=== PATIENT | male | born 1925 | race Caucasian/White ===

== ENCOUNTER 2017-09-11 17:02 | Inpatient (IN) | payer OTHER ==
[2017-09-11 17:31] VITALS: BMI 20.2
[2017-09-11 18:02] LABS: BASO % 0.8 % (0-2.0); EOS % 1.5 % (0-4.5); HEMATOCRIT 29.1 % (35.4-49); HEMOGLOBIN 9.3 GM/dL (11.7-16.9); LYMPH % 13.6 % (8-40); MCH 30.2 pg (25.7-33.7); MEAN CELL VOLUME 94.1 fl (80-96); MEAN PLT VOLUME 9.1 fl (7.5-11.1); MONO % 13.1 % (3.8-10.2); PLATELET COUNT 141 K/MM3 (134-434); RBC 3.09 M/mm3 (4.00-5.60); RDW 18.7 % (11.9-15.9); WHITE BLOOD COUNT 4.5 K/mm3 (4.0-10.0)
[2017-09-11] MEDS ORDERED: ATROPINE SULFATE 1 MG/10 ML DISP.SYRIN ONE (18:03)
[2017-09-11] MEDS ORDERED: SODIUM CHLORIDE 0.9% 1000 ML INFUS.BAG IV STA (18:22)
[2017-09-11 18:42] LABS: ALBUMIN 3.2 g/dl (3.4-5.0); ANION GAP 6 (8-16); BILIRUBIN,TOTAL 0.5 mg/dL (0.2-1.0); BLOOD UREA NITROGEN 26 mg/dL (7-18); CHLORIDE 107 mmol/L (98-107); CO2 27 mmol/L (21-32); CREATININE 1.1 mg/dL (0.7-1.3); GLUCOSE,RANDOM 85 mg/dL (74-106); POTASSIUM 4.5 mmol/L (3.5-5.1); SGOT/AST 34 U/L (15-37); SGPT/ALT 26 U/L (12-78); SODIUM 140 mmol/L (136-145); TOT PROT 6.5 g/dl (6.4-8.2)
[2017-09-11 18:44] LABS: ALK PHOS 81 U/L (45-117)
[2017-09-11] MEDS ORDERED: ATROPINE SO4 0.4 MG/1 ML VIAL IVPUSH ONE (18:50)
[2017-09-11 18:59] LABS: URINE APPEARANCE CLOUDY; URINE BILIRUBIN NEGATIVE (NEGATIVE); URINE BLOOD 3+ (NEGATIVE); URINE COLOR DKYELLOW; URINE GLUCOSE (UA) NEGATIVE (NEGATIVE); URINE KETONE NEGATIVE (NEGATIVE); URINE LEUK ESTERASE NEGATIVE (NEGATIVE); URINE NITRITE POSITIVE (NEGATIVE)
--- NOTE | 2017-09-11 19:06 | PDOC ---
History of Present Illness - General Chief Complaint: Altered Mental Status Stated Complaint: AMS Time Seen by Provider: 09/11/17 17:27 History Source: EMS Exam Limitations: Dementia - History of Present Illness Initial Comments: This is an 89 YOM with h/o dementia (on Aricept), A-fib (on Xarelto), HTN (on Amlodipine), CHF (on Lasix), COPD (DuoNebs prn), anemia (on iron), skin ulceration on his LLE, who was BIBA from [facility] for increased agitation with staff members there. Staff administered 0.5mg Ativan and called 911 to have him brought to the ED. The EMS vitals on scene were BP 105/69, HR 73 , T 97.6, O2, 95%, RR 16. The patient himself arrives lethargic and responsive only to sternal rub. Past History - Past Medical History Allergies/Adverse Reactions: Allergies Allergy/AdvReac Type Severity Reaction Status Date / Time No Known Allergies Allergy Verified 09/11/17 17:24 Cardiac Disorders: Yes (afib) COPD: No Dementia: Yes - Suicide/Smoking/Psychosocial Hx Smoking History: Unknown if ever smoked Have you smoked in the past 12 months: No Information on smoking cessation initiated: No Hx Alcohol Use: No Drug/Substance Use Hx: No Substance Use Type: None *Physical Exam - Vital Signs Last Vital Signs Temp Pulse Resp BP Pulse Ox 98 F 68 17 131/68 98 09/11/17 17:25 09/11/17 18:40 09/11/17 18:40 09/11/17 18:40 09/11/17 18:40 ED Treatment Course - LABORATORY CBC & Chemistry Diagram: 09/11/17 17:03 09/11/17 17:03 - ADDITIONAL ORDERS Additional order review: Laboratory Results 09/11/17 09/11/17 09/11/17 17:50 17:50 17:03 PT with INR INR Sodium 140 Potassium 4.5 Chloride 107 Carbon Dioxide 27 Anion Gap 6 L BUN 26 H Creatinine 1.1 Creat Clearance w eGFR > 60 POC Glucometer 120.42137 Random Glucose 85 Calcium 8.0 L Total Bilirubin 0.5 AST 34 ALT 26 Alkaline Phosphatase 81 Creatine Kinase 177 Troponin I 0.03 Total Protein 6.5 Albumin 3.2 L TSH 2.94 09/11/17 17:03 PT with INR Cancelled INR Cancelled Sodium Potassium Chloride Carbon Dioxide Anion Gap BUN Creatinine Creat Clearance w eGFR POC Glucometer Random Glucose Calcium Total Bilirubin AST ALT Alkaline Phosphatase Creatine Kinase Troponin I Total Protein Albumin TSH 09/11/17 09/11/17 17:50 17:03 RBC 3.09 L MCV 94.1 MCHC 32.0 RDW 18.7 H MPV 9.1 Neutrophils % 71.0 Lymphocytes % 13.6 Monocytes % 13.1 H Eosinophils % 1.5 Basophils % 0.8 POC Glucometer 120.48505 - RADIOLOGY Radiology Studies Ordered: Category Date Time Status CHEST X-RAY PORTABLE* [RAD] Stat Radiology 09/11/17 17:27 Ordered - Medications Given in the ED: ED Medications Discontinued Medications Generic Name Dose Route Start Last Admin Trade Name Freq PRN Reason Stop Dose Admin Sodium Chloride 1,706 ml 09/11/17 18:22 09/11/17 18:38 Normal Saline - 30 ml/kg (1706 ml) 09/11/17 18:23 1,706 ml IV Administration ONCE STA *DC/Admit/Observation/Transfer - Referrals Referrals: Jerel Bartlett MD [Primary Care Provider] - - Patient Instructions - Post Discharge Activity
--- NOTE | 2017-09-11 19:17 | PDOC ---
*Physical Exam - Vital Signs Last Vital Signs Temp Pulse Resp BP Pulse Ox 98 F 68 17 131/68 98 09/11/17 17:25 09/11/17 18:40 09/11/17 18:40 09/11/17 18:40 09/11/17 18:40 - Physical Exam Comments: 09/11/17 23:00 GENERAL: Awake, alert, and disoriented . HEAD: No signs of trauma, normocephalic, atraumatic EYES: PERRLA, EOMI, sclera anicteric, conjunctiva clear ENT: Auricles normal inspection, hearing grossly normal, nares patent, oropharynx clear without exudates. Moist mucosa NECK: Normal ROM, supple, no lymphadenopathy, JVD, or masses LUNGS: No distress, speaks full sentences, clear to auscultation bilaterally HEART: Irregular rate and rhythm, normal S1 and S2, no murmurs, rubs or gallops , peripheral pulses normal and equal bilaterally. ABDOMEN: Soft, Suprapubic ttp. normoactive bowel sounds. No guarding, no rebound. No masses. Neg CVA ttp. Absent rigidity. EXTREMITIES : Normal inspection, Normal range of motion, no edema. No clubbing or cyanosis. NEUROLOGICAL: Cranial nerves II through XII grossly intact. Normal speech, normal gait, no focal sensorimotor deficits SKIN: Warm, Dry, normal turgor, no rashes or lesions noted. ED Treatment Course - LABORATORY CBC & Chemistry Diagram: 09/11/17 17:03 09/11/17 17:03 - ADDITIONAL ORDERS Additional order review: Laboratory Results 09/11/17 09/11/17 09/11/17 17:50 17:50 17:03 PT with INR INR Sodium 140 Potassium 4.5 Chloride 107 Carbon Dioxide 27 Anion Gap 6 L BUN 26 H Creatinine 1.1 Creat Clearance w eGFR > 60 POC Glucometer 120.03938 Random Glucose 85 Calcium 8.0 L Total Bilirubin 0.5 AST 34 ALT 26 Alkaline Phosphatase 81 Creatine Kinase 177 Creatine Kinase Index 3.7 CK-MB (CK-2) 6.598 H Troponin I 0.03 Total Protein 6.5 Albumin 3.2 L TSH 2.94 09/11/17 17:03 PT with INR Cancelled INR Cancelled Sodium Potassium Chloride Carbon Dioxide Anion Gap BUN Creatinine Creat Clearance w eGFR POC Glucometer Random Glucose Calcium Total Bilirubin AST ALT Alkaline Phosphatase Creatine Kinase Creatine Kinase Index CK-MB (CK-2) Troponin I Total Protein Albumin TSH 09/11/17 09/11/17 17:50 17:03 RBC 3.09 L MCV 94.1 MCHC 32.0 RDW 18.7 H MPV 9.1 Neutrophils % 71.0 Lymphocytes % 13.6 Monocytes % 13.1 H Eosinophils % 1.5 Basophils % 0.8 POC Glucometer 120.94981 - Medications Given in the ED: ED Medications Discontinued Medications Generic Name Dose Route Start Last Admin Trade Name Althea PRN Reason Stop Dose Admin Sodium Chloride 1,706 ml 09/11/17 18:22 09/11/17 18:38 Normal Saline - 30 ml/kg (1706 ml) 09/11/17 18:23 1,706 ml IV Administration ONCE STA Medical Decision Making - Medical Decision Making 09/11/17 19:[address] Mcneil 89 yo M with h/o Alzheimers dementia, HTN, A-fib ( anticoagulation), who arrives from [facility] with increased agitation s/p 0.5 mg Ativan, who arrives with HR~30's after being found only responsive to sternal . On physical exam large amount of BRB in briefs. ED Course so far atropine ( 0.5mg ), with no improvement. Pt. stable. Labs and head CT pending. Will consult cardiology. Hospitalist covers for [facility]. ED Course: 09/11/17 19:38 CBC, CMP: Unremarkable UA:3+ blood, Nitrite + , 137 WBC, 432 rbc EKG: A-fib, with diffuse PVC's . 09/11/17 23:09 Pt. Admitted to Tele inpatient per Dr. Amanda Hines. *DC/Admit/Observation/Transfer Diagnosis at time of Disposition: Bradycardia, Sepsis secondary to UTI - Discharge Dispostion Admit: Yes - Referrals Referrals: Jerel Bartlett MD [Primary Care Provider] - - Patient Instructions - Post Discharge Activity
--- NOTE | 2017-09-11 19:24 | PDOC ---
Attending Attestation - Resident Resident Name: mAisha Mcneil - ED Attending Attestation I have performed the following: I have examined & evaluated the patient, The case was reviewed & discussed with the resident, I agree w/resident's findings & plan, Exceptions are as noted - Physicial Exam PE: 09/11/17 19:20 Patient is frail-appearing, afebrile, bradycardic; patient localizes to sternal rub nc, atr mm-dry cta Bradycardic, irregularly irregular; sft, nt, nd no obvious deformity; - Medical Decision Making 09/11/17 19:22 Patient is a frail-appearing 89-year-old male for to the ER from [facility] for agitation. Patient received Ativan prior to arrival. In the ER , patient is lethargic, localizes to sternal rub, afebrile, with heart rate noted to be in the high 30s/low 40s. EKG reveals atrial fibrillation with an underlying rhythm of 44 with infrequent ventricular ectopy. Differential diagnoses includes sepsis versus ACS versus polypharmacy. There is no evidence that patient is on digoxin/beta román/calcium channel román. A trial of atropine failed to increase the patient's heart rate. There is no indication for transcutaneous pacing at this time of the patient's blood pressure has maintained above 120s over 80s. Transcutaneous pacemaker is available at bedside. We'll judiciously hydrate. We'll obtain CBC/CMP/cardiac profile/UA/ urine culture. Will obtain CT of head to rule out intracranial hemorrhage. We' ll consider dopamine/epinephrine if the patient's clinical condition deteriorates. Will consult cardiology for transvenous pacemaker placement. Will reassess. Likely admission. 09/11/17 20:00 Patient reassessed. Patient is appearing more awake, nonverbal, doesn't follow commands, attempting to remove Brown catheter and get off the stretcher. Verbal intervention is failed to stop the patient's actions. Wrist restraints and a fast have been applied for prevention of self-harm. Heart rate is noted to be 78. Rhythm strip reveals ventricular bigeminy. Awaiting head CT. <Franki Bergman - Last Filed: 09/11/17 20:00> - HPI HPI: 09/11/17 19:31 The patient is an 89 year old male with significant history of hypertension, atrial fibrillation, CHF, and dementia sent from [facility] after becoming agitated today. Per CT records, the patient was given Ativan for his agitation prior to be sent to the ED. He arrives to the ED bradycardic and appearing generally weak. Remainder of history limited secondary to clinical condition. - Medical Decision Making 09/11/17 19:57 Documentation prepared by Alanis Givens, acting as medical office scheduler for Franki Bergman MD. <Alanis Givens - Last Filed: 09/11/17 21:51>
[2017-09-11 19:43] LABS: URINE PROTEIN 1+ (NEGATIVE)
[2017-09-11 19:44] LABS: URINE BACTERIA MODERATE /hpf (NONE SEEN); URINE HYALINE CAST 8 /lpf; URINE MUCUS FEW
[2017-09-11 19:50] LABS: VENOUS PC02 50.3 mmHg (38-52); VENOUS PH 7.34 (7.32-7.42); VENOUS PO2 33.1 mmHg (28-48)
[2017-09-11] MEDS ORDERED: PIPERACIL/TAZOB 3.375 GM 3.375 GM/50 ML PREMIX IVPB ONE (20:02)
[2017-09-11] MEDS ORDERED: PIPERACILLIN/TAZOB 3.375 GM 3.375 GM/50 ML BAG IVPB ONE (20:14)
[2017-09-11] MEDS ORDERED: PIPERACILLIN/TAZOB 3.375 GM 3.375 GM in DEXTROSE 5%-WATER - 100 ML IVPB ONE (20:15)
--- NOTE | 2017-09-11 23:10 | PN ---
Teaching Attending Note Name of Resident: Mauricio Connor ATTENDING PHYSICIAN STATEMENT I saw and evaluated the patient. I reviewed the resident's note and discussed the case with the resident. I agree with the resident's findings and plan as documented. SUBJECTIVE: 89 M with hx. of dementia, A-Fib (On Xarelto), HTN, CHF, COPD, anemia, ulceration of LLE who presented fro [facility] with increased agitatin. He recieved 0.5 mg of Ativan at the [place] before arrival. IN ED had bradycardia to 30' s and was given atrophine with improvement. OBJECTIVE: Physical: VS: Vital Signs Period Temp Pulse Resp BP Sys/Vega Pulse Ox Last 24 Hr 98 F 51-85 17-20 110-131/51-76 98-98 GEN: Appears agitated, AAOX0 HEENT: NCAT, PERRl, throat without erythema or exudates, poor dentition CARD: S Stas S1, S2 RESP: Decreased BS at bases ABD: BSx4, NTD to palpation EXT: - C/C/E, LLE wound, healed CBCD WBC 4.5 K/mm3 (4.0-10.0) 09/11/17 17:03 RBC 3.09 M/mm3 (4.00-5.60) L 09/11/17 17:03 Hgb 9.3 GM/dL (11.7-16.9) L 09/11/17 17:03 Hct 29.1 % (35.4-49) L 09/11/17 17:03 MCV 94.1 fl (80-96) 09/11/17 17:03 MCHC 32.0 g/dl (32.0-35.9) 09/11/17 17:03 RDW 18.7 % (11.9-15.9) H 09/11/17 17:03 Plt Count 141 K/MM3 (134-434) 09/11/17 17:03 MPV 9.1 fl (7.5-11.1) 09/11/17 17:03 CMP Sodium 140 mmol/L (136-145) 09/11/17 17:03 Potassium 4.5 mmol/L (3.5-5.1) 09/11/17 17:03 Chloride 107 mmol/L (98-107) 09/11/17 17:03 Carbon Dioxide 27 mmol/L (21-32) 09/11/17 17:03 Anion Gap 6 (8-16) L 09/11/17 17:03 BUN 26 mg/dL (7-18) H 09/11/17 17:03 Creatinine 1.1 mg/dL (0.7-1.3) 09/11/17 17:03 Creat Clearance w eGFR > 60 (>60) 09/11/17 17:03 Random Glucose 85 mg/dL (74-106) 09/11/17 17:03 Calcium 8.0 mg/dL (8.5-10.1) L 09/11/17 17:03 Total Bilirubin 0.5 mg/dL (0.2-1.0) 09/11/17 17:03 AST 34 U/L (15-37) 09/11/17 17:03 ALT 26 U/L (12-78) 09/11/17 17:03 Alkaline Phosphatase 81 U/L (45-117) 09/11/17 17:03 Total Protein 6.5 g/dl (6.4-8.2) 09/11/17 17:03 Albumin 3.2 g/dl (3.4-5.0) L 09/11/17 17:03 CARDIAC ENZYMES Creatine Kinase 177 IU/L (39-308) 09/11/17 17:03 Troponin I 0.03 ng/ml (0.00-0.05) 09/11/17 17:03 Urine Test Results Urine Color Dkyellow 09/11/17 18:00 Urine Appearance Cloudy 09/11/17 18:00 Urine pH 5.0 (5.0-8.0) 09/11/17 18:00 Ur Specific Joes 1.019 (1.001-1.035) 09/11/17 18:00 Urine Protein 1+ (NEGATIVE) H 09/11/17 18:00 Urine Glucose (UA) Negative (NEGATIVE) 09/11/17 18:00 Urine Ketones Negative (NEGATIVE) 09/11/17 18:00 Urine Blood 3+ (NEGATIVE) H 09/11/17 18:00 Urine Nitrite Positive (NEGATIVE) 09/11/17 18:00 Urine Bilirubin Negative (NEGATIVE) 09/11/17 18:00 Ur Leukocyte Esterase Negative (NEGATIVE) 09/11/17 18:00 Urine Bacteria Moderate /hpf (NONE SEEN) 09/11/17 18:00 Urine Mucus Few 09/11/17 18:00 EKG: RBB Stas CXR- Vague Opacity RML could be acute or chronic- FU Xray CT HEAD- Chronic R. MCA Infarct, Age related volume loss, with mild- moderate microvascular ischemic changes in cerebral white matter. ASSESSMENT AND PLAN: 89 M with hx. of dementia, A-Fib (On Xarelto), HTN, CHF, COPD, anemia, ulceration of LLE who presented [facility] with increased agitation, found to have a UTI and Pneumonia 1.) AMS - Most likely due to UTI - U cx/ Blood cx - ? HCAP - VANCO/Zosyn - [place] - U AG - Influenza PENDING 2.) Hx. OF Afib/Bradycardia - Pt. Not on any BB - Echo - Trend Trop/EKG - Transcutaneous Pace Pads 3.) Afib - Hold Digoxin - 4.) CHF 5.) COPD - Nebs prn - C/w Home meds
[2017-09-12] MEDS ORDERED: ALBUTEROL SO4 2.5/IPRATROPIUM 0.5 INH SOL 3 ML VIAL.NEB. NEB PRN (01:25)
--- NOTE | 2017-09-12 01:26 | HP ---
CHIEF COMPLAINT: AMS from [facility] PCP: HISTORY OF PRESENT ILLNESS: Pt is an 89 y/o M w/ PMH Afib, Dementia, Prior CVA, HTN, CHF, COPD, Anemia who was sent from [facility] because of increased agitation. Pt was given Ativan at [place] but symptoms did not resolve. On arrival in ED, pt was reportedly unresponsive to voice and localized to sternal rub. Pt was found to have HR in the 30s-40s without any evidence of beta román/CCB/Digoxin use. EKG was done, which revealed slow Afib with PVCs. Atropine was given without obvious improvement, however, at some point, the patient did convert to ventricular bigemini and became more responsive. At the time of my exam, pt was awake but unresponsive to verbal commands. Pt would look around and speak in full sentences, but would not make eye contact or address any person directly. BP has been stable despite bradycardia. ER course was notable for: (1) unremarkable labs apart from UA with Nitrite, 137 WBC, 432 RBC, 3+ blood (2) EKG: slow afib with PVCs then Ventricular bigemini. CXR cardiomegally, possible R sided PNA (3) atropine trial Recent Travel: pt unresponsive PAST MEDICAL HISTORY: Afib, Dementia, Prior CVA, HTN, CHF, COPD, Anemia PAST SURGICAL HISTORY: Social History: unable to obtain Family History: unable to obtain Allergies No Known Allergies Allergy (Verified 09/11/17 17:24) HOME MEDICATIONS: REVIEW OF SYSTEMS unable to obtain PHYSICAL EXAMINATION Vital Signs - 24 hr 09/11/17 09/11/17 09/11/17 17:03 17:25 18:40 Temperature 98 F Pulse Rate 85 Pulse Rate [ 51 L 68 Left Radial] Respiratory 17 20 17 Rate Blood Pressure 110/51 Blood Pressure 128/76 131/68 [Right] O2 Sat by Pulse 98 98 98 Oximetry (%) Limited exam. Pt was difficult to assess. GENERAL: Awake, alert, and fully oriented, in no acute distress. HEAD: Normal with no signs of trauma. EYES: Pupils equal, round and reactive to light. sclera anicteric, conjunctiva clear EARS, NOSE, THROAT: Moist mucous membranes. NECK: Normal range of motion, mild JVD. No bruits. supple without lymphadenopathy, , or masses. LUNGS: Difficult to auscultate. clear to auscultation bilaterally. HEART: Regular rate and rhythm, normal S1 and S2 without murmur, rub or gallop. ABDOMEN: Soft, not distended, normoactive bowel sounds, no guarding, no rebound , no masses. No hepatomegaly or splenomegaly. MUSCULOSKELETAL: Normal range of motion at all joints. No bony deformities or tenderness. No CVA tenderness. UPPER EXTREMITIES: 2+ pulses, warm, well-perfused. No cyanosis. No clubbing. No peripheral edema. LOWER EXTREMITIES: stasis dermatitis. 2+ pulses, warm. No edema NEUROLOGICAL: unable to assess PSYCHIATRIC: unable to assess SKIN: legs with stasis changes. Warm, dry, normal turgor, no rashes or lesions noted, normal capillary refill. Laboratory Results - last 24 hr 09/11/17 09/11/17 09/11/17 17:03 17:03 17:03 WBC 4.5 RBC 3.09 L Hgb 9.3 L Hct 29.1 L MCV 94.1 MCH 30.2 MCHC 32.0 RDW 18.7 H Plt Count 141 MPV 9.1 Neutrophils % 71.0 Lymphocytes % 13.6 Monocytes % 13.1 H Eosinophils % 1.5 Basophils % 0.8 PT with INR Cancelled INR Cancelled VBG pH POC VBG pCO2 POC VBG pO2 Mixed VBG HCO3 Sodium 140 Potassium 4.5 Chloride 107 Carbon Dioxide 27 Anion Gap 6 L BUN 26 H Creatinine 1.1 Creat Clearance w eGFR > 60 POC Glucometer Random Glucose 85 Lactic Acid Calcium 8.0 L Magnesium Total Bilirubin 0.5 AST 34 ALT 26 Alkaline Phosphatase 81 Creatine Kinase 177 Creatine Kinase Index 3.7 CK-MB (CK-2) 6.598 H Troponin I 0.03 Total Protein 6.5 Albumin 3.2 L TSH Urine Color Urine Appearance Urine pH Ur Specific [place] Urine Protein Urine Glucose (UA) Urine Ketones Urine Blood Urine Nitrite Urine Bilirubin Urine Urobilinogen Ur Leukocyte Esterase Urine WBC (Auto) Urine RBC (Auto) Urine Bacteria Hyaline Casts Urine Mucus Blood Type Antibody Screen 09/11/17 09/11/17 09/11/17 17:03 17:50 17:50 WBC RBC Hgb Hct MCV MCH MCHC RDW Plt Count MPV Neutrophils % Lymphocytes % Monocytes % Eosinophils % Basophils % PT with INR INR VBG pH POC VBG pCO2 POC VBG pO2 Mixed VBG HCO3 Sodium Potassium Chloride Carbon Dioxide Anion Gap BUN Creatinine Creat Clearance w eGFR POC Glucometer 120.10101 Random Glucose Lactic Acid Calcium Magnesium Total Bilirubin AST ALT Alkaline Phosphatase Creatine Kinase Creatine Kinase Index CK-MB (CK-2) Troponin I Total Protein Albumin TSH 2.94 Urine Color Urine Appearance Urine pH Ur Specific [place] Urine Protein Urine Glucose (UA) Urine Ketones Urine Blood Urine Nitrite Urine Bilirubin Urine Urobilinogen Ur Leukocyte Esterase Urine WBC (Auto) Urine RBC (Auto) Urine Bacteria Hyaline Casts Urine Mucus Blood Type O POSITIVE Antibody Screen Negative 09/11/17 09/11/17 09/11/17 18:00 18:00 18:00 WBC RBC Hgb Hct MCV MCH MCHC RDW Plt Count MPV Neutrophils % Lymphocytes % Monocytes % Eosinophils % Basophils % PT with INR INR VBG pH POC VBG pCO2 POC VBG pO2 Mixed VBG HCO3 Sodium Potassium Chloride Carbon Dioxide Anion Gap BUN Creatinine Creat Clearance w eGFR POC Glucometer Random Glucose Lactic Acid 1.3 Calcium Magnesium Total Bilirubin AST ALT Alkaline Phosphatase Creatine Kinase Creatine Kinase Index CK-MB (CK-2) Troponin I Total Protein Albumin TSH Urine Color Dkyellow Urine Appearance Cloudy Urine pH 5.0 Ur Specific [place] 1.019 Urine Protein 1+ H Urine Glucose (UA) Negative Urine Ketones Negative Urine Blood 3+ H Urine Nitrite Positive Urine Bilirubin Negative Urine Urobilinogen 2.0 Ur Leukocyte Esterase Negative Urine WBC (Auto) 137 Urine RBC (Auto) 432 Urine Bacteria Moderate Hyaline Casts 8 Urine Mucus Few Blood Type O POSITIVE Antibody Screen Negative 09/11/17 09/11/17 18:53 19:30 WBC RBC Hgb Hct MCV MCH MCHC RDW Plt Count MPV Neutrophils % Lymphocytes % Monocytes % Eosinophils % Basophils % PT with INR INR VBG pH 7.34 POC VBG pCO2 50.3 POC VBG pO2 33.1 Mixed VBG HCO3 26.7 H Sodium Potassium Chloride Carbon Dioxide Anion Gap BUN Creatinine Creat Clearance w eGFR POC Glucometer Random Glucose Lactic Acid Calcium Magnesium 2.5 H Total Bilirubin AST ALT Alkaline Phosphatase Creatine Kinase Creatine Kinase Index CK-MB (CK-2) Troponin I Total Protein Albumin TSH Urine Color Urine Appearance Urine pH Ur Specific [place] Urine Protein Urine Glucose (UA) Urine Ketones Urine Blood Urine Nitrite Urine Bilirubin Urine Urobilinogen Ur Leukocyte Esterase Urine WBC (Auto) Urine RBC (Auto) Urine Bacteria Hyaline Casts Urine Mucus Blood Type Antibody Screen ASSESSMENT/PLAN: Pt is an 89 y/o M with PMH Afib, Dementia, Prior CVA, HTN, CHF, COPD, Anemia who was sent from [facility] for agitation. Pt found to be bradycardic with abnormal rhythm in ED. #Bradycardia -Pt currently in Ventricular bigemini -BP stable -Tele -Cardio consult -Echo #Possible PNA -CXR showing cardiomegally and possible PNA -Vanc/Zosyn empiric coverage -Urine Ag #UTI -coverage with Vanc/Zosyn #CHF -no clinical signs of overload. No pitting edema. No lung crackles appreciated. Mild JVD. O2 sat 98 on RA. -monitor #COPD -duonebs PRN #FEN -Not on fluids -lytes wnl -NPO 2/2 AMS #PPx -Hep Sub Q #Dispo -Admit to Tele Mo Porras MD PGY-1 IM Visit type - Emergency Visit Emergency Visit: Yes ED Registration Date: 09/11/17 Care time: The patient presented to the Emergency Department on the above date and was hospitalized for further evaluation of their emergent condition. - New Patient This patient is new to me today: Yes Date on this admission: 09/12/17 - Critical Care Critical Care patient: No
[2017-09-12] MEDS ORDERED: VANCOMYCIN 1,250 MG in SODIUM CHLORIDE 250 ML IVPB ONE (02:00)
[2017-09-12] MEDS ORDERED: PIPERACILLIN/TAZOB 2.25 GM 2.25 GM in DEXTROSE 5%-WATER - 100 ML IVPB ONE (02:00)
[2017-09-12] MEDS ORDERED: PIPERACILLIN/TAZOBACTAM 2.25 GM VIAL IVPB ONE (02:09)
[2017-09-12 06:32] LABS: BASO % 0.5 % (0-2.0); EOS % 0.2 % (0-4.5); HEMATOCRIT 31.7 % (35.4-49); HEMOGLOBIN 10.1 GM/dL (11.7-16.9); LYMPH % 8.5 % (8-40); MCH 30.3 pg (25.7-33.7); MCHC 31.9 g/dl (32.0-35.9); MEAN CELL VOLUME 94.7 fl (80-96); MEAN PLT VOLUME 9.3 fl (7.5-11.1); NEUT % 82.8 % (42.8-82.8); PLATELET COUNT 157 K/MM3 (134-434); RBC 3.34 M/mm3 (4.00-5.60); RDW 18.7 % (11.9-15.9); WHITE BLOOD COUNT 7.5 K/mm3 (4.0-10.0)
[2017-09-12] MEDS ORDERED: HEPARIN NA (PORCINE) 5,000 UNITS/ML 1ML VIAL ONE (06:48)
[2017-09-12 06:59] LABS: ALBUMIN 3.3 g/dl (3.4-5.0); ANION GAP 8 (8-16); BLOOD UREA NITROGEN 25 mg/dL (7-18); CALCIUM 8.9 mg/dL (8.5-10.1); CHLORIDE 108 mmol/L (98-107); CO2 27 mmol/L (21-32); GLUCOSE,RANDOM 75 mg/dL (74-106); MAGNESIUM 2.5 mg/dL (1.8-2.4); POTASSIUM 4.2 mmol/L (3.5-5.1); SGOT/AST 40 U/L (15-37); SODIUM 143 mmol/L (136-145)
[2017-09-12] MEDS: HEPARIN NA (PORCINE) 5,000 UNITS/ML 1ML VIAL SQ SCH ×3 (07:01→21:32)
[2017-09-12 07:02] LABS: ALK PHOS 91 U/L (45-117); BILIRUBIN,TOTAL 0.9 mg/dL (0.2-1.0); CREATININE 1.1 mg/dL (0.7-1.3); SGPT/ALT 28 U/L (12-78); TOT PROT 7.1 g/dl (6.4-8.2)
[2017-09-12] MEDS ORDERED: ALBUTEROL SO4 2.5/IPRATROPIUM 0.5 INH SOL 3 ML VIAL.NEB. NEB ONE (10:33)
--- NOTE | 2017-09-12 12:00 | EKG ---
Test Reason : Blood Pressure : / mmHG Vent. Rate : 056 BPM Atrial Rate : 056 BPM P-R Int : 222 ms QRS Dur : 110 ms QT Int : 462 ms P-R-T Axes : 000 079 266 degrees QTc Int : 445 ms SINUS BRADYCARDIA WITH MARKED SINUS ARRHYTHMIA WITH 1ST DEGREE A-V BLOCK WITH PREMATURE SUPRAVENTRICULAR COMPLEXES WITH VENTRICULAR ESCAPE COMPLEXES SEPTAL INFARCT (CITED ON OR BEFORE 11-SEP-2017) MARKED ST ABNORMALITY, POSSIBLE ANTERIOR SUBENDOCARDIAL INJURY ABNORMAL ECG WHEN COMPARED WITH ECG OF 11-SEP-2017 17:38, PREVIOUS ECG HAS UNDETERMINED RHYTHM, NEEDS REVIEW RIGHT BUNDLE BRANCH BLOCK IS NO LONGER PRESENT QUESTIONABLE CHANGE IN INITIAL FORCES OF ANTEROSEPTAL LEADS Confirmed by MILI COOK, PAULETTE ([id number]) on 09/12/2017 11:59:22 AM Referred By: Confirmed By:PAULETTE GARCES MD
--- NOTE | 2017-09-12 12:08 | PN ---
Progress Note, Physician Chief Complaint: pt lying in bed in no acute distress, slightly lethargic, arousable upon verbal command. denies chest pain, sob, n/v/d or fever/chills - Current Medication List Current Medications: Active Medications Albuterol/Ipratropium (Duoneb -) 1 amp NEB Q6H PRN PRN Reason: SHORTNESS OF BREATH Last Admin: 09/12/17 08:16 Dose: 1 amp Heparin Sodium (Porcine) (Heparin -) 5,000 unit SQ TID MARGARITA Last Admin: 09/12/17 07:01 Dose: 5,000 unit - Objective Vital Signs: Vital Signs Temperature 98.4 F 09/12/17 09:58 Pulse Rate 56 L 09/12/17 11:00 Respiratory Rate 16 09/12/17 11:00 Blood Pressure 127/52 09/12/17 11:00 O2 Sat by Pulse Oximetry (%) 96 09/12/17 11:00 Constitutional: Yes: No Distress Cardiovascular: Yes: Pulse Irregular. No: Murmur Respiratory: Yes: Regular, CTA Bilaterally, Diminished Gastrointestinal: Yes: WNL, Normal Bowel Sounds, Soft. No: Distention, Tenderness Edema: No Neurological: Yes: Confusion, Lethargy Labs: CBC, BMP 09/12/17 06:00 09/12/17 06:00 INR, PTT INR Cancelled 09/11/17 17:03 - ....Imaging Chest X-ray: Report Reviewed EKG: Report Reviewed Problem List - Problems (1) Bradycardia Assessment/Plan: HR 30-40s overnight, pt received atropine with improvement during the day, pt became jim to 30-40s without hemodynamic compromise, bp stable, pt arousable. atropine 1mg given with improvement case discussed with cardiology Code(s): R00.1 - BRADYCARDIA, UNSPECIFIED (2) Altered mental status Assessment/Plan: secondary to uti treat underlying illness and monitor for improvement Code(s): R41.82 - ALTERED MENTAL STATUS, UNSPECIFIED Qualifiers: Altered mental status type: disorientation Qualified Code(s): R41.0 - Disorientation, unspecified (3) UTI (urinary tract infection) Assessment/Plan: UA nitrite positive, adorno inserted in ed, blood tinged urine continue zosyn and vanco Code(s): N39.0 - URINARY TRACT INFECTION, SITE NOT SPECIFIED (4) Dementia Assessment/Plan: stable npo pending speech eval Code(s): F03.90 - UNSPECIFIED DEMENTIA WITHOUT BEHAVIORAL DISTURBANCE Qualifiers: Dementia type: Alzheimer's disease (5) HTN (hypertension) Assessment/Plan: stable holding home meds for now Code(s): I10 - ESSENTIAL (PRIMARY) HYPERTENSION Qualifiers: Hypertension type: essential hypertension Qualified Code(s): I10 - Essential (primary) hypertension (6) Afib Assessment/Plan: chronic hold xarelto, npo pendin speech heparin sq tid cardiology consulted Code(s): I48.91 - UNSPECIFIED ATRIAL FIBRILLATION Qualifiers: Atrial fibrillation type: chronic Qualified Code(s): I48.2 - Chronic atrial fibrillation (7) Frequent falls Assessment/Plan: head ct neg Code(s): R29.6 - REPEATED FALLS (8) Anemia Assessment/Plan: chronic iron def anemia h/h stable will monitor Code(s): D64.9 - ANEMIA, UNSPECIFIED Qualifiers: Anemia type: iron deficiency (9) COPD (chronic obstructive pulmonary disease) Assessment/Plan: chronic continue duonebs Code(s): J44.9 - CHRONIC OBSTRUCTIVE PULMONARY DISEASE, UNSPECIFIED Assessment/Plan Spoke to Son, Singh, regarding code status. Pt made DNR/DNI per family wishes.
--- NOTE | 2017-09-12 12:08 | EKG ---
Test Reason : Blood Pressure : / mmHG Vent. Rate : 044 BPM Atrial Rate : 046 BPM P-R Int : 000 ms QRS Dur : 148 ms QT Int : 506 ms P-R-T Axes : 000 070 000 degrees QTc Int : 432 ms ATRIAL FIBRILLATION WITH SLOW VENTRICULAR RESPONSE WITH PREMATURE VENTRICULAR OR ABERRANTLY CONDUCTED COMPLEXES RIGHT BUNDLE BRANCH BLOCK MINIMAL VOLTAGE CRITERIA FOR LVH, MAY BE NORMAL VARIANT ANTEROSEPTAL INFARCT , AGE UNDETERMINED ABNORMAL ECG NO PREVIOUS ECGS AVAILABLE Confirmed by MILI COOK, PAULETTE ([id number]) on 09/12/2017 12:08:14 PM Referred By: Confirmed By:PAULETTE GARCES MD
[2017-09-12] MEDS ORDERED: ATROPINE SULFATE 1 MG/10 ML DISP.SYRIN IVPUSH ONE (14:22)
[2017-09-12] MEDS ORDERED: PIPERACILLIN/TAZOB 3.375 GM/50 ML PRE-DOCKED IVPB ONE (15:47)
[2017-09-12] MEDS ORDERED: VANCOMYCIN 1,250 MG in DEXTROSE 5%-WATER - 250 ML IVPB ONE ×2 (16:00→21:45)
[2017-09-12] MEDS ORDERED: PIPERACILLIN/TAZOB 3.375 GM 3.375 GM in DEXTROSE 5%-WATER - 100 ML IVPB ONE ×2 (16:00→21:45)
[2017-09-12] MEDS ORDERED: SODIUM CHLORIDE 1,000 ML IV SCH (16:30)
--- NOTE | 2017-09-12 20:23 | CON.CARD ---
Cardiology Consult (text) - Consultation Consultation Note: CC: bradycardia 89 y/o M w/ PMH Afib on xarelto, Dementia, Prior CVA, HTN, CHF, COPD, Anemia who was sent from [facility] because of increased agitation/personality change. assisted notes report that in addition to ongoing memory deficits, he was recently agitated and combative which was not typical of his normal behavior. Described as walking through the halls cursing at staff, refusing care. Physical aggression was also noted, (including throwing a table at staff). During this time he was also noted to have unwitnessed fall. Was described as being found on the floor, did not appear to have hit his head. Patient was sedated with ativan prior to transfer. On arrival to the ER he was hemodynamically stable, but noted to be in afib with SVR. Atropine was given without significant change in heart rate. In ER he remained confused and intermittently agitated as well as intermittently lethargic. Again today he was noted to be in SVR. Per report, tele monitoring notable for HR's in the 40's. Was hemodynamically stable but more lethargic, again given atropine without effect. In ER also given IVF and abx. On evaluation, unable to obtain hx. patient difficult to understand and not oriented. He is alert, conversational and easily arousable but with frequent episodes of altered state (unclear if falling asleep or if he is having a neurologic episode - these moments are associated with tremor/jerking movements of the upper extremities vs. intentional resistance to restraints). Easily aroused from this state. denies discomfort including cp, sob, palps, dizziness, orthopnea, pnd, le edema. no report of recent illness f/c/s, n/v/d, cough, congestion, rash. ROS limited due to patient's dementia. pmhx/pshx: per hpi social hx: former smoker, dnr/dni fam hx: unable to obtain ros per hpi Ambulatory Orders Aa/Hydrolyzed Collagen, Whey [Lps 15-30 Liquid] 960 ml PO DAILY 09/12/17 Acetaminophen 325 mg PO PRN PRN 09/12/17 Albuterol 2.5/Ipratropium 0.5 [Duoneb -] 1 neb NEB Q4H 09/12/17 Amlodipine Besylate 5 mg PO DAILY 09/12/17 Ascorbate Calcium [Vitamin C] 500 mg PO DAILY 09/12/17 Aspirin [ASA -] 81 mg PO DAILY 09/12/17 Chlorpheniramine/Dextromethorp [Robitussin Long-Acting Liq] 20 ml PO PRN PRN 03/22 Donepezil HCl [Aricept] 5 mg PO DAILY 09/12/17 Famotidine 20 mg PO DAILY 09/12/17 Ferrous Sulfate 325 mg PO DAILY 09/12/17 Furosemide [Lasix -] 40 mg PO DAILY 09/12/17 Lactose-Reduced Food [Ensure Plus] 237 ml PO TID 09/12/17 Oxymetazoline 0.05% Nasal Soln [Afrin -] 1 spray NS DAILY PRN 09/12/17 Rivaroxaban [Xarelto -] 15 mg PO DAILY 09/12/17 Current Medications Albuterol/Ipratropium (Duoneb -) 1 amp NEB Q6H PRN PRN Reason: SHORTNESS OF BREATH Last Admin: 09/12/17 08:16 Dose: 1 amp Heparin Sodium (Porcine) (Heparin -) 5,000 unit SQ TID [facility] Last Admin: 09/12/17 14:01 Dose: 5,000 unit Sodium Chloride (Normal Saline -) 1,000 mls @ 50 mls/hr IV ASDIR [facility] Vital Signs - 24 hr 09/12/17 09/12/17 09/12/17 07:12 08:06 09:58 Temperature 98.6 F 98.4 F Pulse Rate 75 Pulse Rate [ 78 72 61 Left Radial] Respiratory 18 16 16 Rate Blood Pressure 137/109 Blood Pressure 145/89 137/109 141/55 [Right] O2 Sat by Pulse 94 L 97 97 Oximetry (%) 09/12/17 09/12/17 09/12/17 10:00 10:20 10:58 Temperature Pulse Rate Pulse Rate [ 65 52 L 51 L Left Radial] Respiratory 16 16 16 Rate Blood Pressure Blood Pressure 141/55 143/65 149/58 [Right] O2 Sat by Pulse 96 96 96 Oximetry (%) 09/12/17 09/12/17 09/12/17 11:00 12:00 13:41 Temperature Pulse Rate Pulse Rate [ 56 L 54 L 54 L Left Radial] Respiratory 16 16 16 Rate Blood Pressure Blood Pressure 127/52 112/58 131/50 [Right] O2 Sat by Pulse 96 97 100 Oximetry (%) 09/12/17 09/12/17 09/12/17 14:10 14:47 15:00 Temperature 97.8 F 97.6 F Pulse Rate Pulse Rate [ 42 L 67 57 L Left Radial] Respiratory 16 16 16 Rate Blood Pressure Blood Pressure 130/50 148/67 154/64 [Right] O2 Sat by Pulse 100 100 97 Oximetry (%) 09/12/17 17:00 Temperature 98.2 F Pulse Rate 54 L Pulse Rate [ Left Radial] Respiratory 16 Rate Blood Pressure 148/49 Blood Pressure [Right] O2 Sat by Pulse Oximetry (%) Intake & Output 09/10/17 09/11/17 09/12/17 09/13/17 07:59 07:59 07:59 07:59 Weight 125 lb 6.4 oz nad, calm alert but intermittently lethargic, not oriented bibasilar rales, poor effort irregular rhythm, nl s1, s2. + 2/6 sys murmur at lsb. ND PMI + bs soft nt nd, no hsm ext without e/c/c diminshed dp/pt, ? carotid bruit no jaundice, diaphoresis CBC, BMP 09/12/17 06:00 09/12/17 06:00 Laboratory Tests 09/11/17 09/12/17 17:03 06:00 Troponin I 0.03 Albumin 3.3 L 09/11/17 09/12/17 09/12/17 17:50 06:00 06:00 Magnesium 2.5 H Total Bilirubin 0.9 D AST 40 H ALT 28 Alkaline Phosphatase 91 Troponin I 0.03 Albumin 3.3 L TSH 2.94 neg for flu ekg x 2: afib, SVR with frequent pvc's/aberrent conduction. RBBB. non- specific t wave abnormalities. tele: afib with SVR, 50's-60's, no significant pauses echo 09/2017: nl lv/rv size/fn. sev safia. 1+ mr. mod tr, 1+ phtn. cxr (images/report reviewed): opacity in rt mid lung ? pna. no chf. see emr for detainled report head ct: (images/report reviewed):chronic rt mca infarct. small chronic infarct in posterior lt temporoparietal lobe. microvascular changes. atherosclerosis of carotids and verts. 89 y/o M w/ PMH Afib on xarelto, Dementia, Prior CVA, HTN, CHF, COPD, Anemia who was sent from [facility] because of increased agitation/personality change. bradycardia/SVR. - stable bp, no pathologic pauses on tele thus far. con't tele monitoring. - avoid av jb blockade, tsh wnl. lyte repletion prn. No need for further atropine or ppm evaluation at this time. - echo with preserved systolic function. afib on xarelto - rate controlled off av jb blockade - on xarelto as outpatient. Would wait to resume until the morning as patient with unwitnessed fall prior to presentation and with ongoing episodes of intermittent lethargy/sleep vs altered state. Head CT wnl. Will resume xarelto tomorrow if after discussion with pmd, it is clear there is no contraindication from neurologic standpoint. pt also on asa as outpatient, will resume. htn, - overall reasonable control off anti-hypertensives. on norvasc as outpatient. - patient also on lasix as outpatient, would defer as patient currently getting IVF. cva - resume asa, pt not on statin as outpatient, will defer to pmd.
[2017-09-12] MEDS: SODIUM CHLORIDE 1,000 ML IV SCH (21:33)
[2017-09-13] MEDS: HEPARIN NA (PORCINE) 5,000 UNITS/ML 1ML VIAL SQ SCH (06:29)
[2017-09-13 07:47] LABS: CHLORIDE 109 mmol/L (98-107); SODIUM 143 mmol/L (136-145)
[2017-09-13 07:59] LABS: ANION GAP 9 (8-16); BLOOD UREA NITROGEN 22 mg/dL (7-18); CALCIUM 8.2 mg/dL (8.5-10.1); CO2 25 mmol/L (21-32); GLUCOSE,RANDOM 67 mg/dL (74-106); MAGNESIUM 2.2 mg/dL (1.8-2.4); PHOSPHOROUS 2.6 mg/dL (2.5-4.9)
[2017-09-13 08:25] LABS: BASO % 0.7 % (0-2.0); EOS % 0.8 % (0-4.5); HEMATOCRIT 30.4 % (35.4-49); HEMOGLOBIN 9.6 GM/dL (11.7-16.9); LYMPH % 13.1 % (8-40); MCH 29.7 pg (25.7-33.7); MCHC 31.6 g/dl (32.0-35.9); MEAN CELL VOLUME 94.1 fl (80-96); MEAN PLT VOLUME 9.3 fl (7.5-11.1); MONO % 10.6 % (3.8-10.2); NEUT % 74.8 % (42.8-82.8); PLATELET COUNT 139 K/MM3 (134-434); RBC 3.23 M/mm3 (4.00-5.60); RDW 18.6 % (11.9-15.9); WHITE BLOOD COUNT 6.7 K/mm3 (4.0-10.0)
[2017-09-13] MEDS ORDERED: PIPERACILLIN/TAZOB 3.375 GM/50 ML PRE-DOCKED IVPB ONE (09:45)
--- NOTE | 2017-09-13 11:05 | PN ---
Progress Note (short form) - Note Progress Note: s: no cp sob palps dizzy, +confused o: Vital Signs Period Temp Pulse Resp BP Sys/Vega Pulse Ox Last 24 Hr 97.6 F-99.0 F 42-67 16-18 112-154/49-71 95-100 nad, calm alert but not oriented bibasilar rales, poor effort irregular rhythm, nl s1, s2. + 2/6 sys murmur at lsb. ND PMI + bs soft nt nd, no hsm ext without e/c/c no jaundice, diaphoresis Current Medications Generic Name Dose Route Start Last Admin Trade Name Freq PRN Reason Stop Dose Admin Albuterol/Ipratropium 1 amp 09/12/17 01:25 09/12/17 08:16 Duoneb - NEB 1 amp Q6H PRN Administration SHORTNESS OF BREATH Aspirin 81 mg 09/13/17 10:00 Asa - PO DAILY MARGARITA Heparin Sodium (Porcine) 5,000 unit 09/12/17 06:00 09/13/17 06:29 Heparin - SQ 5,000 unit TID MARGARITA Administration Sodium Chloride 1,000 mls @ 50 mls/hr 09/12/17 16:47 09/12/17 21:33 Normal Saline - IV 50 mls/hr ASDIR MARGARITA Administration Vancomycin HCl 1,250 mg/ 250 mls @ 250 mls/hr 09/13/17 10:00 Dextrose IVPB 09/13/17 10:59 ONCE ONE Protocol Piperacillin Sod/Tazobactam Sod 3.375 gm 09/13/17 09:45 Zosyn 3.375gm Ivpb (Pre-Docked) IVPB 09/13/17 09:46 ONCE ONE Protocol CBC, BMP 09/13/17 06:20 09/13/17 06:20 ekg x 2: afib, SVR with frequent pvc's/aberrent conduction. RBBB. non- specific t wave abnormalities. tele: afib with SVR, 50's-60's, no significant pauses echo 09/2017: nl lv/rv size/fn. sev safia. 1+ mr. mod tr, 1+ phtn. cxr (images/report reviewed): opacity in rt mid lung ? pna. no chf. see emr for detainled report head ct: (images/report reviewed):chronic rt mca infarct. small chronic infarct in posterior lt temporoparietal lobe. microvascular changes. atherosclerosis of carotids and verts. a/p: 89 y/o M w/ PMH Afib on xarelto, Dementia, Prior CVA, HTN, CHF, COPD, Anemia who was sent from [facility] because of increased agitation/ personality change. bradycardia/SVR. - stable bp, no pathologic pauses on tele thus far. con't tele monitoring. - avoid av jb blockade, tsh wnl. lyte repletion prn. No need for further atropine or ppm evaluation at this time. - echo with preserved systolic function. afib on xarelto - rate controlled off av jb blockade - on xarelto as outpatient. Would wait to resume as patient with unwitnessed fall prior to presentation and with ongoing episodes of intermittent lethargy/ sleep vs altered state. Head CT wnl. Resume xarelto if after discussion with pmd/neuro, it is clear there is no contraindication from neurologic standpoint. pt also on asa as outpatient, will cont. htn, - overall reasonable control off anti-hypertensives. on norvasc as outpatient. - patient also on lasix as outpatient, would defer as patient currently getting IVF. cva -cont asa
--- NOTE | 2017-09-13 11:08 | CONSULT ---
Admitting History and Physical - Primary Care Physician PCP: Adam Coello - Admission History of Present Illness: Pt is a 89 yr old male admitted from [facility] for sepsis due to uti and bradycardia. Pt was responsive only to sternal rub upon admission.. 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 Paranoid-like statements. Difficult to re-orient pt. Poor insight, confabulatory, aggressive. Pt was on pureed diet and thin liquid at [facility]. History Source: Medical Record Limitations to Obtaining History: Clinical Condition, Dementia - Advance Directives Advance Directives: Yes: DNR - Smoking History Smoking history: Unknown if ever smoked Have you smoked in the past 12 months: No - Alcohol/Substance Use Hx Alcohol Use: No History - Admission Reason For Visit: SEPSIS DUE TO UTI/BRADYCARDIA - Diagnostics X-ray: Report Reviewed CT Scan: Report Reviewed - General Mental Status: Awake and Alert, Able to Follow Commands, Combative, Confused Attention: Distractible Ability to Follow Directions: Fair Head/Neck Control: Good - Hearing Hearing: Impaired Hearing Aide: No With Patient: No Speech Evaluation - Communication Primary Language: KOREAN - Speech Production Intelligibility: Yes: WNL - Speech Characteristics Voice Loudness: Mildly Loud Voice Pitch: Yes: Normal Voice Phonatory-based Quality: Yes: Normal Speech Clarity: < 100% Nasal Resonance: Normal Articulation: Yes: Precise - Language/Auditory Comprehension Follows: Yes: 1 Stage Simple Commands - Language/Verbal Expression Aphasia: Yes: Anomia, Paraphrasic Errors - Swallow Evaluation/Bedside Assessment Current Nutritional Intake: NPO Oral Secretions: Yes: WFL Dentition: Yes: Missing Teeth Facial Symmetry at Rest: Facial Droop Left Facial Movement: Controlled Velopharyngeal Movement: Normal Laryngeal Movement: Able to Palpate Bolus Size: Small (only accepted a single sip of water and 2 tsp applesauce. Limited cooperation.) Labial Seal: WFL Oral Prep Time: WFL A-P Transit: WFL Timing of Swallow: Delayed Coughing/Throat Clear: No Change in Voice: No Recommendations - Speech Evaluation, Impression/Plan Impression: Pt only accepted a single sip of water and 2 tsp applesauce. Limited cooperation. Swallow was overtly intact. However, I suspect pt may have difficulty with continuous drinking. Pt did not participate sufficiently. - Disposition Discharge to: [facility] Facility - Dysphagia Impressions/Plan Dysphagia Impressions: Mild Impairment, Ongoing Evaluation *Silent aspiration: cannot be R/O at bedside Dysphagia Treatment Plan: Chin Tuck/Down, Safe Rate, 1/2 tsp. at a time, Elevate HOB during feed, Other (avoid straws/continuous drinking.) Recommendations: Psych Consult - Recommendations Diet Consistency: Dysphagia Minced Medication Administration: Crushed with applesauce Liquids: Thin Liquids, Other (if cough, congestion, nectar thick and mbs.) Supplement: Magic Cup, Ensure Pudding
[2017-09-13] MEDS ORDERED: VANCOMYCIN 1,250 MG in DEXTROSE 5%-WATER - 250 ML IVPB ONE (11:15)
[2017-09-13] MEDS ORDERED: ACETAMINOPHEN 325 MG TABLET (FP) PO PRN ×2 (12:09→13:21)
[2017-09-13] MEDS ORDERED: ALBUTEROL SO4 2.5/IPRATROPIUM 0.5 INH SOL 3 ML VIAL.NEB. NEB SCH (12:15)
--- NOTE | 2017-09-13 12:19 | PN ---
Progress Note, Physician Chief Complaint: pt lying in bed in no acute distress, alert, agitated, confused. denies chest pain, sob, n/v/d or fever/chills - Current Medication List Current Medications: Active Medications Acetaminophen (Tylenol -) 325 mg PO PRN PRN PRN Reason: temperature Albuterol/Ipratropium (Duoneb -) 1 amp NEB Q6H PRN PRN Reason: SHORTNESS OF BREATH Last Admin: 09/12/17 08:16 Dose: 1 amp Aspirin (Asa -) 81 mg PO DAILY MARGARITA Donepezil HCl (Aricept -) 5 mg PO DAILY [facility] Sodium Chloride (Normal Saline -) 1,000 mls @ 50 mls/hr IV ASDIR MARGARITA Last Admin: 09/12/17 21:33 Dose: 50 mls/hr Vancomycin HCl 1,250 mg/ (Dextrose) 250 mls @ 166.667 mls/hr IVPB ONCE ONE PRN Reason: Protocol Stop: 09/13/17 12:44 Last Admin: 09/13/17 11:44 Dose: 166.667 mls/hr Non-Formulary Medication (Ascorbate Calcium [Vitamin C]) 500 mg PO DAILY [facility] Non-Formulary Medication (Famotidine [Famotidine]) 20 mg PO DAILY [facility] Non-Formulary Medication (Ferrous Sulfate [Ferrous Sulfate]) 325 mg PO DAILY [facility] Rivaroxaban (Xarelto -) 15 mg PO DAILY [facility] - Objective Vital Signs: Vital Signs Temperature 97.9 F 09/13/17 05:23 Pulse Rate 62 09/13/17 05:23 Respiratory Rate 18 09/13/17 05:23 Blood Pressure 133/71 09/13/17 05:23 O2 Sat by Pulse Oximetry (%) 95 09/12/17 23:44 Constitutional: Yes: No Distress, Anxious Cardiovascular: Yes: Pulse Irregular, Murmur Respiratory: Yes: Regular, CTA Bilaterally. No: Rales, Rhonchi, SOB Gastrointestinal: Yes: WNL, Normal Bowel Sounds, Soft. No: Distention, Tenderness Genitourinary: Yes: Adorno Present, Hematuria Extremities: Yes: Erythema (bilateral le discoloration) Edema: No Neurological: Yes: Confusion Psychiatric: Yes: Agitated Labs: CBC, BMP 09/13/17 06:20 09/13/17 06:20 INR, PTT INR Cancelled 09/11/17 17:03 Problem List - Problems (1) Bradycardia Code(s): R00.1 - BRADYCARDIA, UNSPECIFIED (2) Altered mental status Code(s): R41.82 - ALTERED MENTAL STATUS, UNSPECIFIED Qualifiers: Altered mental status type: disorientation Qualified Code(s): R41.0 - Disorientation, unspecified (3) UTI (urinary tract infection) Code(s): N39.0 - URINARY TRACT INFECTION, SITE NOT SPECIFIED (4) Dementia Code(s): F03.90 - UNSPECIFIED DEMENTIA WITHOUT BEHAVIORAL DISTURBANCE Qualifiers: Dementia type: Alzheimer's disease Dementia behavioral disturbance: with behavioral disturbance (5) HTN (hypertension) Code(s): I10 - ESSENTIAL (PRIMARY) HYPERTENSION Qualifiers: Hypertension type: essential hypertension Qualified Code(s): I10 - Essential (primary) hypertension (6) Afib Code(s): I48.91 - UNSPECIFIED ATRIAL FIBRILLATION Qualifiers: Atrial fibrillation type: chronic Qualified Code(s): I48.2 - Chronic atrial fibrillation (7) Frequent falls Code(s): R29.6 - REPEATED FALLS (8) Anemia Code(s): D64.9 - ANEMIA, UNSPECIFIED Qualifiers: Anemia type: iron deficiency (9) COPD (chronic obstructive pulmonary disease) Code(s): J44.9 - CHRONIC OBSTRUCTIVE PULMONARY DISEASE, UNSPECIFIED (10) Hematuria Code(s): R31.9 - HEMATURIA, UNSPECIFIED Assessment/Plan (1) Bradycardia Assessment/Plan: hemodynamically stable, hr 60s case discussed with cardiology will monitor Code(s): R00.1 - BRADYCARDIA, UNSPECIFIED (2) Altered mental status Assessment/Plan: secondary to uti treat underlying illness and monitor for improvement Zosyn per ID Code(s): R41.82 - ALTERED MENTAL STATUS, UNSPECIFIED Qualifiers: Altered mental status type: disorientation Qualified Code(s): R41.0 - Disorientation, unspecified (3) UTI (urinary tract infection) Assessment/Plan: adorno with hematuria, most likely secondary to uti, will monitor for improvement Zosyn per ID Code(s): N39.0 - URINARY TRACT INFECTION, SITE NOT SPECIFIED (4) Hematuria Assessment/Plan: as above will consult urology if no improvement Code(s): R31.9 - HEMATURIA, UNSPECIFIED (5) Dementia Assessment/Plan: pt more agitated and combative today Psych and neuro consulted zyprexa 5mg bid started (please monitor for lethargy) dysphagia chopped diet Code(s): F03.90 - UNSPECIFIED DEMENTIA WITH BEHAVIORAL DISTURBANCE Qualifiers: Dementia type: Alzheimer's disease (6) HTN (hypertension) Assessment/Plan: stable holding home meds for now Code(s): I10 - ESSENTIAL (PRIMARY) HYPERTENSION Qualifiers: Hypertension type: essential hypertension Qualified Code(s): I10 - Essential (primary) hypertension (7) Afib Assessment/Plan: chronic coagulated on xarelto cardiology following Code(s): I48.91 - UNSPECIFIED ATRIAL FIBRILLATION Qualifiers: Atrial fibrillation type: chronic Qualified Code(s): I48.2 - Chronic atrial fibrillation (8) Frequent falls Assessment/Plan: head ct neg Code(s): R29.6 - REPEATED FALLS (9) Anemia Assessment/Plan: chronic iron def anemia h/h stable will monitor Code(s): D64.9 - ANEMIA, UNSPECIFIED Qualifiers: Anemia type: iron deficiency (10) COPD (chronic obstructive pulmonary disease) Assessment/Plan: chronic continue duonebs Code(s): J44.9 - CHRONIC OBSTRUCTIVE PULMONARY DISEASE, UNSPECIFIED
[2017-09-13] MEDS ORDERED: PIPERACILLIN/TAZOB 3.375 GM 50 ML IVPB ONE (12:39)
[2017-09-13] MEDS ORDERED: LORazepam 2 MG/ML SDV VIAL IM ONE (13:30)
--- NOTE | 2017-09-13 14:46 | CON.PSY ---
Psychiatry Consult Chief Complaint: Patient seen for Psych eval for aggressive behaviour. Symptoms: reports: Memory Impairment, Restlessness - Previous Psychiatric Treatment Outpatient: None Inpatient: None - Previous Substance Abuse Treatment Outpatient: None Inpatient: None - Current Medications Current Medications: Active Medications Acetaminophen (Tylenol -) 650 mg PO Q6H PRN PRN Reason: PAIN LEVEL 6-10 Albuterol/Ipratropium (Duoneb -) 1 amp NEB Q6H PRN PRN Reason: SHORTNESS OF BREATH Last Admin: 09/12/17 08:16 Dose: 1 amp Ascorbic Acid (Vitamin C -) 500 mg PO DAILY MARGARITA Aspirin (Asa -) 81 mg PO DAILY MARGARITA Donepezil HCl (Aricept -) 5 mg PO DAILY MARGARITA Ferrous Sulfate (Feosol -) 325 mg PO DAILY MARGARITA Sodium Chloride (Normal Saline -) 1,000 mls @ 50 mls/hr IV ASDIR MARGARITA Last Admin: 09/12/17 21:33 Dose: 50 mls/hr Ranitidine HCl (Zantac -) 150 mg PO DAILY MARGARITA Rivaroxaban (Xarelto -) 15 mg PO DAILY MARGARITA - Allergies Allergies: Allergies Allergy/AdvReac Type Severity Reaction Status Date / Time No Known Allergies Allergy Verified 09/11/17 17:24 - Current Living Status Usual Living Arrangement: [facility] - Current Mental Status Evaluation Appearance: Disheveled Attitude: Belligerent - Affect Affect: Constrictive - Mood Mood: Angry - Speech/Language Expressive: Delayed - Psychomotor Activity Psychomotor Activity: Agitated - Thought Process Thought Process: Loosening of Associations - Thought Content Hallucinations: Absent Delusions: Absent - Self Perception Self Perception: Depersonalization - Cognition Attention: Diminished Memory, Immediate Recall: Impaired Memory, Short Term: 1/3 Memory, Remote with Promptin/3 - Concentration Serial Sevens Intact: No Simple Calculations Intact: No - Abstraction Proverb Interpretation: Impaired Judgement: Severely Impaired - Insight Insight: Impaired - Impulse Control Impulse Control: Severly Impaired - Suicidal Ideation Suicidal Ideation: No - Homicidal Ideation Homicidal Ideation: No Assessment/Plan 1) Start Zyprexa 5mg po bid for aggressive and assaultive behaviour
[2017-09-13] MEDS: ASPIRIN 81 MG CHEWABLE TABLETS PO SCH (15:52)
--- NOTE | 2017-09-13 16:21 | PN ---
Progress Note, Physician - Current Medication List Current Medications: Active Medications Acetaminophen (Tylenol -) 650 mg PO Q6H PRN PRN Reason: PAIN LEVEL 6-10 Albuterol/Ipratropium (Duoneb -) 1 amp NEB Q6H PRN PRN Reason: SHORTNESS OF BREATH Last Admin: 09/12/17 08:16 Dose: 1 amp Ascorbic Acid (Vitamin C -) 500 mg PO DAILY [facility] Aspirin (Asa -) 81 mg PO DAILY [facility] Last Admin: 09/13/17 15:52 Dose: Not Given Donepezil HCl (Aricept -) 5 mg PO DAILY [facility] Ferrous Sulfate (Feosol -) 325 mg PO DAILY [facility] Sodium Chloride (Normal Saline -) 1,000 mls @ 50 mls/hr IV ASDIR [facility] Last Admin: 09/12/17 21:33 Dose: 50 mls/hr Olanzapine (Zyprexa -) 5 mg PO BID [facility] Ranitidine HCl (Zantac -) 150 mg PO DAILY [facility] Rivaroxaban (Xarelto -) 15 mg PO DAILY [facility] - Objective Vital Signs: Vital Signs Temperature 97.9 F 09/13/17 05:23 Pulse Rate 62 09/13/17 05:23 Respiratory Rate 18 09/13/17 05:23 Blood Pressure 133/71 09/13/17 05:23 O2 Sat by Pulse Oximetry (%) 94 L 09/13/17 09:00 Labs: CBC, BMP 09/13/17 06:20 09/13/17 06:20 INR, PTT INR Cancelled 09/11/17 17:03
--- NOTE | 2017-09-13 16:21 | CON.ID ---
Consult Consult Specialty:: infectious diseases Reason for Consultation:: ams,uti,pna - History of Present Illness History of Present Illness: patient is confused anxious and uncooperative history obtained from the charts 89 y/o M w/ PMH Afib, Dementia, Prior CVA, HTN, CHF, COPD, Anemia who was sent from [facility] because of increased agitation. Pt was given Ativan at [place] but symptoms did not resolve. In the ed patient was unresponsive and had jim--was given atropine--then became more responsive currently patient is in restraints but is moving all around and there is suspicion of pna and uti patient has seen by psych and started on meds patient otherwise not able to give any further history or make sense - History Source History Provided By: Medical Record Limitations to Obtaining History: Clinical Condition - Alcohol/Substance Use Hx Alcohol Use: No - Smoking History Smoking history: Unknown if ever smoked Have you smoked in the past 12 months: No - Social History Usual Living Arrangement: Halfway Home Medications - Allergies Allergies/Adverse Reactions: Allergies Allergy/AdvReac Type Severity Reaction Status Date / Time No Known Allergies Allergy Verified 09/11/17 17:24 - Home Medications Home Medications: Ambulatory Orders Aa/Hydrolyzed Collagen, Whey [Lps 15-30 Liquid] 960 ml PO DAILY 09/12/17 Acetaminophen 325 mg PO PRN PRN 09/12/17 Albuterol 2.5/Ipratropium 0.5 [Duoneb -] 1 neb NEB Q4H 09/12/17 Amlodipine Besylate 5 mg PO DAILY 09/12/17 Ascorbate Calcium [Vitamin C] 500 mg PO DAILY 09/12/17 Aspirin [ASA -] 81 mg PO DAILY 09/12/17 Chlorpheniramine/Dextromethorp [Robitussin Long-Acting Liq] 20 ml PO PRN PRN 03/22 Donepezil HCl [Aricept] 5 mg PO DAILY 09/12/17 Famotidine 20 mg PO DAILY 09/12/17 Ferrous Sulfate 325 mg PO DAILY 09/12/17 Furosemide [Lasix -] 40 mg PO DAILY 09/12/17 Lactose-Reduced Food [Ensure Plus] 237 ml PO TID 09/12/17 Oxymetazoline 0.05% Nasal Soln [Afrin -] 1 spray NS DAILY PRN 09/12/17 Rivaroxaban [Xarelto -] 15 mg PO DAILY 09/12/17 Review of Systems Unable to obtain ROS, reason: unable to obtain Physical Exam Vital Signs: Vital Signs Temperature 97.9 F 09/13/17 05:23 Pulse Rate 62 09/13/17 05:23 Respiratory Rate 18 09/13/17 05:23 Blood Pressure 133/71 09/13/17 05:23 O2 Sat by Pulse Oximetry (%) 94 L 09/13/17 09:00 Constitutional: Yes: Other Neck: Yes: Supple Cardiovascular: Yes: Pulse Irregular, S1, S2 Respiratory: Yes: Regular, On Nasal O2, Poor Air Entry, Rhonchi Gastrointestinal: Yes: Normal Bowel Sounds, Soft Musculoskeletal: Yes: Other Extremities: Yes: WNL, Other (stasis dermatitis changes) Edema: LLE: Trace, RLE: Trace Integumentary: Yes: Other Neurological: Yes: Alert, Confusion, Other (agitated) Psychiatric: Yes: Other Labs: CBC, BMP 09/13/17 06:20 09/13/17 06:20 Imaging - Results Chest X-ray: Report Reviewed, Image Reviewed Cat Scan: Report Reviewed, Image Reviewed Assessment/Plan patient with positive uti also chances of aspiration pna high Problem List - Problems (1) Bradycardia Code(s): R00.1 - BRADYCARDIA, UNSPECIFIED (2) Altered mental status Code(s): R41.82 - ALTERED MENTAL STATUS, UNSPECIFIED Qualifiers: Altered mental status type: disorientation Qualified Code(s): R41.0 - Disorientation, unspecified (3) UTI (urinary tract infection) Code(s): N39.0 - URINARY TRACT INFECTION, SITE NOT SPECIFIED (4) Dementia Code(s): F03.90 - UNSPECIFIED DEMENTIA WITHOUT BEHAVIORAL DISTURBANCE Qualifiers: Dementia type: Alzheimer's disease Dementia behavioral disturbance: with behavioral disturbance (5) HTN (hypertension) Code(s): I10 - ESSENTIAL (PRIMARY) HYPERTENSION Qualifiers: Hypertension type: essential hypertension Qualified Code(s): I10 - Essential (primary) hypertension (6) Afib Code(s): I48.91 - UNSPECIFIED ATRIAL FIBRILLATION Qualifiers: Atrial fibrillation type: chronic Qualified Code(s): I48.2 - Chronic atrial fibrillation (7) Frequent falls Code(s): R29.6 - REPEATED FALLS (8) Anemia Code(s): D64.9 - ANEMIA, UNSPECIFIED Qualifiers: Anemia type: iron deficiency (9) COPD (chronic obstructive pulmonary disease) Code(s): J44.9 - CHRONIC OBSTRUCTIVE PULMONARY DISEASE, UNSPECIFIED (10) Hematuria Code(s): R31.9 - HEMATURIA, UNSPECIFIED assessment and plan Problem List - Problems (1) Bradycardia Code(s): R00.1 - BRADYCARDIA, UNSPECIFIED (2) Altered mental status Code(s): R41.82 - ALTERED MENTAL STATUS, UNSPECIFIED Qualifiers: Altered mental status type: disorientation Qualified Code(s): R41.0 - Disorientation, unspecified (3) UTI (urinary tract infection) Code(s): N39.0 - URINARY TRACT INFECTION, SITE NOT SPECIFIED (4) Dementia Code(s): F03.90 - UNSPECIFIED DEMENTIA WITHOUT BEHAVIORAL DISTURBANCE Qualifiers: Dementia type: Alzheimer's disease Dementia behavioral disturbance: with behavioral disturbance (5) HTN (hypertension) Code(s): I10 - ESSENTIAL (PRIMARY) HYPERTENSION Qualifiers: Hypertension type: essential hypertension Qualified Code(s): I10 - Essential (primary) hypertension (6) Afib Code(s): I48.91 - UNSPECIFIED ATRIAL FIBRILLATION Qualifiers: Atrial fibrillation type: chronic Qualified Code(s): I48.2 - Chronic atrial fibrillation (7) Frequent falls Code(s): R29.6 - REPEATED FALLS (8) Anemia Code(s): D64.9 - ANEMIA, UNSPECIFIED Qualifiers: Anemia type: iron deficiency (9) COPD (chronic obstructive pulmonary disease) Code(s): J44.9 - CHRONIC OBSTRUCTIVE PULMONARY DISEASE, UNSPECIFIED (10) Hematuria Code(s): R31.9 - HEMATURIA, UNSPECIFIED plan will start patient on zosyn hydration rest continue as per psych and primary team neuro on case
--- NOTE | 2017-09-13 16:53 | CONSULT ---
Consult - text type - Consultation Consultation Note: Neurology CHIEF COMPLAINT: AMS from [facility] HISTORY OF PRESENT ILLNESS: 89 y/o M w/ PMH Afib, Dementia, Prior CVA, HTN, CHF, COPD, Anemia who was sent from [facility] because of increased agitation. Pt was given Ativan at [place] but symptoms did not resolve. On arrival in ED, pt was reportedly unresponsive, EKG with slow Afib with PVCs. Given Atropine per notes without obvious improvement, however, at some point, the patient did convert to ventricular bigemini and became more responsive. Patient seen at bedside and I was consulted for mental status. He has UA suspicious for UTI and possible PNA. He was aggitated during my encounter but was able to be calmed. Was awake, alert, moving all extremities but was curing at times and irritable. Nurse confirmed patient behavior. Seen by psych at put on Zyprexa 5mg. CT head complete and without acute changes. Recent Travel: None PAST MEDICAL HISTORY: Afib, Dementia, Prior CVA, HTN, CHF, COPD, Anemia PAST SURGICAL HISTORY: Social History: unable to obtain Family History: unable to obtain Allergies No Known Allergies Allergy (Verified 09/11/17 17:24) Active Medications Acetaminophen (Tylenol -) 650 mg PO Q6H PRN PRN Reason: PAIN LEVEL 6-10 Albuterol/Ipratropium (Duoneb -) 1 amp NEB Q6H PRN PRN Reason: SHORTNESS OF BREATH Last Admin: 09/12/17 08:16 Dose: 1 amp Ascorbic Acid (Vitamin C -) 500 mg PO DAILY [facility] Aspirin (Asa -) 81 mg PO DAILY [facility] Last Admin: 09/13/17 15:52 Dose: Not Given Donepezil HCl (Aricept -) 5 mg PO DAILY [facility] Ferrous Sulfate (Feosol -) 325 mg PO DAILY [facility] Sodium Chloride (Normal Saline -) 1,000 mls @ 50 mls/hr IV ASDIR [facility] Last Admin: 09/12/17 21:33 Dose: 50 mls/hr Piperacillin Sod/Tazobactam (Sod 3.375 gm/ Dextrose) 50 mls @ 100 mls/hr IVPB Q8H-IV [facility] Olanzapine (Zyprexa -) 5 mg PO BID [facility] Ranitidine HCl (Zantac -) 150 mg PO DAILY [facility] Rivaroxaban (Xarelto -) 15 mg PO DAILY [facility] RE[facility] OF SYSTEMS unable to obtain PHYSICAL EXAMINATION Vital Signs Temperature 97.9 F 09/13/17 05:23 Pulse Rate 62 09/13/17 05:23 Respiratory Rate 18 09/13/17 05:23 Blood Pressure 133/71 09/13/17 05:23 O2 Sat by Pulse Oximetry (%) 94 L 09/13/17 09:00 GENERAL: Awake, alert, and aggitated HEAD: Normal with no signs of trauma. EYES: Pupils equal, round and reactive to light. sclera anicteric, conjunctiva clear EARS, NOSE, THROAT: Moist mucous membranes. NECK: Normal range of motion, mild JVD. No bruits. supple without lymphadenopathy, , or masses. LUNGS: Difficult to auscultate. clear to auscultation bilaterally. HEART: Regular rate and rhythm, normal S1 and S2 without murmur, rub or gallop. ABDOMEN: Soft, not distended, normoactive bowel sounds, no guarding, no rebound , no masses. No hepatomegaly or splenomegaly. MUSCULOSKELETAL: Normal range of motion at all joints. No bony deformities or tenderness. No CVA tenderness. UPPER EXTREMITIES: 2+ pulses, warm, well-perfused. No cyanosis. No clubbing. No peripheral edema. LOWER EXTREMITIES: stasis dermatitis. 2+ pulses, warm. No edema NEUROLOGICAL: CN appear intact, no facial droop or slurred speech appreciated, sensation intact, moves all extremities equally, gait deferred SKIN: legs with stasis changes. Warm, dry, normal turgor, no rashes or lesions noted, normal capillary refill. CBCD WBC 6.7 K/mm3 (4.0-10.0) 09/13/17 06:20 RBC 3.23 M/mm3 (4.00-5.60) L 09/13/17 06:20 Hgb 9.6 GM/dL (11.7-16.9) L 09/13/17 06:20 Hct 30.4 % (35.4-49) L 09/13/17 06:20 MCV 94.1 fl (80-96) 09/13/17 06:20 MCHC 31.6 g/dl (32.0-35.9) L 09/13/17 06:20 RDW 18.6 % (11.9-15.9) H 09/13/17 06:20 Plt Count 139 K/MM3 (134-434) 09/13/17 06:20 MPV 9.3 fl (7.5-11.1) 09/13/17 06:20 CMP Sodium 143 mmol/L (136-145) 09/13/17 06:20 Potassium 4.0 mmol/L (3.5-5.1) 09/13/17 06:20 Chloride 109 mmol/L (98-107) H 09/13/17 06:20 Carbon Dioxide 25 mmol/L (21-32) 09/13/17 06:20 Anion Gap 9 (8-16) 09/13/17 06:20 BUN 22 mg/dL (7-18) H 09/13/17 06:20 Creatinine 1.0 mg/dL (0.7-1.3) 09/13/17 06:20 Creat Clearance w eGFR > 60 (>60) 09/12/17 06:00 Calcium 8.2 mg/dL (8.5-10.1) L 09/13/17 06:20 Total Bilirubin 0.9 mg/dL (0.2-1.0) D 09/12/17 06:00 AST 40 U/L (15-37) H 09/12/17 06:00 ALT 28 U/L (12-78) 09/12/17 06:00 Alkaline Phosphatase 91 U/L (45-117) 09/12/17 06:00 Total Protein 7.1 g/dl (6.4-8.2) 09/12/17 06:00 Albumin 3.3 g/dl (3.4-5.0) L 09/12/17 06:00 CT head reviewed ASSESSMENT/PLAN: 89 y/o M w/ PMH Afib, Dementia, Prior CVA, HTN, CHF, COPD, Anemia who was sent from [facility] because of increased agitation. Pt was given Ativan at [place] but symptoms did not resolve. On arrival in ED, pt was reportedly unresponsive, EKG with slow Afib with PVCs. Given Atropine per notes without obvious improvement, however, at some point, the patient did convert to ventricular bigemini and became more responsive. Patient seen at bedside and I was consulted for mental status. He has UA suspicious for UTI and possible PNA. He was aggitated during my encounter but was able to be calmed. Was awake, alert, moving all extremities but was curing at times and irritable. Nurse confirmed patient behavior. Seen by psych at put on Zyprexa 5mg. CT head complete and without acute changes Likely combination of infection (delirium) and sundowning occuring Recommend aggresive Tx of UTI/PNA On Zosyn May require medication beyond Zyprexa (seroquel, ativan, haldol), will defer to psych on Can Continue aricept, will increase to 10mg though this not dementia rapidly progressing, more due to acute infection and unfamiliar envioment Continue hydration Monitor patient for safety
[2017-09-13] MEDS ORDERED: PIPERACILLIN/TAZOB 3.375 GM 50 ML IVPB SCH (18:00)
[2017-09-13] MEDS: SODIUM CHLORIDE 1,000 ML IV SCH (18:15)
[2017-09-13] MEDS: PIPERACILLIN/TAZOB 3.375 GM 3.375 GM in DEXTROSE 5%-WATER - 50 ML IVPB SCH (18:15)
[2017-09-13] MEDS: OLANZapine 5 MG TABLET PO SCH (22:52)
[2017-09-14] MEDS: PIPERACILLIN/TAZOB 3.375 GM 3.375 GM in DEXTROSE 5%-WATER - 50 ML IVPB SCH ×3 (03:00→17:40)
[2017-09-14] MEDS: SODIUM CHLORIDE 1,000 ML IV SCH ×2 (03:33→16:39)
[2017-09-14 06:36] LABS: BASO % 0.7 % (0-2.0); EOS % 1.6 % (0-4.5); HEMATOCRIT 29.9 % (35.4-49); HEMOGLOBIN 9.7 GM/dL (11.7-16.9); LYMPH % 10.3 % (8-40); MCH 30.3 pg (25.7-33.7); MCHC 32.5 g/dl (32.0-35.9); MEAN CELL VOLUME 93.2 fl (80-96); MEAN PLT VOLUME 9.2 fl (7.5-11.1); MONO % 9.5 % (3.8-10.2); NEUT % 77.9 % (42.8-82.8); PLATELET COUNT 137 K/MM3 (134-434); RDW 18.4 % (11.9-15.9); WHITE BLOOD COUNT 5.5 K/mm3 (4.0-10.0)
[2017-09-14 06:55] LABS: ANION GAP 8 (8-16); BLOOD UREA NITROGEN 19 mg/dL (7-18); CALCIUM 8.6 mg/dL (8.5-10.1); CHLORIDE 110 mmol/L (98-107); CO2 27 mmol/L (21-32); CREATININE 0.9 mg/dL (0.7-1.3); GLUCOSE,RANDOM 81 mg/dL (74-106); MAGNESIUM 2.1 mg/dL (1.8-2.4); PHOSPHOROUS 2.1 mg/dL (2.5-4.9); POTASSIUM 3.4 mmol/L (3.5-5.1); SODIUM 145 mmol/L (136-145)
[2017-09-14] MEDS ORDERED: ASPIRIN 81 MG CHEWABLE TABLETS PO SCH (10:00)
[2017-09-14] MEDS: FERROUS SO4 325 MG TABLET (FP) PO SCH (10:48)
[2017-09-14] MEDS: DONEPEZIL HCL 5 MG TABLET (FP) PO SCH (10:48)
[2017-09-14] MEDS: RANITIDINE HCL 150 MG TABLET (FP) PO SCH (10:49)
[2017-09-14] MEDS: ASPIRIN 81 MG CHEWABLE TABLETS PO SCH (10:49)
[2017-09-14] MEDS: RIVAROXABAN 15 MG TABLET PO SCH (10:49)
[2017-09-14] MEDS: ASCORBIC ACID 500 MG TABLET (FP) PO SCH (10:49)
[2017-09-14] MEDS: OLANZapine 5 MG TABLET PO SCH ×2 (10:49→21:10)
--- NOTE | 2017-09-14 14:07 | PN ---
Progress Note, Physician History of Present Illness: still confused but much calmer awake and alert - Current Medication List Current Medications: Active Medications Acetaminophen (Tylenol -) 650 mg PO Q6H PRN PRN Reason: PAIN LEVEL 6-10 Albuterol/Ipratropium (Duoneb -) 1 amp NEB Q6H PRN PRN Reason: SHORTNESS OF BREATH Last Admin: 09/12/17 08:16 Dose: 1 amp Ascorbic Acid (Vitamin C -) 500 mg PO DAILY [facility] Last Admin: 09/14/17 10:49 Dose: 500 mg Aspirin (Asa -) 81 mg PO DAILY [facility] Last Admin: 09/14/17 10:49 Dose: 81 mg Donepezil HCl (Aricept -) 5 mg PO DAILY [facility] Last Admin: 09/14/17 10:48 Dose: 5 mg Ferrous Sulfate (Feosol -) 325 mg PO DAILY [facility] Last Admin: 09/14/17 10:48 Dose: 325 mg Sodium Chloride (Normal Saline -) 1,000 mls @ 50 mls/hr IV ASDIR [facility] Last Admin: 09/14/17 03:33 Dose: 50 mls/hr Piperacillin Sod/Tazobactam (Sod 3.375 gm/ Dextrose) 50 mls @ 100 mls/hr IVPB Q8H-IV [facility] Last Admin: 09/14/17 10:49 Dose: 100 mls/hr Olanzapine (Zyprexa -) 5 mg PO BID [facility] Last Admin: 09/14/17 10:49 Dose: 5 mg Ranitidine HCl (Zantac -) 150 mg PO DAILY [facility] Last Admin: 09/14/17 10:49 Dose: 150 mg Rivaroxaban (Xarelto -) 15 mg PO DAILY [facility] Last Admin: 09/14/17 10:49 Dose: 15 mg - Objective Vital Signs: Vital Signs Temperature 98.2 F 09/14/17 10:00 Pulse Rate 62 09/14/17 10:00 Respiratory Rate 18 09/14/17 10:00 Blood Pressure 150/62 09/14/17 10:00 O2 Sat by Pulse Oximetry (%) 96 09/14/17 09:00 Constitutional: Yes: No Distress, Calm Cardiovascular: Yes: Regular Rate and Rhythm Respiratory: Yes: Regular, Poor Air Entry Gastrointestinal: Yes: Normal Bowel Sounds, Soft Musculoskeletal: Yes: WNL Extremities: Yes: WNL Neurological: Yes: Alert, Confusion Psychiatric: Yes: Other Labs: CBC, BMP 09/14/17 05:05 09/14/17 05:05 INR, PTT INR Cancelled 09/11/17 17:03 Assessment/Plan patient with positive uti also chances of aspiration pna high Problem List - Problems (1) Bradycardia Code(s): R00.1 - BRADYCARDIA, UNSPECIFIED (2) Altered mental status Code(s): R41.82 - ALTERED MENTAL STATUS, UNSPECIFIED Qualifiers: Altered mental status type: disorientation Qualified Code(s): R41.0 - Disorientation, unspecified (3) UTI (urinary tract infection) Code(s): N39.0 - URINARY TRACT INFECTION, SITE NOT SPECIFIED (4) Dementia Code(s): F03.90 - UNSPECIFIED DEMENTIA WITHOUT BEHAVIORAL DISTURBANCE Qualifiers: Dementia type: Alzheimer's disease Dementia behavioral disturbance: with behavioral disturbance (5) HTN (hypertension) Code(s): I10 - ESSENTIAL (PRIMARY) HYPERTENSION Qualifiers: Hypertension type: essential hypertension Qualified Code(s): I10 - Essential (primary) hypertension (6) Afib Code(s): I48.91 - UNSPECIFIED ATRIAL FIBRILLATION Qualifiers: Atrial fibrillation type: chronic Qualified Code(s): I48.2 - Chronic atrial fibrillation (7) Frequent falls Code(s): R29.6 - REPEATED FALLS (8) Anemia Code(s): D64.9 - ANEMIA, UNSPECIFIED Qualifiers: Anemia type: iron deficiency (9) COPD (chronic obstructive pulmonary disease) Code(s): J44.9 - CHRONIC OBSTRUCTIVE PULMONARY DISEASE, UNSPECIFIED (10) Hematuria Code(s): R31.9 - HEMATURIA, UNSPECIFIED assessment and plan Problem List - Problems (1) Bradycardia Code(s): R00.1 - BRADYCARDIA, UNSPECIFIED (2) Altered mental status Code(s): R41.82 - ALTERED MENTAL STATUS, UNSPECIFIED Qualifiers: Altered mental status type: disorientation Qualified Code(s): R41.0 - Disorientation, unspecified (3) UTI (urinary tract infection) Code(s): N39.0 - URINARY TRACT INFECTION, SITE NOT SPECIFIED (4) Dementia Code(s): F03.90 - UNSPECIFIED DEMENTIA WITHOUT BEHAVIORAL DISTURBANCE Qualifiers: Dementia type: Alzheimer's disease Dementia behavioral disturbance: with behavioral disturbance (5) HTN (hypertension) Code(s): I10 - ESSENTIAL (PRIMARY) HYPERTENSION Qualifiers: Hypertension type: essential hypertension Qualified Code(s): I10 - Essential (primary) hypertension (6) Afib Code(s): I48.91 - UNSPECIFIED ATRIAL FIBRILLATION Qualifiers: Atrial fibrillation type: chronic Qualified Code(s): I48.2 - Chronic atrial fibrillation (7) Frequent falls Code(s): R29.6 - REPEATED FALLS (8) Anemia Code(s): D64.9 - ANEMIA, UNSPECIFIED Qualifiers: Anemia type: iron deficiency (9) COPD (chronic obstructive pulmonary disease) Code(s): J44.9 - CHRONIC OBSTRUCTIVE PULMONARY DISEASE, UNSPECIFIED (10) Hematuria Code(s): R31.9 - HEMATURIA, UNSPECIFIED plan continue zosyn cx result noted nutrition rest as per primary team
--- NOTE | 2017-09-14 16:47 | PN ---
Progress Note (short form) - Note Progress Note: CC: bradycardia s: no cp sob palps dizzy, +confused, urine cx +. Still intermittently agitated. remains on IVF. started on zyprexa for agitation last night. o: Current Medications Acetaminophen (Tylenol -) 650 mg PO Q6H PRN PRN Reason: PAIN LEVEL 6-10 Albuterol/Ipratropium (Duoneb -) 1 amp NEB Q6H PRN PRN Reason: SHORTNESS OF BREATH Last Admin: 09/12/17 08:16 Dose: 1 amp Ascorbic Acid (Vitamin C -) 500 mg PO DAILY [facility] Last Admin: 09/14/17 10:49 Dose: 500 mg Aspirin (Asa -) 81 mg PO DAILY [facility] Last Admin: 09/14/17 10:49 Dose: 81 mg Donepezil HCl (Aricept -) 5 mg PO DAILY [facility] Last Admin: 09/14/17 10:48 Dose: 5 mg Ferrous Sulfate (Feosol -) 325 mg PO DAILY [facility] Last Admin: 09/14/17 10:48 Dose: 325 mg Sodium Chloride (Normal Saline -) 1,000 mls @ 50 mls/hr IV ASDIR [facility] Last Admin: 09/14/17 03:33 Dose: 50 mls/hr Piperacillin Sod/Tazobactam (Sod 3.375 gm/ Dextrose) 50 mls @ 100 mls/hr IVPB Q8H-IV [facility] Last Admin: 09/14/17 10:49 Dose: 100 mls/hr Olanzapine (Zyprexa -) 5 mg PO BID [facility] Last Admin: 09/14/17 10:49 Dose: 5 mg Ranitidine HCl (Zantac -) 150 mg PO DAILY [facility] Last Admin: 09/14/17 10:49 Dose: 150 mg Rivaroxaban (Xarelto -) 15 mg PO DAILY [facility] Last Admin: 09/14/17 10:49 Dose: 15 mg Vital Signs - 24 hr 09/13/17 09/13/17 09/14/17 17:20 20:23 02:00 Temperature 98.2 F 98.2 F Pulse Rate 93 H 55 L Respiratory 18 20 20 Rate Blood Pressure 142/67 173/75 O2 Sat by Pulse 96 Oximetry (%) 09/14/17 09/14/17 09/14/17 06:00 09:00 10:00 Temperature 98.2 F Pulse Rate 51 L 62 Respiratory 18 18 18 Rate Blood Pressure 136/90 150/62 O2 Sat by Pulse 96 Oximetry (%) 09/14/17 15:00 Temperature 98.2 F Pulse Rate 57 L Respiratory 18 Rate Blood Pressure 148/53 O2 Sat by Pulse Oximetry (%) Intake & Output 09/12/17 09/13/17 09/14/17 09/15/17 07:59 07:59 07:59 07:59 Intake Total 500 1250 100 Output Total 400 Balance 500 1250 -300 Weight 125 lb 6.4 oz 125 lb 6.4 oz nad, calm alert but not oriented bibasilar rales, poor effort irregular rhythm, nl s1, s2. + 2/6 sys murmur at lsb. ND PMI + bs soft nt nd, no hsm ext without e/c/c no jaundice, diaphoresis CBC, BMP 09/14/17 05:05 09/14/17 05:05 ekg x 2: afib, SVR with frequent pvc's/aberrent conduction. RBBB. non- specific t wave abnormalities. tele: afib with SVR, low 40's when resting. when awake freq pvc's, bigeminy, and occ nsvt vs aberrancy, no significant pauses echo 09/2017: nl lv/rv size/fn. sev safia. 1+ mr. mod tr, 1+ phtn. cxr (images/report reviewed): opacity in rt mid lung ? pna. no chf. see emr for detailed report head ct: (images/report reviewed):chronic rt mca infarct. small chronic infarct in posterior lt temporoparietal lobe. microvascular changes. atherosclerosis of carotids and verts. a/p: 89 y/o M w/ PMH Afib on xarelto, Dementia, Prior CVA, HTN, CHF, COPD, Anemia who was sent from [facility] because of increased agitation/ personality change, hospital course complicated by afib with SVR. bradycardia/SVR. - stable bp, no pathologic pauses on tele thus far. con't tele monitoring. - avoid av jb blockade, tsh wnl. No need for further atropine or ppm evaluation at this time. Of note family states he has had heart rates around 40 in the past. - echo with preserved systolic function. - lyte repletion prn. afib on xarelto - rate controlled off av jb blockade - on xarelto as outpatient. Would wait to resume as patient with unwitnessed fall prior to presentation and with ongoing episodes of intermittent lethargy/ sleep vs altered state. Head CT wnl. Resume xarelto if after discussion with pmd/neuro, it is clear there is no contraindication from neurologic standpoint. pt also on asa as outpatient, will cont. htn, - overall reasonable control off anti-hypertensives. on norvasc as outpatient. - per report, patient also on lasix as outpatient, would defer as patient currently getting IVF. cva -cont asa
[2017-09-14] MEDS ORDERED: POTASSIUM CHLORIDE TABS 20 MEQ TABLET.ER (FP) PO ONE (16:52)
[2017-09-14] MEDS ORDERED: PT OWN MED DRAWER 7, Y5N ONE (17:25)
--- NOTE | 2017-09-14 21:02 | PN ---
Progress Note, Physician Chief Complaint: Remained faebrile, hemodynamically stable and confused - Current Medication List Current Medications: Active Medications Acetaminophen (Tylenol -) 650 mg PO Q6H PRN PRN Reason: PAIN LEVEL 6-10 Albuterol/Ipratropium (Duoneb -) 1 amp NEB Q6H PRN PRN Reason: SHORTNESS OF BREATH Last Admin: 09/12/17 08:16 Dose: 1 amp Ascorbic Acid (Vitamin C -) 500 mg PO DAILY [facility] Last Admin: 09/14/17 10:49 Dose: 500 mg Aspirin (Asa -) 81 mg PO DAILY [facility] Last Admin: 09/14/17 10:49 Dose: 81 mg Donepezil HCl (Aricept -) 5 mg PO DAILY [facility] Last Admin: 09/14/17 10:48 Dose: 5 mg Ferrous Sulfate (Feosol -) 325 mg PO DAILY [facility] Last Admin: 09/14/17 10:48 Dose: 325 mg Sodium Chloride (Normal Saline -) 1,000 mls @ 50 mls/hr IV ASDIR [facility] Last Admin: 09/14/17 16:39 Dose: 50 mls/hr Piperacillin Sod/Tazobactam (Sod 3.375 gm/ Dextrose) 50 mls @ 100 mls/hr IVPB Q8H-IV [facility] Last Admin: 09/14/17 17:40 Dose: 100 mls/hr Olanzapine (Zyprexa -) 5 mg PO BID [facility] Last Admin: 09/14/17 10:49 Dose: 5 mg Ranitidine HCl (Zantac -) 150 mg PO DAILY [facility] Last Admin: 09/14/17 10:49 Dose: 150 mg Rivaroxaban (Xarelto -) 15 mg PO DAILY [facility] Last Admin: 09/14/17 10:49 Dose: 15 mg - Objective Vital Signs: Vital Signs Temperature 97.6 F 09/14/17 18:00 Pulse Rate 94 H 09/14/17 18:00 Respiratory Rate 18 09/14/17 18:00 Blood Pressure 145/69 09/14/17 18:00 O2 Sat by Pulse Oximetry (%) 96 09/14/17 09:00 Elderly man looks confused, not in distress HEENT: Mm moist, mild anemia. 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 Code(s): N39.0 - URINARY TRACT INFECTION, SITE NOT SPECIFIED (2) Afib Assessment/Plan: H/O Chronic afib on AC , episodes of bradycardia woff B Blockers Code(s): I48.91 - UNSPECIFIED ATRIAL FIBRILLATION Qualifiers: Atrial fibrillation type: chronic Qualified Code(s): I48.2 - Chronic atrial fibrillation (3) Altered mental status Assessment/Plan: Due to UTI now calm and quiet Code(s): R41.82 - ALTERED MENTAL STATUS, UNSPECIFIED Qualifiers: Altered mental status type: disorientation Qualified Code(s): R41.0 - Disorientation, unspecified (4) HTN (hypertension) Assessment/Plan: Well controlled cont all home meds Code(s): I10 - ESSENTIAL (PRIMARY) HYPERTENSION Qualifiers: Hypertension type: essential hypertension Qualified Code(s): I10 - Essential (primary) hypertension (5) COPD (chronic obstructive pulmonary disease) Assessment/Plan: Stable cont current Nebs treatment. Code(s): J44.9 - CHRONIC OBSTRUCTIVE PULMONARY DISEASE, UNSPECIFIED (6) Anemia Assessment/Plan: Chronic H/H are stable Code(s): D64.9 - ANEMIA, UNSPECIFIED Qualifiers: Anemia type: iron deficiency (7) Dementia Assessment/Plan: Chronic at present no agitation. Code(s): F03.90 - UNSPECIFIED DEMENTIA WITHOUT BEHAVIORAL DISTURBANCE Qualifiers: Dementia type: Alzheimer's disease Dementia behavioral disturbance: with behavioral disturbance
[2017-09-15] MEDS: PIPERACILLIN/TAZOB 3.375 GM 3.375 GM in DEXTROSE 5%-WATER - 50 ML IVPB SCH ×3 (02:01→17:26)
[2017-09-15 06:23] LABS: BASO % 0.7 % (0-2.0); EOS % 2.3 % (0-4.5); HEMATOCRIT 29.8 % (35.4-49); HEMOGLOBIN 9.7 GM/dL (11.7-16.9); LYMPH % 12.2 % (8-40); MCH 30.4 pg (25.7-33.7); MCHC 32.6 g/dl (32.0-35.9); MEAN CELL VOLUME 93.3 fl (80-96); MEAN PLT VOLUME 8.9 fl (7.5-11.1); MONO % 10.1 % (3.8-10.2); NEUT % 74.7 % (42.8-82.8); PLATELET COUNT 140 K/MM3 (134-434); RBC 3.19 M/mm3 (4.00-5.60); RDW 17.9 % (11.9-15.9); WHITE BLOOD COUNT 4.6 K/mm3 (4.0-10.0)
[2017-09-15 06:53] LABS: CHLORIDE 111 mmol/L (98-107); POTASSIUM 3.5 mmol/L (3.5-5.1); SODIUM 144 mmol/L (136-145)
[2017-09-15 07:07] LABS: ALBUMIN 2.6 g/dl (3.4-5.0); ALK PHOS 70 U/L (45-117); ANION GAP 5 (8-16); BILIRUBIN,TOTAL 0.8 mg/dL (0.2-1.0); BLOOD UREA NITROGEN 12 mg/dL (7-18); CALCIUM 8.2 mg/dL (8.5-10.1); CO2 28 mmol/L (21-32); CREATININE 0.9 mg/dL (0.7-1.3); GLUCOSE,RANDOM 83 mg/dL (74-106); SGOT/AST 39 U/L (15-37); SGPT/ALT 24 U/L (12-78); TOT PROT 5.7 g/dl (6.4-8.2)
[2017-09-15] MEDS: ASCORBIC ACID 500 MG TABLET (FP) PO SCH (09:40)
[2017-09-15] MEDS: RIVAROXABAN 15 MG TABLET PO SCH (09:40)
[2017-09-15] MEDS: RANITIDINE HCL 150 MG TABLET (FP) PO SCH (09:40)
[2017-09-15] MEDS: DONEPEZIL HCL 5 MG TABLET (FP) PO SCH (09:40)
[2017-09-15] MEDS: OLANZapine 5 MG TABLET PO SCH ×2 (09:40→21:38)
[2017-09-15] MEDS: ASPIRIN 81 MG CHEWABLE TABLETS PO SCH (09:40)
[2017-09-15] MEDS: FERROUS SO4 325 MG TABLET (FP) PO SCH (09:40)
--- NOTE | 2017-09-15 11:40 | PN ---
Progress Note, Physician Chief Complaint: Remained faebrile, hemodynamically stable and confused - Current Medication List Current Medications: Active Medications Acetaminophen (Tylenol -) 650 mg PO Q6H PRN PRN Reason: PAIN LEVEL 6-10 Albuterol/Ipratropium (Duoneb -) 1 amp NEB Q6H PRN PRN Reason: SHORTNESS OF BREATH Last Admin: 09/12/17 08:16 Dose: 1 amp Ascorbic Acid (Vitamin C -) 500 mg PO DAILY [facility] Last Admin: 09/15/17 09:40 Dose: 500 mg Aspirin (Asa -) 81 mg PO DAILY [facility] Last Admin: 09/15/17 09:40 Dose: 81 mg Donepezil HCl (Aricept -) 5 mg PO DAILY [facility] Last Admin: 09/15/17 09:40 Dose: 5 mg Ferrous Sulfate (Feosol -) 325 mg PO DAILY [facility] Last Admin: 09/15/17 09:40 Dose: 325 mg Sodium Chloride (Normal Saline -) 1,000 mls @ 50 mls/hr IV ASDIR [facility] Last Admin: 09/14/17 16:39 Dose: 50 mls/hr Piperacillin Sod/Tazobactam (Sod 3.375 gm/ Dextrose) 50 mls @ 100 mls/hr IVPB Q8H-IV [facility] Last Admin: 09/15/17 09:40 Dose: 100 mls/hr Olanzapine (Zyprexa -) 5 mg PO BID [facility] Last Admin: 09/15/17 09:40 Dose: 5 mg Ranitidine HCl (Zantac -) 150 mg PO DAILY [facility] Last Admin: 09/15/17 09:40 Dose: 150 mg Rivaroxaban (Xarelto -) 15 mg PO DAILY [facility] Last Admin: 09/15/17 09:40 Dose: 15 mg - Objective Vital Signs: Vital Signs Temperature 97.2 F L 09/15/17 05:30 Pulse Rate 45 L 09/15/17 05:30 Respiratory Rate 18 09/15/17 08:00 Blood Pressure 134/44 09/15/17 05:30 O2 Sat by Pulse Oximetry (%) 97 09/15/17 08:00 Elderly man looks confused, not in distress HEENT: Mm moist, mild anemia. 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, Pulses +1 SQUAD BOSS; Non focal Labs: CBC, BMP 09/15/17 05:00 09/15/17 05:00 INR, PTT INR Cancelled 09/11/17 17:03 Problem List - Problems (1) UTI (urinary tract infection) Code(s): N39.0 - URINARY TRACT INFECTION, SITE NOT SPECIFIED (2) Afib Code(s): I48.91 - UNSPECIFIED ATRIAL FIBRILLATION Qualifiers: Atrial fibrillation type: chronic Qualified Code(s): I48.2 - Chronic atrial fibrillation (3) Altered mental status Code(s): R41.82 - ALTERED MENTAL STATUS, UNSPECIFIED Qualifiers: Altered mental status type: disorientation Qualified Code(s): R41.0 - Disorientation, unspecified (4) HTN (hypertension) Code(s): I10 - ESSENTIAL (PRIMARY) HYPERTENSION Qualifiers: Hypertension type: essential hypertension Qualified Code(s): I10 - Essential (primary) hypertension (5) COPD (chronic obstructive pulmonary disease) Code(s): J44.9 - CHRONIC OBSTRUCTIVE PULMONARY DISEASE, UNSPECIFIED (6) Anemia Code(s): D64.9 - ANEMIA, UNSPECIFIED Qualifiers: Anemia type: iron deficiency (7) Dementia Code(s): F03.90 - UNSPECIFIED DEMENTIA WITHOUT BEHAVIORAL DISTURBANCE Qualifiers: Dementia type: Alzheimer's disease Dementia behavioral disturbance: with behavioral disturbance (8) Hematuria Code(s): R31.9 - HEMATURIA, UNSPECIFIED
--- NOTE | 2017-09-15 12:14 | PN ---
Progress Note, Physician History of Present Illness: still confused calmer - Current Medication List Current Medications: Active Medications Acetaminophen (Tylenol -) 650 mg PO Q6H PRN PRN Reason: PAIN LEVEL 6-10 Albuterol/Ipratropium (Duoneb -) 1 amp NEB Q6H PRN PRN Reason: SHORTNESS OF BREATH Last Admin: 09/12/17 08:16 Dose: 1 amp Ascorbic Acid (Vitamin C -) 500 mg PO DAILY [facility] Last Admin: 09/15/17 09:40 Dose: 500 mg Aspirin (Asa -) 81 mg PO DAILY [facility] Last Admin: 09/15/17 09:40 Dose: 81 mg Donepezil HCl (Aricept -) 5 mg PO DAILY [facility] Last Admin: 09/15/17 09:40 Dose: 5 mg Ferrous Sulfate (Feosol -) 325 mg PO DAILY [facility] Last Admin: 09/15/17 09:40 Dose: 325 mg Sodium Chloride (Normal Saline -) 1,000 mls @ 50 mls/hr IV ASDIR [facility] Last Admin: 09/14/17 16:39 Dose: 50 mls/hr Piperacillin Sod/Tazobactam (Sod 3.375 gm/ Dextrose) 50 mls @ 100 mls/hr IVPB Q8H-IV [facility] Last Admin: 09/15/17 09:40 Dose: 100 mls/hr Olanzapine (Zyprexa -) 5 mg PO BID [facility] Last Admin: 09/15/17 09:40 Dose: 5 mg Ranitidine HCl (Zantac -) 150 mg PO DAILY [facility] Last Admin: 09/15/17 09:40 Dose: 150 mg Rivaroxaban (Xarelto -) 15 mg PO DAILY [facility] Last Admin: 09/15/17 09:40 Dose: 15 mg - Objective Vital Signs: Vital Signs Temperature 97.2 F L 09/15/17 05:30 Pulse Rate 45 L 09/15/17 05:30 Respiratory Rate 18 09/15/17 08:00 Blood Pressure 134/44 09/15/17 05:30 O2 Sat by Pulse Oximetry (%) 97 09/15/17 08:00 Constitutional: Yes: No Distress, Calm Cardiovascular: Yes: Regular Rate and Rhythm Respiratory: Yes: Regular, CTA Bilaterally Gastrointestinal: Yes: Normal Bowel Sounds, Soft Musculoskeletal: Yes: Other Extremities: Yes: WNL Neurological: Yes: Alert, Confusion Psychiatric: Yes: Other Labs: CBC, BMP 09/15/17 05:00 09/15/17 05:00 INR, PTT INR Cancelled 09/11/17 17:03 Assessment/Plan patient with positive uti also chances of aspiration pna high Problem List - Problems (1) Bradycardia Code(s): R00.1 - BRADYCARDIA, UNSPECIFIED (2) Altered mental status Code(s): R41.82 - ALTERED MENTAL STATUS, UNSPECIFIED Qualifiers: Altered mental status type: disorientation Qualified Code(s): R41.0 - Disorientation, unspecified (3) UTI (urinary tract infection) Code(s): N39.0 - URINARY TRACT INFECTION, SITE NOT SPECIFIED (4) Dementia Code(s): F03.90 - UNSPECIFIED DEMENTIA WITHOUT BEHAVIORAL DISTURBANCE Qualifiers: Dementia type: Alzheimer's disease Dementia behavioral disturbance: with behavioral disturbance (5) HTN (hypertension) Code(s): I10 - ESSENTIAL (PRIMARY) HYPERTENSION Qualifiers: Hypertension type: essential hypertension Qualified Code(s): I10 - Essential (primary) hypertension (6) Afib Code(s): I48.91 - UNSPECIFIED ATRIAL FIBRILLATION Qualifiers: Atrial fibrillation type: chronic Qualified Code(s): I48.2 - Chronic atrial fibrillation (7) Frequent falls Code(s): R29.6 - REPEATED FALLS (8) Anemia Code(s): D64.9 - ANEMIA, UNSPECIFIED Qualifiers: Anemia type: iron deficiency (9) COPD (chronic obstructive pulmonary disease) Code(s): J44.9 - CHRONIC OBSTRUCTIVE PULMONARY DISEASE, UNSPECIFIED (10) Hematuria Code(s): R31.9 - HEMATURIA, UNSPECIFIED assessment and plan Problem List - Problems (1) Bradycardia Code(s): R00.1 - BRADYCARDIA, UNSPECIFIED (2) Altered mental status Code(s): R41.82 - ALTERED MENTAL STATUS, UNSPECIFIED Qualifiers: Altered mental status type: disorientation Qualified Code(s): R41.0 - Disorientation, unspecified (3) UTI (urinary tract infection) Code(s): N39.0 - URINARY TRACT INFECTION, SITE NOT SPECIFIED (4) Dementia Code(s): F03.90 - UNSPECIFIED DEMENTIA WITHOUT BEHAVIORAL DISTURBANCE Qualifiers: Dementia type: Alzheimer's disease Dementia behavioral disturbance: with behavioral disturbance (5) HTN (hypertension) Code(s): I10 - ESSENTIAL (PRIMARY) HYPERTENSION Qualifiers: Hypertension type: essential hypertension Qualified Code(s): I10 - Essential (primary) hypertension (6) Afib Code(s): I48.91 - UNSPECIFIED ATRIAL FIBRILLATION Qualifiers: Atrial fibrillation type: chronic Qualified Code(s): I48.2 - Chronic atrial fibrillation (7) Frequent falls Code(s): R29.6 - REPEATED FALLS (8) Anemia Code(s): D64.9 - ANEMIA, UNSPECIFIED Qualifiers: Anemia type: iron deficiency (9) COPD (chronic obstructive pulmonary disease) Code(s): J44.9 - CHRONIC OBSTRUCTIVE PULMONARY DISEASE, UNSPECIFIED (10) Hematuria Code(s): R31.9 - HEMATURIA, UNSPECIFIED plan continue zosyn cx result noted nutrition rest as per primary team nutrition
--- NOTE | 2017-09-15 15:43 | PN ---
Progress Note (short form) - Note Progress Note: CC: bradycardia s: less agitation and more lethargy on zyprexa. HR's also trending down since tends to be more jim when asleep. no cp sob palps dizzy, +confused . + hallucinations. IVF stopped. o: Current Medications Acetaminophen (Tylenol -) 650 mg PO Q6H PRN PRN Reason: PAIN LEVEL 6-10 Albuterol/Ipratropium (Duoneb -) 1 amp NEB Q6H PRN PRN Reason: SHORTNESS OF BREATH Last Admin: 09/12/17 08:16 Dose: 1 amp Ascorbic Acid (Vitamin C -) 500 mg PO DAILY [facility] Last Admin: 09/15/17 09:40 Dose: 500 mg Aspirin (Asa -) 81 mg PO DAILY [facility] Last Admin: 09/15/17 09:40 Dose: 81 mg Donepezil HCl (Aricept -) 5 mg PO DAILY [facility] Last Admin: 09/15/17 09:40 Dose: 5 mg Ferrous Sulfate (Feosol -) 325 mg PO DAILY [facility] Last Admin: 09/15/17 09:40 Dose: 325 mg Sodium Chloride (Normal Saline -) 1,000 mls @ 50 mls/hr IV ASDIR [facility] Last Admin: 09/14/17 16:39 Dose: 50 mls/hr Piperacillin Sod/Tazobactam (Sod 3.375 gm/ Dextrose) 50 mls @ 100 mls/hr IVPB Q8H-IV [facility] Last Admin: 09/15/17 09:40 Dose: 100 mls/hr Olanzapine (Zyprexa -) 5 mg PO BID [facility] Last Admin: 09/15/17 09:40 Dose: 5 mg Ranitidine HCl (Zantac -) 150 mg PO DAILY [facility] Last Admin: 09/15/17 09:40 Dose: 150 mg Rivaroxaban (Xarelto -) 15 mg PO DAILY [facility] Last Admin: 09/15/17 09:40 Dose: 15 mg Vital Signs - 24 hr 09/14/17 09/14/17 09/14/17 18:00 21:00 21:06 Temperature 97.6 F 97.6 F Pulse Rate 94 H 58 L Respiratory 18 20 Rate Blood Pressure 145/69 148/60 O2 Sat by Pulse 96 Oximetry (%) 09/15/17 09/15/17 09/15/17 01:23 05:30 08:00 Temperature 99.1 F 97.2 F L 98 F Pulse Rate 57 L 45 L 45 L Respiratory 20 18 16 Rate Blood Pressure 146/78 134/44 133/69 O2 Sat by Pulse 97 Oximetry (%) 09/15/17 15:00 Temperature 98.3 F Pulse Rate 51 L Respiratory 18 Rate Blood Pressure 131/67 O2 Sat by Pulse Oximetry (%) Intake & Output 09/13/17 09/14/17 09/15/17 09/16/17 07:59 07:59 07:59 07:59 Intake Total 500 1250 780 50 Output Total 1300 300 Balance 500 1250 -520 -250 Weight 125 lb 6.4 oz nad, calm alert but not oriented bibasilar rales, poor effort irregular rhythm, nl s1, s2. + 2/6 sys murmur at lsb. ND PMI + bs soft nt nd, no hsm ext without e/c/c no jaundice, diaphoresis CBC, BMP 09/15/17 05:00 09/15/17 05:00 Microbiology 09/11/17 18:00 Urine - Urine Clean Catch Urine Culture - Final Escherichia Coli Laboratory Tests 09/14/17 09/15/17 05:05 05:00 Magnesium 2.1 Total Bilirubin 0.8 AST 39 H ALT 24 Alkaline Phosphatase 70 D Albumin 2.6 L D ekg x 2: afib, SVR with frequent pvc's/aberrent conduction. RBBB. non- specific t wave abnormalities. tele: afib with SVR, low 40, no significant pauses. afib with intermittent bigeminy and pvc's with rates in 60's when awake. echo 09/2017: nl lv/rv size/fn. sev safia. 1+ mr. mod tr, 1+ phtn. cxr (images/report reviewed): opacity in rt mid lung ? pna. no chf. see emr for detainled report head ct: (images/report reviewed):chronic rt mca infarct. small chronic infarct in posterior lt temporoparietal lobe. microvascular changes. atherosclerosis of carotids and verts. a/p: 89 y/o M w/ PMH Afib on xarelto, Dementia, Prior CVA, HTN, CHF, COPD, Anemia who was sent from [facility] because of increased agitation/ personality change, hospital course complicated by afib with SVR. bradycardia/SVR. - stable bp, no pathologic pauses on tele thus far. con't tele monitoring. - avoid av jb blockade, tsh wnl. No need for further atropine or ppm evaluation at this time. Additionally, pt is dnr/dni and family would like to avoid invasive interventions if possible. Family states he has had heart rates around 40 in the past. - 09/15: hr trending down in setting of decreased agitation. remains hemodynamically stable, without significant pauses. con't to monitor closely. - echo with preserved systolic function. - lyte repletion prn. afib on xarelto - rate controlled off av jb blockade - on xarelto as outpatient. Head CT wnl. Discussed with pmd, no concern for neurologic etiology to lethargy. Resumed xarelto - pt also on asa as outpatient. Discussed with family, per report patient was placed on asa at [facility]. Had previously (even after cva) been on xarelto alone. will d/c asa. htn, - overall reasonable control off anti-hypertensives. on norvasc as outpatient. - per report, patient also on lasix as outpatient, would defer as patient recently s/p IVF and with poor po intake cva -cont ac with xarelto. stopping asa as mentioned above.
[2017-09-15] MEDS ORDERED: POTASSIUM CHLORIDE TABS 20 MEQ TABLET.ER (FP) PO ONE (16:00)
[2017-09-16] MEDS: PIPERACILLIN/TAZOB 3.375 GM 3.375 GM in DEXTROSE 5%-WATER - 50 ML IVPB SCH ×3 (01:19→17:31)
[2017-09-16 07:16] LABS: BASO % 0.8 % (0-2.0); HEMATOCRIT 31.4 % (35.4-49); LYMPH % 15.7 % (8-40); MCH 29.8 pg (25.7-33.7); MCHC 31.9 g/dl (32.0-35.9); MEAN CELL VOLUME 93.5 fl (80-96); MEAN PLT VOLUME 8.7 fl (7.5-11.1); MONO % 12.2 % (3.8-10.2); NEUT % 67.3 % (42.8-82.8); PLATELET COUNT 135 K/MM3 (134-434); RBC 3.36 M/mm3 (4.00-5.60)
[2017-09-16 07:25] LABS: ANION GAP 7 (8-16); BLOOD UREA NITROGEN 11 mg/dL (7-18); CALCIUM 8.6 mg/dL (8.5-10.1); CHLORIDE 111 mmol/L (98-107); CO2 27 mmol/L (21-32); CREATININE 0.8 mg/dL (0.7-1.3); GLUCOSE,RANDOM 65 mg/dL (74-106); MAGNESIUM 2.1 mg/dL (1.8-2.4); POTASSIUM 3.6 mmol/L (3.5-5.1); SODIUM 145 mmol/L (136-145)
--- NOTE | 2017-09-16 09:15 | PN ---
Progress Note, Physician Chief Complaint: bradycardia History of Present Illness: agitated, saying he wants "it taken out" but cannot elaborate. no meaningful history - Current Medication List Current Medications: Active Medications Acetaminophen (Tylenol -) 650 mg PO Q6H PRN PRN Reason: PAIN LEVEL 6-10 Albuterol/Ipratropium (Duoneb -) 1 amp NEB Q6H PRN PRN Reason: SHORTNESS OF BREATH Last Admin: 09/12/17 08:16 Dose: 1 amp Ascorbic Acid (Vitamin C -) 500 mg PO DAILY [facility] Last Admin: 09/15/17 09:40 Dose: 500 mg Aspirin (Asa -) 81 mg PO DAILY [facility] Last Admin: 09/15/17 09:40 Dose: 81 mg Donepezil HCl (Aricept -) 5 mg PO DAILY [facility] Last Admin: 09/15/17 09:40 Dose: 5 mg Ferrous Sulfate (Feosol -) 325 mg PO DAILY [facility] Last Admin: 09/15/17 09:40 Dose: 325 mg Sodium Chloride (Normal Saline -) 1,000 mls @ 50 mls/hr IV ASDIR [facility] Last Admin: 09/14/17 16:39 Dose: 50 mls/hr Piperacillin Sod/Tazobactam (Sod 3.375 gm/ Dextrose) 50 mls @ 100 mls/hr IVPB Q8H-IV [facility] Last Admin: 09/16/17 01:19 Dose: 100 mls/hr Olanzapine (Zyprexa -) 5 mg PO BID [facility] Last Admin: 09/15/17 21:38 Dose: 5 mg Ranitidine HCl (Zantac -) 150 mg PO DAILY [facility] Last Admin: 09/15/17 09:40 Dose: 150 mg Rivaroxaban (Xarelto -) 15 mg PO DAILY [facility] Last Admin: 09/15/17 09:40 Dose: 15 mg - Objective Vital Signs: Vital Signs Temperature 98.2 F 09/16/17 05:53 Pulse Rate 48 L 09/16/17 05:53 Respiratory Rate 18 09/16/17 05:53 Blood Pressure 154/77 09/16/17 05:53 O2 Sat by Pulse Oximetry (%) 96 09/15/17 21:00 Constitutional: Yes: Well Nourished, No Distress, Calm Cardiovascular: Yes: Pulse Irregular, S1, S2. No: Gallop, Murmur Respiratory: Yes: Regular, CTA Bilaterally (no deep breaths upon request). No: Accessory Muscle Use, Rales, Wheezes Extremities: No: Cold Edema: No Neurological: Yes: Alert. No: Seizure Psychiatric: Yes: Agitated (in jose manuel) Labs: CBC, BMP 09/16/17 06:40 09/16/17 06:40 INR, PTT INR Cancelled 09/11/17 17:03 - ....Imaging EKG: Other (tele: afib with slow conduction to HR 30s at times (including btw 2- 3 pm)) Assessment/Plan ekg x 2: afib, SVR with frequent pvc's/aberrent conduction. RBBB. non- specific t wave abnormalities. echo 09/2017: nl lv/rv size/fn. sev safia. 1+ mr. mod tr, 1+ phtn. cxr (images/report reviewed): opacity in rt mid lung ? pna. no chf. see emr for detailed report head ct: (images/report reviewed):chronic rt mca infarct. small chronic infarct in posterior lt temporoparietal lobe. microvascular changes. atherosclerosis of carotids and verts. a/p: 89 y/o M w/ PMH Afib on xarelto, Dementia, Prior CVA, HTN, CHF, COPD, Anemia who was sent from [facility] because of increased agitation/ personality change, hospital course complicated by afib with SVR. bradycardia/SVR. - stable bp, no pathologic pauses on tele thus far. con't tele monitoring. - avoid av jb blockade, tsh wnl. No need for further atropine or ppm evaluation at this time. Additionally, pt is dnr/dni and family would like to avoid invasive interventions if possible. Family states he has had heart rates around 40 in the past. - 09/15: hr trending down in setting of decreased agitation. remains hemodynamically stable, without significant pauses. con't to monitor closely. - echo with preserved systolic function. - lyte repletion prn. afib with slow conduction at times (HR in 30s), asymptomatic: - on no AVN blockers - pt dnr/dni. d/w'd brother at bedside that there is some risk of symptomatic jim in future, but he states that pt is often agitated/confused and the family would like to avoid invasive therapies. he also states that he thinks he would become very agitated by going thru a PM and having visible pocket/ generator. he wishes to defer and hope pt remains asymptomatic/hemodynamically stable - TSH normal - cont tele - on xarelto as outpatient, continued in hospital - pt also on asa as outpatient--d/c'd given incr risk of bleeding - once neuropsych status is stabilized here, need to reassess level of agitation and risk of transferring on his own or ambulating with falls-- regarding risks of prolonged AC in SNF htn, -fairly well controlled off anti-hypertensives. ? why amlodipine held her -cont same plan cva -cont ac with xarelto. stopped asa as mentioned above.
--- NOTE | 2017-09-16 09:32 | PN ---
Progress Note (short form) - Note Progress Note: Neurology HISTORY OF PRESENT ILLNESS: 89 y/o M w/ PMH Afib, Dementia, Prior CVA, HTN, CHF, COPD, Anemia who was sent from [facility] because of increased agitation. Pt was given Ativan at [place] but symptoms did not resolve. On arrival in ED, pt was reportedly unresponsive, EKG with slow Afib with PVCs. Given Atropine per notes without obvious improvement, however, at some point, the patient did convert to ventricular bigemini and became more responsive. I was consulted for mental status. He has UA suspicious for UTI and possible PNA. Seen by psych. ID also following and remains on Zosyn. CT head complete and without acute changes. More calm this AM but not fully cooperative. On Aricept 5mg as well. Active Medications Acetaminophen (Tylenol -) 650 mg PO Q6H PRN PRN Reason: PAIN LEVEL 6-10 Albuterol/Ipratropium (Duoneb -) 1 amp NEB Q6H PRN PRN Reason: SHORTNESS OF BREATH Last Admin: 09/12/17 08:16 Dose: 1 amp Ascorbic Acid (Vitamin C -) 500 mg PO DAILY [facility] Last Admin: 09/15/17 09:40 Dose: 500 mg Aspirin (Asa -) 81 mg PO DAILY [facility] Last Admin: 09/15/17 09:40 Dose: 81 mg Donepezil HCl (Aricept -) 5 mg PO DAILY [facility] Last Admin: 09/15/17 09:40 Dose: 5 mg Ferrous Sulfate (Feosol -) 325 mg PO DAILY [facility] Last Admin: 09/15/17 09:40 Dose: 325 mg Sodium Chloride (Normal Saline -) 1,000 mls @ 50 mls/hr IV ASDIR [facility] Last Admin: 09/14/17 16:39 Dose: 50 mls/hr Piperacillin Sod/Tazobactam (Sod 3.375 gm/ Dextrose) 50 mls @ 100 mls/hr IVPB Q8H-IV [facility] Last Admin: 09/16/17 01:19 Dose: 100 mls/hr Olanzapine (Zyprexa -) 5 mg PO BID [facility] Last Admin: 09/15/17 21:38 Dose: 5 mg Ranitidine HCl (Zantac -) 150 mg PO DAILY [facility] Last Admin: 09/15/17 09:40 Dose: 150 mg Rivaroxaban (Xarelto -) 15 mg PO DAILY [facility] Last Admin: 09/15/17 09:40 Dose: 15 mg PHYSICAL EXAMINATION Vital Signs Temperature 98.2 F 09/16/17 05:53 Pulse Rate 48 L 09/16/17 05:53 Respiratory Rate 18 18 05:53 Blood Pressure 154/77 09/16/17 05:53 O2 Sat by Pulse Oximetry (%) 96 09/15/17 21:00 GENERAL: Awake, alert, and aggitated HEAD: Normal with no signs of trauma. EYES: Pupils equal, round and reactive to light. sclera anicteric, conjunctiva clear EARS, NOSE, THROAT: Moist mucous membranes. NECK: Normal range of motion, mild JVD. No bruits. supple without lymphadenopathy, , or masses. LUNGS: Difficult to auscultate. clear to auscultation bilaterally. HEART: Regular rate and rhythm, normal S1 and S2 without murmur, rub or gallop. ABDOMEN: Soft, not distended, normoactive bowel sounds, no guarding, no rebound , no masses. No hepatomegaly or splenomegaly. MUSCULOSKELETAL: Normal range of motion at all joints. No bony deformities or tenderness. No CVA tenderness. UPPER EXTREMITIES: 2+ pulses, warm, well-perfused. No cyanosis. No clubbing. No peripheral edema. LOWER EXTREMITIES: stasis dermatitis. 2+ pulses, warm. No edema NEUROLOGICAL: CN appear intact, no facial droop or slurred speech appreciated, sensation intact, moves all extremities equally, gait deferred SKIN: legs with stasis changes. Warm, dry, normal turgor, no rashes or lesions noted, normal capillary refill. CBCD WBC 5.0 K/mm3 (4.0-10.0) 09/16/17 06:40 RBC 3.36 M/mm3 (4.00-5.60) L 09/16/17 06:40 Hgb 10.0 GM/dL (11.7-16.9) L 09/16/17 06:40 Hct 31.4 % (35.4-49) L 09/16/17 06:40 MCV 93.5 fl (80-96) 09/16/17 06:40 MCHC 31.9 g/dl (32.0-35.9) L 09/16/17 06:40 RDW 18.0 % (11.9-15.9) H 09/16/17 06:40 Plt Count 135 K/MM3 (134-434) 09/16/17 06:40 MPV 8.7 fl (7.5-11.1) 09/16/17 06:40 CMP Sodium 145 mmol/L (136-145) 09/16/17 06:40 Potassium 3.6 mmol/L (3.5-5.1) 09/16/17 06:40 Chloride 111 mmol/L (98-107) H 09/16/17 06:40 Carbon Dioxide 27 mmol/L (21-32) 09/16/17 06:40 Anion Gap 7 (8-16) L 09/16/17 06:40 BUN 11 mg/dL (7-18) 09/16/17 06:40 Creatinine 0.8 mg/dL (0.7-1.3) 09/16/17 06:40 Creat Clearance w eGFR > 60 (>60) 09/15/17 05:00 Calcium 8.6 mg/dL (8.5-10.1) 09/16/17 06:40 Total Bilirubin 0.8 mg/dL (0.2-1.0) 09/15/17 05:00 AST 39 U/L (15-37) H 09/15/17 05:00 ALT 24 U/L (12-78) 09/15/17 05:00 Alkaline Phosphatase 70 U/L (45-117) D 09/15/17 05:00 Total Protein 5.7 g/dl (6.4-8.2) L 09/15/17 05:00 Albumin 2.6 g/dl (3.4-5.0) L D 09/15/17 05:00 CT head reviewed ASSESSMENT/PLAN: 89 y/o M w/ PMH Afib, Dementia, Prior CVA, HTN, CHF, COPD, Anemia who was sent from [facility] because of increased agitation. Pt was given Ativan at [place] but symptoms did not resolve. On arrival in ED, pt was reportedly unresponsive, EKG with slow Afib with PVCs. Given Atropine per notes without obvious improvement, however, at some point, the patient did convert to ventricular bigemini and became more responsive. Patient seen at bedside and I was consulted for mental status. He has UA suspicious for UTI and possible PNA. He was aggitated during my encounter but was able to be calmed. Was awake, alert, moving all extremities but was curing at times and irritable. Nurse confirmed patient behavior. Seen by psych and put on Zyprexa 5mg, not currently on medication list CT head complete and without acute changes Likely combination of infection (delirium) and sundowning occuring Recommend aggresive Tx of UTI/PNA On Zosyn, ID note reviewed May require further medication beyond Zyprexa (seroquel, ativan, haldol), will defer to psych Can Continue aricept, increased to 10mg though this not dementia rapidly progressing, more due to acute infection and unfamiliar envioment Continue hydration Monitor patient for safety
[2017-09-16] MEDS: ASCORBIC ACID 500 MG TABLET (FP) PO SCH (10:36)
[2017-09-16] MEDS: RIVAROXABAN 15 MG TABLET PO SCH (10:36)
[2017-09-16] MEDS: FERROUS SO4 325 MG TABLET (FP) PO SCH (10:36)
[2017-09-16] MEDS: ASPIRIN 81 MG CHEWABLE TABLETS PO SCH (10:36)
[2017-09-16] MEDS: DONEPEZIL HCL 10 MG TABLET (FP) PO SCH (10:36)
[2017-09-16] MEDS: RANITIDINE HCL 150 MG TABLET (FP) PO SCH (10:36)
[2017-09-16] MEDS: OLANZapine 5 MG TABLET PO SCH ×2 (10:37→22:18)
--- NOTE | 2017-09-16 11:07 | PN ---
Progress Note, [employer] - Note Progress Note: Seen by Psychiatry. Chopped diet/thin liquid ordered. Selected Entries 09/15/17 09/15/17 09/15/17 01:23 05:30 08:00 Breakfast Lunch Supper Temperature 99.1 F 97.2 F L 98 F 09/15/17 09/15/17 09/15/17 15:00 18:00 19:58 Breakfast 25% Lunch 25% Supper 25% Temperature 98.3 F 98.0 F 09/15/17 09/16/17 09/16/17 21:35 02:00 05:53 Breakfast Lunch Supper Temperature 98.9 F 98.4 F 98.2 F 09/16/17 09:00 Breakfast Lunch Supper Temperature 98.4 F Laboratory Tests 09/16/17 06:40 WBC 5.0 Calmer than last assessment but quite confused, perseverative abou7t "mama kill baby." Refusing PO intake today.
[2017-09-16] MEDS ORDERED: POTASSIUM CHLORIDE TABS 20 MEQ TABLET.ER (FP) PO ONE (12:45)
--- NOTE | 2017-09-16 14:11 | PN ---
Progress Note, Physician History of Present Illness: still confused calmer patient not eating much - Current Medication List Current Medications: Active Medications Acetaminophen (Tylenol -) 650 mg PO Q6H PRN PRN Reason: PAIN LEVEL 6-10 Albuterol/Ipratropium (Duoneb -) 1 amp NEB Q6H PRN PRN Reason: SHORTNESS OF BREATH Last Admin: 09/12/17 08:16 Dose: 1 amp Ascorbic Acid (Vitamin C -) 500 mg PO DAILY [facility] Last Admin: 09/16/17 10:36 Dose: 500 mg Donepezil HCl (Aricept -) 10 mg PO DAILY [facility] Last Admin: 09/16/17 10:36 Dose: 10 mg Ferrous Sulfate (Feosol -) 325 mg PO DAILY [facility] Last Admin: 09/16/17 10:36 Dose: 325 mg Sodium Chloride (Normal Saline -) 1,000 mls @ 50 mls/hr IV ASDIR [facility] Last Admin: 09/14/17 16:39 Dose: 50 mls/hr Piperacillin Sod/Tazobactam (Sod 3.375 gm/ Dextrose) 50 mls @ 100 mls/hr IVPB Q8H-IV [facility] Last Admin: 09/16/17 10:34 Dose: 100 mls/hr Olanzapine (Zyprexa -) 2.5 mg PO BID [facility] Ranitidine HCl (Zantac -) 150 mg PO DAILY [facility] Last Admin: 09/16/17 10:36 Dose: 150 mg Rivaroxaban (Xarelto -) 15 mg PO DAILY [facility] Last Admin: 09/16/17 10:36 Dose: 15 mg - Objective Vital Signs: Vital Signs Temperature 98.4 F 09/16/17 09:00 Pulse Rate 42 L 09/16/17 09:00 Respiratory Rate 16 09/16/17 09:00 Blood Pressure 130/82 09/16/17 09:00 O2 Sat by Pulse Oximetry (%) 96 09/15/17 21:00 Constitutional: Yes: Anxious, Other (restless) Cardiovascular: Yes: Regular Rate and Rhythm Respiratory: Yes: Regular, Poor Air Entry Gastrointestinal: Yes: Normal Bowel Sounds, Soft Musculoskeletal: Yes: WNL Extremities: Yes: WNL Neurological: Yes: Alert, Confusion, Other (uncoperative) Psychiatric: Yes: Other Labs: CBC, BMP 09/16/17 06:40 09/16/17 06:40 INR, PTT INR Cancelled 09/11/17 17:03 Assessment/Plan patient with positive uti also chances of aspiration pna high Problem List - Problems (1) Bradycardia Code(s): R00.1 - BRADYCARDIA, UNSPECIFIED (2) Altered mental status Code(s): R41.82 - ALTERED MENTAL STATUS, UNSPECIFIED Qualifiers: Altered mental status type: disorientation Qualified Code(s): R41.0 - Disorientation, unspecified (3) UTI (urinary tract infection) Code(s): N39.0 - URINARY TRACT INFECTION, SITE NOT SPECIFIED (4) Dementia Code(s): F03.90 - UNSPECIFIED DEMENTIA WITHOUT BEHAVIORAL DISTURBANCE Qualifiers: Dementia type: Alzheimer's disease Dementia behavioral disturbance: with behavioral disturbance (5) HTN (hypertension) Code(s): I10 - ESSENTIAL (PRIMARY) HYPERTENSION Qualifiers: Hypertension type: essential hypertension Qualified Code(s): I10 - Essential (primary) hypertension (6) Afib Code(s): I48.91 - UNSPECIFIED ATRIAL FIBRILLATION Qualifiers: Atrial fibrillation type: chronic Qualified Code(s): I48.2 - Chronic atrial fibrillation (7) Frequent falls Code(s): R29.6 - REPEATED FALLS (8) Anemia Code(s): D64.9 - ANEMIA, UNSPECIFIED Qualifiers: Anemia type: iron deficiency (9) COPD (chronic obstructive pulmonary disease) Code(s): J44.9 - CHRONIC OBSTRUCTIVE PULMONARY DISEASE, UNSPECIFIED (10) Hematuria Code(s): R31.9 - HEMATURIA, UNSPECIFIED assessment and plan Problem List - Problems (1) Bradycardia Code(s): R00.1 - BRADYCARDIA, UNSPECIFIED (2) Altered mental status Code(s): R41.82 - ALTERED MENTAL STATUS, UNSPECIFIED Qualifiers: Altered mental status type: disorientation Qualified Code(s): R41.0 - Disorientation, unspecified (3) UTI (urinary tract infection) Code(s): N39.0 - URINARY TRACT INFECTION, SITE NOT SPECIFIED (4) Dementia Code(s): F03.90 - UNSPECIFIED DEMENTIA WITHOUT BEHAVIORAL DISTURBANCE Qualifiers: Dementia type: Alzheimer's disease Dementia behavioral disturbance: with behavioral disturbance (5) HTN (hypertension) Code(s): I10 - ESSENTIAL (PRIMARY) HYPERTENSION Qualifiers: Hypertension type: essential hypertension Qualified Code(s): I10 - Essential (primary) hypertension (6) Afib Code(s): I48.91 - UNSPECIFIED ATRIAL FIBRILLATION Qualifiers: Atrial fibrillation type: chronic Qualified Code(s): I48.2 - Chronic atrial fibrillation (7) Frequent falls Code(s): R29.6 - REPEATED FALLS (8) Anemia Code(s): D64.9 - ANEMIA, UNSPECIFIED Qualifiers: Anemia type: iron deficiency (9) COPD (chronic obstructive pulmonary disease) Code(s): J44.9 - CHRONIC OBSTRUCTIVE PULMONARY DISEASE, UNSPECIFIED (10) Hematuria Code(s): R31.9 - HEMATURIA, UNSPECIFIED plan continue zosyn cx result noted nutrition
--- NOTE | 2017-09-16 14:23 | PN ---
Progress Note, Physician Chief Complaint: pt lying in bed in no acute distress, alert, calm, confused. denies chest pain, sob, n/v/d or fever/chills - Current Medication List Current Medications: Active Medications Acetaminophen (Tylenol -) 650 mg PO Q6H PRN PRN Reason: PAIN LEVEL 6-10 Albuterol/Ipratropium (Duoneb -) 1 amp NEB Q6H PRN PRN Reason: SHORTNESS OF BREATH Last Admin: 09/12/17 08:16 Dose: 1 amp Amlodipine Besylate (Norvasc -) 5 mg PO DAILY [facility] Ascorbic Acid (Vitamin C -) 500 mg PO DAILY [facility] Last Admin: 09/16/17 10:36 Dose: 500 mg Donepezil HCl (Aricept -) 10 mg PO DAILY [facility] Last Admin: 09/16/17 10:36 Dose: 10 mg Ferrous Sulfate (Feosol -) 325 mg PO DAILY [facility] Last Admin: 09/16/17 10:36 Dose: 325 mg Sodium Chloride (Normal Saline -) 1,000 mls @ 50 mls/hr IV ASDIR [facility] Last Admin: 09/14/17 16:39 Dose: 50 mls/hr Piperacillin Sod/Tazobactam (Sod 3.375 gm/ Dextrose) 50 mls @ 100 mls/hr IVPB Q8H-IV [facility] Last Admin: 09/16/17 10:34 Dose: 100 mls/hr Olanzapine (Zyprexa -) 2.5 mg PO BID [facility] Ranitidine HCl (Zantac -) 150 mg PO DAILY [facility] Last Admin: 09/16/17 10:36 Dose: 150 mg Rivaroxaban (Xarelto -) 15 mg PO DAILY [facility] Last Admin: 09/16/17 10:36 Dose: 15 mg - Objective Vital Signs: Vital Signs Temperature 98.4 F 09/16/17 09:00 Pulse Rate 42 L 09/16/17 09:00 Respiratory Rate 16 09/16/17 09:00 Blood Pressure 130/82 09/16/17 09:00 O2 Sat by Pulse Oximetry (%) 96 09/15/17 21:00 Constitutional: Yes: No Distress Cardiovascular: Yes: Bradycardia, Pulse Irregular. No: Gallop, Murmur Respiratory: Yes: WNL, Regular, CTA Bilaterally, Diminished. No: Rales, Rhonchi , Tachypnea, Wheezes Gastrointestinal: Yes: WNL, Normal Bowel Sounds, Soft. No: Distention, Tenderness Edema: No Neurological: Yes: Confusion, Lethargy Psychiatric: Yes: Alert Labs: CBC, BMP 09/16/17 06:40 09/16/17 06:40 INR, PTT INR Cancelled 09/11/17 17:03 Problem List - Problems (1) Bradycardia Code(s): R00.1 - BRADYCARDIA, UNSPECIFIED (2) Altered mental status Code(s): R41.82 - ALTERED MENTAL STATUS, UNSPECIFIED Qualifiers: Altered mental status type: disorientation Qualified Code(s): R41.0 - Disorientation, unspecified (3) UTI (urinary tract infection) Code(s): N39.0 - URINARY TRACT INFECTION, SITE NOT SPECIFIED (4) Dementia Code(s): F03.90 - UNSPECIFIED DEMENTIA WITHOUT BEHAVIORAL DISTURBANCE Qualifiers: Dementia type: Alzheimer's disease Dementia behavioral disturbance: with behavioral disturbance (5) HTN (hypertension) Code(s): I10 - ESSENTIAL (PRIMARY) HYPERTENSION Qualifiers: Hypertension type: essential hypertension Qualified Code(s): I10 - Essential (primary) hypertension (6) Afib Code(s): I48.91 - UNSPECIFIED ATRIAL FIBRILLATION Qualifiers: Atrial fibrillation type: chronic Qualified Code(s): I48.2 - Chronic atrial fibrillation (7) Frequent falls Code(s): R29.6 - REPEATED FALLS (8) Anemia Code(s): D64.9 - ANEMIA, UNSPECIFIED Qualifiers: Anemia type: iron deficiency (9) COPD (chronic obstructive pulmonary disease) Code(s): J44.9 - CHRONIC OBSTRUCTIVE PULMONARY DISEASE, UNSPECIFIED (10) Hematuria Code(s): R31.9 - HEMATURIA, UNSPECIFIED Assessment/Plan (1) Bradycardia Assessment/Plan: asymptomatic, hemodynamically stable defer invasive measures per family wishes cardiology following will monitor Code(s): R00.1 - BRADYCARDIA, UNSPECIFIED (2) Altered mental status Assessment/Plan: secondary to uti , improving treat underlying illness and monitor for improvement Zosyn per ID Code(s): R41.82 - ALTERED MENTAL STATUS, UNSPECIFIED Qualifiers: Altered mental status type: disorientation Qualified Code(s): R41.0 - Disorientation, unspecified (3) UTI (urinary tract infection) Assessment/Plan: hematuria resolved Zosyn per ID pt refusing po meds/intake today, will consider transition to PO once taking PO Code(s): N39.0 - URINARY TRACT INFECTION, SITE NOT SPECIFIED (4) Hematuria Assessment/Plan: resolved adorno d/c'd Code(s): R31.9 - HEMATURIA, UNSPECIFIED (5) Dementia Assessment/Plan: calm during interaction, mild lethargy and intermittent agitation/refusing po per international logistics manager Psych and neuro following zyprexa decreased to 2.5mg BID, please monitor for increased lethargy dysphagia chopped diet aspiration precautions Code(s): F03.90 - UNSPECIFIED DEMENTIA WITH BEHAVIORAL DISTURBANCE Qualifiers: Dementia type: Alzheimer's disease (6) HTN (hypertension) Assessment/Plan: stable Amlodipine restarted Holding lasix in the setting of UTI, poor po intake Code(s): I10 - ESSENTIAL (PRIMARY) HYPERTENSION Qualifiers: Hypertension type: essential hypertension Qualified Code(s): I10 - Essential (primary) hypertension (7) Afib Assessment/Plan: chronic coagulated on xarelto aspirin d/c'd per cardiology cardiology following Code(s): I48.91 - UNSPECIFIED ATRIAL FIBRILLATION Qualifiers: Atrial fibrillation type: chronic Qualified Code(s): I48.2 - Chronic atrial fibrillation (8) Frequent falls Assessment/Plan: head ct with no acute findings Code(s): R29.6 - REPEATED FALLS (9) Anemia Assessment/Plan: chronic iron def anemia h/h stable will monitor Code(s): D64.9 - ANEMIA, UNSPECIFIED Qualifiers: Anemia type: iron deficiency (10) COPD (chronic obstructive pulmonary disease) Assessment/Plan: chronic continue duonebs Code(s): J44.9 - CHRONIC OBSTRUCTIVE PULMONARY DISEASE, UNSPECIFIED DISPO: Joanna nunez [facility]
[2017-09-16] MEDS ORDERED: PT OWN MED DRAWER 7, Y5N ONE (17:18)
[2017-09-16] MEDS: SODIUM CHLORIDE 1,000 ML IV SCH (17:31)
[2017-09-17] MEDS ORDERED: PT OWN MED DRAWER 7, Y5N ONE ×3 (02:46→17:38)
[2017-09-17] MEDS: PIPERACILLIN/TAZOB 3.375 GM 3.375 GM in DEXTROSE 5%-WATER - 50 ML IVPB SCH ×3 (02:48→18:15)
[2017-09-17] MEDS: SODIUM CHLORIDE 1,000 ML IV SCH (02:48)
--- NOTE | 2017-09-17 10:24 | PN ---
Progress Note (short form) - Note Progress Note: Neurology HISTORY OF PRESENT ILLNESS: 89 y/o M w/ PMH Afib, Dementia, Prior CVA, HTN, CHF, COPD, Anemia who was sent from [facility] because of increased agitation. Pt was given Ativan at [place] but symptoms did not resolve. On arrival in ED, pt was reportedly unresponsive, EKG with slow Afib with PVCs. Given Atropine per notes without obvious improvement, however, at some point, the patient did convert to ventricular bigemini and became more responsive. I was consulted for mental status. He has UA suspicious for UTI and possible PNA. Seen by psych. ID also following and remains on Zosyn. CT head complete and without acute changes. More calm yesterday but aggitated and climbing out of bed this morning. Spoke to nurse, consider psych involvement for medication recommendations. Has not been getting zyprexa regularly per nurse. Active Medications Acetaminophen (Tylenol -) 650 mg PO Q6H PRN PRN Reason: PAIN LEVEL 6-10 Amlodipine Besylate (Norvasc -) 5 mg PO DAILY [facility] Ascorbic Acid (Vitamin C -) 500 mg PO DAILY [facility] Last Admin: 09/16/17 10:36 Dose: 500 mg Donepezil HCl (Aricept -) 10 mg PO DAILY [facility] Last Admin: 09/16/17 10:36 Dose: 10 mg Ferrous Sulfate (Feosol -) 325 mg PO DAILY [facility] Last Admin: 09/16/17 10:36 Dose: 325 mg Sodium Chloride (Normal Saline -) 1,000 mls @ 50 mls/hr IV ASDIR [facility] Last Admin: 09/17/17 02:48 Dose: 50 mls/hr Piperacillin Sod/Tazobactam (Sod 3.375 gm/ Dextrose) 50 mls @ 100 mls/hr IVPB Q8H-IV [facility] Last Admin: 09/17/17 02:48 Dose: 100 mls/hr Olanzapine (Zyprexa -) 2.5 mg PO BID [facility] Last Admin: 09/16/17 22:18 Dose: 2.5 mg Ranitidine HCl (Zantac -) 150 mg PO DAILY [facility] Last Admin: 09/16/17 10:36 Dose: 150 mg Rivaroxaban (Xarelto -) 15 mg PO DAILY [facility] Last Admin: 09/16/17 10:36 Dose: 15 mg PHYSICAL EXAMINATION Vital Signs Temperature 98.7 F 09/17/17 02:23 Pulse Rate 72 09/17/17 02:23 Respiratory Rate 20 09/17/17 02:23 Blood Pressure 159/74 09/17/17 02:23 O2 Sat by Pulse Oximetry (%) 97 09/16/17 21:00 GENERAL: Awake, alert, and aggitated HEAD: Normal with no signs of trauma. EYES: Pupils equal, round and reactive to light. sclera anicteric, conjunctiva clear EARS, NOSE, THROAT: Moist mucous membranes. NECK: Normal range of motion, mild JVD. No bruits. supple without lymphadenopathy, , or masses. LUNGS: Difficult to auscultate. clear to auscultation bilaterally. HEART: Regular rate and rhythm, normal S1 and S2 without murmur, rub or gallop. ABDOMEN: Soft, not distended, normoactive bowel sounds, no guarding, no rebound , no masses. No hepatomegaly or splenomegaly. MUSCULOSKELETAL: Normal range of motion at all joints. No bony deformities or tenderness. No CVA tenderness. UPPER EXTREMITIES: 2+ pulses, warm, well-perfused. No cyanosis. No clubbing. No peripheral edema. LOWER EXTREMITIES: stasis dermatitis. 2+ pulses, warm. No edema NEUROLOGICAL: CN appear intact, no facial droop or slurred speech appreciated, sensation intact, moves all extremities equally, gait deferred SKIN: legs with stasis changes. Warm, dry, normal turgor, no rashes or lesions noted, normal capillary refill. CBCD WBC 5.0 K/mm3 (4.0-10.0) 09/16/17 06:40 RBC 3.36 M/mm3 (4.00-5.60) L 09/16/17 06:40 Hgb 10.0 GM/dL (11.7-16.9) L 09/16/17 06:40 Hct 31.4 % (35.4-49) L 09/16/17 06:40 MCV 93.5 fl (80-96) 09/16/17 06:40 MCHC 31.9 g/dl (32.0-35.9) L 09/16/17 06:40 RDW 18.0 % (11.9-15.9) H 09/16/17 06:40 Plt Count 135 K/MM3 (134-434) 09/16/17 06:40 MPV 8.7 fl (7.5-11.1) 09/16/17 06:40 CMP Sodium 145 mmol/L (136-145) 09/16/17 06:40 Potassium 3.6 mmol/L (3.5-5.1) 09/16/17 06:40 Chloride 111 mmol/L (98-107) H 09/16/17 06:40 Carbon Dioxide 27 mmol/L (21-32) 09/16/17 06:40 Anion Gap 7 (8-16) L 09/16/17 06:40 BUN 11 mg/dL (7-18) 09/16/17 06:40 Creatinine 0.8 mg/dL (0.7-1.3) 09/16/17 06:40 Creat Clearance w eGFR > 60 (>60) 09/15/17 05:00 Calcium 8.6 mg/dL (8.5-10.1) 09/16/17 06:40 Total Bilirubin 0.8 mg/dL (0.2-1.0) 09/15/17 05:00 AST 39 U/L (15-37) H 09/15/17 05:00 ALT 24 U/L (12-78) 09/15/17 05:00 Alkaline Phosphatase 70 U/L (45-117) D 09/15/17 05:00 Total Protein 5.7 g/dl (6.4-8.2) L 09/15/17 05:00 Albumin 2.6 g/dl (3.4-5.0) L D 09/15/17 05:00 CT head reviewed ASSESSMENT/PLAN: 89 y/o M w/ PMH Afib, Dementia, Prior CVA, HTN, CHF, COPD, Anemia who was sent from [facility] because of increased agitation. Pt was given Ativan at [place] but symptoms did not resolve. On arrival in ED, pt was reportedly unresponsive, EKG with slow Afib with PVCs. Given Atropine per notes without obvious improvement, however, at some point, the patient did convert to ventricular bigemini and became more responsive. Patient seen at bedside and I was consulted for mental status. He has UA suspicious for UTI and possible PNA. He was aggitated during my encounter but was able to be calmed. Was awake, alert, moving all extremities but was curing at times and irritable. Nurse confirmed patient behavior. Seen by psych and put on Zyprexa 5mg, has not been taking regularly Consider further psych followup/med adjustment CT head complete and without acute changes Combination of infection (delirium) and sundowning occuring Continued Tx of UTI/PNA On Zosyn Can Continue aricept, increased to 10mg Continue hydration Reorientation as able Monitor patient for safety
[2017-09-17] MEDS: OLANZapine 5 MG TABLET PO SCH ×2 (11:25→21:32)
[2017-09-17] MEDS: RANITIDINE HCL 150 MG TABLET (FP) PO SCH (11:26)
[2017-09-17] MEDS: RIVAROXABAN 15 MG TABLET PO SCH (11:27)
[2017-09-17] MEDS: amLODIPine BESYLATE 5 MG TABLET (FP) PO SCH (11:27)
[2017-09-17] MEDS: ASCORBIC ACID 500 MG TABLET (FP) PO SCH (11:27)
[2017-09-17] MEDS: DONEPEZIL HCL 10 MG TABLET (FP) PO SCH (11:27)
[2017-09-17] MEDS: FERROUS SO4 325 MG TABLET (FP) PO SCH (11:27)
--- NOTE | 2017-09-17 13:42 | PN ---
Progress Note, Physician History of Present Illness: still confused refusing to eat patient not eating much very restless - Current Medication List Current Medications: Active Medications Acetaminophen (Tylenol -) 650 mg PO Q6H PRN PRN Reason: PAIN LEVEL 6-10 Amlodipine Besylate (Norvasc -) 5 mg PO DAILY [facility] Last Admin: 09/17/17 11:27 Dose: 5 mg Ascorbic Acid (Vitamin C -) 500 mg PO DAILY [facility] Last Admin: 09/17/17 11:27 Dose: 500 mg Donepezil HCl (Aricept -) 10 mg PO DAILY [facility] Last Admin: 09/17/17 11:27 Dose: 10 mg Ferrous Sulfate (Feosol -) 325 mg PO DAILY [facility] Last Admin: 09/17/17 11:27 Dose: 325 mg Sodium Chloride (Normal Saline -) 1,000 mls @ 50 mls/hr IV ASDIR [facility] Last Admin: 09/17/17 02:48 Dose: 50 mls/hr Piperacillin Sod/Tazobactam (Sod 3.375 gm/ Dextrose) 50 mls @ 100 mls/hr IVPB Q8H-IV [facility] Last Admin: 09/17/17 11:24 Dose: 100 mls/hr Olanzapine (Zyprexa -) 2.5 mg PO BID [facility] Last Admin: 09/17/17 11:25 Dose: 2.5 mg Ranitidine HCl (Zantac -) 150 mg PO DAILY [facility] Last Admin: 09/17/17 11:26 Dose: 150 mg Rivaroxaban (Xarelto -) 15 mg PO DAILY [facility] Last Admin: 09/17/17 11:27 Dose: 15 mg - Objective Vital Signs: Vital Signs Temperature 98.7 F 09/17/17 02:23 Pulse Rate 72 09/17/17 02:23 Respiratory Rate 20 09/17/17 02:23 Blood Pressure 159/74 09/17/17 02:23 O2 Sat by Pulse Oximetry (%) 97 09/16/17 21:00 Constitutional: Yes: Anxious, Other Cardiovascular: Yes: Regular Rate and Rhythm Respiratory: Yes: Regular, CTA Bilaterally Gastrointestinal: Yes: Normal Bowel Sounds, Soft Musculoskeletal: Yes: WNL Extremities: Yes: WNL Neurological: Yes: Alert, Confusion Psychiatric: Yes: Alert Labs: CBC, BMP 09/16/17 06:40 09/16/17 06:40 INR, PTT INR Cancelled 09/11/17 17:03 Assessment/Plan patient with positive uti also chances of aspiration pna high Problem List - Problems (1) Bradycardia Code(s): R00.1 - BRADYCARDIA, UNSPECIFIED (2) Altered mental status Code(s): R41.82 - ALTERED MENTAL STATUS, UNSPECIFIED Qualifiers: Altered mental status type: disorientation Qualified Code(s): R41.0 - Disorientation, unspecified (3) UTI (urinary tract infection) Code(s): N39.0 - URINARY TRACT INFECTION, SITE NOT SPECIFIED (4) Dementia Code(s): F03.90 - UNSPECIFIED DEMENTIA WITHOUT BEHAVIORAL DISTURBANCE Qualifiers: Dementia type: Alzheimer's disease Dementia behavioral disturbance: with behavioral disturbance (5) HTN (hypertension) Code(s): I10 - ESSENTIAL (PRIMARY) HYPERTENSION Qualifiers: Hypertension type: essential hypertension Qualified Code(s): I10 - Essential (primary) hypertension (6) Afib Code(s): I48.91 - UNSPECIFIED ATRIAL FIBRILLATION Qualifiers: Atrial fibrillation type: chronic Qualified Code(s): I48.2 - Chronic atrial fibrillation (7) Frequent falls Code(s): R29.6 - REPEATED FALLS (8) Anemia Code(s): D64.9 - ANEMIA, UNSPECIFIED Qualifiers: Anemia type: iron deficiency (9) COPD (chronic obstructive pulmonary disease) Code(s): J44.9 - CHRONIC OBSTRUCTIVE PULMONARY DISEASE, UNSPECIFIED (10) Hematuria Code(s): R31.9 - HEMATURIA, UNSPECIFIED assessment and plan Problem List - Problems (1) Bradycardia Code(s): R00.1 - BRADYCARDIA, UNSPECIFIED (2) Altered mental status Code(s): R41.82 - ALTERED MENTAL STATUS, UNSPECIFIED Qualifiers: Altered mental status type: disorientation Qualified Code(s): R41.0 - Disorientation, unspecified (3) UTI (urinary tract infection) Code(s): N39.0 - URINARY TRACT INFECTION, SITE NOT SPECIFIED (4) Dementia Code(s): F03.90 - UNSPECIFIED DEMENTIA WITHOUT BEHAVIORAL DISTURBANCE Qualifiers: Dementia type: Alzheimer's disease Dementia behavioral disturbance: with behavioral disturbance (5) HTN (hypertension) Code(s): I10 - ESSENTIAL (PRIMARY) HYPERTENSION Qualifiers: Hypertension type: essential hypertension Qualified Code(s): I10 - Essential (primary) hypertension (6) Afib Code(s): I48.91 - UNSPECIFIED ATRIAL FIBRILLATION Qualifiers: Atrial fibrillation type: chronic Qualified Code(s): I48.2 - Chronic atrial fibrillation (7) Frequent falls Code(s): R29.6 - REPEATED FALLS (8) Anemia Code(s): D64.9 - ANEMIA, UNSPECIFIED Qualifiers: Anemia type: iron deficiency (9) COPD (chronic obstructive pulmonary disease) Code(s): J44.9 - CHRONIC OBSTRUCTIVE PULMONARY DISEASE, UNSPECIFIED (10) Hematuria Code(s): R31.9 - HEMATURIA, UNSPECIFIED plan can change to oral abx as discussed if patient being txed to shelter if not complete another 2 days of abx then stop it discuss with family about peg tube rest as per primary patient not eating at all
--- NOTE | 2017-09-17 14:54 | DS ---
Physical Examination Vital Signs: Vital Signs Temperature 98.7 F 09/17/17 02:23 Pulse Rate 72 09/17/17 02:23 Respiratory Rate 20 09/17/17 02:23 Blood Pressure 159/74 09/17/17 02:23 O2 Sat by Pulse Oximetry (%) 97 09/16/17 21:00 Constitutional: Yes: Calm, Thin Cardiovascular: Yes: Pulse Irregular. No: Gallop, Murmur, Rub Respiratory: Yes: Regular, CTA Bilaterally, Diminished Gastrointestinal: Yes: WNL, Normal Bowel Sounds, Soft. No: Distention, Tenderness Edema: No Neurological: Yes: Confusion Psychiatric: Yes: Alert Labs: CBC, BMP 09/16/17 06:40 09/16/17 06:40 Discharge Summary Reason For Visit: SEPSIS DUE TO UTI/BRADYCARDIA Current Active Problems Afib (Acute) Altered mental status (Acute) Anemia (Acute) Bradycardia (Acute) COPD (chronic obstructive pulmonary disease) (Acute) Dementia (Acute) Frequent falls (Acute) HTN (hypertension) (Acute) Heart failure (Acute) Hematuria (Acute) Hematuria (Acute) UTI (urinary tract infection) (Acute) UTI (urinary tract infection) (Acute) Condition: Fair - Instructions Diet, Activity, Other Instructions: activity as tolerated dysphagia chopped diet, thin liquids please encourage po Augmentin bid x 9 days for UTI discussed with son Al, regarding peg tube option, pt may need this if his dementia progresses. can get done outpt. Referrals: Jerel Bartlett MD [Primary Care Provider] - 1 Week Disposition: HALFWAY FACILITY - Home Medications Comprehensive Discharge Medication List: Ambulatory Orders Aa/Hydrolyzed Collagen, Whey [Lps 15-30 Liquid] 960 ml PO DAILY 09/12/17 Acetaminophen 325 mg PO PRN PRN 09/12/17 Albuterol 2.5/Ipratropium 0.5 [Duoneb -] 1 neb NEB Q4H 09/12/17 Amlodipine Besylate 5 mg PO DAILY 09/12/17 Ascorbate Calcium [Vitamin C] 500 mg PO DAILY 09/12/17 Chlorpheniramine/Dextromethorp [Robitussin Long-Acting Liq] 20 ml PO PRN PRN 03/22 Famotidine 20 mg PO DAILY 09/12/17 Ferrous Sulfate 325 mg PO DAILY 09/12/17 Lactose-Reduced Food [Ensure Plus] 237 ml PO TID 09/12/17 Oxymetazoline 0.05% Nasal Soln [Afrin -] 1 spray NS DAILY PRN 09/12/17 Rivaroxaban [Xarelto -] 15 mg PO DAILY 09/12/17 Amoxicillin/Potassium Clav [Augmentin 875-125 Tablet] 1 each PO BID 9 Days #18 tablet 09/17/17 Donepezil HCl [Aricept -] 10 mg PO DAILY tablet 09/17/17 Olanzapine [Zyprexa -] 2.5 mg PO BID tablet 09/17/17
--- NOTE | 2017-09-17 15:04 | PN ---
Addendum entered and electronically signed by Adam Coello MD 09/17/17 15:40 : Patient seen and examined. Case d/w Linette Lee [employer] and agree with examination and plan below Original Note: Progress Note, Physician Chief Complaint: Pt in bed in no acute distress. less agitated, appears calm, confused. denies chest pain, sob, n/v/d or fever/chills .Son at bedside, spoke to son regarding possible peg tube considering pt's poor po intake. Son would like to encourage po at the moment. - Current Medication List Current Medications: Active Medications Acetaminophen (Tylenol -) 650 mg PO Q6H PRN PRN Reason: PAIN LEVEL 6-10 Amlodipine Besylate (Norvasc -) 5 mg PO DAILY [facility] Last Admin: 09/17/17 11:27 Dose: 5 mg Ascorbic Acid (Vitamin C -) 500 mg PO DAILY [facility] Last Admin: 09/17/17 11:27 Dose: 500 mg Donepezil HCl (Aricept -) 10 mg PO DAILY [facility] Last Admin: 09/17/17 11:27 Dose: 10 mg Ferrous Sulfate (Feosol -) 325 mg PO DAILY [facility] Last Admin: 09/17/17 11:27 Dose: 325 mg Sodium Chloride (Normal Saline -) 1,000 mls @ 50 mls/hr IV ASDIR [facility] Last Admin: 09/17/17 02:48 Dose: 50 mls/hr Piperacillin Sod/Tazobactam (Sod 3.375 gm/ Dextrose) 50 mls @ 100 mls/hr IVPB Q8H-IV [facility] Last Admin: 09/17/17 11:24 Dose: 100 mls/hr Olanzapine (Zyprexa -) 2.5 mg PO DAILY [facility] Olanzapine (Zyprexa -) 5 mg PO HS [facility] Ranitidine HCl (Zantac -) 150 mg PO DAILY [facility] Last Admin: 09/17/17 11:26 Dose: 150 mg Rivaroxaban (Xarelto -) 15 mg PO DAILY [facility] Last Admin: 09/17/17 11:27 Dose: 15 mg - Objective Vital Signs: Vital Signs Temperature 98.7 F 09/17/17 02:23 Pulse Rate 72 09/17/17 02:23 Respiratory Rate 20 09/17/17 02:23 Blood Pressure 159/74 09/17/17 02:23 O2 Sat by Pulse Oximetry (%) 97 09/16/17 21:00 Constitutional: Yes: No Distress, Thin Cardiovascular: Yes: Pulse Irregular. No: Gallop, Murmur Respiratory: Yes: WNL, Regular, CTA Bilaterally, Diminished Gastrointestinal: Yes: WNL, Normal Bowel Sounds, Soft. No: Distention, Tenderness Edema: No Neurological: Yes: Confusion Psychiatric: Yes: Alert Labs: CBC, BMP 09/16/17 06:40 09/16/17 06:40 INR, PTT INR Cancelled 09/11/17 17:03 Problem List - Problems (1) Bradycardia Code(s): R00.1 - BRADYCARDIA, UNSPECIFIED (2) Altered mental status Code(s): R41.82 - ALTERED MENTAL STATUS, UNSPECIFIED Qualifiers: Altered mental status type: disorientation Qualified Code(s): R41.0 - Disorientation, unspecified (3) UTI (urinary tract infection) Code(s): N39.0 - URINARY TRACT INFECTION, SITE NOT SPECIFIED (4) Dementia Code(s): F03.90 - UNSPECIFIED DEMENTIA WITHOUT BEHAVIORAL DISTURBANCE Qualifiers: Dementia type: Alzheimer's disease Dementia behavioral disturbance: with behavioral disturbance (5) HTN (hypertension) Code(s): I10 - ESSENTIAL (PRIMARY) HYPERTENSION Qualifiers: Hypertension type: essential hypertension Qualified Code(s): I10 - Essential (primary) hypertension (6) Afib Code(s): I48.91 - UNSPECIFIED ATRIAL FIBRILLATION Qualifiers: Atrial fibrillation type: chronic Qualified Code(s): I48.2 - Chronic atrial fibrillation (7) Frequent falls Code(s): R29.6 - REPEATED FALLS (8) Anemia Code(s): D64.9 - ANEMIA, UNSPECIFIED Qualifiers: Anemia type: iron deficiency (9) COPD (chronic obstructive pulmonary disease) Code(s): J44.9 - CHRONIC OBSTRUCTIVE PULMONARY DISEASE, UNSPECIFIED (10) Hematuria Code(s): R31.9 - HEMATURIA, UNSPECIFIED (11) Acute metabolic encephalopathy Code(s): G93.41 - METABOLIC ENCEPHALOPATHY Assessment/Plan (1) Bradycardia Assessment/Plan: asymptomatic, hemodynamically stable defer invasive measures per family wishes cardiology following will monitor Code(s): R00.1 - BRADYCARDIA, UNSPECIFIED (2) Acute metabolic encephalopathy Code(s): G93.41 - METABOLIC ENCEPHALOPATHY secondary to uti , improving treat underlying illness and monitor for improvement Zosyn per ID Code(s): R41.82 - ALTERED MENTAL STATUS, UNSPECIFIED Qualifiers: Altered mental status type: disorientation Qualified Code(s): R41.0 - Disorientation, unspecified (3) UTI (urinary tract infection) Assessment/Plan: hematuria resolved, pt afebrile, hemodynamically stable Zosyn per ID will consider transition to PO once taking PO Code(s): N39.0 - URINARY TRACT INFECTION, SITE NOT SPECIFIED (4) Hematuria Assessment/Plan: resolved adorno d/c'd Code(s): R31.9 - HEMATURIA, UNSPECIFIED (5) Dementia Assessment/Plan: pt agitated, in jose manuel restraints Psych and neuro following zyprexa increased to 7.5mg daily, please monitor for increased lethargy dysphagia chopped diet aspiration precautions Code(s): F03.90 - UNSPECIFIED DEMENTIA WITH BEHAVIORAL DISTURBANCE Qualifiers: Dementia type: Alzheimer's disease (6) HTN (hypertension) Assessment/Plan: stable Amlodipine Holding lasix in the setting of UTI, poor po intake Code(s): I10 - ESSENTIAL (PRIMARY) HYPERTENSION Qualifiers: Hypertension type: essential hypertension Qualified Code(s): I10 - Essential (primary) hypertension (7) Afib Assessment/Plan: chronic coagulated on xarelto aspirin d/c'd per cardiology cardiology following Code(s): I48.91 - UNSPECIFIED ATRIAL FIBRILLATION Qualifiers: Atrial fibrillation type: chronic Qualified Code(s): I48.2 - Chronic atrial fibrillation (8) Frequent falls Assessment/Plan: head ct with no acute findings Code(s): R29.6 - REPEATED FALLS (9) Anemia Assessment/Plan: chronic iron def anemia h/h stable will monitor Code(s): D64.9 - ANEMIA, UNSPECIFIED Qualifiers: Anemia type: iron deficiency (10) COPD (chronic obstructive pulmonary disease) Assessment/Plan: chronic continue duonebs Code(s): J44.9 - CHRONIC OBSTRUCTIVE PULMONARY DISEASE, UNSPECIFIED DISPO: [facility] once pt is off of restraints >24 hrs, able to work with PT. Otherwise, pt is clinically stable spoke to son Al, at bedside, brought up peg tube option. Family meeting to take place tomorrow to further discuss goals
--- NOTE | 2017-09-17 18:08 | PN ---
Progress Note, Physician Chief Complaint: bradycardia History of Present Illness: pt remains alert but not oriented, and not meaningfully communicative - Current Medication List Current Medications: Active Medications Acetaminophen (Tylenol -) 650 mg PO Q6H PRN PRN Reason: PAIN LEVEL 6-10 Amlodipine Besylate (Norvasc -) 5 mg PO DAILY [facility] Last Admin: 09/17/17 11:27 Dose: 5 mg Ascorbic Acid (Vitamin C -) 500 mg PO DAILY [facility] Last Admin: 09/17/17 11:27 Dose: 500 mg Donepezil HCl (Aricept -) 10 mg PO DAILY [facility] Last Admin: 09/17/17 11:27 Dose: 10 mg Ferrous Sulfate (Feosol -) 325 mg PO DAILY [facility] Last Admin: 09/17/17 11:27 Dose: 325 mg Sodium Chloride (Normal Saline -) 1,000 mls @ 50 mls/hr IV ASDIR [facility] Last Admin: 09/17/17 02:48 Dose: 50 mls/hr Piperacillin Sod/Tazobactam (Sod 3.375 gm/ Dextrose) 50 mls @ 100 mls/hr IVPB Q8H-IV [facility] Last Admin: 09/17/17 11:24 Dose: 100 mls/hr Olanzapine (Zyprexa -) 2.5 mg PO DAILY [facility] Olanzapine (Zyprexa -) 5 mg PO HS [facility] Ranitidine HCl (Zantac -) 150 mg PO DAILY [facility] Last Admin: 09/17/17 11:26 Dose: 150 mg Rivaroxaban (Xarelto -) 15 mg PO DAILY [facility] Last Admin: 09/17/17 11:27 Dose: 15 mg - Objective Vital Signs: Vital Signs Temperature 98.7 F 09/17/17 02:23 Pulse Rate 72 09/17/17 02:23 Respiratory Rate 20 09/17/17 02:23 Blood Pressure 159/74 09/17/17 02:23 O2 Sat by Pulse Oximetry (%) 95 09/17/17 09:00 Constitutional: Yes: Well Nourished, Calm Cardiovascular: Yes: Pulse Irregular (tds exam (jose manuel, not cooperating)), S1, S2. No: Gallop, Murmur Respiratory: Yes: Regular, CTA Bilaterally. No: Accessory Muscle Use Extremities: No: Cold Edema: No Neurological: Yes: Alert. No: Oriented, Seizure Psychiatric: No: Agitated Labs: CBC, BMP 09/16/17 06:40 09/16/17 06:40 INR, PTT INR Cancelled 09/11/17 17:03 - ....Imaging EKG: Other (tele now d/c'd. afib with HR at times 40s seen as of yest evening--> 60s-70s this am prior to tele removed) Assessment/Plan ekg x 2: afib, SVR with frequent pvc's/aberrent conduction. RBBB. non- specific t wave abnormalities. echo 09/2017: nl lv/rv size/fn. sev safia. 1+ mr. mod tr, 1+ phtn. cxr (images/report reviewed): opacity in rt mid lung ? pna. no chf. see emr for detailed report head ct: (images/report reviewed):chronic rt mca infarct. small chronic infarct in posterior lt temporoparietal lobe. microvascular changes. atherosclerosis of carotids and verts. a/p: 89 y/o M w/ PMH Afib on xarelto, Dementia, Prior CVA, HTN, CHF, COPD, Anemia who was sent from [facility] because of increased agitation/ personality change, hospital course complicated by afib with SVR. afib with slow conduction at times (HR in 30s), asymptomatic: - on no AVN blockers - pt dnr/dni. d/w'd brother at bedside that there is some risk of symptomatic jim in future, but he states that pt is often agitated/confused and the family would like to avoid invasive therapies. he also states that he thinks he would become very agitated by going thru a PM and having visible pocket/ generator. he wishes to defer and hope pt remains asymptomatic/hemodynamically stable - TSH normal - HRs improved (? partly was result of sedation from zyprexa??). d/c tele given family does not want interventions based on any findings on heart rhythm monitoring, which is an appropriate plan in this pt - on xarelto as outpatient, continued in hospital - once neuropsych status is stabilized here, need to reassess level of agitation and risk of transferring on his own or ambulating with falls-- regarding risks of prolonged AC in SNF htn, -fairly well controlled off anti-hypertensives. ? why amlodipine held her -cont same plan cva -cont ac with xarelto. stopped asa as mentioned above.
[2017-09-17] MEDS ORDERED: LORazepam 2 MG/ML SDV VIAL IVPUSH ONE (20:00)
[2017-09-18] MEDS: PIPERACILLIN/TAZOB 3.375 GM 3.375 GM in DEXTROSE 5%-WATER - 50 ML IVPB SCH ×3 (00:59→17:49)
[2017-09-18 07:25] LABS: BASO % 0.9 % (0-2.0); EOS % 4.8 % (0-4.5); HEMATOCRIT 32.7 % (35.4-49); HEMOGLOBIN 10.6 GM/dL (11.7-16.9); LYMPH % 21.5 % (8-40); MCH 29.6 pg (25.7-33.7); MCHC 32.5 g/dl (32.0-35.9); MEAN CELL VOLUME 91.2 fl (80-96); MEAN PLT VOLUME 8.3 fl (7.5-11.1); MONO % 9.2 % (3.8-10.2); NEUT % 63.6 % (42.8-82.8); PLATELET COUNT 142 K/MM3 (134-434); RBC 3.58 M/mm3 (4.00-5.60); RDW 17.6 % (11.9-15.9); WHITE BLOOD COUNT 4.7 K/mm3 (4.0-10.0)
[2017-09-18 07:32] LABS: ANION GAP 8 (8-16); BLOOD UREA NITROGEN 10 mg/dL (7-18); CALCIUM 8.8 mg/dL (8.5-10.1); CHLORIDE 109 mmol/L (98-107); CO2 27 mmol/L (21-32); CREATININE 0.8 mg/dL (0.7-1.3); GLUCOSE,RANDOM 66 mg/dL (74-106); MAGNESIUM 2.2 mg/dL (1.8-2.4); POTASSIUM 3.3 mmol/L (3.5-5.1); SODIUM 144 mmol/L (136-145)
--- NOTE | 2017-09-18 09:30 | PN ---
Progress Note (short form) - Note Progress Note: Neurology HISTORY OF PRESENT ILLNESS: 89 y/o M w/ PMH Afib, Dementia, Prior CVA, HTN, CHF, COPD, Anemia who was sent from [facility] because of increased agitation. Pt was given Ativan at SD but symptoms did not resolve. On arrival in ED, pt was reportedly unresponsive, EKG with slow Afib with PVCs. Given Atropine per notes without obvious improvement, however, at some point, the patient did convert to ventricular bigemini and became more responsive. I was consulted for mental status. He has UA suspicious for UTI and possible PNA. Seen by psych. ID also following and remains on Zosyn. CT head without acute changes. Spoke to nurse who indicated he got Haldol overnight and slept through the night. Is awake and aggitated today, less than yesterday but still climbing out of best. On restraints and nurse monitoring closely. Family to come today and determine goals of care. Active Medications Acetaminophen (Tylenol -) 650 mg PO Q6H PRN PRN Reason: PAIN LEVEL 6-10 Amlodipine Besylate (Norvasc -) 5 mg PO DAILY [facility] Last Admin: 09/17/17 11:27 Dose: 5 mg Ascorbic Acid (Vitamin C -) 500 mg PO DAILY [facility] Last Admin: 09/17/17 11:27 Dose: 500 mg Donepezil HCl (Aricept -) 10 mg PO DAILY [facility] Last Admin: 09/17/17 11:27 Dose: 10 mg Ferrous Sulfate (Feosol -) 325 mg PO DAILY [facility] Last Admin: 09/17/17 11:27 Dose: 325 mg Sodium Chloride (Normal Saline -) 1,000 mls @ 50 mls/hr IV ASDIR [facility] Last Admin: 09/17/17 02:48 Dose: 50 mls/hr Piperacillin Sod/Tazobactam (Sod 3.375 gm/ Dextrose) 50 mls @ 100 mls/hr IVPB Q8H-IV [facility] Last Admin: 09/18/17 00:59 Dose: 100 mls/hr Olanzapine (Zyprexa -) 2.5 mg PO DAILY [facility] Olanzapine (Zyprexa -) 5 mg PO HS [facility] Last Admin: 09/17/17 21:32 Dose: 5 mg Ranitidine HCl (Zantac -) 150 mg PO DAILY [facility] Last Admin: 09/17/17 11:26 Dose: 150 mg Rivaroxaban (Xarelto -) 15 mg PO DAILY [facility] Last Admin: 09/17/17 11:27 Dose: 15 mg PHYSICAL EXAMINATION Vital Signs Temperature 97.8 F 09/18/17 06:00 Pulse Rate 54 L 09/18/17 06:00 Respiratory Rate 18 09/18/17 06:00 Blood Pressure 150/52 09/18/17 06:00 O2 Sat by Pulse Oximetry (%) 95 09/17/17 21:00 GENERAL: Awake, alert, and aggitated, climbing out of bed HEAD: Normal with no signs of trauma. EYES: Pupils equal, round and reactive to light. sclera anicteric, conjunctiva clear EARS, NOSE, THROAT: Moist mucous membranes. NECK: Normal range of motion, mild JVD. No bruits. supple without lymphadenopathy, , or masses. LUNGS: Difficult to auscultate. clear to auscultation bilaterally. HEART: Regular rate and rhythm, normal S1 and S2 without murmur, rub or gallop. ABDOMEN: Soft, not distended, normoactive bowel sounds, no guarding, no rebound , no masses. No hepatomegaly or splenomegaly. MUSCULOSKELETAL: Normal range of motion at all joints. No bony deformities or tenderness. No CVA tenderness. UPPER EXTREMITIES: 2+ pulses, warm, well-perfused. No cyanosis. No clubbing. No peripheral edema. LOWER EXTREMITIES: stasis dermatitis. 2+ pulses, warm. No edema NEUROLOGICAL: CN appear intact, no facial droop or slurred speech appreciated, sensation intact, moves all extremities equally, gait deferred SKIN: legs with stasis changes. Warm, dry, normal turgor, no rashes or lesions noted, normal capillary refill. CBCD WBC 4.7 K/mm3 (4.0-10.0) 09/18/17 06:25 RBC 3.58 M/mm3 (4.00-5.60) L 09/18/17 06:25 Hgb 10.6 GM/dL (11.7-16.9) L 09/18/17 06:25 Hct 32.7 % (35.4-49) L 09/18/17 06:25 MCV 91.2 fl (80-96) 09/18/17 06:25 MCHC 32.5 g/dl (32.0-35.9) 09/18/17 06:25 RDW 17.6 % (11.9-15.9) H 09/18/17 06:25 Plt Count 142 K/MM3 (134-434) 09/18/17 06:25 MPV 8.3 fl (7.5-11.1) 09/18/17 06:25 CMP Sodium 144 mmol/L (136-145) 09/18/17 06:25 Potassium 3.3 mmol/L (3.5-5.1) L 09/18/17 06:25 Chloride 109 mmol/L (98-107) H 09/18/17 06:25 Carbon Dioxide 27 mmol/L (21-32) 09/18/17 06:25 Anion Gap 8 (8-16) 09/18/17 06:25 BUN 10 mg/dL (7-18) 09/18/17 06:25 Creatinine 0.8 mg/dL (0.7-1.3) 09/18/17 06:25 Creat Clearance w eGFR > 60 (>60) 09/15/17 05:00 Calcium 8.8 mg/dL (8.5-10.1) 09/18/17 06:25 Total Bilirubin 0.8 mg/dL (0.2-1.0) 09/15/17 05:00 AST 39 U/L (15-37) H 09/15/17 05:00 ALT 24 U/L (12-78) 09/15/17 05:00 Alkaline Phosphatase 70 U/L (45-117) D 09/15/17 05:00 Total Protein 5.7 g/dl (6.4-8.2) L 09/15/17 05:00 Albumin 2.6 g/dl (3.4-5.0) L D 09/15/17 05:00 CT head reviewed ASSESSMENT/PLAN: 89 y/o M w/ PMH Afib, Dementia, Prior CVA, HTN, CHF, COPD, Anemia who was sent from [facility] because of increased agitation. Pt was given Ativan at SD but symptoms did not resolve. On arrival in ED, pt was reportedly unresponsive, EKG with slow Afib with PVCs. Given Atropine per notes without obvious improvement, however, at some point, the patient did convert to ventricular bigemini and became more responsive. Patient seen at bedside and I was consulted for mental status. He has UA suspicious for UTI and possible PNA. He was aggitated during my encounter but was able to be calmed. Was awake, alert, moving all extremities but was curing at times and irritable. Nurse confirmed patient behavior. Seen by psych and put on Zyprexa 5mg, has not been taking regularly Consider further psych followup/med adjustment CT head complete and without acute changes Combination of infection (delirium) and owning occuring Continued Tx of UTI/PNA On Zosyn Can Continue aricept, increased to 10mg Continue hydration Reorientation as able Monitor patient for safety Family to come today and determine goals of care
--- NOTE | 2017-09-18 10:58 | PN ---
Progress Note, Physician Chief Complaint: Pt in bed in no acute distress.lethargic but arousable, less agitated, but confused. denies chest pain, sob, n/v/d or fever/chills. - Current Medication List Current Medications: Active Medications Acetaminophen (Tylenol -) 650 mg PO Q6H PRN PRN Reason: PAIN LEVEL 6-10 Amlodipine Besylate (Norvasc -) 5 mg PO DAILY [facility] Last Admin: 09/17/17 11:27 Dose: 5 mg Ascorbic Acid (Vitamin C -) 500 mg PO DAILY [facility] Last Admin: 09/17/17 11:27 Dose: 500 mg Donepezil HCl (Aricept -) 10 mg PO DAILY [facility] Last Admin: 09/17/17 11:27 Dose: 10 mg Ferrous Sulfate (Feosol -) 325 mg PO DAILY [facility] Last Admin: 09/17/17 11:27 Dose: 325 mg Sodium Chloride (Normal Saline -) 1,000 mls @ 50 mls/hr IV ASDIR [facility] Last Admin: 09/17/17 02:48 Dose: 50 mls/hr Piperacillin Sod/Tazobactam (Sod 3.375 gm/ Dextrose) 50 mls @ 100 mls/hr IVPB Q8H-IV [facility] Last Admin: 09/18/17 00:59 Dose: 100 mls/hr Olanzapine (Zyprexa -) 2.5 mg PO DAILY [facility] Olanzapine (Zyprexa -) 5 mg PO HS [facility] Last Admin: 09/17/17 21:32 Dose: 5 mg Potassium Chloride (K-Dur -) 40 meq PO ONCE ONE Stop: 09/18/17 10:46 Ranitidine HCl (Zantac -) 150 mg PO DAILY [facility] Last Admin: 09/17/17 11:26 Dose: 150 mg Rivaroxaban (Xarelto -) 15 mg PO DAILY [facility] Last Admin: 09/17/17 11:27 Dose: 15 mg - Objective Vital Signs: Vital Signs Temperature 97.8 F 09/18/17 06:00 Pulse Rate 54 L 09/18/17 06:00 Respiratory Rate 18 09/18/17 06:00 Blood Pressure 150/52 09/18/17 06:00 O2 Sat by Pulse Oximetry (%) 95 09/17/17 21:00 Constitutional: Yes: No Distress, Thin Cardiovascular: Yes: Bradycardia, Pulse Irregular. No: Gallop, Murmur, Rub Respiratory: Yes: CTA Bilaterally, Diminished. No: Rales, Rhonchi, SOB, Tachypnea, Wheezes Gastrointestinal: Yes: Normal Bowel Sounds, Soft. No: Distention, Tenderness Edema: No Neurological: Yes: Confusion, Lethargy Psychiatric: Yes: Alert Labs: CBC, BMP 09/18/17 06:25 09/18/17 06:25 INR, PTT INR Cancelled 09/11/17 17:03 Problem List - Problems (1) Bradycardia Code(s): R00.1 - BRADYCARDIA, UNSPECIFIED (2) Altered mental status Code(s): R41.82 - ALTERED MENTAL STATUS, UNSPECIFIED Qualifiers: Altered mental status type: disorientation Qualified Code(s): R41.0 - Disorientation, unspecified (3) UTI (urinary tract infection) Code(s): N39.0 - URINARY TRACT INFECTION, SITE NOT SPECIFIED (4) Dementia Code(s): F03.90 - UNSPECIFIED DEMENTIA WITHOUT BEHAVIORAL DISTURBANCE Qualifiers: Dementia type: Alzheimer's disease Dementia behavioral disturbance: with behavioral disturbance (5) HTN (hypertension) Code(s): I10 - ESSENTIAL (PRIMARY) HYPERTENSION Qualifiers: Hypertension type: essential hypertension Qualified Code(s): I10 - Essential (primary) hypertension (6) Afib Code(s): I48.91 - UNSPECIFIED ATRIAL FIBRILLATION Qualifiers: Atrial fibrillation type: chronic Qualified Code(s): I48.2 - Chronic atrial fibrillation (7) Frequent falls Code(s): R29.6 - REPEATED FALLS (8) Anemia Code(s): D64.9 - ANEMIA, UNSPECIFIED Qualifiers: Anemia type: iron deficiency (9) COPD (chronic obstructive pulmonary disease) Code(s): J44.9 - CHRONIC OBSTRUCTIVE PULMONARY DISEASE, UNSPECIFIED (10) Hematuria Code(s): R31.9 - HEMATURIA, UNSPECIFIED (11) Acute metabolic encephalopathy Code(s): G93.41 - METABOLIC ENCEPHALOPATHY Assessment/Plan (1) Bradycardia Assessment/Plan: asymptomatic, hemodynamically stable defer invasive measures per family wishes no need for tele monitoring per cardiology Code(s): R00.1 - BRADYCARDIA, UNSPECIFIED (2) Acute metabolic encephalopathy Code(s): G93.41 - METABOLIC ENCEPHALOPATHY secondary to uti , improving treat underlying illness and monitor for improvement continue Zosyn per ID Code(s): R41.82 - ALTERED MENTAL STATUS, UNSPECIFIED Qualifiers: Altered mental status type: disorientation Qualified Code(s): R41.0 - Disorientation, unspecified (3) UTI (urinary tract infection) Assessment/Plan: hematuria resolved, pt afebrile, hemodynamically stable Zosyn per ID will consider transition to PO once taking PO Code(s): N39.0 - URINARY TRACT INFECTION, SITE NOT SPECIFIED (4) Hematuria Assessment/Plan: resolved adorno d/c'd Code(s): R31.9 - HEMATURIA, UNSPECIFIED (5) Dementia Assessment/Plan: worsening, pt has been getting more agitated with poor po intake appears less agitated today during interaction, in jose manuel restraints avoid restraints if pt is less agitated throughout the day Psych and neuro following zyprexa 7.5mg daily, please monitor for increased lethargy dysphagia chopped diet aspiration precautions Code(s): F03.90 - UNSPECIFIED DEMENTIA WITH BEHAVIORAL DISTURBANCE Qualifiers: Dementia type: Alzheimer's disease (6) HTN (hypertension) Assessment/Plan: stable Amlodipine Holding lasix in the setting of UTI, poor po intake Code(s): I10 - ESSENTIAL (PRIMARY) HYPERTENSION Qualifiers: Hypertension type: essential hypertension Qualified Code(s): I10 - Essential (primary) hypertension (7) Afib Assessment/Plan: chronic coagulated on xarelto aspirin d/c'd per cardiology Code(s): I48.91 - UNSPECIFIED ATRIAL FIBRILLATION Qualifiers: Atrial fibrillation type: chronic Qualified Code(s): I48.2 - Chronic atrial fibrillation (8) Frequent falls Assessment/Plan: head ct with no acute findings Code(s): R29.6 - REPEATED FALLS (9) Anemia Assessment/Plan: chronic iron def anemia h/h stable will monitor Code(s): D64.9 - ANEMIA, UNSPECIFIED Qualifiers: Anemia type: iron deficiency (10) COPD (chronic obstructive pulmonary disease) Assessment/Plan: chronic continue duonebs Code(s): J44.9 - CHRONIC OBSTRUCTIVE PULMONARY DISEASE, UNSPECIFIED DISPO: [facility] once pt is off of restraints >24 hrs, able to work with PT. Otherwise, pt is clinically stable spoke to son Al, at bedside, brought up peg tube option. Family meeting to take place today to further discuss goals
[2017-09-18] MEDS: DONEPEZIL HCL 10 MG TABLET (FP) PO SCH (11:09)
[2017-09-18] MEDS: FERROUS SO4 325 MG TABLET (FP) PO SCH (11:09)
[2017-09-18] MEDS: amLODIPine BESYLATE 5 MG TABLET (FP) PO SCH (11:09)
[2017-09-18] MEDS: OLANZapine 5 MG TABLET PO SCH ×2 (11:09→22:34)
[2017-09-18] MEDS: ASCORBIC ACID 500 MG TABLET (FP) PO SCH (11:09)
[2017-09-18] MEDS: RANITIDINE HCL 150 MG TABLET (FP) PO SCH (11:10)
[2017-09-18] MEDS: RIVAROXABAN 15 MG TABLET PO SCH (11:10)
[2017-09-18] MEDS ORDERED: POTASSIUM CHLORIDE TABS 20 MEQ TABLET.ER (FP) PO ONE (11:45)
--- NOTE | 2017-09-18 12:00 | PN ---
Progress Note (short form) - Note Progress Note: s: no cp sob palps dizzy, +confused o: Vital Signs Period Temp Pulse Resp BP Sys/Vega Pulse Ox Last 24 Hr 97.2 F-98.0 F 38-61 18-22 136-158/52-74 95 nad, calm alert but not oriented bibasilar rales, poor effort irregular rhythm, nl s1, s2. + 2/6 sys murmur at lsb. ND PMI + bs soft nt nd, no hsm ext without e/c/c no jaundice, diaphoresis Current Medications Generic Name Dose Route Start Last Admin Trade Name Freq PRN Reason Stop Dose Admin Acetaminophen 650 mg 09/13/17 13:21 Tylenol - PO Q6H PRN PAIN LEVEL 6-10 Amlodipine Besylate 5 mg 09/17/17 10:00 09/18/17 11:09 Norvasc - PO 5 mg DAILY [facility] Administration Ascorbic Acid 500 mg 09/14/17 10:00 09/18/17 11:09 Vitamin C - PO 500 mg DAILY [facility] Administration Donepezil HCl 10 mg 09/16/17 09:32 09/18/17 11:09 Aricept - PO 10 mg DAILY [facility] Administration Ferrous Sulfate 325 mg 09/14/17 10:00 09/18/17 11:09 Feosol - PO 325 mg DAILY [facility] Administration Sodium Chloride 1,000 mls @ 50 mls/hr 09/12/17 16:47 09/17/17 02:48 Normal Saline - IV 50 mls/hr ASDIR [facility] Administration Piperacillin Sod/Tazobactam 50 mls @ 100 mls/hr 09/13/17 18:00 09/18/17 11:08 Sod 3.375 gm/ Dextrose IVPB 100 mls/hr Q8H-IV [facility] Administration Olanzapine 2.5 mg 09/18/17 10:00 09/18/17 11:09 Zyprexa - PO 2.5 mg DAILY [facility] Administration Olanzapine 5 mg 09/17/17 22:00 09/17/17 21:32 Zyprexa - PO 5 mg HS [facility] Administration Ranitidine HCl 150 mg 09/14/17 10:00 09/18/17 11:10 Zantac - PO 150 mg DAILY [facility] Administration Rivaroxaban 15 mg 09/14/17 10:00 09/18/17 11:10 Xarelto - PO 15 mg DAILY [facility] Administration CBC, BMP 09/18/17 06:25 09/18/17 06:25 ekg x 2: afib, SVR with frequent pvc's/aberrent conduction. RBBB. non- specific t wave abnormalities. echo 09/2017: nl lv/rv size/fn. sev safia. 1+ mr. mod tr, 1+ phtn. cxr (images/report reviewed): opacity in rt mid lung ? pna. no chf. see emr for detailed report head ct: (images/report reviewed):chronic rt mca infarct. small chronic infarct in posterior lt temporoparietal lobe. microvascular changes. atherosclerosis of carotids and verts. tele: afib, rate controlled a/p: 89 y/o M w/ PMH Afib on xarelto, Dementia, Prior CVA, HTN, CHF, COPD, Anemia who was sent from [facility] because of increased agitation/ personality change, hospital course complicated by afib with SVR. afib with slow conduction at times (HR in 30s), asymptomatic: - on no AVN blockers - pt dnr/dni. d/w'd brother at bedside that there is some risk of symptomatic jim in future, but he states that pt is often agitated/confused and the family would like to avoid invasive therapies. he also states that he thinks he would become very agitated by going thru a PM and having visible pocket/ generator. he wishes to defer and hope pt remains asymptomatic/hemodynamically stable - TSH normal - HRs improved (? partly was result of sedation from zyprexa??). d/c tele given family does not want interventions based on any findings on heart rhythm monitoring, which is an appropriate plan in this pt - on xarelto as outpatient, continued in hospital - once neuropsych status is stabilized here, need to reassess level of agitation and risk of transferring on his own or ambulating with falls-- regarding risks of prolonged AC in SNF htn, -cont norvasc cva -cont ac with xarelto. stopped asa as mentioned above.
--- NOTE | 2017-09-18 14:28 | PN ---
Progress Note, Physician History of Present Illness: refusing to eat still had discussion with his brother his son is the one to make decisions primary team going to talk wiht the son - Current Medication List Current Medications: Active Medications Acetaminophen (Tylenol -) 650 mg PO Q6H PRN PRN Reason: PAIN LEVEL 6-10 Amlodipine Besylate (Norvasc -) 5 mg PO DAILY [facility] Last Admin: 09/18/17 11:09 Dose: 5 mg Ascorbic Acid (Vitamin C -) 500 mg PO DAILY [facility] Last Admin: 09/18/17 11:09 Dose: 500 mg Donepezil HCl (Aricept -) 10 mg PO DAILY [facility] Last Admin: 09/18/17 11:09 Dose: 10 mg Ferrous Sulfate (Feosol -) 325 mg PO DAILY [facility] Last Admin: 09/18/17 11:09 Dose: 325 mg Sodium Chloride (Normal Saline -) 1,000 mls @ 50 mls/hr IV ASDIR [facility] Last Admin: 09/17/17 02:48 Dose: 50 mls/hr Piperacillin Sod/Tazobactam (Sod 3.375 gm/ Dextrose) 50 mls @ 100 mls/hr IVPB Q8H-IV [facility] Last Admin: 09/18/17 11:08 Dose: 100 mls/hr Olanzapine (Zyprexa -) 2.5 mg PO DAILY [facility] Last Admin: 09/18/17 11:09 Dose: 2.5 mg Olanzapine (Zyprexa -) 5 mg PO HS [facility] Last Admin: 09/17/17 21:32 Dose: 5 mg Ranitidine HCl (Zantac -) 150 mg PO DAILY [facility] Last Admin: 09/18/17 11:10 Dose: 150 mg Rivaroxaban (Xarelto -) 15 mg PO DAILY [facility] Last Admin: 09/18/17 11:10 Dose: 15 mg - Objective Vital Signs: Vital Signs Temperature 98.0 F 09/18/17 10:00 Pulse Rate 48 L 09/18/17 10:00 Respiratory Rate 22 09/18/17 10:00 Blood Pressure 136/56 09/18/17 10:00 O2 Sat by Pulse Oximetry (%) 96 09/18/17 09:00 Constitutional: Yes: Calm Cardiovascular: Yes: Regular Rate and Rhythm Respiratory: Yes: Regular, CTA Bilaterally Gastrointestinal: Yes: Normal Bowel Sounds, Soft Musculoskeletal: Yes: WNL Extremities: Yes: WNL Neurological: Yes: Alert, Confusion Psychiatric: Yes: Alert, Other Labs: CBC, BMP 09/18/17 06:25 09/18/17 06:25 INR, PTT INR Cancelled 09/11/17 17:03 Assessment/Plan patient with positive uti also chances of aspiration pna high Problem List - Problems (1) Bradycardia Code(s): R00.1 - BRADYCARDIA, UNSPECIFIED (2) Altered mental status Code(s): R41.82 - ALTERED MENTAL STATUS, UNSPECIFIED Qualifiers: Altered mental status type: disorientation Qualified Code(s): R41.0 - Disorientation, unspecified (3) UTI (urinary tract infection) Code(s): N39.0 - URINARY TRACT INFECTION, SITE NOT SPECIFIED (4) Dementia Code(s): F03.90 - UNSPECIFIED DEMENTIA WITHOUT BEHAVIORAL DISTURBANCE Qualifiers: Dementia type: Alzheimer's disease Dementia behavioral disturbance: with behavioral disturbance (5) HTN (hypertension) Code(s): I10 - ESSENTIAL (PRIMARY) HYPERTENSION Qualifiers: Hypertension type: essential hypertension Qualified Code(s): I10 - Essential (primary) hypertension (6) Afib Code(s): I48.91 - UNSPECIFIED ATRIAL FIBRILLATION Qualifiers: Atrial fibrillation type: chronic Qualified Code(s): I48.2 - Chronic atrial fibrillation (7) Frequent falls Code(s): R29.6 - REPEATED FALLS (8) Anemia Code(s): D64.9 - ANEMIA, UNSPECIFIED Qualifiers: Anemia type: iron deficiency (9) COPD (chronic obstructive pulmonary disease) Code(s): J44.9 - CHRONIC OBSTRUCTIVE PULMONARY DISEASE, UNSPECIFIED (10) Hematuria Code(s): R31.9 - HEMATURIA, UNSPECIFIED assessment and plan Problem List - Problems (1) Bradycardia Code(s): R00.1 - BRADYCARDIA, UNSPECIFIED (2) Altered mental status Code(s): R41.82 - ALTERED MENTAL STATUS, UNSPECIFIED Qualifiers: Altered mental status type: disorientation Qualified Code(s): R41.0 - Disorientation, unspecified (3) UTI (urinary tract infection) Code(s): N39.0 - URINARY TRACT INFECTION, SITE NOT SPECIFIED (4) Dementia Code(s): F03.90 - UNSPECIFIED DEMENTIA WITHOUT BEHAVIORAL DISTURBANCE Qualifiers: Dementia type: Alzheimer's disease Dementia behavioral disturbance: with behavioral disturbance (5) HTN (hypertension) Code(s): I10 - ESSENTIAL (PRIMARY) HYPERTENSION Qualifiers: Hypertension type: essential hypertension Qualified Code(s): I10 - Essential (primary) hypertension (6) Afib Code(s): I48.91 - UNSPECIFIED ATRIAL FIBRILLATION Qualifiers: Atrial fibrillation type: chronic Qualified Code(s): I48.2 - Chronic atrial fibrillation (7) Frequent falls Code(s): R29.6 - REPEATED FALLS (8) Anemia Code(s): D64.9 - ANEMIA, UNSPECIFIED Qualifiers: Anemia type: iron deficiency (9) COPD (chronic obstructive pulmonary disease) Code(s): J44.9 - CHRONIC OBSTRUCTIVE PULMONARY DISEASE, UNSPECIFIED (10) Hematuria Code(s): R31.9 - HEMATURIA, UNSPECIFIED plan vidal top abx afer today and watch discuss with family about peg tube rest as per primary patient not eating at all
[2017-09-18] MEDS ORDERED: PT OWN MED DRAWER 7, Y5N ONE (17:46)
[2017-09-19] MEDS ORDERED: PT OWN MED DRAWER 7, Y5N ONE ×2 (01:00→09:26)
[2017-09-19] MEDS: PIPERACILLIN/TAZOB 3.375 GM 3.375 GM in DEXTROSE 5%-WATER - 50 ML IVPB SCH ×2 (01:25→09:27)
[2017-09-19] MEDS: DONEPEZIL HCL 10 MG TABLET (FP) PO SCH (10:00)
[2017-09-19] MEDS: RANITIDINE HCL 150 MG TABLET (FP) PO SCH (10:00)
[2017-09-19] MEDS: OLANZapine 5 MG TABLET PO SCH ×2 (10:00→22:14)
--- NOTE | 2017-09-19 10:16 | PN ---
Progress Note (short form) - Note Progress Note: Neurology HISTORY OF PRESENT ILLNESS: 89 y/o M w/ PMH Afib, Dementia, Prior CVA, HTN, CHF, COPD, Anemia who was sent from [facility] because of increased agitation. Pt was given Ativan at [place] but symptoms did not resolve. On arrival in ED, pt was reportedly unresponsive, EKG with slow Afib with PVCs. Given Atropine per notes without obvious improvement, however, at some point, the patient did convert to ventricular bigemini and became more responsive. I was consulted for mental status. He has UA suspicious for UTI and possible PNA. Seen by psych. ID also following and remains on Zosyn. CT head without acute changes. Patient calm this morning, not aggitated. Being considered for palliative care, discussed with nurse. Active Medications Acetaminophen (Tylenol -) 650 mg PO Q6H PRN PRN Reason: PAIN LEVEL 6-10 Donepezil HCl (Aricept -) 10 mg PO DAILY [facility] Last Admin: 09/18/17 11:09 Dose: 10 mg Piperacillin Sod/Tazobactam (Sod 3.375 gm/ Dextrose) 50 mls @ 100 mls/hr IVPB Q8H-IV [facility] Last Admin: 09/19/17 09:27 Dose: 100 mls/hr Olanzapine (Zyprexa -) 2.5 mg PO DAILY [facility] Last Admin: 09/18/17 11:09 Dose: 2.5 mg Olanzapine (Zyprexa -) 5 mg PO HS [facility] Last Admin: 09/18/17 22:34 Dose: 5 mg Ranitidine HCl (Zantac -) 150 mg PO DAILY [facility] Last Admin: 09/18/17 11:10 Dose: 150 mg PHYSICAL EXAMINATION Vital Signs Period Temp Pulse Resp BP Sys/Vega Pulse Ox Last 24 Hr 97.5 F-98.4 F 56-69 18-20 132-165/53-69 95 GENERAL: Awake, alert, and aggitated, climbing out of bed HEAD: Normal with no signs of trauma. EYES: Pupils equal, round and reactive to light. sclera anicteric, conjunctiva clear EARS, NOSE, THROAT: Moist mucous membranes. NECK: Normal range of motion, mild JVD. No bruits. supple without lymphadenopathy, , or masses. LUNGS: Difficult to auscultate. clear to auscultation bilaterally. HEART: Regular rate and rhythm, normal S1 and S2 without murmur, rub or gallop. ABDOMEN: Soft, not distended, normoactive bowel sounds, no guarding, no rebound , no masses. No hepatomegaly or splenomegaly. MUSCULOSKELETAL: Normal range of motion at all joints. No bony deformities or tenderness. No CVA tenderness. UPPER EXTREMITIES: 2+ pulses, warm, well-perfused. No cyanosis. No clubbing. No peripheral edema. LOWER EXTREMITIES: stasis dermatitis. 2+ pulses, warm. No edema NEUROLOGICAL: CN appear intact, no facial droop or slurred speech appreciated, sensation intact, moves all extremities equally, gait deferred SKIN: legs with stasis changes. Warm, dry, normal turgor, no rashes or lesions noted, normal capillary refill. CBCD WBC 4.7 K/mm3 (4.0-10.0) 09/18/17 06:25 RBC 3.58 M/mm3 (4.00-5.60) L 09/18/17 06:25 Hgb 10.6 GM/dL (11.7-16.9) L 09/18/17 06:25 Hct 32.7 % (35.4-49) L 09/18/17 06:25 MCV 91.2 fl (80-96) 09/18/17 06:25 MCHC 32.5 g/dl (32.0-35.9) 09/18/17 06:25 RDW 17.6 % (11.9-15.9) H 09/18/17 06:25 Plt Count 142 K/MM3 (134-434) 09/18/17 06:25 MPV 8.3 fl (7.5-11.1) 09/18/17 06:25 CMP Sodium 144 mmol/L (136-145) 09/18/17 06:25 Potassium 3.3 mmol/L (3.5-5.1) L 09/18/17 06:25 Chloride 109 mmol/L (98-107) H 09/18/17 06:25 Carbon Dioxide 27 mmol/L (21-32) 09/18/17 06:25 Anion Gap 8 (8-16) 09/18/17 06:25 BUN 10 mg/dL (7-18) 09/18/17 06:25 Creatinine 0.8 mg/dL (0.7-1.3) 09/18/17 06:25 Creat Clearance w eGFR > 60 (>60) 09/15/17 05:00 Calcium 8.8 mg/dL (8.5-10.1) 09/18/17 06:25 Total Bilirubin 0.8 mg/dL (0.2-1.0) 09/15/17 05:00 AST 39 U/L (15-37) H 09/15/17 05:00 ALT 24 U/L (12-78) 09/15/17 05:00 Alkaline Phosphatase 70 U/L (45-117) D 09/15/17 05:00 Total Protein 5.7 g/dl (6.4-8.2) L 09/15/17 05:00 Albumin 2.6 g/dl (3.4-5.0) L D 09/15/17 05:00 CT head reviewed ASSESSMENT/PLAN: 89 y/o M w/ PMH Afib, Dementia, Prior CVA, HTN, CHF, COPD, Anemia who was sent from [facility] because of increased agitation. Pt was given Ativan at [place] but symptoms did not resolve. On arrival in ED, pt was reportedly unresponsive, EKG with slow Afib with PVCs. Given Atropine per notes without obvious improvement, however, at some point, the patient did convert to ventricular bigemini and became more responsive. Patient seen at bedside and I was consulted for mental status. He has UA suspicious for UTI and possible PNA. He was aggitated during my encounter but was able to be calmed. Was awake, alert, moving all extremities but was curing at times and irritable. Nurse confirmed patient behavior. Seen by psych and put on Zyprexa Less aggitated this AM CT head complete and without acute changes On Zosyn Continue aricept, increased to 10mg during this admission Continue hydration Psych for med adjustments/if PRNs needed for aggitation Reorientation as able Monitor patient for safety Possibly palliative care
--- NOTE | 2017-09-19 11:01 | PN ---
Progress Note (short form) - Note Progress Note: s: no cp sob palps dizzy, +confused o: Vital Signs Period Temp Pulse Resp BP Sys/Vega Pulse Ox Last 24 Hr 97.5 F-98.4 F 56-69 18-20 132-165/53-69 95 nad, calm alert but not oriented bibasilar rales, poor effort irregular rhythm, nl s1, s2. + 2/6 sys murmur at lsb. ND PMI + bs soft nt nd, no hsm ext without e/c/c no jaundice, diaphoresis Current Medications Generic Name Dose Route Start Last Admin Trade Name Freq PRN Reason Stop Dose Admin Acetaminophen 650 mg 09/13/17 13:21 Tylenol - PO Q6H PRN PAIN LEVEL 6-10 Donepezil HCl 10 mg 09/16/17 09:32 09/18/17 11:09 Aricept - PO 10 mg DAILY [facility] Administration Piperacillin Sod/Tazobactam 50 mls @ 100 mls/hr 09/13/17 18:00 09/19/17 09:27 Sod 3.375 gm/ Dextrose IVPB 100 mls/hr Q8H-IV [facility] Administration Olanzapine 2.5 mg 09/18/17 10:00 09/18/17 11:09 Zyprexa - PO 2.5 mg DAILY [facility] Administration Olanzapine 5 mg 09/17/17 22:00 09/18/17 22:34 Zyprexa - PO 5 mg HS [facility]ITA Administration Ranitidine HCl 150 mg 09/14/17 10:00 09/18/17 11:10 Zantac - PO 150 mg DAILY [facility] Administration CBC, BMP 09/18/17 06:25 09/18/17 06:25 ekg x 2: afib, SVR with frequent pvc's/aberrent conduction. RBBB. non- specific t wave abnormalities. echo 09/2017: nl lv/rv size/fn. sev safia. 1+ mr. mod tr, 1+ phtn. cxr (images/report reviewed): opacity in rt mid lung ? pna. no chf. see emr for detailed report head ct: (images/report reviewed):chronic rt mca infarct. small chronic infarct in posterior lt temporoparietal lobe. microvascular changes. atherosclerosis of carotids and verts. a/p: 89 y/o M w/ PMH Afib on xarelto, Dementia, Prior CVA, HTN, CHF, COPD, Anemia who was sent from [facility] because of increased agitation/ personality change, hospital course complicated by afib with SVR. afib with slow conduction at times (HR in 30s), asymptomatic: - on no AVN blockers - pt dnr/dni. d/w'd brother at bedside that there is some risk of symptomatic jim in future, but he states that pt is often agitated/confused and the family would like to avoid invasive therapies. he also states that he thinks he would become very agitated by going thru a PM and having visible pocket/ generator. he wishes to defer and hope pt remains asymptomatic/hemodynamically stable - HRs improved (? partly was result of sedation from zyprexa??). d/c tele given family does not want interventions based on any findings on heart rhythm monitoring, which is an appropriate plan in this pt - on xarelto as outpatient, continued in hospital - once neuropsych status is stabilized here, need to reassess level of agitation and risk of transferring on his own or ambulating with falls-- regarding risks of prolonged AC in SNF htn, -cont norvasc cva -cont ac with xarelto. stopped asa as mentioned above.
--- NOTE | 2017-09-19 11:10 | PN ---
Progress Note, Physician - Current Medication List Current Medications: Active Medications Acetaminophen (Tylenol -) 650 mg PO Q6H PRN PRN Reason: PAIN LEVEL 6-10 Donepezil HCl (Aricept -) 10 mg PO DAILY [facility] Last Admin: 09/18/17 11:09 Dose: 10 mg Piperacillin Sod/Tazobactam (Sod 3.375 gm/ Dextrose) 50 mls @ 100 mls/hr IVPB Q8H-IV [facility] Last Admin: 09/19/17 09:27 Dose: 100 mls/hr Olanzapine (Zyprexa -) 2.5 mg PO DAILY [facility] Last Admin: 09/18/17 11:09 Dose: 2.5 mg Olanzapine (Zyprexa -) 5 mg PO HS [facility] Last Admin: 09/18/17 22:34 Dose: 5 mg Ranitidine HCl (Zantac -) 150 mg PO DAILY [facility] Last Admin: 09/18/17 11:10 Dose: 150 mg - Objective Vital Signs: Vital Signs Temperature 98 F 09/18/17 22:00 Pulse Rate 62 09/18/17 22:00 Respiratory Rate 20 09/18/17 22:00 Blood Pressure 132/53 09/18/17 22:00 O2 Sat by Pulse Oximetry (%) 95 09/18/17 21:00 Labs: CBC, BMP 09/18/17 06:25 09/18/17 06:25 INR, PTT INR Cancelled 09/11/17 17:03 Problem List - Problems (1) Bradycardia Code(s): R00.1 - BRADYCARDIA, UNSPECIFIED (2) Altered mental status Code(s): R41.82 - ALTERED MENTAL STATUS, UNSPECIFIED Qualifiers: Altered mental status type: disorientation Qualified Code(s): R41.0 - Disorientation, unspecified (3) UTI (urinary tract infection) Code(s): N39.0 - URINARY TRACT INFECTION, SITE NOT SPECIFIED (4) Dementia Code(s): F03.90 - UNSPECIFIED DEMENTIA WITHOUT BEHAVIORAL DISTURBANCE Qualifiers: Dementia type: Alzheimer's disease Dementia behavioral disturbance: with behavioral disturbance (5) HTN (hypertension) Code(s): I10 - ESSENTIAL (PRIMARY) HYPERTENSION Qualifiers: Hypertension type: essential hypertension Qualified Code(s): I10 - Essential (primary) hypertension (6) Afib Code(s): I48.91 - UNSPECIFIED ATRIAL FIBRILLATION Qualifiers: Atrial fibrillation type: chronic Qualified Code(s): I48.2 - Chronic atrial fibrillation (7) Frequent falls Code(s): R29.6 - REPEATED FALLS (8) Anemia Code(s): D64.9 - ANEMIA, UNSPECIFIED Qualifiers: Anemia type: iron deficiency (9) COPD (chronic obstructive pulmonary disease) Code(s): J44.9 - CHRONIC OBSTRUCTIVE PULMONARY DISEASE, UNSPECIFIED (10) Hematuria Code(s): R31.9 - HEMATURIA, UNSPECIFIED (11) Acute metabolic encephalopathy Code(s): G93.41 - METABOLIC ENCEPHALOPATHY
--- NOTE | 2017-09-19 12:46 | PN ---
Progress Note, Physician History of Present Illness: stable off of abx still with refusal to eat restless - Current Medication List Current Medications: Active Medications Acetaminophen (Tylenol -) 650 mg PO Q6H PRN PRN Reason: PAIN LEVEL 6-10 Donepezil HCl (Aricept -) 10 mg PO DAILY [facility] Last Admin: 09/19/17 10:00 Dose: Not Given Olanzapine (Zyprexa -) 2.5 mg PO DAILY [facility] Last Admin: 09/19/17 10:00 Dose: Not Given Olanzapine (Zyprexa -) 5 mg PO HS [facility] Last Admin: 09/18/17 22:34 Dose: 5 mg Ranitidine HCl (Zantac -) 150 mg PO DAILY [facility] Last Admin: 09/19/17 10:00 Dose: Not Given - Objective Vital Signs: Vital Signs Temperature 98 F 09/18/17 22:00 Pulse Rate 62 09/18/17 22:00 Respiratory Rate 20 09/18/17 22:00 Blood Pressure 132/53 09/18/17 22:00 O2 Sat by Pulse Oximetry (%) 95 09/18/17 21:00 Constitutional: Yes: Other Cardiovascular: Yes: Regular Rate and Rhythm Respiratory: Yes: Regular, CTA Bilaterally Gastrointestinal: Yes: Normal Bowel Sounds, Soft Musculoskeletal: Yes: WNL Extremities: Yes: WNL Neurological: Yes: Alert, Confusion, Other (dementia) Labs: CBC, BMP 09/18/17 06:25 09/18/17 06:25 INR, PTT INR Cancelled 09/11/17 17:03 Assessment/Plan patient with positive uti also chances of aspiration pna high Problem List - Problems (1) Bradycardia Code(s): R00.1 - BRADYCARDIA, UNSPECIFIED (2) Altered mental status Code(s): R41.82 - ALTERED MENTAL STATUS, UNSPECIFIED Qualifiers: Altered mental status type: disorientation Qualified Code(s): R41.0 - Disorientation, unspecified (3) UTI (urinary tract infection) Code(s): N39.0 - URINARY TRACT INFECTION, SITE NOT SPECIFIED (4) Dementia Code(s): F03.90 - UNSPECIFIED DEMENTIA WITHOUT BEHAVIORAL DISTURBANCE Qualifiers: Dementia type: Alzheimer's disease Dementia behavioral disturbance: with behavioral disturbance (5) HTN (hypertension) Code(s): I10 - ESSENTIAL (PRIMARY) HYPERTENSION Qualifiers: Hypertension type: essential hypertension Qualified Code(s): I10 - Essential (primary) hypertension (6) Afib Code(s): I48.91 - UNSPECIFIED ATRIAL FIBRILLATION Qualifiers: Atrial fibrillation type: chronic Qualified Code(s): I48.2 - Chronic atrial fibrillation (7) Frequent falls Code(s): R29.6 - REPEATED FALLS (8) Anemia Code(s): D64.9 - ANEMIA, UNSPECIFIED Qualifiers: Anemia type: iron deficiency (9) COPD (chronic obstructive pulmonary disease) Code(s): J44.9 - CHRONIC OBSTRUCTIVE PULMONARY DISEASE, UNSPECIFIED (10) Hematuria Code(s): R31.9 - HEMATURIA, UNSPECIFIED assessment and plan Problem List - Problems (1) Bradycardia Code(s): R00.1 - BRADYCARDIA, UNSPECIFIED (2) Altered mental status Code(s): R41.82 - ALTERED MENTAL STATUS, UNSPECIFIED Qualifiers: Altered mental status type: disorientation Qualified Code(s): R41.0 - Disorientation, unspecified (3) UTI (urinary tract infection) Code(s): N39.0 - URINARY TRACT INFECTION, SITE NOT SPECIFIED (4) Dementia Code(s): F03.90 - UNSPECIFIED DEMENTIA WITHOUT BEHAVIORAL DISTURBANCE Qualifiers: Dementia type: Alzheimer's disease Dementia behavioral disturbance: with behavioral disturbance (5) HTN (hypertension) Code(s): I10 - ESSENTIAL (PRIMARY) HYPERTENSION Qualifiers: Hypertension type: essential hypertension Qualified Code(s): I10 - Essential (primary) hypertension (6) Afib Code(s): I48.91 - UNSPECIFIED ATRIAL FIBRILLATION Qualifiers: Atrial fibrillation type: chronic Qualified Code(s): I48.2 - Chronic atrial fibrillation (7) Frequent falls Code(s): R29.6 - REPEATED FALLS (8) Anemia Code(s): D64.9 - ANEMIA, UNSPECIFIED Qualifiers: Anemia type: iron deficiency (9) COPD (chronic obstructive pulmonary disease) Code(s): J44.9 - CHRONIC OBSTRUCTIVE PULMONARY DISEASE, UNSPECIFIED (10) Hematuria Code(s): R31.9 - HEMATURIA, UNSPECIFIED plan continue current mgmt patient clinically stable still refusing to eat nutrition short issue
--- NOTE | 2017-09-19 12:57 | PN ---
Progress Note, Physician Chief Complaint: Pt in bed in no acute distress. lethargic, sleeping, has not woken up today per chemical engineering intern. shows no signs of agitation. - Current Medication List Current Medications: Active Medications Acetaminophen (Tylenol -) 650 mg PO Q6H PRN PRN Reason: PAIN LEVEL 6-10 Donepezil HCl (Aricept -) 10 mg PO DAILY [facility] Last Admin: 09/19/17 10:00 Dose: Not Given Olanzapine (Zyprexa -) 2.5 mg PO DAILY [facility] Last Admin: 09/19/17 10:00 Dose: Not Given Olanzapine (Zyprexa -) 5 mg PO HS [facility] Last Admin: 09/18/17 22:34 Dose: 5 mg Ranitidine HCl (Zantac -) 150 mg PO DAILY [facility] Last Admin: 09/19/17 10:00 Dose: Not Given - Objective Vital Signs: Vital Signs Temperature 98 F 09/18/17 22:00 Pulse Rate 62 09/18/17 22:00 Respiratory Rate 20 09/18/17 22:00 Blood Pressure 132/53 09/18/17 22:00 O2 Sat by Pulse Oximetry (%) 95 09/18/17 21:00 Constitutional: Yes: No Distress, Thin Cardiovascular: Yes: Bradycardia, Pulse Irregular. No: JVD, Gallop, Murmur Respiratory: Yes: Regular, CTA Bilaterally, Diminished. No: Rales, Rhonchi, Stridor, Tachypnea, Wheezes Gastrointestinal: Yes: WNL, Normal Bowel Sounds, Soft. No: Distention, Tenderness Edema: No Neurological: Yes: Confusion, Lethargy Labs: CBC, BMP 09/18/17 06:25 09/18/17 06:25 INR, PTT INR Cancelled 09/11/17 17:03 Problem List - Problems (1) Bradycardia Code(s): R00.1 - BRADYCARDIA, UNSPECIFIED (2) Altered mental status Code(s): R41.82 - ALTERED MENTAL STATUS, UNSPECIFIED Qualifiers: Altered mental status type: disorientation Qualified Code(s): R41.0 - Disorientation, unspecified (3) UTI (urinary tract infection) Code(s): N39.0 - URINARY TRACT INFECTION, SITE NOT SPECIFIED (4) Dementia Code(s): F03.90 - UNSPECIFIED DEMENTIA WITHOUT BEHAVIORAL DISTURBANCE Qualifiers: Dementia type: Alzheimer's disease Dementia behavioral disturbance: with behavioral disturbance (5) HTN (hypertension) Code(s): I10 - ESSENTIAL (PRIMARY) HYPERTENSION Qualifiers: Hypertension type: essential hypertension Qualified Code(s): I10 - Essential (primary) hypertension (6) Afib Code(s): I48.91 - UNSPECIFIED ATRIAL FIBRILLATION Qualifiers: Atrial fibrillation type: chronic Qualified Code(s): I48.2 - Chronic atrial fibrillation (7) Frequent falls Code(s): R29.6 - REPEATED FALLS (8) Anemia Code(s): D64.9 - ANEMIA, UNSPECIFIED Qualifiers: Anemia type: iron deficiency (9) COPD (chronic obstructive pulmonary disease) Code(s): J44.9 - CHRONIC OBSTRUCTIVE PULMONARY DISEASE, UNSPECIFIED (10) Hematuria Code(s): R31.9 - HEMATURIA, UNSPECIFIED (11) Acute metabolic encephalopathy Code(s): G93.41 - METABOLIC ENCEPHALOPATHY Assessment/Plan (1) Bradycardia Assessment/Plan: asymptomatic, hemodynamically stable defer invasive measures per family wishes no need for tele monitoring per cardiology Code(s): R00.1 - BRADYCARDIA, UNSPECIFIED (2) Acute metabolic encephalopathy Code(s): G93.41 - METABOLIC ENCEPHALOPATHY secondary to uti , improving completed 7 days of zosyn Code(s): R41.82 - ALTERED MENTAL STATUS, UNSPECIFIED Qualifiers: Altered mental status type: disorientation Qualified Code(s): R41.0 - Disorientation, unspecified (3) UTI (urinary tract infection) Assessment/Plan: treated, resolved Code(s): N39.0 - URINARY TRACT INFECTION, SITE NOT SPECIFIED (4) Hematuria Assessment/Plan: resolved Code(s): R31.9 - HEMATURIA, UNSPECIFIED (5) Dementia Assessment/Plan: end stage, pt w/ poor po intake. lethargic, pt asleep and comfortable today avoid restraints if pt not agitated no further medication changes per psych zyprexa 7.5mg daily dysphagia chopped diet aspiration precautions Code(s): F03.90 - UNSPECIFIED DEMENTIA WITH BEHAVIORAL DISTURBANCE Qualifiers: Dementia type: Alzheimer's disease (6) HTN (hypertension) Assessment/Plan: stable Code(s): I10 - ESSENTIAL (PRIMARY) HYPERTENSION Qualifiers: Hypertension type: essential hypertension Qualified Code(s): I10 - Essential (primary) hypertension (7) Afib Assessment/Plan: chronic d/c'd anticoagulation Code(s): I48.91 - UNSPECIFIED ATRIAL FIBRILLATION Qualifiers: Atrial fibrillation type: chronic Qualified Code(s): I48.2 - Chronic atrial fibrillation (8) Frequent falls Assessment/Plan: head ct with no acute findings Code(s): R29.6 - REPEATED FALLS (9) Anemia Assessment/Plan: chronic iron def anemia h/h stable Code(s): D64.9 - ANEMIA, UNSPECIFIED Qualifiers: Anemia type: iron deficiency (10) COPD (chronic obstructive pulmonary disease) Assessment/Plan: chronic Code(s): J44.9 - CHRONIC OBSTRUCTIVE PULMONARY DISEASE, UNSPECIFIED DISPO: Comfort measures per family. Palliative team following. Application to [facility].
--- NOTE | 2017-09-19 15:09 | PN ---
Progress Note, [employer]ELOPER - Note Progress Note: Selected Entries 09/18/17 09/18/17 09/18/17 06:00 10:00 14:59 Breakfast Diet Tolerated Temperature 97.8 F 98.0 F 97.5 F L 09/18/17 09/18/17 09/19/17 17:00 22:00 07:23 Breakfast Diet Tolerated Refused Temperature 98.4 F 98 F 09/19/17 09/19/17 10:00 15:01 Breakfast 0 Diet Tolerated Temperature 98.7 F 98.7 F Laboratory Tests 09/18/17 06:25 WBC 4.7 Confusion persists. Refusing PO trials. Pending discharge to [facility].
[2017-09-20] MEDS: RANITIDINE HCL 150 MG TABLET (FP) PO SCH (10:34)
[2017-09-20] MEDS: OLANZapine 5 MG TABLET PO SCH ×2 (10:34→21:25)
[2017-09-20] MEDS: DONEPEZIL HCL 10 MG TABLET (FP) PO SCH (10:34)
--- NOTE | 2017-09-20 11:45 | PN ---
Progress Note (short form) - Note Progress Note: s: lethargic o: Vital Signs Period Temp Pulse Resp BP Sys/Vega Pulse Ox Last 24 Hr 97.4 F-98.7 F 37-48 20-22 130-150/47-59 96-98 nad, calm lethargic bibasilar rales, poor effort irregular rhythm, nl s1, s2. + 2/6 sys murmur at lsb. ND PMI + bs soft nt nd, no hsm ext without e/c/c no jaundice, diaphoresis Current Medications Generic Name Dose Route Start Last Admin Trade Name Freq PRN Reason Stop Dose Admin Acetaminophen 650 mg 09/13/17 13:21 Tylenol - PO Q6H PRN PAIN LEVEL 6-10 Donepezil HCl 10 mg 09/16/17 09:32 09/20/17 10:34 Aricept - PO Not Given DAILY [facility] Olanzapine 2.5 mg 09/18/17 10:00 09/20/17 10:34 Zyprexa - PO Not Given DAILY [facility] Olanzapine 5 mg 09/17/17 22:00 09/19/17 22:14 Zyprexa - PO Not Given HS [facility] Ranitidine HCl 150 mg 09/14/17 10:00 09/20/17 10:34 Zantac - PO Not Given DAILY [facility] CBC, BMP 09/18/17 06:25 09/18/17 06:25 ekg x 2: afib, SVR with frequent pvc's/aberrent conduction. RBBB. non- specific t wave abnormalities. echo 09/2017: nl lv/rv size/fn. sev safia. 1+ mr. mod tr, 1+ phtn. cxr (images/report reviewed): opacity in rt mid lung ? pna. no chf. see emr for detailed report head ct: (images/report reviewed):chronic rt mca infarct. small chronic infarct in posterior lt temporoparietal lobe. microvascular changes. atherosclerosis of carotids and verts. a/p: 89 y/o M w/ PMH Afib on xarelto, Dementia, Prior CVA, HTN, CHF, COPD, Anemia who was sent from [facility] because of increased agitation/ personality change, hospital course complicated by afib with SVR. afib with slow conduction at times (HR in 30s), asymptomatic: - on no AVN blockers -comfort care now, ac has been stopped, pt going to hospice htn: -comfort care now, norvasc has been stopped
--- NOTE | 2017-09-20 12:44 | PN ---
Progress Note, Physician Chief Complaint: Pt in bed in no acute distress. lethargic, sleeping, shows no signs of agitation. - Current Medication List Current Medications: Active Medications Acetaminophen (Tylenol -) 650 mg PO Q6H PRN PRN Reason: PAIN LEVEL 6-10 Donepezil HCl (Aricept -) 10 mg PO DAILY [facility] Last Admin: 09/20/17 10:34 Dose: Not Given Olanzapine (Zyprexa -) 2.5 mg PO DAILY [facility] Last Admin: 09/20/17 10:34 Dose: Not Given Olanzapine (Zyprexa -) 5 mg PO HS [facility] Last Admin: 09/19/17 22:14 Dose: Not Given Ranitidine HCl (Zantac -) 150 mg PO DAILY [facility] Last Admin: 09/20/17 10:34 Dose: Not Given - Objective Vital Signs: Vital Signs Temperature 97.4 F L 09/20/17 02:45 Pulse Rate 37 L 09/20/17 02:45 Respiratory Rate 20 09/20/17 10:00 Blood Pressure 143/47 09/20/17 02:45 O2 Sat by Pulse Oximetry (%) 98 09/20/17 10:00 Constitutional: Yes: No Distress, Calm, Thin Cardiovascular: Yes: Pulse Irregular. No: JVD, Gallop, Murmur, Rub Respiratory: Yes: CTA Bilaterally, Diminished. No: Rales, Tachypnea, Wheezes Gastrointestinal: Yes: Normal Bowel Sounds, Soft. No: Distention, Tenderness Edema: No Neurological: Yes: Confusion Labs: CBC, BMP 09/18/17 06:25 09/18/17 06:25 INR, PTT INR Cancelled 09/11/17 17:03 Problem List - Problems (1) Bradycardia Code(s): R00.1 - BRADYCARDIA, UNSPECIFIED (2) Altered mental status Code(s): R41.82 - ALTERED MENTAL STATUS, UNSPECIFIED Qualifiers: Altered mental status type: disorientation Qualified Code(s): R41.0 - Disorientation, unspecified (3) UTI (urinary tract infection) Code(s): N39.0 - URINARY TRACT INFECTION, SITE NOT SPECIFIED (4) Dementia Code(s): F03.90 - UNSPECIFIED DEMENTIA WITHOUT BEHAVIORAL DISTURBANCE Qualifiers: Dementia type: Alzheimer's disease Dementia behavioral disturbance: with behavioral disturbance (5) HTN (hypertension) Code(s): I10 - ESSENTIAL (PRIMARY) HYPERTENSION Qualifiers: Hypertension type: essential hypertension Qualified Code(s): I10 - Essential (primary) hypertension (6) Afib Code(s): I48.91 - UNSPECIFIED ATRIAL FIBRILLATION Qualifiers: Atrial fibrillation type: chronic Qualified Code(s): I48.2 - Chronic atrial fibrillation (7) Frequent falls Code(s): R29.6 - REPEATED FALLS (8) Anemia Code(s): D64.9 - ANEMIA, UNSPECIFIED Qualifiers: Anemia type: iron deficiency (9) COPD (chronic obstructive pulmonary disease) Code(s): J44.9 - CHRONIC OBSTRUCTIVE PULMONARY DISEASE, UNSPECIFIED (10) Hematuria Code(s): R31.9 - HEMATURIA, UNSPECIFIED (11) Acute metabolic encephalopathy Code(s): G93.41 - METABOLIC ENCEPHALOPATHY Assessment/Plan Comfort measures per family. pt appears comfortable, off restraints. vitals q shift. Palliative team following. pending [facility]
--- NOTE | 2017-09-20 14:32 | PN ---
Progress Note, Physician History of Present Illness: patient looks more lethargic family discussion done with the primary team - Current Medication List Current Medications: Active Medications Acetaminophen (Tylenol -) 650 mg PO Q6H PRN PRN Reason: PAIN LEVEL 6-10 Donepezil HCl (Aricept -) 10 mg PO DAILY [facility] Last Admin: 09/20/17 10:34 Dose: Not Given Olanzapine (Zyprexa -) 2.5 mg PO DAILY [facility] Last Admin: 09/20/17 10:34 Dose: Not Given Olanzapine (Zyprexa -) 5 mg PO HS [facility] Last Admin: 09/19/17 22:14 Dose: Not Given Ranitidine HCl (Zantac -) 150 mg PO DAILY [facility] Last Admin: 09/20/17 10:34 Dose: Not Given - Objective Vital Signs: Vital Signs Temperature 97.4 F L 09/20/17 02:45 Pulse Rate 37 L 09/20/17 02:45 Respiratory Rate 20 09/20/17 10:00 Blood Pressure 143/47 09/20/17 02:45 O2 Sat by Pulse Oximetry (%) 98 09/20/17 10:00 Constitutional: Yes: No Distress, Calm, Other (lethargy) Cardiovascular: Yes: Tachycardia, Pulse Irregular Respiratory: Yes: Regular, CTA Bilaterally Gastrointestinal: Yes: Normal Bowel Sounds, Soft Musculoskeletal: Yes: WNL Extremities: Yes: WNL Neurological: Yes: Other (lethargy) Labs: CBC, BMP 09/18/17 06:25 09/18/17 06:25 INR, PTT INR Cancelled 09/11/17 17:03 Assessment/Plan patient with positive uti also chances of aspiration pna high Problem List - Problems (1) Bradycardia Code(s): R00.1 - BRADYCARDIA, UNSPECIFIED (2) Altered mental status Code(s): R41.82 - ALTERED MENTAL STATUS, UNSPECIFIED Qualifiers: Altered mental status type: disorientation Qualified Code(s): R41.0 - Disorientation, unspecified (3) UTI (urinary tract infection) Code(s): N39.0 - URINARY TRACT INFECTION, SITE NOT SPECIFIED (4) Dementia Code(s): F03.90 - UNSPECIFIED DEMENTIA WITHOUT BEHAVIORAL DISTURBANCE Qualifiers: Dementia type: Alzheimer's disease Dementia behavioral disturbance: with behavioral disturbance (5) HTN (hypertension) Code(s): I10 - ESSENTIAL (PRIMARY) HYPERTENSION Qualifiers: Hypertension type: essential hypertension Qualified Code(s): I10 - Essential (primary) hypertension (6) Afib Code(s): I48.91 - UNSPECIFIED ATRIAL FIBRILLATION Qualifiers: Atrial fibrillation type: chronic Qualified Code(s): I48.2 - Chronic atrial fibrillation (7) Frequent falls Code(s): R29.6 - REPEATED FALLS (8) Anemia Code(s): D64.9 - ANEMIA, UNSPECIFIED Qualifiers: Anemia type: iron deficiency (9) COPD (chronic obstructive pulmonary disease) Code(s): J44.9 - CHRONIC OBSTRUCTIVE PULMONARY DISEASE, UNSPECIFIED (10) Hematuria Code(s): R31.9 - HEMATURIA, UNSPECIFIED assessment and plan Problem List - Problems (1) Bradycardia Code(s): R00.1 - BRADYCARDIA, UNSPECIFIED (2) Altered mental status Code(s): R41.82 - ALTERED MENTAL STATUS, UNSPECIFIED Qualifiers: Altered mental status type: disorientation Qualified Code(s): R41.0 - Disorientation, unspecified (3) UTI (urinary tract infection) Code(s): N39.0 - URINARY TRACT INFECTION, SITE NOT SPECIFIED (4) Dementia Code(s): F03.90 - UNSPECIFIED DEMENTIA WITHOUT BEHAVIORAL DISTURBANCE Qualifiers: Dementia type: Alzheimer's disease Dementia behavioral disturbance: with behavioral disturbance (5) HTN (hypertension) Code(s): I10 - ESSENTIAL (PRIMARY) HYPERTENSION Qualifiers: Hypertension type: essential hypertension Qualified Code(s): I10 - Essential (primary) hypertension (6) Afib Code(s): I48.91 - UNSPECIFIED ATRIAL FIBRILLATION Qualifiers: Atrial fibrillation type: chronic Qualified Code(s): I48.2 - Chronic atrial fibrillation (7) Frequent falls Code(s): R29.6 - REPEATED FALLS (8) Anemia Code(s): D64.9 - ANEMIA, UNSPECIFIED Qualifiers: Anemia type: iron deficiency (9) COPD (chronic obstructive pulmonary disease) Code(s): J44.9 - CHRONIC OBSTRUCTIVE PULMONARY DISEASE, UNSPECIFIED (10) Hematuria Code(s): R31.9 - HEMATURIA, UNSPECIFIED plan comfort measures per family now continue nutritional support rest as per primary
[2017-09-21] MEDS: DONEPEZIL HCL 10 MG TABLET (FP) PO SCH (10:15)
[2017-09-21] MEDS: RANITIDINE HCL 150 MG TABLET (FP) PO SCH (10:15)
[2017-09-21] MEDS: OLANZapine 5 MG TABLET PO SCH ×2 (10:16→22:06)
[2017-09-21] MEDS ORDERED: PT OWN MED DRAWER 7, Y5N ONE ×3 (10:52→22:22)
--- NOTE | 2017-09-21 10:52 | PN ---
Progress Note, Physician Chief Complaint: Remained faebrile, hemodynamically stable and confused, on comfort care - Current Medication List Current Medications: Active Medications Acetaminophen (Tylenol -) 650 mg PO Q6H PRN PRN Reason: PAIN LEVEL 6-10 Donepezil HCl (Aricept -) 10 mg PO DAILY [facility] Last Admin: 09/20/17 10:34 Dose: Not Given Olanzapine (Zyprexa -) 2.5 mg PO DAILY [facility] Last Admin: 09/20/17 10:34 Dose: Not Given Olanzapine (Zyprexa -) 5 mg PO HS [facility] Last Admin: 09/20/17 21:25 Dose: 5 mg Ranitidine HCl (Zantac -) 150 mg PO DAILY [facility] Last Admin: 09/20/17 10:34 Dose: Not Given - Objective Vital Signs: Vital Signs Temperature 97.5 F L 09/20/17 18:00 Pulse Rate 68 09/20/17 18:00 Respiratory Rate 20 09/21/17 08:00 Blood Pressure 165/78 09/20/17 18:00 O2 Sat by Pulse Oximetry (%) 97 09/21/17 08:00 Elderly man looks confused, not in distress HEENT: Mm moist, mild anemia. 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, Pulses +1 ROLL ON MAN; Non focal Labs: CBC, BMP 09/18/17 06:25 09/18/17 06:25 INR, PTT INR Cancelled 09/11/17 17:03 Problem List - Problems (1) Afib Assessment/Plan: H/O Chronic afib on AC , episodes of bradycardia woff B Blockers Code(s): I48.91 - UNSPECIFIED ATRIAL FIBRILLATION Qualifiers: Atrial fibrillation type: chronic Qualified Code(s): I48.2 - Chronic atrial fibrillation (2) Altered mental status Code(s): R41.82 - ALTERED MENTAL STATUS, UNSPECIFIED Qualifiers: Altered mental status type: disorientation Qualified Code(s): R41.0 - Disorientation, unspecified (3) HTN (hypertension) Assessment/Plan: Well controlled off meds Code(s): I10 - ESSENTIAL (PRIMARY) HYPERTENSION Qualifiers: Hypertension type: essential hypertension Qualified Code(s): I10 - Essential (primary) hypertension (4) COPD (chronic obstructive pulmonary disease) Assessment/Plan: Stable cont current Nebs treatment. Code(s): J44.9 - CHRONIC OBSTRUCTIVE PULMONARY DISEASE, UNSPECIFIED (5) Anemia Assessment/Plan: Chronic H/H are stable Code(s): D64.9 - ANEMIA, UNSPECIFIED Qualifiers: Anemia type: iron deficiency (6) Dementia Assessment/Plan: Chronic at present no agitation. Code(s): F03.90 - UNSPECIFIED DEMENTIA WITHOUT BEHAVIORAL DISTURBANCE Qualifiers: Dementia type: Alzheimer's disease Dementia behavioral disturbance: with behavioral disturbance (7) Hematuria Code(s): R31.9 - HEMATURIA, UNSPECIFIED (8) Comfort measures only status Code(s): Z51.5 - ENCOUNTER FOR PALLIATIVE CARE
--- NOTE | 2017-09-21 13:16 | PN ---
Progress Note (short form) - Note Progress Note: Neurology HISTORY OF PRESENT ILLNESS: 89 y/o M w/ PMH Afib, Dementia, Prior CVA, HTN, CHF, COPD, Anemia who was sent from [facility] because of increased agitation. Pt was given Ativan at [place] but symptoms did not resolve. On arrival in ED, pt was reportedly unresponsive, EKG with slow Afib with PVCs. Given Atropine per notes without obvious improvement, however, at some point, the patient did convert to ventricular bigemini and became more responsive. I was consulted for mental status. Recieved treatment for UTI and PNA. Seen by psych. Remains on Zosyn. CT head without acute changes. Patient for comfort care per notes. Neurologically without significant changes Active Medications Acetaminophen (Tylenol -) 650 mg PO Q6H PRN PRN Reason: PAIN LEVEL 6-10 Donepezil HCl (Aricept -) 10 mg PO DAILY [facility] Last Admin: 09/20/17 10:34 Dose: Not Given Olanzapine (Zyprexa -) 5 mg PO HS [facility] Last Admin: 09/20/17 21:25 Dose: 5 mg Olanzapine (Zyprexa -) 2.5 mg PO DAILY [facility] Ranitidine HCl (Zantac -) 150 mg PO DAILY [facility] Last Admin: 09/20/17 10:34 Dose: Not Given PHYSICAL EXAMINATION Vital Signs Temperature 97.5 F L 09/20/17 18:00 Pulse Rate 68 09/20/17 18:00 Respiratory Rate 20 09/21/17 08:00 Blood Pressure 165/78 09/20/17 18:00 O2 Sat by Pulse Oximetry (%) 97 09/21/17 08:00 GENERAL: Awake, alert, and aggitated, climbing out of bed HEAD: Normal with no signs of trauma. EYES: Pupils equal, round and reactive to light. sclera anicteric, conjunctiva clear EARS, NOSE, THROAT: Moist mucous membranes. NECK: Normal range of motion, mild JVD. No bruits. supple without lymphadenopathy, , or masses. LUNGS: Difficult to auscultate. clear to auscultation bilaterally. HEART: Regular rate and rhythm, normal S1 and S2 without murmur, rub or gallop. ABDOMEN: Soft, not distended, normoactive bowel sounds, no guarding, no rebound , no masses. No hepatomegaly or splenomegaly. MUSCULOSKELETAL: Normal range of motion at all joints. No bony deformities or tenderness. No CVA tenderness. UPPER EXTREMITIES: 2+ pulses, warm, well-perfused. No cyanosis. No clubbing. No peripheral edema. LOWER EXTREMITIES: stasis dermatitis. 2+ pulses, warm. No edema NEUROLOGICAL: CN appear intact, no facial droop or slurred speech appreciated, sensation intact, moves all extremities equally, gait deferred SKIN: legs with stasis changes. Warm, dry, normal turgor, no rashes or lesions noted, normal capillary refill. CBC, BMP 09/18/17 06:25 09/18/17 06:25 CT head reviewed ASSESSMENT/PLAN: 89 y/o M w/ PMH Afib, Dementia, Prior CVA, HTN, CHF, COPD, Anemia who was sent from [facility] because of increased agitation. Pt was given Ativan at [place] but symptoms did not resolve. On arrival in ED, pt was reportedly unresponsive, EKG with slow Afib with PVCs. Given Atropine per notes without obvious improvement, however, at some point, the patient did convert to ventricular bigemini and became more responsive. Patient seen at bedside and I was consulted for mental status. He has UA suspicious for UTI and possible PNA. He was aggitated during my encounter but was able to be calmed. Was awake, alert, moving all extremities but was curing at times and irritable. Nurse confirmed patient behavior. Seen by psych and put on Zyprexa Less aggitated this AM CT head complete and without acute changes No longer on Zosyn Continue aricept, increased to 10mg during this admission Continue hydration Psych for med adjustments/if PRNs needed for aggitation Reorientation as able Monitor patient for safety Comfort care per notes
--- NOTE | 2017-09-21 15:55 | PN ---
Progress Note, Physician History of Present Illness: Events noted. Pt is alert today but confused. No distress noted. - Current Medication List Current Medications: Active Medications Acetaminophen (Tylenol -) 650 mg PO Q6H PRN PRN Reason: PAIN LEVEL 6-10 Donepezil HCl (Aricept -) 10 mg PO DAILY [facility] Last Admin: 09/20/17 10:34 Dose: Not Given Olanzapine (Zyprexa -) 5 mg PO HS [facility] Last Admin: 09/20/17 21:25 Dose: 5 mg Olanzapine (Zyprexa -) 2.5 mg PO DAILY [facility] Ranitidine HCl (Zantac -) 150 mg PO DAILY [facility] Last Admin: 09/20/17 10:34 Dose: Not Given - Objective Vital Signs: Vital Signs Temperature 97.4 F L 09/21/17 14:41 Pulse Rate 62 09/21/17 14:41 Respiratory Rate 20 09/21/17 14:41 Blood Pressure 149/98 09/21/17 14:41 O2 Sat by Pulse Oximetry (%) 98 09/21/17 09:00 Constitutional: Yes: No Distress, Calm Cardiovascular: Yes: Regular Rate and Rhythm Respiratory: Yes: Regular Gastrointestinal: Yes: Normal Bowel Sounds, Soft Extremities: Yes: WNL Neurological: Yes: Alert Labs: CBC, BMP 09/18/17 06:25 09/18/17 06:25 INR, PTT INR Cancelled 09/11/17 17:03 Problem List - Problems (1) Afib Code(s): I48.91 - UNSPECIFIED ATRIAL FIBRILLATION Qualifiers: Atrial fibrillation type: chronic Qualified Code(s): I48.2 - Chronic atrial fibrillation (2) Altered mental status Code(s): R41.82 - ALTERED MENTAL STATUS, UNSPECIFIED Qualifiers: Altered mental status type: disorientation Qualified Code(s): R41.0 - Disorientation, unspecified (3) COPD (chronic obstructive pulmonary disease) Code(s): J44.9 - CHRONIC OBSTRUCTIVE PULMONARY DISEASE, UNSPECIFIED (4) Comfort measures only status Code(s): Z51.5 - ENCOUNTER FOR PALLIATIVE CARE (5) Dementia Code(s): F03.90 - UNSPECIFIED DEMENTIA WITHOUT BEHAVIORAL DISTURBANCE Qualifiers: Dementia type: Alzheimer's disease Dementia behavioral disturbance: with behavioral disturbance Assessment/Plan Pt s/p course of antibiotics for PNA alert, without distress at this time -- on comfort care
[2017-09-22] MEDS: RANITIDINE HCL 150 MG TABLET (FP) PO SCH (09:44)
[2017-09-22] MEDS: OLANZapine 2.5 MG TABLET PO SCH (09:53)
[2017-09-22] MEDS: DONEPEZIL HCL 10 MG TABLET (FP) PO SCH (09:53)
--- NOTE | 2017-09-22 12:39 | PN ---
Progress Note (short form) - Note Progress Note: Neurology HISTORY OF PRESENT ILLNESS: 89 y/o M w/ PMH Afib, Dementia, Prior CVA, HTN, CHF, COPD, Anemia who was sent from [facility] because of increased agitation. Pt was given Ativan at [place] but symptoms did not resolve. On arrival in ED, pt was reportedly unresponsive, EKG with slow Afib with PVCs. Given Atropine per notes without obvious improvement, however, at some point, the patient did convert to ventricular bigemini and became more responsive. I was consulted for mental status. Recieved treatment for UTI and PNA. Seen by psych. Remains on Zosyn. CT head without acute changes. Patient for comfort care per notes. Aggitated overnight and bed in hallway, being monitored closely by nurse. Active Medications Acetaminophen (Tylenol -) 650 mg PO Q6H PRN PRN Reason: PAIN LEVEL 6-10 Donepezil HCl (Aricept -) 10 mg PO DAILY [facility] Last Admin: 09/22/17 09:53 Dose: 10 mg Olanzapine (Zyprexa -) 5 mg PO HS [facility] Last Admin: 09/21/17 22:06 Dose: 5 mg Olanzapine (Zyprexa -) 2.5 mg PO DAILY [facility] Last Admin: 09/22/17 09:53 Dose: 2.5 mg Ranitidine HCl (Zantac -) 150 mg PO DAILY [facility] Last Admin: 09/21/17 10:15 Dose: 150 mg PHYSICAL EXAMINATION Vital Signs Temperature 97.7 F 09/22/17 10:00 Pulse Rate 84 09/22/17 10:00 Respiratory Rate 20 09/22/17 10:00 Blood Pressure 150/66 09/22/17 10:00 O2 Sat by Pulse Oximetry (%) 97 09/22/17 09:00 GENERAL: Awake, alert, and aggitated, climbing out of bed HEAD: Normal with no signs of trauma. EYES: Pupils equal, round and reactive to light. sclera anicteric, conjunctiva clear EARS, NOSE, THROAT: Moist mucous membranes. NECK: Normal range of motion, mild JVD. No bruits. supple without lymphadenopathy, , or masses. LUNGS: Difficult to auscultate. clear to auscultation bilaterally. HEART: Regular rate and rhythm, normal S1 and S2 without murmur, rub or gallop. ABDOMEN: Soft, not distended, normoactive bowel sounds, no guarding, no rebound , no masses. No hepatomegaly or splenomegaly. MUSCULOSKELETAL: Normal range of motion at all joints. No bony deformities or tenderness. No CVA tenderness. UPPER EXTREMITIES: 2+ pulses, warm, well-perfused. No cyanosis. No clubbing. No peripheral edema. LOWER EXTREMITIES: stasis dermatitis. 2+ pulses, warm. No edema NEUROLOGICAL: CN appear intact, no facial droop or slurred speech appreciated, sensation intact, moves all extremities equally, gait deferred SKIN: legs with stasis changes. Warm, dry, normal turgor, no rashes or lesions noted, normal capillary refill. CBCD WBC 4.7 K/mm3 (4.0-10.0) 09/18/17 06:25 RBC 3.58 M/mm3 (4.00-5.60) L 09/18/17 06:25 Hgb 10.6 GM/dL (11.7-16.9) L 09/18/17 06:25 Hct 32.7 % (35.4-49) L 09/18/17 06:25 MCV 91.2 fl (80-96) 09/18/17 06:25 MCHC 32.5 g/dl (32.0-35.9) 09/18/17 06:25 RDW 17.6 % (11.9-15.9) H 09/18/17 06:25 Plt Count 142 K/MM3 (134-434) 09/18/17 06:25 MPV 8.3 fl (7.5-11.1) 09/18/17 06:25 CMP Sodium 144 mmol/L (136-145) 09/18/17 06:25 Potassium 3.3 mmol/L (3.5-5.1) L 09/18/17 06:25 Chloride 109 mmol/L (98-107) H 09/18/17 06:25 Carbon Dioxide 27 mmol/L (21-32) 09/18/17 06:25 Anion Gap 8 (8-16) 09/18/17 06:25 BUN 10 mg/dL (7-18) 09/18/17 06:25 Creatinine 0.8 mg/dL (0.7-1.3) 09/18/17 06:25 Creat Clearance w eGFR > 60 (>60) 09/15/17 05:00 Calcium 8.8 mg/dL (8.5-10.1) 09/18/17 06:25 Total Bilirubin 0.8 mg/dL (0.2-1.0) 09/15/17 05:00 AST 39 U/L (15-37) H 09/15/17 05:00 ALT 24 U/L (12-78) 09/15/17 05:00 Alkaline Phosphatase 70 U/L (45-117) D 09/15/17 05:00 Total Protein 5.7 g/dl (6.4-8.2) L 09/15/17 05:00 Albumin 2.6 g/dl (3.4-5.0) L D 09/15/17 05:00 CT head reviewed ASSESSMENT/PLAN: 89 y/o M w/ PMH Afib, Dementia, Prior CVA, HTN, CHF, COPD, Anemia who was sent from [facility] because of increased agitation. Pt was given Ativan at [place] but symptoms did not resolve. On arrival in ED, pt was reportedly unresponsive, EKG with slow Afib with PVCs. Given Atropine per notes without obvious improvement, however, at some point, the patient did convert to ventricular bigemini and became more responsive. Patient seen at bedside and I was consulted for mental status. He has UA suspicious for UTI and possible PNA. He was aggitated during my encounter but was able to be calmed. Was awake, alert, moving all extremities but was curing at times and irritable. Nurse confirmed patient behavior. Seen by psych and put on Zyprexa Less aggitated this AM CT head complete and without acute changes No longer on Zosyn Continue aricept, increased to 10mg during this admission Continue hydration Psych for med adjustments/if PRNs needed for aggitation Reorientation as able Monitor patient for safety bed in critical access [facility], nurses aware Comfort care per notes, for hospice placement
--- NOTE | 2017-09-22 13:34 | PN ---
Progress Note, Physician Chief Complaint: Remained faebrile, hemodynamically stable and confused, on comfort care - Current Medication List Current Medications: Active Medications Acetaminophen (Tylenol -) 650 mg PO Q6H PRN PRN Reason: PAIN LEVEL 6-10 Donepezil HCl (Aricept -) 10 mg PO DAILY [facility] Last Admin: 09/22/17 09:53 Dose: 10 mg Olanzapine (Zyprexa -) 5 mg PO HS [facility] Last Admin: 09/21/17 22:06 Dose: 5 mg Olanzapine (Zyprexa -) 2.5 mg PO DAILY [facility] Last Admin: 09/22/17 09:53 Dose: 2.5 mg Ranitidine HCl (Zantac -) 150 mg PO DAILY [facility] Last Admin: 09/21/17 10:15 Dose: 150 mg - Objective Vital Signs: Vital Signs Temperature 97.7 F 09/22/17 10:00 Pulse Rate 84 09/22/17 10:00 Respiratory Rate 20 09/22/17 10:00 Blood Pressure 150/66 09/22/17 10:00 O2 Sat by Pulse Oximetry (%) 97 09/22/17 09:00 Elderly man looks confused, not in distress HEENT: Mm moist, mild anemia. 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 Labs: CBC, BMP 09/18/17 06:25 09/18/17 06:25 INR, PTT INR Cancelled 09/11/17 17:03 Problem List - Problems (1) Afib Assessment/Plan: H/O Chronic afib on AC , episodes of bradycardia woff B Blockers Code(s): I48.91 - UNSPECIFIED ATRIAL FIBRILLATION Qualifiers: Atrial fibrillation type: chronic Qualified Code(s): I48.2 - Chronic atrial fibrillation (2) Altered mental status Assessment/Plan: Due to UTI now calm and quiet Code(s): R41.82 - ALTERED MENTAL STATUS, UNSPECIFIED Qualifiers: Altered mental status type: disorientation Qualified Code(s): R41.0 - Disorientation, unspecified (3) HTN (hypertension) Assessment/Plan: Well controlled off meds Code(s): I10 - ESSENTIAL (PRIMARY) HYPERTENSION Qualifiers: Hypertension type: essential hypertension Qualified Code(s): I10 - Essential (primary) hypertension (4) COPD (chronic obstructive pulmonary disease) Assessment/Plan: Stable cont current Nebs treatment. Code(s): J44.9 - CHRONIC OBSTRUCTIVE PULMONARY DISEASE, UNSPECIFIED (5) Anemia Assessment/Plan: Chronic H/H are stable Code(s): D64.9 - ANEMIA, UNSPECIFIED Qualifiers: Anemia type: iron deficiency (6) Dementia Code(s): F03.90 - UNSPECIFIED DEMENTIA WITHOUT BEHAVIORAL DISTURBANCE Qualifiers: Dementia type: Alzheimer's disease Dementia behavioral disturbance: with behavioral disturbance (7) Hematuria Code(s): R31.9 - HEMATURIA, UNSPECIFIED (8) Comfort measures only status Code(s): Z51.5 - ENCOUNTER FOR PALLIATIVE CARE
[2017-09-22] MEDS: ALPRAZolam 0.25 MG TABLET PO PRN ×2 (14:59→23:31)
[2017-09-22] MEDS: OLANZapine 5 MG TABLET PO SCH (23:31)
[2017-09-23] MEDS: RANITIDINE HCL 150 MG TABLET (FP) PO SCH (10:45)
[2017-09-23] MEDS: DONEPEZIL HCL 10 MG TABLET (FP) PO SCH (10:45)
[2017-09-23] MEDS: OLANZapine 2.5 MG TABLET PO SCH (10:45)
--- NOTE | 2017-09-23 11:14 | PN ---
Progress Note, Physician History of Present Illness: calm lethargic on comfort care minimal oral intake - Current Medication List Current Medications: Active Medications Acetaminophen (Tylenol -) 650 mg PO Q6H PRN PRN Reason: PAIN LEVEL 6-10 Alprazolam (Xanax -) 0.25 mg PO Q8H PRN PRN Reason: ANXIETY Last Admin: 09/22/17 23:31 Dose: 0.25 mg Donepezil HCl (Aricept -) 10 mg PO DAILY [facility] Olanzapine (Zyprexa -) 2.5 mg PO DAILY [facility] Last Admin: 09/22/17 09:53 Dose: 2.5 mg Olanzapine (Zyprexa -) 5 mg PO HS [facility] Ranitidine HCl (Zantac -) 150 mg PO DAILY [facility] - Objective Vital Signs: Vital Signs Temperature 97.5 F L 09/23/17 09:19 Pulse Rate 51 L 09/23/17 09:19 Respiratory Rate 18 09/23/17 09:19 Blood Pressure 139/60 09/23/17 09:19 O2 Sat by Pulse Oximetry (%) 97 09/22/17 20:35 Constitutional: Yes: No Distress, Calm Cardiovascular: Yes: Other Respiratory: Yes: Regular, CTA Bilaterally Gastrointestinal: Yes: Normal Bowel Sounds, Soft Musculoskeletal: Yes: WNL Extremities: Yes: WNL Neurological: Yes: Other Psychiatric: Yes: Other Labs: CBC, BMP 09/18/17 06:25 09/18/17 06:25 INR, PTT INR Cancelled 09/11/17 17:03 Assessment/Plan patient with positive uti also chances of aspiration pna high Problem List - Problems (1) Bradycardia Code(s): R00.1 - BRADYCARDIA, UNSPECIFIED (2) Altered mental status Code(s): R41.82 - ALTERED MENTAL STATUS, UNSPECIFIED Qualifiers: Altered mental status type: disorientation Qualified Code(s): R41.0 - Disorientation, unspecified (3) UTI (urinary tract infection) Code(s): N39.0 - URINARY TRACT INFECTION, SITE NOT SPECIFIED (4) Dementia Code(s): F03.90 - UNSPECIFIED DEMENTIA WITHOUT BEHAVIORAL DISTURBANCE Qualifiers: Dementia type: Alzheimer's disease Dementia behavioral disturbance: with behavioral disturbance (5) HTN (hypertension) Code(s): I10 - ESSENTIAL (PRIMARY) HYPERTENSION Qualifiers: Hypertension type: essential hypertension Qualified Code(s): I10 - Essential (primary) hypertension (6) Afib Code(s): I48.91 - UNSPECIFIED ATRIAL FIBRILLATION Qualifiers: Atrial fibrillation type: chronic Qualified Code(s): I48.2 - Chronic atrial fibrillation (7) Frequent falls Code(s): R29.6 - REPEATED FALLS (8) Anemia Code(s): D64.9 - ANEMIA, UNSPECIFIED Qualifiers: Anemia type: iron deficiency (9) COPD (chronic obstructive pulmonary disease) Code(s): J44.9 - CHRONIC OBSTRUCTIVE PULMONARY DISEASE, UNSPECIFIED (10) Hematuria Code(s): R31.9 - HEMATURIA, UNSPECIFIED assessment and plan Problem List - Problems (1) Bradycardia Code(s): R00.1 - BRADYCARDIA, UNSPECIFIED (2) Altered mental status Code(s): R41.82 - ALTERED MENTAL STATUS, UNSPECIFIED Qualifiers: Altered mental status type: disorientation Qualified Code(s): R41.0 - Disorientation, unspecified (3) UTI (urinary tract infection) Code(s): N39.0 - URINARY TRACT INFECTION, SITE NOT SPECIFIED (4) Dementia Code(s): F03.90 - UNSPECIFIED DEMENTIA WITHOUT BEHAVIORAL DISTURBANCE Qualifiers: Dementia type: Alzheimer's disease Dementia behavioral disturbance: with behavioral disturbance (5) HTN (hypertension) Code(s): I10 - ESSENTIAL (PRIMARY) HYPERTENSION Qualifiers: Hypertension type: essential hypertension Qualified Code(s): I10 - Essential (primary) hypertension (6) Afib Code(s): I48.91 - UNSPECIFIED ATRIAL FIBRILLATION Qualifiers: Atrial fibrillation type: chronic Qualified Code(s): I48.2 - Chronic atrial fibrillation (7) Frequent falls Code(s): R29.6 - REPEATED FALLS (8) Anemia Code(s): D64.9 - ANEMIA, UNSPECIFIED Qualifiers: Anemia type: iron deficiency (9) COPD (chronic obstructive pulmonary disease) Code(s): J44.9 - CHRONIC OBSTRUCTIVE PULMONARY DISEASE, UNSPECIFIED (10) Hematuria Code(s): R31.9 - HEMATURIA, UNSPECIFIED plan comfort measures per family now continue nutritional support rest as per primary
--- NOTE | 2017-09-23 12:31 | PN ---
Progress Note, Physician Chief Complaint: Remained faebrile, hemodynamically stable and confused, on comfort care - Current Medication List Current Medications: Active Medications Acetaminophen (Tylenol -) 650 mg PO Q6H PRN PRN Reason: PAIN LEVEL 6-10 Alprazolam (Xanax -) 0.25 mg PO Q8H PRN PRN Reason: ANXIETY Last Admin: 09/22/17 23:31 Dose: 0.25 mg Donepezil HCl (Aricept -) 10 mg PO DAILY [facility] Last Admin: 09/23/17 10:45 Dose: 10 mg Olanzapine (Zyprexa -) 2.5 mg PO DAILY [facility] Last Admin: 09/23/17 10:45 Dose: 2.5 mg Olanzapine (Zyprexa -) 5 mg PO [facility] Ranitidine HCl (Zantac -) 150 mg PO DAILY [facility] Last Admin: 09/23/17 10:45 Dose: 150 mg - Objective Vital Signs: Vital Signs Temperature 97.5 F L 09/23/17 09:19 Pulse Rate 51 L 09/23/17 09:19 Respiratory Rate 18 09/23/17 09:19 Blood Pressure 139/60 09/23/17 09:19 O2 Sat by Pulse Oximetry (%) 97 09/22/17 20:35 Elderly man looks confused, not in distress HEENT: Mm moist, mild anemia. 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 Labs: CBC, BMP 09/18/17 06:25 09/18/17 06:25 INR, PTT INR Cancelled 09/11/17 17:03 Problem List - Problems (1) Afib Assessment/Plan: H/O Chronic afib on AC , episodes of bradycardia woff B Blockers Code(s): I48.91 - UNSPECIFIED ATRIAL FIBRILLATION Qualifiers: Atrial fibrillation type: chronic Qualified Code(s): I48.2 - Chronic atrial fibrillation (2) Altered mental status Assessment/Plan: Due to UTI now calm and quiet Code(s): R41.82 - ALTERED MENTAL STATUS, UNSPECIFIED Qualifiers: Altered mental status type: disorientation Qualified Code(s): R41.0 - Disorientation, unspecified (3) HTN (hypertension) Assessment/Plan: Well controlled off meds Code(s): I10 - ESSENTIAL (PRIMARY) HYPERTENSION Qualifiers: Hypertension type: essential hypertension Qualified Code(s): I10 - Essential (primary) hypertension (4) COPD (chronic obstructive pulmonary disease) Assessment/Plan: Stable cont current Nebs treatment. Code(s): J44.9 - CHRONIC OBSTRUCTIVE PULMONARY DISEASE, UNSPECIFIED (5) Anemia Assessment/Plan: Chronic H/H are stable Code(s): D64.9 - ANEMIA, UNSPECIFIED Qualifiers: Anemia type: iron deficiency (6) Dementia Assessment/Plan: Chronic at present no agitation. Code(s): F03.90 - UNSPECIFIED DEMENTIA WITHOUT BEHAVIORAL DISTURBANCE Qualifiers: Dementia type: Alzheimer's disease Dementia behavioral disturbance: with behavioral disturbance (7) Hematuria Code(s): R31.9 - HEMATURIA, UNSPECIFIED (8) Comfort measures only status Code(s): Z51.5 - ENCOUNTER FOR PALLIATIVE CARE
[2017-09-23] MEDS ORDERED: OLANZapine 2.5 MG TABLET PO SCH (22:00)
[2017-09-24] MEDS: ALPRAZolam 0.25 MG TABLET PO PRN (02:24)
--- NOTE | 2017-09-24 09:59 | PN ---
Progress Note (short form) - Note Progress Note: Neurology HISTORY OF PRESENT ILLNESS: 89 y/o M w/ PMH Afib, Dementia, Prior CVA, HTN, CHF, COPD, Anemia who was sent from [facility] because of increased agitation. Pt was given Ativan at OR but symptoms did not resolve. On arrival in ED, pt was reportedly unresponsive, EKG with slow Afib with PVCs. Given Atropine per notes without obvious improvement, however, at some point, the patient did convert to ventricular bigemini and became more responsive. I was consulted for mental status. Recieved treatment for UTI and PNA. Seen by psych. Remains on Zosyn. CT head without acute changes. Patient for comfort care per notes. Patient comfortable this AM, not climbing out of bed during my visit. Sleeping comfortably. Active Medications Acetaminophen (Tylenol -) 650 mg PO Q6H PRN PRN Reason: PAIN LEVEL 6-10 Alprazolam (Xanax -) 0.25 mg PO Q8H PRN PRN Reason: ANXIETY Last Admin: 09/24/17 02:24 Dose: 0.25 mg Donepezil HCl (Aricept -) 10 mg PO DAILY [facility] Last Admin: 09/23/17 10:45 Dose: 10 mg Olanzapine (Zyprexa -) 2.5 mg PO DAILY [facility] Last Admin: 09/23/17 10:45 Dose: 2.5 mg Olanzapine (Zyprexa -) 5 mg PO HS [facility] Last Admin: 09/23/17 22:56 Dose: Not Given Ranitidine HCl (Zantac -) 150 mg PO DAILY [facility] Last Admin: 09/23/17 10:45 Dose: 150 mg PHYSICAL EXAMINATION Vital Signs Temperature 98 F 09/24/17 06:00 Pulse Rate 58 L 09/24/17 06:00 Respiratory Rate 20 09/24/17 06:00 Blood Pressure 150/55 09/24/17 06:00 O2 Sat by Pulse Oximetry (%) 97 09/23/17 21:00 GENERAL: Awake, alert, and aggitated, climbing out of bed HEAD: Normal with no signs of trauma. EYES: Pupils equal, round and reactive to light. sclera anicteric, conjunctiva clear EARS, NOSE, THROAT: Moist mucous membranes. NECK: Normal range of motion, mild JVD. No bruits. supple without lymphadenopathy, , or masses. LUNGS: Difficult to auscultate. clear to auscultation bilaterally. HEART: Regular rate and rhythm, normal S1 and S2 without murmur, rub or gallop. ABDOMEN: Soft, not distended, normoactive bowel sounds, no guarding, no rebound , no masses. No hepatomegaly or splenomegaly. MUSCULOSKELETAL: Normal range of motion at all joints. No bony deformities or tenderness. No CVA tenderness. UPPER EXTREMITIES: 2+ pulses, warm, well-perfused. No cyanosis. No clubbing. No peripheral edema. LOWER EXTREMITIES: stasis dermatitis. 2+ pulses, warm. No edema NEUROLOGICAL: CN appear intact, no facial droop or slurred speech appreciated, sensation intact, moves all extremities equally, gait deferred SKIN: legs with stasis changes. Warm, dry, normal turgor, no rashes or lesions noted, normal capillary refill. CBCD WBC 4.7 K/mm3 (4.0-10.0) 09/18/17 06:25 RBC 3.58 M/mm3 (4.00-5.60) L 09/18/17 06:25 Hgb 10.6 GM/dL (11.7-16.9) L 09/18/17 06:25 Hct 32.7 % (35.4-49) L 09/18/17 06:25 MCV 91.2 fl (80-96) 09/18/17 06:25 MCHC 32.5 g/dl (32.0-35.9) 09/18/17 06:25 RDW 17.6 % (11.9-15.9) H 09/18/17 06:25 Plt Count 142 K/MM3 (134-434) 09/18/17 06:25 MPV 8.3 fl (7.5-11.1) 09/18/17 06:25 CMP Sodium 144 mmol/L (136-145) 09/18/17 06:25 Potassium 3.3 mmol/L (3.5-5.1) L 09/18/17 06:25 Chloride 109 mmol/L (98-107) H 09/18/17 06:25 Carbon Dioxide 27 mmol/L (21-32) 09/18/17 06:25 Anion Gap 8 (8-16) 09/18/17 06:25 BUN 10 mg/dL (7-18) 09/18/17 06:25 Creatinine 0.8 mg/dL (0.7-1.3) 09/18/17 06:25 Creat Clearance w eGFR > 60 (>60) 09/15/17 05:00 Calcium 8.8 mg/dL (8.5-10.1) 09/18/17 06:25 Total Bilirubin 0.8 mg/dL (0.2-1.0) 09/15/17 05:00 AST 39 U/L (15-37) H 09/15/17 05:00 ALT 24 U/L (12-78) 09/15/17 05:00 Alkaline Phosphatase 70 U/L (45-117) D 09/15/17 05:00 Total Protein 5.7 g/dl (6.4-8.2) L 09/15/17 05:00 Albumin 2.6 g/dl (3.4-5.0) L D 09/15/17 05:00 CT head reviewed ASSESSMENT/PLAN: 89 y/o M w/ PMH Afib, Dementia, Prior CVA, HTN, CHF, COPD, Anemia who was sent from [facility] because of increased agitation. Pt was given Ativan at OR but symptoms did not resolve. On arrival in ED, pt was reportedly unresponsive, EKG with slow Afib with PVCs. Given Atropine per notes without obvious improvement, however, at some point, the patient did convert to ventricular bigemini and became more responsive. Patient seen at bedside and I was consulted for mental status. He has UA suspicious for UTI and possible PNA. He was aggitated during my encounter but was able to be calmed. Was awake, alert, moving all extremities but was curing at times and irritable. Nurse confirmed patient behavior. Seen by psych and put on Zyprexa Not climbing out of bed this AM, resting comfortably CT head complete and without acute changes No longer on Zosyn Continue aricept, increased to 10mg during this admission Continue hydration Psych for med adjustments/if PRNs needed for aggitation Reorientation as able Monitor patient for safety Comfort care per notes, for hospice placement
[2017-09-24] MEDS: DONEPEZIL HCL 10 MG TABLET (FP) PO SCH (11:00)
[2017-09-24] MEDS: RANITIDINE HCL 150 MG TABLET (FP) PO SCH (11:00)
[2017-09-24] MEDS: OLANZapine 2.5 MG TABLET PO SCH (11:00)
--- NOTE | 2017-09-24 11:54 | PN ---
Progress Note, Physician Chief Complaint: Pt in bed in no acute distress. lethargic, sleeping, shows no signs of agitation. - Current Medication List Current Medications: Active Medications Acetaminophen (Tylenol -) 650 mg PO Q6H PRN PRN Reason: PAIN LEVEL 6-10 Alprazolam (Xanax -) 0.25 mg PO Q8H PRN PRN Reason: ANXIETY Last Admin: 09/24/17 02:24 Dose: 0.25 mg Donepezil HCl (Aricept -) 10 mg PO DAILY [facility] Last Admin: 09/24/17 11:00 Dose: 10 mg Olanzapine (Zyprexa -) 2.5 mg PO BID [facility] Ranitidine HCl (Zantac -) 150 mg PO DAILY [facility] Last Admin: 09/24/17 11:00 Dose: 150 mg - Objective Vital Signs: Vital Signs Temperature 98.1 F 09/24/17 11:00 Pulse Rate 58 L 09/24/17 11:00 Respiratory Rate 16 09/24/17 11:00 Blood Pressure 140/70 09/24/17 11:00 O2 Sat by Pulse Oximetry (%) 97 09/23/17 21:00 Constitutional: Yes: No Distress, Thin Cardiovascular: Yes: Bradycardia, Pulse Irregular. No: Gallop, Murmur, Rub Respiratory: Yes: Regular, CTA Bilaterally, Diminished (not taking deep breaths) Gastrointestinal: Yes: WNL, Normal Bowel Sounds, Soft. No: Distention, Tenderness Edema: No Neurological: Yes: Lethargy Labs: CBC, BMP 09/18/17 06:25 09/18/17 06:25 INR, PTT INR Cancelled 09/11/17 17:03 Problem List - Problems (1) Bradycardia Code(s): R00.1 - BRADYCARDIA, UNSPECIFIED (2) Altered mental status Code(s): R41.82 - ALTERED MENTAL STATUS, UNSPECIFIED Qualifiers: Altered mental status type: disorientation Qualified Code(s): R41.0 - Disorientation, unspecified (3) UTI (urinary tract infection) Code(s): N39.0 - URINARY TRACT INFECTION, SITE NOT SPECIFIED (4) Dementia Code(s): F03.90 - UNSPECIFIED DEMENTIA WITHOUT BEHAVIORAL DISTURBANCE Qualifiers: Dementia type: Alzheimer's disease Dementia behavioral disturbance: with behavioral disturbance (5) HTN (hypertension) Code(s): I10 - ESSENTIAL (PRIMARY) HYPERTENSION Qualifiers: Hypertension type: essential hypertension Qualified Code(s): I10 - Essential (primary) hypertension (6) Afib Code(s): I48.91 - UNSPECIFIED ATRIAL FIBRILLATION Qualifiers: Atrial fibrillation type: chronic Qualified Code(s): I48.2 - Chronic atrial fibrillation (7) Frequent falls Code(s): R29.6 - REPEATED FALLS (8) Anemia Code(s): D64.9 - ANEMIA, UNSPECIFIED Qualifiers: Anemia type: iron deficiency (9) COPD (chronic obstructive pulmonary disease) Code(s): J44.9 - CHRONIC OBSTRUCTIVE PULMONARY DISEASE, UNSPECIFIED (10) Hematuria Code(s): R31.9 - HEMATURIA, UNSPECIFIED (11) Acute metabolic encephalopathy Code(s): G93.41 - METABOLIC ENCEPHALOPATHY Assessment/Plan Comfort measures per family. pt appears comfortable, off restraints. vitals q shift. Palliative team following. pending placement
--- NOTE | 2017-09-24 14:16 | PN ---
Progress Note, Physician History of Present Illness: lethargic no response calm - Current Medication List Current Medications: Active Medications Acetaminophen (Tylenol -) 650 mg PO Q6H PRN PRN Reason: PAIN LEVEL 6-10 Alprazolam (Xanax -) 0.25 mg PO Q8H PRN PRN Reason: ANXIETY Last Admin: 09/24/17 02:24 Dose: 0.25 mg Donepezil HCl (Aricept -) 10 mg PO DAILY [facility] Last Admin: 09/24/17 11:00 Dose: 10 mg Olanzapine (Zyprexa -) 2.5 mg PO BID [facility] Ranitidine HCl (Zantac -) 150 mg PO DAILY [facility] Last Admin: 09/24/17 11:00 Dose: 150 mg - Objective Vital Signs: Vital Signs Temperature 97.9 F 09/24/17 13:54 Pulse Rate 50 L 09/24/17 13:54 Respiratory Rate 18 09/24/17 13:54 Blood Pressure 134/45 09/24/17 13:54 O2 Sat by Pulse Oximetry (%) 97 09/23/17 21:00 Constitutional: Yes: No Distress, Calm Cardiovascular: Yes: S1, S2 Respiratory: Yes: Regular, Other (ecreased air entry into lower lbes) Gastrointestinal: Yes: Normal Bowel Sounds, Soft Musculoskeletal: Yes: WNL Extremities: Yes: WNL Neurological: Yes: Other Psychiatric: Yes: Other Labs: CBC, BMP 09/18/17 06:25 09/18/17 06:25 INR, PTT INR Cancelled 09/11/17 17:03 Assessment/Plan patient with positive uti also chances of aspiration pna high Problem List - Problems (1) Bradycardia Code(s): R00.1 - BRADYCARDIA, UNSPECIFIED (2) Altered mental status Code(s): R41.82 - ALTERED MENTAL STATUS, UNSPECIFIED Qualifiers: Altered mental status type: disorientation Qualified Code(s): R41.0 - Disorientation, unspecified (3) UTI (urinary tract infection) Code(s): N39.0 - URINARY TRACT INFECTION, SITE NOT SPECIFIED (4) Dementia Code(s): F03.90 - UNSPECIFIED DEMENTIA WITHOUT BEHAVIORAL DISTURBANCE Qualifiers: Dementia type: Alzheimer's disease Dementia behavioral disturbance: with behavioral disturbance (5) HTN (hypertension) Code(s): I10 - ESSENTIAL (PRIMARY) HYPERTENSION Qualifiers: Hypertension type: essential hypertension Qualified Code(s): I10 - Essential (primary) hypertension (6) Afib Code(s): I48.91 - UNSPECIFIED ATRIAL FIBRILLATION Qualifiers: Atrial fibrillation type: chronic Qualified Code(s): I48.2 - Chronic atrial fibrillation (7) Frequent falls Code(s): R29.6 - REPEATED FALLS (8) Anemia Code(s): D64.9 - ANEMIA, UNSPECIFIED Qualifiers: Anemia type: iron deficiency (9) COPD (chronic obstructive pulmonary disease) Code(s): J44.9 - CHRONIC OBSTRUCTIVE PULMONARY DISEASE, UNSPECIFIED (10) Hematuria Code(s): R31.9 - HEMATURIA, UNSPECIFIED assessment and plan Problem List - Problems (1) Bradycardia Code(s): R00.1 - BRADYCARDIA, UNSPECIFIED (2) Altered mental status Code(s): R41.82 - ALTERED MENTAL STATUS, UNSPECIFIED Qualifiers: Altered mental status type: disorientation Qualified Code(s): R41.0 - Disorientation, unspecified (3) UTI (urinary tract infection) Code(s): N39.0 - URINARY TRACT INFECTION, SITE NOT SPECIFIED (4) Dementia Code(s): F03.90 - UNSPECIFIED DEMENTIA WITHOUT BEHAVIORAL DISTURBANCE Qualifiers: Dementia type: Alzheimer's disease Dementia behavioral disturbance: with behavioral disturbance (5) HTN (hypertension) Code(s): I10 - ESSENTIAL (PRIMARY) HYPERTENSION Qualifiers: Hypertension type: essential hypertension Qualified Code(s): I10 - Essential (primary) hypertension (6) Afib Code(s): I48.91 - UNSPECIFIED ATRIAL FIBRILLATION Qualifiers: Atrial fibrillation type: chronic Qualified Code(s): I48.2 - Chronic atrial fibrillation (7) Frequent falls Code(s): R29.6 - REPEATED FALLS (8) Anemia Code(s): D64.9 - ANEMIA, UNSPECIFIED Qualifiers: Anemia type: iron deficiency (9) COPD (chronic obstructive pulmonary disease) Code(s): J44.9 - CHRONIC OBSTRUCTIVE PULMONARY DISEASE, UNSPECIFIED (10) Hematuria Code(s): R31.9 - HEMATURIA, UNSPECIFIED plan comfort measures per family now continue nutritional support rest as per primary
[2017-09-25] MEDS: OLANZapine 2.5 MG TABLET PO SCH ×3 (00:23→22:30)
[2017-09-25] MEDS: ACETAMINOPHEN 325 MG TABLET (FP) PO PRN ×2 (03:43→22:25)
[2017-09-25] MEDS: DONEPEZIL HCL 10 MG TABLET (FP) PO SCH (09:49)
[2017-09-25] MEDS: RANITIDINE HCL 150 MG TABLET (FP) PO SCH (09:52)
--- NOTE | 2017-09-25 10:05 | PN ---
Progress Note (short form) - Note Progress Note: Neurology HISTORY OF PRESENT ILLNESS: 89 y/o M w/ PMH Afib, Dementia, Prior CVA, HTN, CHF, COPD, Anemia who was sent from [facility] because of increased agitation. Pt was given Ativan at [place] but symptoms did not resolve. On arrival in ED, pt was reportedly unresponsive, EKG with slow Afib with PVCs. Given Atropine per notes without obvious improvement, however, at some point, the patient did convert to ventricular bigemini and became more responsive. I was consulted for mental status. Recieved treatment for UTI and PNA. Seen by psych. Remains on Zosyn. CT head without acute changes. Patient for comfort care per notes. Patient comfortable this AM, not climbing out of bed during my visit again. Sleeping comfortably but was arousable. Not following commands. Not had significant improvement during hospitalization. Active Medications Acetaminophen (Tylenol -) 650 mg PO Q6H PRN PRN Reason: PAIN LEVEL 6-10 Last Admin: 09/25/17 03:43 Dose: 650 mg Alprazolam (Xanax -) 0.25 mg PO Q8H PRN PRN Reason: ANXIETY Last Admin: 09/24/17 02:24 Dose: 0.25 mg Donepezil HCl (Aricept -) 10 mg PO DAILY [facility] Last Admin: 09/25/17 09:49 Dose: 10 mg Olanzapine (Zyprexa -) 2.5 mg PO BID [facility] Last Admin: 09/25/17 09:49 Dose: 2.5 mg Ranitidine HCl (Zantac -) 150 mg PO DAILY [facility] Last Admin: 09/25/17 09:52 Dose: 150 mg PHYSICAL EXAMINATION Vital Signs Temperature 97.9 F 09/25/17 01:51 Pulse Rate 52 L 09/25/17 01:51 Respiratory Rate 18 09/25/17 01:51 Blood Pressure 123/50 09/25/17 01:51 O2 Sat by Pulse Oximetry (%) 96 09/24/17 21:00 GENERAL: Somnolent, but arousable, not aggitated during encounter HEAD: Normal with no signs of trauma. EYES: Pupils equal, round and reactive to light. sclera anicteric, conjunctiva clear EARS, NOSE, THROAT: Moist mucous membranes. NECK: Normal range of motion, mild JVD. No bruits. supple without lymphadenopathy, , or masses. LUNGS: Difficult to auscultate. clear to auscultation bilaterally. HEART: Regular rate and rhythm, normal S1 and S2 without murmur, rub or gallop. ABDOMEN: Soft, not distended, normoactive bowel sounds, no guarding, no rebound , no masses. No hepatomegaly or splenomegaly. MUSCULOSKELETAL: Normal range of motion at all joints. No bony deformities or tenderness. No CVA tenderness. UPPER EXTREMITIES: 2+ pulses, warm, well-perfused. No cyanosis. No clubbing. No peripheral edema. LOWER EXTREMITIES: stasis dermatitis. 2+ pulses, warm. No edema NEUROLOGICAL: CN appear intact, no facial droop or slurred speech appreciated, sensation intact, moves all extremities equally, gait deferred SKIN: legs with stasis changes. Warm, dry, normal turgor, no rashes or lesions noted, normal capillary refill. CBCD WBC 4.7 K/mm3 (4.0-10.0) 09/18/17 06:25 RBC 3.58 M/mm3 (4.00-5.60) L 09/18/17 06:25 Hgb 10.6 GM/dL (11.7-16.9) L 09/18/17 06:25 Hct 32.7 % (35.4-49) L 09/18/17 06:25 MCV 91.2 fl (80-96) 09/18/17 06:25 MCHC 32.5 g/dl (32.0-35.9) 09/18/17 06:25 RDW 17.6 % (11.9-15.9) H 09/18/17 06:25 Plt Count 142 K/MM3 (134-434) 09/18/17 06:25 MPV 8.3 fl (7.5-11.1) 09/18/17 06:25 CMP Sodium 144 mmol/L (136-145) 09/18/17 06:25 Potassium 3.3 mmol/L (3.5-5.1) L 09/18/17 06:25 Chloride 109 mmol/L (98-107) H 09/18/17 06:25 Carbon Dioxide 27 mmol/L (21-32) 09/18/17 06:25 Anion Gap 8 (8-16) 02/14/18 06:25 BUN 10 mg/dL (7-18) 09/18/17 06:25 Creatinine 0.8 mg/dL (0.7-1.3) 09/18/17 06:25 Creat Clearance w eGFR > 60 (>60) 09/15/17 05:00 Calcium 8.8 mg/dL (8.5-10.1) 09/18/17 06:25 Total Bilirubin 0.8 mg/dL (0.2-1.0) 09/15/17 05:00 AST 39 U/L (15-37) H 09/15/17 05:00 ALT 24 U/L (12-78) 09/15/17 05:00 Alkaline Phosphatase 70 U/L (45-117) D 09/15/17 05:00 Total Protein 5.7 g/dl (6.4-8.2) L 09/15/17 05:00 Albumin 2.6 g/dl (3.4-5.0) L D 09/15/17 05:00 CT head reviewed ASSESSMENT/PLAN: 89 y/o M w/ PMH Afib, Dementia, Prior CVA, HTN, CHF, COPD, Anemia who was sent from [facility] because of increased agitation. Pt was given Ativan at [place] but symptoms did not resolve. On arrival in ED, pt was reportedly unresponsive, EKG with slow Afib with PVCs. Given Atropine per notes without obvious improvement, however, at some point, the patient did convert to ventricular bigemini and became more responsive. Patient seen at bedside and I was consulted for mental status. He has UA suspicious for UTI and possible PNA. Somnolent again today, not aggitated, possibly fatigued Seen by psych and put on Zyprexa No longer on Zosyn Continue aricept, increased to 10mg during this admission Continue hydration Psych for med adjustments/if PRNs needed for aggitation Reorientation as able Monitor patient for safety
--- NOTE | 2017-09-25 10:44 | PN ---
Progress Note, TRANSISTOR TESTER - Note Progress Note: Selected Entries 09/24/17 09/24/17 09/24/17 06:00 09:55 11:00 Breakfast 0 Supper Temperature 98 F 98.1 F 09/24/17 09/24/17 09/24/17 13:54 19:32 19:45 Breakfast 50% Supper 25% Temperature 97.9 F 97.6 F 09/25/17 01:51 Breakfast Supper Temperature 97.9 F Nursing reports he took 50% today, mainly cold foods, eg ensure pudding. Please increase supplements eg Ensure Plus, Magic cup, Ensure pudding with meals. Add tuna/egg salad, chicken salad trials. Plan is for d/c to [place].
--- NOTE | 2017-09-25 13:32 | PN ---
Progress Note, Physician History of Present Illness: patient lethargic non verbal weak - Current Medication List Current Medications: Active Medications Acetaminophen (Tylenol -) 650 mg PO Q6H PRN PRN Reason: PAIN LEVEL 6-10 Last Admin: 09/25/17 03:43 Dose: 650 mg Alprazolam (Xanax -) 0.25 mg PO Q8H PRN PRN Reason: ANXIETY Last Admin: 09/24/17 02:24 Dose: 0.25 mg Donepezil HCl (Aricept -) 10 mg PO DAILY [facility] Last Admin: 09/25/17 09:49 Dose: 10 mg Olanzapine (Zyprexa -) 2.5 mg PO BID [facility] Last Admin: 09/25/17 09:49 Dose: 2.5 mg Ranitidine HCl (Zantac -) 150 mg PO DAILY [facility] Last Admin: 09/25/17 09:52 Dose: 150 mg - Objective Vital Signs: Vital Signs Temperature 97.5 F L 09/25/17 10:00 Pulse Rate 82 09/25/17 10:00 Respiratory Rate 20 09/25/17 10:00 Blood Pressure 132/48 09/25/17 10:00 O2 Sat by Pulse Oximetry (%) 96 09/24/17 21:00 Constitutional: Yes: No Distress, Calm, Other (somnolent,arousable) Eyes: Yes: Conjunctiva Clear Cardiovascular: Yes: S1, S2 Respiratory: Yes: Regular, CTA Bilaterally Gastrointestinal: Yes: Normal Bowel Sounds, Soft Musculoskeletal: Yes: WNL Extremities: Yes: WNL Neurological: Yes: Alert, Other Psychiatric: Yes: Other Labs: CBC, BMP 09/18/17 06:25 09/18/17 06:25 INR, PTT INR Cancelled 09/11/17 17:03 Assessment/Plan patient with positive uti also chances of aspiration pna high Problem List - Problems (1) Bradycardia Code(s): R00.1 - BRADYCARDIA, UNSPECIFIED (2) Altered mental status Code(s): R41.82 - ALTERED MENTAL STATUS, UNSPECIFIED Qualifiers: Altered mental status type: disorientation Qualified Code(s): R41.0 - Disorientation, unspecified (3) UTI (urinary tract infection) Code(s): N39.0 - URINARY TRACT INFECTION, SITE NOT SPECIFIED (4) Dementia Code(s): F03.90 - UNSPECIFIED DEMENTIA WITHOUT BEHAVIORAL DISTURBANCE Qualifiers: Dementia type: Alzheimer's disease Dementia behavioral disturbance: with behavioral disturbance (5) HTN (hypertension) Code(s): I10 - ESSENTIAL (PRIMARY) HYPERTENSION Qualifiers: Hypertension type: essential hypertension Qualified Code(s): I10 - Essential (primary) hypertension (6) Afib Code(s): I48.91 - UNSPECIFIED ATRIAL FIBRILLATION Qualifiers: Atrial fibrillation type: chronic Qualified Code(s): I48.2 - Chronic atrial fibrillation (7) Frequent falls Code(s): R29.6 - REPEATED FALLS (8) Anemia Code(s): D64.9 - ANEMIA, UNSPECIFIED Qualifiers: Anemia type: iron deficiency (9) COPD (chronic obstructive pulmonary disease) Code(s): J44.9 - CHRONIC OBSTRUCTIVE PULMONARY DISEASE, UNSPECIFIED (10) Hematuria Code(s): R31.9 - HEMATURIA, UNSPECIFIED assessment and plan Problem List - Problems (1) Bradycardia Code(s): R00.1 - BRADYCARDIA, UNSPECIFIED (2) Altered mental status Code(s): R41.82 - ALTERED MENTAL STATUS, UNSPECIFIED Qualifiers: Altered mental status type: disorientation Qualified Code(s): R41.0 - Disorientation, unspecified (3) UTI (urinary tract infection) Code(s): N39.0 - URINARY TRACT INFECTION, SITE NOT SPECIFIED (4) Dementia Code(s): F03.90 - UNSPECIFIED DEMENTIA WITHOUT BEHAVIORAL DISTURBANCE Qualifiers: Dementia type: Alzheimer's disease Dementia behavioral disturbance: with behavioral disturbance (5) HTN (hypertension) Code(s): I10 - ESSENTIAL (PRIMARY) HYPERTENSION Qualifiers: Hypertension type: essential hypertension Qualified Code(s): I10 - Essential (primary) hypertension (6) Afib Code(s): I48.91 - UNSPECIFIED ATRIAL FIBRILLATION Qualifiers: Atrial fibrillation type: chronic Qualified Code(s): I48.2 - Chronic atrial fibrillation (7) Frequent falls Code(s): R29.6 - REPEATED FALLS (8) Anemia Code(s): D64.9 - ANEMIA, UNSPECIFIED Qualifiers: Anemia type: iron deficiency (9) COPD (chronic obstructive pulmonary disease) Code(s): J44.9 - CHRONIC OBSTRUCTIVE PULMONARY DISEASE, UNSPECIFIED (10) Hematuria Code(s): R31.9 - HEMATURIA, UNSPECIFIED plan comfort measures per family now continue nutritional support rest as per primary continue antipsych meds no aggressive treatment as per family
--- NOTE | 2017-09-25 13:44 | PN ---
Progress Note, Physician Chief Complaint: Pt in bed in no acute distress. lethargic, arousable, pt asked for cold water, drank water. shows no signs of agitation. - Current Medication List Current Medications: Active Medications Acetaminophen (Tylenol -) 650 mg PO Q6H PRN PRN Reason: PAIN LEVEL 6-10 Last Admin: 09/25/17 03:43 Dose: 650 mg Alprazolam (Xanax -) 0.25 mg PO Q8H PRN PRN Reason: ANXIETY Last Admin: 09/24/17 02:24 Dose: 0.25 mg Donepezil HCl (Aricept -) 10 mg PO DAILY [facility] Last Admin: 09/25/17 09:49 Dose: 10 mg Olanzapine (Zyprexa -) 2.5 mg PO BID [facility] Last Admin: 09/25/17 09:49 Dose: 2.5 mg Ranitidine HCl (Zantac -) 150 mg PO DAILY [facility] Last Admin: 09/25/17 09:52 Dose: 150 mg - Objective Vital Signs: Vital Signs Temperature 97.5 F L 09/25/17 10:00 Pulse Rate 82 09/25/17 10:00 Respiratory Rate 20 09/25/17 10:00 Blood Pressure 132/48 09/25/17 10:00 O2 Sat by Pulse Oximetry (%) 96 09/24/17 21:00 Constitutional: Yes: Thin Cardiovascular: Yes: Bradycardia, Pulse Irregular Respiratory: Yes: Regular, CTA Bilaterally, Diminished. No: Rales, Rhonchi Gastrointestinal: Yes: WNL, Normal Bowel Sounds, Soft. No: Distention, Tenderness Genitourinary: Yes: Incontinence Edema: No Neurological: Yes: Lethargy Psychiatric: Yes: Alert Labs: CBC, BMP 09/18/17 06:25 09/18/17 06:25 INR, PTT INR Cancelled 09/11/17 17:03 Problem List - Problems (1) Bradycardia Code(s): R00.1 - BRADYCARDIA, UNSPECIFIED (2) Altered mental status Code(s): R41.82 - ALTERED MENTAL STATUS, UNSPECIFIED Qualifiers: Altered mental status type: disorientation Qualified Code(s): R41.0 - Disorientation, unspecified (3) UTI (urinary tract infection) Code(s): N39.0 - URINARY TRACT INFECTION, SITE NOT SPECIFIED (4) Dementia Code(s): F03.90 - UNSPECIFIED DEMENTIA WITHOUT BEHAVIORAL DISTURBANCE Qualifiers: Dementia type: Alzheimer's disease Dementia behavioral disturbance: with behavioral disturbance (5) HTN (hypertension) Code(s): I10 - ESSENTIAL (PRIMARY) HYPERTENSION Qualifiers: Hypertension type: essential hypertension Qualified Code(s): I10 - Essential (primary) hypertension (6) Afib Code(s): I48.91 - UNSPECIFIED ATRIAL FIBRILLATION Qualifiers: Atrial fibrillation type: chronic Qualified Code(s): I48.2 - Chronic atrial fibrillation (7) Frequent falls Code(s): R29.6 - REPEATED FALLS (8) Anemia Code(s): D64.9 - ANEMIA, UNSPECIFIED Qualifiers: Anemia type: iron deficiency (9) COPD (chronic obstructive pulmonary disease) Code(s): J44.9 - CHRONIC OBSTRUCTIVE PULMONARY DISEASE, UNSPECIFIED (10) Hematuria Code(s): R31.9 - HEMATURIA, UNSPECIFIED (11) Acute metabolic encephalopathy Code(s): G93.41 - METABOLIC ENCEPHALOPATHY Assessment/Plan Comfort measures per family. pt appears comfortable, off restraints. vitals q shift. Palliative team following. pending placement
[2017-09-25] MEDS: ALPRAZolam 0.25 MG TABLET PO PRN (22:26)
[2017-09-26] MEDS: DONEPEZIL HCL 10 MG TABLET (FP) PO SCH (09:45)
[2017-09-26] MEDS: OLANZapine 2.5 MG TABLET PO SCH ×2 (09:45→21:11)
[2017-09-26] MEDS: ALPRAZolam 0.25 MG TABLET PO PRN ×2 (09:45→21:11)
[2017-09-26] MEDS: RANITIDINE HCL 150 MG TABLET (FP) PO SCH (09:46)
--- NOTE | 2017-09-26 09:53 | PN ---
Progress Note (short form) - Note Progress Note: Neurology HISTORY OF PRESENT ILLNESS: 89 y/o M w/ PMH Afib, Dementia, Prior CVA, HTN, CHF, COPD, Anemia who was sent from [facility] because of increased agitation. Pt was given Ativan at [place] but symptoms did not resolve. On arrival in ED, pt was reportedly unresponsive, EKG with slow Afib with PVCs. Given Atropine per notes without obvious improvement, however, at some point, the patient did convert to ventricular bigemini and became more responsive. I was consulted for mental status. Recieved treatment for UTI and PNA. Seen by psych. Remains on Zosyn. CT head without acute changes. Patient for comfort care per notes. Not following commands. Not had significant improvement during hospitalization. Awaiting placement at this time. Active Medications Acetaminophen (Tylenol -) 650 mg PO Q6H PRN PRN Reason: PAIN LEVEL 6-10 Last Admin: 09/25/17 22:25 Dose: 650 mg Alprazolam (Xanax -) 0.25 mg PO Q8H PRN PRN Reason: ANXIETY Last Admin: 09/26/17 09:45 Dose: 0.25 mg Donepezil HCl (Aricept -) 10 mg PO DAILY [facility] Last Admin: 09/26/17 09:45 Dose: 10 mg Olanzapine (Zyprexa -) 2.5 mg PO BID [facility] Last Admin: 09/26/17 09:45 Dose: 2.5 mg Ranitidine HCl (Zantac -) 150 mg PO DAILY [facility] Last Admin: 09/26/17 09:46 Dose: 150 mg PHYSICAL EXAMINATION Vital Signs Period Temp Pulse Resp BP Sys/Vega Pulse Ox Last 24 Hr 97.0 F-97.8 F 50-82 20-24 132-152/48-91 GENERAL: Somnolent, but arousable, not aggitated during encounter HEAD: Normal with no signs of trauma. EYES: Pupils equal, round and reactive to light. sclera anicteric, conjunctiva clear EARS, NOSE, THROAT: Moist mucous membranes. NECK: Normal range of motion, mild JVD. No bruits. supple without lymphadenopathy, , or masses. LUNGS: Difficult to auscultate. clear to auscultation bilaterally. HEART: Regular rate and rhythm, normal S1 and S2 without murmur, rub or gallop. ABDOMEN: Soft, not distended, normoactive bowel sounds, no guarding, no rebound , no masses. No hepatomegaly or splenomegaly. MUSCULOSKELETAL: Normal range of motion at all joints. No bony deformities or tenderness. No CVA tenderness. UPPER EXTREMITIES: 2+ pulses, warm, well-perfused. No cyanosis. No clubbing. No peripheral edema. LOWER EXTREMITIES: stasis dermatitis. 2+ pulses, warm. No edema NEUROLOGICAL: CN appear intact, no facial droop or slurred speech appreciated, sensation intact, moves all extremities equally, gait deferred SKIN: legs with stasis changes. Warm, dry, normal turgor, no rashes or lesions noted, normal capillary refill. CBCD WBC 4.7 K/mm3 (4.0-10.0) 09/18/17 06:25 RBC 3.58 M/mm3 (4.00-5.60) L 09/18/17 06:25 Hgb 10.6 GM/dL (11.7-16.9) L 09/18/17 06:25 Hct 32.7 % (35.4-49) L 09/18/17 06:25 MCV 91.2 fl (80-96) 09/18/17 06:25 MCHC 32.5 g/dl (32.0-35.9) 09/18/17 06:25 RDW 17.6 % (11.9-15.9) H 09/18/17 06:25 Plt Count 142 K/MM3 (134-434) 09/18/17 06:25 MPV 8.3 fl (7.5-11.1) 09/18/17 06:25 CMP Sodium 144 mmol/L (136-145) 09/18/17 06:25 Potassium 3.3 mmol/L (3.5-5.1) L 09/18/17 06:25 Chloride 109 mmol/L (98-107) H 09/18/17 06:25 Carbon Dioxide 27 mmol/L (21-32) 09/18/17 06:25 Anion Gap 8 (8-16) 09/18/17 06:25 BUN 10 mg/dL (7-18) 09/18/17 06:25 Creatinine 0.8 mg/dL (0.7-1.3) 09/18/17 06:25 Creat Clearance w eGFR > 60 (>60) 09/15/17 05:00 Calcium 8.8 mg/dL (8.5-10.1) 09/18/17 06:25 Total Bilirubin 0.8 mg/dL (0.2-1.0) 09/15/17 05:00 AST 39 U/L (15-37) H 09/15/17 05:00 ALT 24 U/L (12-78) 09/15/17 05:00 Alkaline Phosphatase 70 U/L (45-117) D 09/15/17 05:00 Total Protein 5.7 g/dl (6.4-8.2) L 09/15/17 05:00 Albumin 2.6 g/dl (3.4-5.0) L D 09/15/17 05:00 CT head reviewed ASSESSMENT/PLAN: 89 y/o M w/ PMH Afib, Dementia, Prior CVA, HTN, CHF, COPD, Anemia who was sent from [facility] because of increased agitation. Pt was given Ativan at [place] but symptoms did not resolve. On arrival in ED, pt was reportedly unresponsive, EKG with slow Afib with PVCs. Given Atropine per notes without obvious improvement, however, at some point, the patient did convert to ventricular bigemini and became more responsive. Patient seen at bedside and I was consulted for mental status. He has UA suspicious for UTI and possible PNA. Somnolent again today, not aggitated, possibly fatigued Seen by psych and put on Zyprexa No longer on Zosyn Continue aricept, increased to 10mg during this admission Continue hydration Psych for med adjustments/if PRNs needed for aggitation Reorientation as able Monitor patient for safety Placement as able
--- NOTE | 2017-09-26 10:41 | PN ---
Progress Note, Physician Chief Complaint: Pt sitting in bed in no acute distress, . shows no signs of agitation. denies any chest pain, sob, n/v/d - Current Medication List Current Medications: Active Medications Acetaminophen (Tylenol -) 650 mg PO Q6H PRN PRN Reason: PAIN LEVEL 6-10 Last Admin: 09/25/17 22:25 Dose: 650 mg Alprazolam (Xanax -) 0.25 mg PO Q8H PRN PRN Reason: ANXIETY Last Admin: 09/26/17 09:45 Dose: 0.25 mg Donepezil HCl (Aricept -) 10 mg PO DAILY [facility] Last Admin: 09/26/17 09:45 Dose: 10 mg Olanzapine (Zyprexa -) 2.5 mg PO BID [facility] Last Admin: 09/26/17 09:45 Dose: 2.5 mg Ranitidine HCl (Zantac -) 150 mg PO DAILY [facility] Last Admin: 09/26/17 09:46 Dose: 150 mg - Objective Vital Signs: Vital Signs Temperature 97.5 F L 09/26/17 10:00 Pulse Rate 62 09/26/17 10:00 Respiratory Rate 20 09/26/17 10:00 Blood Pressure 142/68 09/26/17 10:00 O2 Sat by Pulse Oximetry (%) 96 09/24/17 21:00 Constitutional: Yes: Thin Cardiovascular: Yes: Bradycardia, Pulse Irregular Respiratory: Yes: CTA Bilaterally, Diminished. No: Rales, Rhonchi, SOB, Tachypnea Gastrointestinal: Yes: Normal Bowel Sounds, Soft. No: Distention, Tenderness Edema: No Neurological: Yes: Confusion Psychiatric: Yes: Alert Labs: CBC, BMP 09/18/17 06:25 09/18/17 06:25 INR, PTT INR Cancelled 09/11/17 17:03 Problem List - Problems (1) Bradycardia Code(s): R00.1 - BRADYCARDIA, UNSPECIFIED (2) Altered mental status Code(s): R41.82 - ALTERED MENTAL STATUS, UNSPECIFIED Qualifiers: Altered mental status type: disorientation Qualified Code(s): R41.0 - Disorientation, unspecified (3) UTI (urinary tract infection) Code(s): N39.0 - URINARY TRACT INFECTION, SITE NOT SPECIFIED (4) Dementia Code(s): F03.90 - UNSPECIFIED DEMENTIA WITHOUT BEHAVIORAL DISTURBANCE Qualifiers: Dementia type: Alzheimer's disease Dementia behavioral disturbance: with behavioral disturbance (5) HTN (hypertension) Code(s): I10 - ESSENTIAL (PRIMARY) HYPERTENSION Qualifiers: Hypertension type: essential hypertension Qualified Code(s): I10 - Essential (primary) hypertension (6) Afib Code(s): I48.91 - UNSPECIFIED ATRIAL FIBRILLATION Qualifiers: Atrial fibrillation type: chronic Qualified Code(s): I48.2 - Chronic atrial fibrillation (7) Frequent falls Code(s): R29.6 - REPEATED FALLS (8) Anemia Code(s): D64.9 - ANEMIA, UNSPECIFIED Qualifiers: Anemia type: iron deficiency (9) COPD (chronic obstructive pulmonary disease) Code(s): J44.9 - CHRONIC OBSTRUCTIVE PULMONARY DISEASE, UNSPECIFIED (10) Hematuria Code(s): R31.9 - HEMATURIA, UNSPECIFIED (11) Acute metabolic encephalopathy Code(s): G93.41 - METABOLIC ENCEPHALOPATHY Assessment/Plan Comfort measures per family. pt appears comfortable, off restraints. vitals q shift. Palliative team following. pending placement
--- NOTE | 2017-09-26 12:20 | PN ---
Progress Note, Physician History of Present Illness: more awake and alert calmer - Current Medication List Current Medications: Active Medications Acetaminophen (Tylenol -) 650 mg PO Q6H PRN PRN Reason: PAIN LEVEL 6-10 Last Admin: 09/25/17 22:25 Dose: 650 mg Alprazolam (Xanax -) 0.25 mg PO Q8H PRN PRN Reason: ANXIETY Last Admin: 09/26/17 09:45 Dose: 0.25 mg Donepezil HCl (Aricept -) 10 mg PO DAILY [facility] Last Admin: 09/26/17 09:45 Dose: 10 mg Olanzapine (Zyprexa -) 2.5 mg PO BID [facility] Last Admin: 09/26/17 09:45 Dose: 2.5 mg Ranitidine HCl (Zantac -) 150 mg PO DAILY [facility] Last Admin: 09/26/17 09:46 Dose: 150 mg - Objective Vital Signs: Vital Signs Temperature 97.5 F L 09/26/17 10:00 Pulse Rate 62 09/26/17 10:00 Respiratory Rate 20 09/26/17 10:00 Blood Pressure 142/68 09/26/17 10:00 O2 Sat by Pulse Oximetry (%) 96 09/24/17 21:00 Constitutional: Yes: No Distress, Calm, Other (non verbal) Neck: Yes: Supple Cardiovascular: Yes: S1, S2 Respiratory: Yes: Regular, CTA Bilaterally Gastrointestinal: Yes: Normal Bowel Sounds, Soft Musculoskeletal: Yes: WNL Extremities: Yes: WNL Neurological: Yes: Alert, Other (dementia) Labs: CBC, BMP 09/18/17 06:25 09/18/17 06:25 INR, PTT INR Cancelled 09/11/17 17:03 Assessment/Plan patient with positive uti also chances of aspiration pna high Problem List - Problems (1) Bradycardia Code(s): R00.1 - BRADYCARDIA, UNSPECIFIED (2) Altered mental status Code(s): R41.82 - ALTERED MENTAL STATUS, UNSPECIFIED Qualifiers: Altered mental status type: disorientation Qualified Code(s): R41.0 - Disorientation, unspecified (3) UTI (urinary tract infection) Code(s): N39.0 - URINARY TRACT INFECTION, SITE NOT SPECIFIED (4) Dementia Code(s): F03.90 - UNSPECIFIED DEMENTIA WITHOUT BEHAVIORAL DISTURBANCE Qualifiers: Dementia type: Alzheimer's disease Dementia behavioral disturbance: with behavioral disturbance (5) HTN (hypertension) Code(s): I10 - ESSENTIAL (PRIMARY) HYPERTENSION Qualifiers: Hypertension type: essential hypertension Qualified Code(s): I10 - Essential (primary) hypertension (6) Afib Code(s): I48.91 - UNSPECIFIED ATRIAL FIBRILLATION Qualifiers: Atrial fibrillation type: chronic Qualified Code(s): I48.2 - Chronic atrial fibrillation (7) Frequent falls Code(s): R29.6 - REPEATED FALLS (8) Anemia Code(s): D64.9 - ANEMIA, UNSPECIFIED Qualifiers: Anemia type: iron deficiency (9) COPD (chronic obstructive pulmonary disease) Code(s): J44.9 - CHRONIC OBSTRUCTIVE PULMONARY DISEASE, UNSPECIFIED (10) Hematuria Code(s): R31.9 - HEMATURIA, UNSPECIFIED assessment and plan Problem List - Problems (1) Bradycardia Code(s): R00.1 - BRADYCARDIA, UNSPECIFIED (2) Altered mental status Code(s): R41.82 - ALTERED MENTAL STATUS, UNSPECIFIED Qualifiers: Altered mental status type: disorientation Qualified Code(s): R41.0 - Disorientation, unspecified (3) UTI (urinary tract infection) Code(s): N39.0 - URINARY TRACT INFECTION, SITE NOT SPECIFIED (4) Dementia Code(s): F03.90 - UNSPECIFIED DEMENTIA WITHOUT BEHAVIORAL DISTURBANCE Qualifiers: Dementia type: Alzheimer's disease Dementia behavioral disturbance: with behavioral disturbance (5) HTN (hypertension) Code(s): I10 - ESSENTIAL (PRIMARY) HYPERTENSION Qualifiers: Hypertension type: essential hypertension Qualified Code(s): I10 - Essential (primary) hypertension (6) Afib Code(s): I48.91 - UNSPECIFIED ATRIAL FIBRILLATION Qualifiers: Atrial fibrillation type: chronic Qualified Code(s): I48.2 - Chronic atrial fibrillation (7) Frequent falls Code(s): R29.6 - REPEATED FALLS (8) Anemia Code(s): D64.9 - ANEMIA, UNSPECIFIED Qualifiers: Anemia type: iron deficiency (9) COPD (chronic obstructive pulmonary disease) Code(s): J44.9 - CHRONIC OBSTRUCTIVE PULMONARY DISEASE, UNSPECIFIED (10) Hematuria Code(s): R31.9 - HEMATURIA, UNSPECIFIED plan continue nutritional support rest as per primary team patient calm stable
[2017-09-26] MEDS: ACETAMINOPHEN 325 MG TABLET (FP) PO PRN (21:11)
[2017-09-26] MEDS: NYSTATIN POWDER 100,000 UNITS/GM - 15 GM TOPICAL POWDER TP SCH (23:35)
--- NOTE | 2017-09-27 10:06 | PN ---
Progress Note (short form) - Note Progress Note: Neurology HISTORY OF PRESENT ILLNESS: 89 y/o M w/ PMH Afib, Dementia, Prior CVA, HTN, CHF, COPD, Anemia who was sent from [facility] because of increased agitation. Pt was given Ativan at [place] but symptoms did not resolve. On arrival in ED, pt was reportedly unresponsive, EKG with slow Afib with PVCs. Given Atropine per notes without obvious improvement, however, at some point, the patient did convert to ventricular bigemini and became more responsive. I was consulted for mental status. Recieved treatment for UTI and PNA. Completed Zosyn course. Seen by psych, on Zyprexa. CT head without acute changes. Patient for comfort care per notes. Not following commands. Not had significant improvement during hospitalization. Awaiting placement at this time. Sleepy this morning, spoke to nurse, received Ativan overnight. Active Medications Acetaminophen (Tylenol -) 650 mg PO Q6H PRN PRN Reason: PAIN LEVEL 6-10 Last Admin: 09/26/17 21:11 Dose: 650 mg Alprazolam (Xanax -) 0.25 mg PO Q8H PRN PRN Reason: ANXIETY Last Admin: 09/26/17 21:11 Dose: 0.25 mg Donepezil HCl (Aricept -) 10 mg PO DAILY [facility] Last Admin: 09/26/17 09:45 Dose: 10 mg Nystatin (Nystop Powder -) 1 applic TP DAILY [facility] Last Admin: 09/26/17 23:35 Dose: Not Given Olanzapine (Zyprexa -) 2.5 mg PO BID [facility] Last Admin: 09/26/17 21:11 Dose: 2.5 mg Ranitidine HCl (Zantac -) 150 mg PO DAILY [facility] Last Admin: 09/26/17 09:46 Dose: 150 mg PHYSICAL EXAMINATION Vital Signs Temperature 97.3 F L 09/27/17 05:30 Pulse Rate 44 L 09/27/17 09:55 Respiratory Rate 18 09/27/17 09:55 Blood Pressure 145/59 09/27/17 09:55 O2 Sat by Pulse Oximetry (%) 97 09/26/17 20:00 GENERAL: Somnolent, but arousable, not aggitated during encounter HEAD: Normal with no signs of trauma. EYES: Pupils equal, round and reactive to light. sclera anicteric, conjunctiva clear EARS, NOSE, THROAT: Moist mucous membranes. NECK: Normal range of motion, mild JVD. No bruits. supple without lymphadenopathy, , or masses. LUNGS: Difficult to auscultate. clear to auscultation bilaterally. HEART: Regular rate and rhythm, normal S1 and S2 without murmur, rub or gallop. ABDOMEN: Soft, not distended, normoactive bowel sounds, no guarding, no rebound , no masses. No hepatomegaly or splenomegaly. MUSCULOSKELETAL: Normal range of motion at all joints. No bony deformities or tenderness. No CVA tenderness. UPPER EXTREMITIES: 2+ pulses, warm, well-perfused. No cyanosis. No clubbing. No peripheral edema. LOWER EXTREMITIES: stasis dermatitis. 2+ pulses, warm. No edema NEUROLOGICAL: CN appear intact, no facial droop or slurred speech appreciated, sensation intact, moves all extremities equally, gait deferred SKIN: legs with stasis changes. Warm, dry, normal turgor, no rashes or lesions noted, normal capillary refill. CBCD WBC 4.7 K/mm3 (4.0-10.0) 09/18/17 06:25 RBC 3.58 M/mm3 (4.00-5.60) L 09/18/17 06:25 Hgb 10.6 GM/dL (11.7-16.9) L 09/18/17 06:25 Hct 32.7 % (35.4-49) L 09/18/17 06:25 MCV 91.2 fl (80-96) 09/18/17 06:25 MCHC 32.5 g/dl (32.0-35.9) 09/18/17 06:25 RDW 17.6 % (11.9-15.9) H 09/18/17 06:25 Plt Count 142 K/MM3 (134-434) 09/18/17 06:25 MPV 8.3 fl (7.5-11.1) 09/18/17 06:25 CMP Sodium 144 mmol/L (136-145) 09/18/17 06:25 Potassium 3.3 mmol/L (3.5-5.1) L 09/18/17 06:25 Chloride 109 mmol/L (98-107) H 09/18/17 06:25 Carbon Dioxide 27 mmol/L (21-32) 09/18/17 06:25 Anion Gap 8 (8-16) 09/18/17 06:25 BUN 10 mg/dL (7-18) 09/18/17 06:25 Creatinine 0.8 mg/dL (0.7-1.3) 09/18/17 06:25 Creat Clearance w eGFR > 60 (>60) 09/15/17 05:00 Calcium 8.8 mg/dL (8.5-10.1) 09/18/17 06:25 Total Bilirubin 0.8 mg/dL (0.2-1.0) 09/15/17 05:00 AST 39 U/L (15-37) H 09/15/17 05:00 ALT 24 U/L (12-78) 09/15/17 05:00 Alkaline Phosphatase 70 U/L (45-117) D 09/15/17 05:00 Total Protein 5.7 g/dl (6.4-8.2) L 09/15/17 05:00 Albumin 2.6 g/dl (3.4-5.0) L D 09/15/17 05:00 CT head reviewed ASSESSMENT/PLAN: 89 y/o M w/ PMH Afib, Dementia, Prior CVA, HTN, CHF, COPD, Anemia who was sent from [facility] because of increased agitation. Pt was given Ativan at [place] but symptoms did not resolve. On arrival in ED, pt was reportedly unresponsive, EKG with slow Afib with PVCs. Given Atropine per notes without obvious improvement, however, at some point, the patient did convert to ventricular bigemini and became more responsive. Patient seen at bedside and I was consulted for mental status. He has UA suspicious for UTI and possible PNA. Somnolent again today, not aggitated, possibly fatigued Seen by psych and put on Zyprexa No longer on Zosyn for infection Continue aricept, increased to 10mg during this admission Continue hydration Psych for med adjustments/if PRNs needed for aggitation Reorientation as able Monitor patient for safety Placement as able
[2017-09-27] MEDS: DONEPEZIL HCL 10 MG TABLET (FP) PO SCH (11:01)
[2017-09-27] MEDS: NYSTATIN POWDER 100,000 UNITS/GM - 15 GM TOPICAL POWDER TP SCH (11:02)
[2017-09-27] MEDS: OLANZapine 2.5 MG TABLET PO SCH ×2 (11:02→22:00)
[2017-09-27] MEDS: RANITIDINE HCL 150 MG TABLET (FP) PO SCH (11:02)
--- NOTE | 2017-09-27 11:46 | PN ---
Progress Note, Physician Chief Complaint: Pt lying in bed in no acute distress, . shows no signs of agitation. denies any chest pain, sob, n/v/d - Current Medication List Current Medications: Active Medications Acetaminophen (Tylenol -) 650 mg PO Q6H PRN PRN Reason: PAIN LEVEL 6-10 Last Admin: 09/26/17 21:11 Dose: 650 mg Alprazolam (Xanax -) 0.25 mg PO Q8H PRN PRN Reason: ANXIETY Last Admin: 09/26/17 21:11 Dose: 0.25 mg Donepezil HCl (Aricept -) 10 mg PO DAILY [facility] Last Admin: 09/27/17 11:01 Dose: 10 mg Nystatin (Nystop Powder -) 1 applic TP DAILY [facility] Last Admin: 09/27/17 11:02 Dose: 1 applic Olanzapine (Zyprexa -) 2.5 mg PO BID [facility] Last Admin: 09/27/17 11:02 Dose: 2.5 mg Ranitidine HCl (Zantac -) 150 mg PO DAILY [facility] Last Admin: 09/27/17 11:02 Dose: 150 mg - Objective Vital Signs: Vital Signs Temperature 97.3 F L 09/27/17 05:30 Pulse Rate 44 L 09/27/17 09:55 Respiratory Rate 18 09/27/17 09:55 Blood Pressure 145/59 09/27/17 09:55 O2 Sat by Pulse Oximetry (%) 97 09/27/17 09:00 Constitutional: Yes: No Distress, Thin Cardiovascular: Yes: Bradycardia, Pulse Irregular Respiratory: Yes: Regular, CTA Bilaterally, Diminished (not taking deep breaths) . No: Rales, Rhonchi, Tachypnea, Wheezes Gastrointestinal: Yes: Normal Bowel Sounds, Soft. No: Distention, Tenderness Genitourinary: Yes: Incontinence Edema: No Neurological: Yes: Lethargy Labs: CBC, BMP 09/18/17 06:25 09/18/17 06:25 INR, PTT INR Cancelled 09/11/17 17:03 Problem List - Problems (1) Bradycardia Code(s): R00.1 - BRADYCARDIA, UNSPECIFIED (2) Altered mental status Code(s): R41.82 - ALTERED MENTAL STATUS, UNSPECIFIED Qualifiers: Altered mental status type: disorientation Qualified Code(s): R41.0 - Disorientation, unspecified (3) UTI (urinary tract infection) Code(s): N39.0 - URINARY TRACT INFECTION, SITE NOT SPECIFIED (4) Dementia Code(s): F03.90 - UNSPECIFIED DEMENTIA WITHOUT BEHAVIORAL DISTURBANCE Qualifiers: Dementia type: Alzheimer's disease Dementia behavioral disturbance: with behavioral disturbance (5) HTN (hypertension) Code(s): I10 - ESSENTIAL (PRIMARY) HYPERTENSION Qualifiers: Hypertension type: essential hypertension Qualified Code(s): I10 - Essential (primary) hypertension (6) Afib Code(s): I48.91 - UNSPECIFIED ATRIAL FIBRILLATION Qualifiers: Atrial fibrillation type: chronic Qualified Code(s): I48.2 - Chronic atrial fibrillation (7) Frequent falls Code(s): R29.6 - REPEATED FALLS (8) Anemia Code(s): D64.9 - ANEMIA, UNSPECIFIED Qualifiers: Anemia type: iron deficiency (9) COPD (chronic obstructive pulmonary disease) Code(s): J44.9 - CHRONIC OBSTRUCTIVE PULMONARY DISEASE, UNSPECIFIED (10) Hematuria Code(s): R31.9 - HEMATURIA, UNSPECIFIED (11) Acute metabolic encephalopathy Code(s): G93.41 - METABOLIC ENCEPHALOPATHY Assessment/Plan Comfort measures per family. pt appears comfortable, off restraints. vitals q shift. Palliative team following. pending placement
--- NOTE | 2017-09-27 13:37 | PN ---
Progress Note, Physician History of Present Illness: stable calm no agitation - Current Medication List Current Medications: Active Medications Acetaminophen (Tylenol -) 650 mg PO Q6H PRN PRN Reason: PAIN LEVEL 6-10 Last Admin: 09/26/17 21:11 Dose: 650 mg Alprazolam (Xanax -) 0.25 mg PO Q8H PRN PRN Reason: ANXIETY Last Admin: 09/26/17 21:11 Dose: 0.25 mg Donepezil HCl (Aricept -) 10 mg PO DAILY [facility] Last Admin: 09/27/17 11:01 Dose: 10 mg Nystatin (Nystop Powder -) 1 applic TP DAILY [facility] Last Admin: 09/27/17 11:02 Dose: 1 applic Olanzapine (Zyprexa -) 2.5 mg PO BID [facility] Last Admin: 09/27/17 11:02 Dose: 2.5 mg Ranitidine HCl (Zantac -) 150 mg PO DAILY [facility] Last Admin: 09/27/17 11:02 Dose: 150 mg - Objective Vital Signs: Vital Signs Temperature 97.3 F L 09/27/17 05:30 Pulse Rate 44 L 09/27/17 09:55 Respiratory Rate 18 09/27/17 09:55 Blood Pressure 145/59 09/27/17 09:55 O2 Sat by Pulse Oximetry (%) 97 09/27/17 09:00 Constitutional: Yes: No Distress, Calm Cardiovascular: Yes: S1, S2 Respiratory: Yes: Regular, CTA Bilaterally Gastrointestinal: Yes: Normal Bowel Sounds, Soft Musculoskeletal: Yes: WNL Extremities: Yes: WNL Neurological: Yes: Alert, Other Labs: CBC, BMP 09/18/17 06:25 09/18/17 06:25 INR, PTT INR Cancelled 09/11/17 17:03 Assessment/Plan patient with positive uti also chances of aspiration pna high Problem List - Problems (1) Bradycardia Code(s): R00.1 - BRADYCARDIA, UNSPECIFIED (2) Altered mental status Code(s): R41.82 - ALTERED MENTAL STATUS, UNSPECIFIED Qualifiers: Altered mental status type: disorientation Qualified Code(s): R41.0 - Disorientation, unspecified (3) UTI (urinary tract infection) Code(s): N39.0 - URINARY TRACT INFECTION, SITE NOT SPECIFIED (4) Dementia Code(s): F03.90 - UNSPECIFIED DEMENTIA WITHOUT BEHAVIORAL DISTURBANCE Qualifiers: Dementia type: Alzheimer's disease Dementia behavioral disturbance: with behavioral disturbance (5) HTN (hypertension) Code(s): I10 - ESSENTIAL (PRIMARY) HYPERTENSION Qualifiers: Hypertension type: essential hypertension Qualified Code(s): I10 - Essential (primary) hypertension (6) Afib Code(s): I48.91 - UNSPECIFIED ATRIAL FIBRILLATION Qualifiers: Atrial fibrillation type: chronic Qualified Code(s): I48.2 - Chronic atrial fibrillation (7) Frequent falls Code(s): R29.6 - REPEATED FALLS (8) Anemia Code(s): D64.9 - ANEMIA, UNSPECIFIED Qualifiers: Anemia type: iron deficiency (9) COPD (chronic obstructive pulmonary disease) Code(s): J44.9 - CHRONIC OBSTRUCTIVE PULMONARY DISEASE, UNSPECIFIED (10) Hematuria Code(s): R31.9 - HEMATURIA, UNSPECIFIED assessment and plan Problem List - Problems (1) Bradycardia Code(s): R00.1 - BRADYCARDIA, UNSPECIFIED (2) Altered mental status Code(s): R41.82 - ALTERED MENTAL STATUS, UNSPECIFIED Qualifiers: Altered mental status type: disorientation Qualified Code(s): R41.0 - Disorientation, unspecified (3) UTI (urinary tract infection) Code(s): N39.0 - URINARY TRACT INFECTION, SITE NOT SPECIFIED (4) Dementia Code(s): F03.90 - UNSPECIFIED DEMENTIA WITHOUT BEHAVIORAL DISTURBANCE Qualifiers: Dementia type: Alzheimer's disease Dementia behavioral disturbance: with behavioral disturbance (5) HTN (hypertension) Code(s): I10 - ESSENTIAL (PRIMARY) HYPERTENSION Qualifiers: Hypertension type: essential hypertension Qualified Code(s): I10 - Essential (primary) hypertension (6) Afib Code(s): I48.91 - UNSPECIFIED ATRIAL FIBRILLATION Qualifiers: Atrial fibrillation type: chronic Qualified Code(s): I48.2 - Chronic atrial fibrillation (7) Frequent falls Code(s): R29.6 - REPEATED FALLS (8) Anemia Code(s): D64.9 - ANEMIA, UNSPECIFIED Qualifiers: Anemia type: iron deficiency (9) COPD (chronic obstructive pulmonary disease) Code(s): J44.9 - CHRONIC OBSTRUCTIVE PULMONARY DISEASE, UNSPECIFIED (10) Hematuria Code(s): R31.9 - HEMATURIA, UNSPECIFIED plan continue nutritional support rest as per primary team patient calm stable awaiting placement
[2017-09-28] MEDS: NYSTATIN POWDER 100,000 UNITS/GM - 15 GM TOPICAL POWDER TP SCH (09:14)
[2017-09-28] MEDS: ACETAMINOPHEN 325 MG TABLET (FP) PO PRN ×2 (09:15→19:01)
[2017-09-28] MEDS: DONEPEZIL HCL 10 MG TABLET (FP) PO SCH (09:15)
[2017-09-28] MEDS: OLANZapine 2.5 MG TABLET PO SCH ×2 (09:15→21:15)
[2017-09-28] MEDS: ALPRAZolam 0.25 MG TABLET PO PRN ×2 (09:15→19:00)
[2017-09-28] MEDS: RANITIDINE HCL 150 MG TABLET (FP) PO SCH (09:15)
--- NOTE | 2017-09-28 11:28 | PN ---
Progress Note, Physician Chief Complaint: Pt lying in bed in no acute distress, asleep, shows no signs of agitation. - Current Medication List Current Medications: Active Medications Acetaminophen (Tylenol -) 650 mg PO Q6H PRN PRN Reason: PAIN LEVEL 6-10 Last Admin: 09/28/17 09:15 Dose: 650 mg Alprazolam (Xanax -) 0.25 mg PO Q8H PRN PRN Reason: ANXIETY Last Admin: 09/28/17 09:15 Dose: 0.25 mg Donepezil HCl (Aricept -) 10 mg PO DAILY [facility] Last Admin: 09/28/17 09:15 Dose: 10 mg Nystatin (Nystop Powder -) 1 applic TP DAILY [facility] Last Admin: 09/28/17 09:14 Dose: 1 applic Olanzapine (Zyprexa -) 2.5 mg PO BID [facility] Last Admin: 09/28/17 09:15 Dose: 2.5 mg Ranitidine HCl (Zantac -) 150 mg PO DAILY [facility] Last Admin: 09/28/17 09:15 Dose: 150 mg - Objective Vital Signs: Vital Signs Temperature 97.5 F L 09/28/17 06:27 Pulse Rate 43 L 09/28/17 06:27 Respiratory Rate 18 09/28/17 06:27 Blood Pressure 137/42 09/28/17 06:27 O2 Sat by Pulse Oximetry (%) 97 09/27/17 20:17 Constitutional: Yes: Thin Cardiovascular: Yes: Bradycardia, Pulse Irregular Respiratory: Yes: Regular, Diminished (not taking deep breaths) Gastrointestinal: Yes: WNL, Normal Bowel Sounds, Soft. No: Distention, Tenderness Edema: No Neurological: Yes: Lethargy Labs: CBC, BMP 09/18/17 06:25 09/18/17 06:25 INR, PTT INR Cancelled 09/11/17 17:03 Problem List - Problems (1) Bradycardia Code(s): R00.1 - BRADYCARDIA, UNSPECIFIED (2) Altered mental status Code(s): R41.82 - ALTERED MENTAL STATUS, UNSPECIFIED Qualifiers: Altered mental status type: disorientation Qualified Code(s): R41.0 - Disorientation, unspecified (3) UTI (urinary tract infection) Code(s): N39.0 - URINARY TRACT INFECTION, SITE NOT SPECIFIED (4) Dementia Code(s): F03.90 - UNSPECIFIED DEMENTIA WITHOUT BEHAVIORAL DISTURBANCE Qualifiers: Dementia type: Alzheimer's disease Dementia behavioral disturbance: with behavioral disturbance (5) HTN (hypertension) Code(s): I10 - ESSENTIAL (PRIMARY) HYPERTENSION Qualifiers: Hypertension type: essential hypertension Qualified Code(s): I10 - Essential (primary) hypertension (6) Afib Code(s): I48.91 - UNSPECIFIED ATRIAL FIBRILLATION Qualifiers: Atrial fibrillation type: chronic Qualified Code(s): I48.2 - Chronic atrial fibrillation (7) Frequent falls Code(s): R29.6 - REPEATED FALLS (8) Anemia Code(s): D64.9 - ANEMIA, UNSPECIFIED Qualifiers: Anemia type: iron deficiency (9) COPD (chronic obstructive pulmonary disease) Code(s): J44.9 - CHRONIC OBSTRUCTIVE PULMONARY DISEASE, UNSPECIFIED (10) Hematuria Code(s): R31.9 - HEMATURIA, UNSPECIFIED (11) Acute metabolic encephalopathy Code(s): G93.41 - METABOLIC ENCEPHALOPATHY Assessment/Plan Comfort measures per family. pt appears comfortable, off restraints. vitals q shift. Palliative team following. pending placement
--- NOTE | 2017-09-28 11:31 | PN ---
Progress Note, Physician History of Present Illness: stable slightly restless no events - Current Medication List Current Medications: Active Medications Acetaminophen (Tylenol -) 650 mg PO Q6H PRN PRN Reason: PAIN LEVEL 6-10 Last Admin: 09/28/17 09:15 Dose: 650 mg Alprazolam (Xanax -) 0.25 mg PO Q8H PRN PRN Reason: ANXIETY Last Admin: 09/28/17 09:15 Dose: 0.25 mg Donepezil HCl (Aricept -) 10 mg PO DAILY [facility] Last Admin: 09/28/17 09:15 Dose: 10 mg Nystatin (Nystop Powder -) 1 applic TP DAILY [facility] Last Admin: 09/28/17 09:14 Dose: 1 applic Olanzapine (Zyprexa -) 2.5 mg PO BID [facility] Last Admin: 09/28/17 09:15 Dose: 2.5 mg Ranitidine HCl (Zantac -) 150 mg PO DAILY [facility] Last Admin: 09/28/17 09:15 Dose: 150 mg - Objective Vital Signs: Vital Signs Temperature 97.5 F L 09/28/17 06:27 Pulse Rate 43 L 09/28/17 06:27 Respiratory Rate 18 09/28/17 06:27 Blood Pressure 137/42 09/28/17 06:27 O2 Sat by Pulse Oximetry (%) 97 09/27/17 20:17 Constitutional: Yes: No Distress, Calm Cardiovascular: Yes: Regular Rate and Rhythm Respiratory: Yes: Regular, CTA Bilaterally Gastrointestinal: Yes: Normal Bowel Sounds, Soft Musculoskeletal: Yes: WNL Extremities: Yes: WNL Neurological: Yes: Alert, Other (dementia) Psychiatric: Yes: Alert Labs: CBC, BMP 09/18/17 06:25 09/18/17 06:25 INR, PTT INR Cancelled 09/11/17 17:03 Assessment/Plan patient with positive uti also chances of aspiration pna high Problem List - Problems (1) Bradycardia Code(s): R00.1 - BRADYCARDIA, UNSPECIFIED (2) Altered mental status Code(s): R41.82 - ALTERED MENTAL STATUS, UNSPECIFIED Qualifiers: Altered mental status type: disorientation Qualified Code(s): R41.0 - Disorientation, unspecified (3) UTI (urinary tract infection) Code(s): N39.0 - URINARY TRACT INFECTION, SITE NOT SPECIFIED (4) Dementia Code(s): F03.90 - UNSPECIFIED DEMENTIA WITHOUT BEHAVIORAL DISTURBANCE Qualifiers: Dementia type: Alzheimer's disease Dementia behavioral disturbance: with behavioral disturbance (5) HTN (hypertension) Code(s): I10 - ESSENTIAL (PRIMARY) HYPERTENSION Qualifiers: Hypertension type: essential hypertension Qualified Code(s): I10 - Essential (primary) hypertension (6) Afib Code(s): I48.91 - UNSPECIFIED ATRIAL FIBRILLATION Qualifiers: Atrial fibrillation type: chronic Qualified Code(s): I48.2 - Chronic atrial fibrillation (7) Frequent falls Code(s): R29.6 - REPEATED FALLS (8) Anemia Code(s): D64.9 - ANEMIA, UNSPECIFIED Qualifiers: Anemia type: iron deficiency (9) COPD (chronic obstructive pulmonary disease) Code(s): J44.9 - CHRONIC OBSTRUCTIVE PULMONARY DISEASE, UNSPECIFIED (10) Hematuria Code(s): R31.9 - HEMATURIA, UNSPECIFIED assessment and plan Problem List - Problems (1) Bradycardia Code(s): R00.1 - BRADYCARDIA, UNSPECIFIED (2) Altered mental status Code(s): R41.82 - ALTERED MENTAL STATUS, UNSPECIFIED Qualifiers: Altered mental status type: disorientation Qualified Code(s): R41.0 - Disorientation, unspecified (3) UTI (urinary tract infection) Code(s): N39.0 - URINARY TRACT INFECTION, SITE NOT SPECIFIED (4) Dementia Code(s): F03.90 - UNSPECIFIED DEMENTIA WITHOUT BEHAVIORAL DISTURBANCE Qualifiers: Dementia type: Alzheimer's disease Dementia behavioral disturbance: with behavioral disturbance (5) HTN (hypertension) Code(s): I10 - ESSENTIAL (PRIMARY) HYPERTENSION Qualifiers: Hypertension type: essential hypertension Qualified Code(s): I10 - Essential (primary) hypertension (6) Afib Code(s): I48.91 - UNSPECIFIED ATRIAL FIBRILLATION Qualifiers: Atrial fibrillation type: chronic Qualified Code(s): I48.2 - Chronic atrial fibrillation (7) Frequent falls Code(s): R29.6 - REPEATED FALLS (8) Anemia Code(s): D64.9 - ANEMIA, UNSPECIFIED Qualifiers: Anemia type: iron deficiency (9) COPD (chronic obstructive pulmonary disease) Code(s): J44.9 - CHRONIC OBSTRUCTIVE PULMONARY DISEASE, UNSPECIFIED (10) Hematuria Code(s): R31.9 - HEMATURIA, UNSPECIFIED plan continue nutritional support rest as per primary team stable awaiting placement
[2017-09-29] MEDS: ACETAMINOPHEN 325 MG TABLET (FP) PO PRN ×3 (04:07→17:29)
[2017-09-29] MEDS: ALPRAZolam 0.25 MG TABLET PO PRN ×2 (07:57→17:29)
--- NOTE | 2017-09-29 08:26 | DS ---
Physical Examination Vital Signs: Vital Signs Temperature 98.0 F 09/29/17 06:18 Pulse Rate 74 09/29/17 06:18 Respiratory Rate 18 09/29/17 06:18 Blood Pressure 119/55 09/29/17 06:18 O2 Sat by Pulse Oximetry (%) 98 09/28/17 21:00 Constitutional: Yes: No Distress, Thin Cardiovascular: Yes: Bradycardia, Pulse Irregular. No: Gallop, Murmur, Rub Respiratory: Yes: Regular, Diminished. No: Rales, Rhonchi, Tachypnea, Wheezes Gastrointestinal: Yes: Normal Bowel Sounds, Soft. No: Distention, Tenderness Edema: No Neurological: Yes: Alert, Confusion Psychiatric: Yes: Alert Labs: CBC, BMP 09/18/17 06:25 09/18/17 06:25 Discharge Summary Reason For Visit: SEPSIS DUE TO UTI/BRADYCARDIA Current Active Problems Acute metabolic encephalopathy (Acute) Afib (Acute) Altered mental status (Acute) Anemia (Acute) Bradycardia (Acute) COPD (chronic obstructive pulmonary disease) (Acute) Comfort measures only status (Acute) Dementia (Acute) Frequent falls (Acute) HTN (hypertension) (Acute) Heart failure (Acute) Hematuria (Acute) Hematuria (Acute) UTI (urinary tract infection) (Acute) UTI (urinary tract infection) (Acute) Hospital Course: is a 89 year old male pmh of dementia, Afib, Prior CVA, HTN, CHF, and Anemia who was admitted from [facility] for increased agitation. Pt was found to have UTI with hematuria, successfully treated by ID. He was also found to be bradycardic to 30s-40s without symptoms. Cardiology was consulted and no further interventions were advised. Pt appears to have been clinically deteriorating with very poor po intake, increased agitation, and confusion. Psych/neurology consulted and zyprexa added to manage behavioral disturbances. Palliative team and hcp had spoken to pt's sons Singh and Vance regarding goals and pt's condition. The decision has been made to keep patient on comfort measures without invasive procedures/tests. His stay has been prolonged as there were issues regarding placement for him as stated in [facility] notes. Otherwise, pt's agitation has improved and without significant clinical changes , he is medically cleared to be discharged from hospital to SNF on comfort measures only. Condition: Fair - Instructions Diet, Activity, Other Instructions: activity as tolerated dysphagia chopped diet, thin liquids please encourage po comfort measures per family wishes Referrals: Jerel Bartlett MD [Primary Care Provider] - 1 Week Disposition: HALFWAY FACILITY - Home Medications Comprehensive Discharge Medication List: Ambulatory Orders Acetaminophen 325 mg PO PRN PRN 09/12/17 Albuterol 2.5/Ipratropium 0.5 [Duoneb -] 1 neb NEB Q4H PRN 09/12/17 Famotidine 20 mg PO DAILY 09/12/17 Donepezil HCl [Aricept -] 10 mg PO DAILY tablet 09/17/17 Olanzapine [Zyprexa -] 2.5 mg PO BID tablet 09/17/17
[2017-09-29] MEDS: DONEPEZIL HCL 10 MG TABLET (FP) PO SCH (10:35)
[2017-09-29] MEDS: OLANZapine 2.5 MG TABLET PO SCH ×2 (10:35→21:41)
[2017-09-29] MEDS: RANITIDINE HCL 150 MG TABLET (FP) PO SCH (10:36)
[2017-09-29] MEDS: NYSTATIN POWDER 100,000 UNITS/GM - 15 GM TOPICAL POWDER TP SCH (10:47)
--- NOTE | 2017-09-29 10:50 | PN ---
Progress Note, Physician History of Present Illness: stable no new events - Current Medication List Current Medications: Active Medications Acetaminophen (Tylenol -) 650 mg PO Q6H PRN PRN Reason: PAIN LEVEL 6-10 Last Admin: 09/29/17 10:35 Dose: 650 mg Alprazolam (Xanax -) 0.25 mg PO Q8H PRN PRN Reason: ANXIETY Last Admin: 09/29/17 07:57 Dose: 0.25 mg Donepezil HCl (Aricept -) 10 mg PO DAILY [facility] Last Admin: 09/29/17 10:35 Dose: 10 mg Nystatin (Nystop Powder -) 1 applic TP DAILY [facility] Last Admin: 09/29/17 10:47 Dose: 1 applic Olanzapine (Zyprexa -) 2.5 mg PO BID [facility] Last Admin: 09/29/17 10:35 Dose: 2.5 mg Ranitidine HCl (Zantac -) 150 mg PO DAILY [facility] Last Admin: 09/29/17 10:36 Dose: 150 mg - Objective Vital Signs: Vital Signs Temperature 98.0 F 09/29/17 06:18 Pulse Rate 74 09/29/17 06:18 Respiratory Rate 18 09/29/17 06:18 Blood Pressure 119/55 09/29/17 06:18 O2 Sat by Pulse Oximetry (%) 98 09/28/17 21:00 Constitutional: Yes: Calm HENT: Yes: Atraumatic Cardiovascular: Yes: Bradycardia Respiratory: Yes: Regular, CTA Bilaterally Gastrointestinal: Yes: Normal Bowel Sounds, Soft Musculoskeletal: Yes: WNL Extremities: Yes: WNL Neurological: Yes: Alert, Other Psychiatric: Yes: Alert Labs: CBC, BMP 09/18/17 06:25 09/18/17 06:25 INR, PTT INR Cancelled 09/11/17 17:03 Assessment/Plan patient with positive uti also chances of aspiration pna high Problem List - Problems (1) Bradycardia Code(s): R00.1 - BRADYCARDIA, UNSPECIFIED (2) Altered mental status Code(s): R41.82 - ALTERED MENTAL STATUS, UNSPECIFIED Qualifiers: Altered mental status type: disorientation Qualified Code(s): R41.0 - Disorientation, unspecified (3) UTI (urinary tract infection) Code(s): N39.0 - URINARY TRACT INFECTION, SITE NOT SPECIFIED (4) Dementia Code(s): F03.90 - UNSPECIFIED DEMENTIA WITHOUT BEHAVIORAL DISTURBANCE Qualifiers: Dementia type: Alzheimer's disease Dementia behavioral disturbance: with behavioral disturbance (5) HTN (hypertension) Code(s): I10 - ESSENTIAL (PRIMARY) HYPERTENSION Qualifiers: Hypertension type: essential hypertension Qualified Code(s): I10 - Essential (primary) hypertension (6) Afib Code(s): I48.91 - UNSPECIFIED ATRIAL FIBRILLATION Qualifiers: Atrial fibrillation type: chronic Qualified Code(s): I48.2 - Chronic atrial fibrillation (7) Frequent falls Code(s): R29.6 - REPEATED FALLS (8) Anemia Code(s): D64.9 - ANEMIA, UNSPECIFIED Qualifiers: Anemia type: iron deficiency (9) COPD (chronic obstructive pulmonary disease) Code(s): J44.9 - CHRONIC OBSTRUCTIVE PULMONARY DISEASE, UNSPECIFIED (10) Hematuria Code(s): R31.9 - HEMATURIA, UNSPECIFIED assessment and plan Problem List - Problems (1) Bradycardia Code(s): R00.1 - BRADYCARDIA, UNSPECIFIED (2) Altered mental status Code(s): R41.82 - ALTERED MENTAL STATUS, UNSPECIFIED Qualifiers: Altered mental status type: disorientation Qualified Code(s): R41.0 - Disorientation, unspecified (3) UTI (urinary tract infection) Code(s): N39.0 - URINARY TRACT INFECTION, SITE NOT SPECIFIED (4) Dementia Code(s): F03.90 - UNSPECIFIED DEMENTIA WITHOUT BEHAVIORAL DISTURBANCE Qualifiers: Dementia type: Alzheimer's disease Dementia behavioral disturbance: with behavioral disturbance (5) HTN (hypertension) Code(s): I10 - ESSENTIAL (PRIMARY) HYPERTENSION Qualifiers: Hypertension type: essential hypertension Qualified Code(s): I10 - Essential (primary) hypertension (6) Afib Code(s): I48.91 - UNSPECIFIED ATRIAL FIBRILLATION Qualifiers: Atrial fibrillation type: chronic Qualified Code(s): I48.2 - Chronic atrial fibrillation (7) Frequent falls Code(s): R29.6 - REPEATED FALLS (8) Anemia Code(s): D64.9 - ANEMIA, UNSPECIFIED Qualifiers: Anemia type: iron deficiency (9) COPD (chronic obstructive pulmonary disease) Code(s): J44.9 - CHRONIC OBSTRUCTIVE PULMONARY DISEASE, UNSPECIFIED (10) Hematuria Code(s): R31.9 - HEMATURIA, UNSPECIFIED plan continue nutritional support rest as per primary team stable awaiting placement
[2017-09-30] MEDS: ALPRAZolam 0.25 MG TABLET PO PRN (01:52)
[2017-09-30] MEDS: ACETAMINOPHEN 325 MG TABLET (FP) PO PRN (01:53)
--- NOTE | 2017-09-30 09:22 | PN ---
Progress Note (short form) - Note Progress Note: Neurology HISTORY OF PRESENT ILLNESS: 89 y/o M w/ PMH Afib, Dementia, Prior CVA, HTN, CHF, COPD, Anemia who was sent from [facility] because of increased agitation. Pt was given Ativan at [place] but symptoms did not resolve. On arrival in ED, pt was reportedly unresponsive, EKG with slow Afib with PVCs. Given Atropine per notes without obvious improvement, however, at some point, the patient did convert to ventricular bigemini and became more responsive. I was consulted for mental status. Recieved treatment for UTI and PNA. Completed Zosyn course. Seen by psych, on Zyprexa. CT head without acute changes. Patient for comfort care. Awake today but minimally interactive. Active Medications Acetaminophen (Tylenol -) 650 mg PO Q6H PRN PRN Reason: PAIN LEVEL 6-10 Last Admin: 09/30/17 01:53 Dose: 650 mg Alprazolam (Xanax -) 0.25 mg PO Q8H PRN PRN Reason: ANXIETY Last Admin: 09/30/17 01:52 Dose: 0.25 mg Donepezil HCl (Aricept -) 10 mg PO DAILY [facility] Last Admin: 09/29/17 10:35 Dose: 10 mg Nystatin (Nystop Powder -) 1 applic TP DAILY [facility] Last Admin: 09/29/17 10:47 Dose: 1 applic Olanzapine (Zyprexa -) 2.5 mg PO BID [facility] Last Admin: 09/29/17 21:41 Dose: 2.5 mg Ranitidine HCl (Zantac -) 150 mg PO DAILY [facility] Last Admin: 09/29/17 10:36 Dose: 150 mg PHYSICAL EXAMINATION Vital Signs Temperature 97.5 F L 09/30/17 05:53 Pulse Rate 55 L 09/30/17 05:53 Respiratory Rate 20 09/30/17 05:53 Blood Pressure 140/66 09/30/17 05:53 O2 Sat by Pulse Oximetry (%) 100 09/29/17 21:00 GENERAL: Somnolent, but arousable, not aggitated during encounter HEAD: Normal with no signs of trauma. EYES: Pupils equal, round and reactive to light. sclera anicteric, conjunctiva clear EARS, NOSE, THROAT: Moist mucous membranes. NECK: Normal range of motion, mild JVD. No bruits. supple without lymphadenopathy, , or masses. LUNGS: Difficult to auscultate. clear to auscultation bilaterally. HEART: Regular rate and rhythm, normal S1 and S2 without murmur, rub or gallop. ABDOMEN: Soft, not distended, normoactive bowel sounds, no guarding, no rebound , no masses. No hepatomegaly or splenomegaly. MUSCULOSKELETAL: Normal range of motion at all joints. No bony deformities or tenderness. No CVA tenderness. UPPER EXTREMITIES: 2+ pulses, warm, well-perfused. No cyanosis. No clubbing. No peripheral edema. LOWER EXTREMITIES: stasis dermatitis. 2+ pulses, warm. No edema NEUROLOGICAL: CN appear intact, no facial droop or slurred speech appreciated, sensation intact, moves all extremities equally, gait deferred SKIN: legs with stasis changes. Warm, dry, normal turgor, no rashes or lesions noted, normal capillary refill. CBCD WBC 4.7 K/mm3 (4.0-10.0) 09/18/17 06:25 RBC 3.58 M/mm3 (4.00-5.60) L 09/18/17 06:25 Hgb 10.6 GM/dL (11.7-16.9) L 09/18/17 06:25 Hct 32.7 % (35.4-49) L 09/18/17 06:25 MCV 91.2 fl (80-96) 09/18/17 06:25 MCHC 32.5 g/dl (32.0-35.9) 09/18/17 06:25 RDW 17.6 % (11.9-15.9) H 09/18/17 06:25 Plt Count 142 K/MM3 (134-434) 09/18/17 06:25 MPV 8.3 fl (7.5-11.1) 09/18/17 06:25 CMP Sodium 144 mmol/L (136-145) 09/18/17 06:25 Potassium 3.3 mmol/L (3.5-5.1) L 09/18/17 06:25 Chloride 109 mmol/L (98-107) H 09/18/17 06:25 Carbon Dioxide 27 mmol/L (21-32) 09/18/17 06:25 Anion Gap 8 (8-16) 09/18/17 06:25 BUN 10 mg/dL (7-18) 09/18/17 06:25 Creatinine 0.8 mg/dL (0.7-1.3) 09/18/17 06:25 Creat Clearance w eGFR > 60 (>60) 09/15/17 05:00 Calcium 8.8 mg/dL (8.5-10.1) 09/18/17 06:25 Total Bilirubin 0.8 mg/dL (0.2-1.0) 09/15/17 05:00 AST 39 U/L (15-37) H 09/15/17 05:00 ALT 24 U/L (12-78) 09/15/17 05:00 Alkaline Phosphatase 70 U/L (45-117) D 09/15/17 05:00 Total Protein 5.7 g/dl (6.4-8.2) L 09/15/17 05:00 Albumin 2.6 g/dl (3.4-5.0) L D 09/15/17 05:00 CT head reviewed ASSESSMENT/PLAN: 89 y/o M w/ PMH Afib, Dementia, Prior CVA, HTN, CHF, COPD, Anemia who was sent from [facility] because of increased agitation. Pt was given Ativan at [place] but symptoms did not resolve. On arrival in ED, pt was reportedly unresponsive, EKG with slow Afib with PVCs. Given Atropine per notes without obvious improvement, however, at some point, the patient did convert to ventricular bigemini and became more responsive. Patient seen at bedside and I was consulted for mental status. Awake today, not following commands Remains on Zyprexa No longer on Zosyn for infection Continue aricept, remains on 10mg Continue hydration Psych for med adjustments/if PRNs needed for aggitation Reorientation as able Monitor patient for safety Placement as able
[2017-09-30] MEDS: NYSTATIN POWDER 100,000 UNITS/GM - 15 GM TOPICAL POWDER TP SCH (11:00)
[2017-09-30] MEDS: OLANZapine 2.5 MG TABLET PO SCH ×2 (11:00→22:32)
[2017-09-30] MEDS: DONEPEZIL HCL 10 MG TABLET (FP) PO SCH (11:00)
[2017-09-30] MEDS: RANITIDINE HCL 150 MG TABLET (FP) PO SCH (11:00)
--- NOTE | 2017-09-30 12:24 | PN ---
Progress Note, Physician History of Present Illness: no specific change calm and comfortable - Current Medication List Current Medications: Active Medications Acetaminophen (Tylenol -) 650 mg PO Q6H PRN PRN Reason: PAIN LEVEL 6-10 Last Admin: 09/30/17 01:53 Dose: 650 mg Alprazolam (Xanax -) 0.25 mg PO Q8H PRN PRN Reason: ANXIETY Last Admin: 09/30/17 01:52 Dose: 0.25 mg Donepezil HCl (Aricept -) 10 mg PO DAILY [facility] Last Admin: 09/30/17 11:00 Dose: 10 mg Nystatin (Nystop Powder -) 1 applic TP DAILY [facility] Last Admin: 09/30/17 11:00 Dose: 1 applic Olanzapine (Zyprexa -) 2.5 mg PO BID [facility] Last Admin: 09/30/17 11:00 Dose: 2.5 mg Ranitidine HCl (Zantac -) 150 mg PO DAILY [facility] Last Admin: 09/30/17 11:00 Dose: 150 mg - Objective Vital Signs: Vital Signs Temperature 97.6 F 09/30/17 09:37 Pulse Rate 52 L 09/30/17 09:37 Respiratory Rate 16 09/30/17 09:37 Blood Pressure 138/56 09/30/17 09:37 O2 Sat by Pulse Oximetry (%) 100 09/29/17 21:00 Constitutional: Yes: No Distress, Calm, Thin, Other (failure to thrive) Cardiovascular: Yes: S1, S2 Respiratory: Yes: Regular, CTA Bilaterally Gastrointestinal: Yes: Normal Bowel Sounds, Soft Musculoskeletal: Yes: WNL Extremities: Yes: WNL Neurological: Yes: Alert Psychiatric: Yes: Alert, Other Labs: CBC, BMP 09/18/17 06:25 09/18/17 06:25 INR, PTT INR Cancelled 09/11/17 17:03 Assessment/Plan patient with positive uti also chances of aspiration pna high Problem List - Problems (1) Bradycardia Code(s): R00.1 - BRADYCARDIA, UNSPECIFIED (2) Altered mental status Code(s): R41.82 - ALTERED MENTAL STATUS, UNSPECIFIED Qualifiers: Altered mental status type: disorientation Qualified Code(s): R41.0 - Disorientation, unspecified (3) UTI (urinary tract infection) Code(s): N39.0 - URINARY TRACT INFECTION, SITE NOT SPECIFIED (4) Dementia Code(s): F03.90 - UNSPECIFIED DEMENTIA WITHOUT BEHAVIORAL DISTURBANCE Qualifiers: Dementia type: Alzheimer's disease Dementia behavioral disturbance: with behavioral disturbance (5) HTN (hypertension) Code(s): I10 - ESSENTIAL (PRIMARY) HYPERTENSION Qualifiers: Hypertension type: essential hypertension Qualified Code(s): I10 - Essential (primary) hypertension (6) Afib Code(s): I48.91 - UNSPECIFIED ATRIAL FIBRILLATION Qualifiers: Atrial fibrillation type: chronic Qualified Code(s): I48.2 - Chronic atrial fibrillation (7) Frequent falls Code(s): R29.6 - REPEATED FALLS (8) Anemia Code(s): D64.9 - ANEMIA, UNSPECIFIED Qualifiers: Anemia type: iron deficiency (9) COPD (chronic obstructive pulmonary disease) Code(s): J44.9 - CHRONIC OBSTRUCTIVE PULMONARY DISEASE, UNSPECIFIED (10) Hematuria Code(s): R31.9 - HEMATURIA, UNSPECIFIED assessment and plan Problem List - Problems (1) Bradycardia Code(s): R00.1 - BRADYCARDIA, UNSPECIFIED (2) Altered mental status Code(s): R41.82 - ALTERED MENTAL STATUS, UNSPECIFIED Qualifiers: Altered mental status type: disorientation Qualified Code(s): R41.0 - Disorientation, unspecified (3) UTI (urinary tract infection) Code(s): N39.0 - URINARY TRACT INFECTION, SITE NOT SPECIFIED (4) Dementia Code(s): F03.90 - UNSPECIFIED DEMENTIA WITHOUT BEHAVIORAL DISTURBANCE Qualifiers: Dementia type: Alzheimer's disease Dementia behavioral disturbance: with behavioral disturbance (5) HTN (hypertension) Code(s): I10 - ESSENTIAL (PRIMARY) HYPERTENSION Qualifiers: Hypertension type: essential hypertension Qualified Code(s): I10 - Essential (primary) hypertension (6) Afib Code(s): I48.91 - UNSPECIFIED ATRIAL FIBRILLATION Qualifiers: Atrial fibrillation type: chronic Qualified Code(s): I48.2 - Chronic atrial fibrillation (7) Frequent falls Code(s): R29.6 - REPEATED FALLS (8) Anemia Code(s): D64.9 - ANEMIA, UNSPECIFIED Qualifiers: Anemia type: iron deficiency (9) COPD (chronic obstructive pulmonary disease) Code(s): J44.9 - CHRONIC OBSTRUCTIVE PULMONARY DISEASE, UNSPECIFIED (10) Hematuria Code(s): R31.9 - HEMATURIA, UNSPECIFIED plan nutrition comfort awaiting placement rest as per primary team
--- NOTE | 2017-09-30 12:53 | PN ---
Progress Note, Physician Chief Complaint: Pt lying in bed in no acute distress, asleep, shows no signs of agitation. - Current Medication List Current Medications: Active Medications Acetaminophen (Tylenol -) 650 mg PO Q6H PRN PRN Reason: PAIN LEVEL 6-10 Last Admin: 09/30/17 01:53 Dose: 650 mg Alprazolam (Xanax -) 0.25 mg PO Q8H PRN PRN Reason: ANXIETY Last Admin: 09/30/17 01:52 Dose: 0.25 mg Donepezil HCl (Aricept -) 10 mg PO DAILY [facility] Last Admin: 09/30/17 11:00 Dose: 10 mg Nystatin (Nystop Powder -) 1 applic TP DAILY [facility] Last Admin: 09/30/17 11:00 Dose: 1 applic Olanzapine (Zyprexa -) 2.5 mg PO BID [facility] Last Admin: 09/30/17 11:00 Dose: 2.5 mg Ranitidine HCl (Zantac -) 150 mg PO DAILY [facility] Last Admin: 09/30/17 11:00 Dose: 150 mg - Objective Vital Signs: Vital Signs Temperature 97.6 F 09/30/17 09:37 Pulse Rate 52 L 09/30/17 09:37 Respiratory Rate 16 09/30/17 09:37 Blood Pressure 138/56 09/30/17 09:37 O2 Sat by Pulse Oximetry (%) 100 09/29/17 21:00 Constitutional: Yes: Thin Cardiovascular: Yes: Bradycardia, Pulse Irregular Respiratory: Yes: Regular, Diminished. No: Rales, Rhonchi, Tachypnea, Wheezes Gastrointestinal: Yes: Normal Bowel Sounds, Soft. No: Distention, Tenderness Edema: No Neurological: Yes: Confusion Psychiatric: Yes: Alert Labs: CBC, BMP 09/18/17 06:25 09/18/17 06:25 INR, PTT INR Cancelled 09/11/17 17:03 Problem List - Problems (1) Bradycardia Code(s): R00.1 - BRADYCARDIA, UNSPECIFIED (2) Altered mental status Code(s): R41.82 - ALTERED MENTAL STATUS, UNSPECIFIED Qualifiers: Altered mental status type: disorientation Qualified Code(s): R41.0 - Disorientation, unspecified (3) UTI (urinary tract infection) Code(s): N39.0 - URINARY TRACT INFECTION, SITE NOT SPECIFIED (4) Dementia Code(s): F03.90 - UNSPECIFIED DEMENTIA WITHOUT BEHAVIORAL DISTURBANCE Qualifiers: Dementia type: Alzheimer's disease Dementia behavioral disturbance: with behavioral disturbance (5) HTN (hypertension) Code(s): I10 - ESSENTIAL (PRIMARY) HYPERTENSION Qualifiers: Hypertension type: essential hypertension Qualified Code(s): I10 - Essential (primary) hypertension (6) Afib Code(s): I48.91 - UNSPECIFIED ATRIAL FIBRILLATION Qualifiers: Atrial fibrillation type: chronic Qualified Code(s): I48.2 - Chronic atrial fibrillation (7) Frequent falls Code(s): R29.6 - REPEATED FALLS (8) Anemia Code(s): D64.9 - ANEMIA, UNSPECIFIED Qualifiers: Anemia type: iron deficiency (9) COPD (chronic obstructive pulmonary disease) Code(s): J44.9 - CHRONIC OBSTRUCTIVE PULMONARY DISEASE, UNSPECIFIED (10) Hematuria Code(s): R31.9 - HEMATURIA, UNSPECIFIED (11) Acute metabolic encephalopathy Code(s): G93.41 - METABOLIC ENCEPHALOPATHY Assessment/Plan Comfort measures per family. pt appears comfortable, off restraints. vitals q shift. Palliative team following. pending placement
--- NOTE | 2017-10-01 09:43 | PN ---
Progress Note (short form) - Note Progress Note: Neurology HISTORY OF PRESENT ILLNESS: 89 y/o M w/ PMH Afib, Dementia, Prior CVA, HTN, CHF, COPD, Anemia who was sent from [facility] because of increased agitation. Pt was given Ativan at [place] but symptoms did not resolve. On arrival in ED, pt was reportedly unresponsive, EKG with slow Afib with PVCs. Given Atropine per notes without obvious improvement, however, at some point, the patient did convert to ventricular bigemini and became more responsive. I was consulted for mental status. Recieved treatment for UTI and PNA. Completed Zosyn course. Seen by psych, on Zyprexa. CT head without acute changes. Patient for comfort care. Awake today and remains minimally interactive. Not climbing out of bed or aggitated. Per notes, did not get auth for SNF. 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 Active Medications Acetaminophen (Tylenol -) 650 mg PO Q6H PRN PRN Reason: PAIN LEVEL 6-10 Last Admin: 09/30/17 01:53 Dose: 650 mg Alprazolam (Xanax -) 0.25 mg PO Q8H PRN PRN Reason: ANXIETY Last Admin: 09/30/17 01:52 Dose: 0.25 mg Donepezil HCl (Aricept -) 10 mg PO DAILY [facility] Last Admin: 09/30/17 11:00 Dose: 10 mg Nystatin (Nystop Powder -) 1 applic TP DAILY [facility] Last Admin: 09/30/17 11:00 Dose: 1 applic Olanzapine (Zyprexa -) 2.5 mg PO BID [facility] Last Admin: 09/30/17 22:32 Dose: Not Given Ranitidine HCl (Zantac -) 150 mg PO DAILY [facility] Last Admin: 09/30/17 11:00 Dose: 150 mg PHYSICAL EXAMINATION Vital Signs Temperature 97.6 F 10/01/17 05:45 Pulse Rate 72 10/01/17 05:45 Respiratory Rate 20 10/01/17 05:45 Blood Pressure 126/78 10/01/17 05:45 O2 Sat by Pulse Oximetry (%) 97 09/30/17 21:00 GENERAL: Somnolent, but arousable, not aggitated during encounter HEAD: Normal with no signs of trauma. EYES: Pupils equal, round and reactive to light. sclera anicteric, conjunctiva clear EARS, NOSE, THROAT: Moist mucous membranes. NECK: Normal range of motion, mild JVD. No bruits. supple without lymphadenopathy, , or masses. LUNGS: Difficult to auscultate. clear to auscultation bilaterally. HEART: Regular rate and rhythm, normal S1 and S2 without murmur, rub or gallop. ABDOMEN: Soft, not distended, normoactive bowel sounds, no guarding, no rebound , no masses. No hepatomegaly or splenomegaly. MUSCULOSKELETAL: Normal range of motion at all joints. No bony deformities or tenderness. No CVA tenderness. UPPER EXTREMITIES: 2+ pulses, warm, well-perfused. No cyanosis. No clubbing. No peripheral edema. LOWER EXTREMITIES: stasis dermatitis. 2+ pulses, warm. No edema NEUROLOGICAL: CN appear intact, no facial droop or slurred speech appreciated, sensation intact, moves all extremities equally, gait deferred SKIN: legs with stasis changes. Warm, dry, normal turgor, no rashes or lesions noted, normal capillary refill. CBCD WBC 4.7 K/mm3 (4.0-10.0) 09/18/17 06:25 RBC 3.58 M/mm3 (4.00-5.60) L 09/18/17 06:25 Hgb 10.6 GM/dL (11.7-16.9) L 09/18/17 06:25 Hct 32.7 % (35.4-49) L 09/18/17 06:25 MCV 91.2 fl (80-96) 09/18/17 06:25 MCHC 32.5 g/dl (32.0-35.9) 09/18/17 06:25 RDW 17.6 % (11.9-15.9) H 09/18/17 06:25 Plt Count 142 K/MM3 (134-434) 09/18/17 06:25 MPV 8.3 fl (7.5-11.1) 09/18/17 06:25 CMP Sodium 144 mmol/L (136-145) 09/18/17 06:25 Potassium 3.3 mmol/L (3.5-5.1) L 09/18/17 06:25 Chloride 109 mmol/L (98-107) H 09/18/17 06:25 Carbon Dioxide 27 mmol/L (21-32) 09/18/17 06:25 Anion Gap 8 (8-16) 09/18/17 06:25 BUN 10 mg/dL (7-18) 09/18/17 06:25 Creatinine 0.8 mg/dL (0.7-1.3) 09/18/17 06:25 Creat Clearance w eGFR > 60 (>60) 09/15/17 05:00 Calcium 8.8 mg/dL (8.5-10.1) 09/18/17 06:25 Total Bilirubin 0.8 mg/dL (0.2-1.0) 09/15/17 05:00 AST 39 U/L (15-37) H 09/15/17 05:00 ALT 24 U/L (12-78) 09/15/17 05:00 Alkaline Phosphatase 70 U/L (45-117) D 09/15/17 05:00 Total Protein 5.7 g/dl (6.4-8.2) L 09/15/17 05:00 Albumin 2.6 g/dl (3.4-5.0) L D 09/15/17 05:00 CT head reviewed ASSESSMENT/PLAN: 89 y/o M w/ PMH Afib, Dementia, Prior CVA, HTN, CHF, COPD, Anemia who was sent from [facility] because of increased agitation. Pt was given Ativan at [place] but symptoms did not resolve. On arrival in ED, pt was reportedly unresponsive, EKG with slow Afib with PVCs. Given Atropine per notes without obvious improvement, however, at some point, the patient did convert to ventricular bigemini and became more responsive. Patient seen at bedside and I was consulted for mental status. Awake today, minimally interactive Remains on Zyprexa No longer on Zosyn for infection Continue aricept, remains on 10mg Continue hydration Psych for med adjustments/if PRNs needed for aggitation Reorientation as able Monitor patient for safety Placement as able
[2017-10-01] MEDS: DONEPEZIL HCL 10 MG TABLET (FP) PO SCH (09:47)
[2017-10-01] MEDS: OLANZapine 2.5 MG TABLET PO SCH ×2 (09:47→21:31)
[2017-10-01] MEDS: RANITIDINE HCL 150 MG TABLET (FP) PO SCH (09:47)
[2017-10-01] MEDS: NYSTATIN POWDER 100,000 UNITS/GM - 15 GM TOPICAL POWDER TP SCH (09:47)
--- NOTE | 2017-10-01 11:15 | PN ---
Progress Note, Physician Chief Complaint: Pt lying in bed in no acute distress, asleep, shows no signs of agitation. - Current Medication List Current Medications: Active Medications Acetaminophen (Tylenol -) 650 mg PO Q6H PRN PRN Reason: PAIN LEVEL 6-10 Last Admin: 09/30/17 01:53 Dose: 650 mg Alprazolam (Xanax -) 0.25 mg PO Q8H PRN PRN Reason: ANXIETY Last Admin: 09/30/17 01:52 Dose: 0.25 mg Donepezil HCl (Aricept -) 10 mg PO DAILY [facility] Last Admin: 10/01/17 09:47 Dose: 10 mg Nystatin (Nystop Powder -) 1 applic TP DAILY [facility] Last Admin: 10/01/17 09:47 Dose: 1 applic Olanzapine (Zyprexa -) 2.5 mg PO BID [facility] Last Admin: 10/01/17 09:47 Dose: 2.5 mg Ranitidine HCl (Zantac -) 150 mg PO DAILY [facility] Last Admin: 10/01/17 09:47 Dose: 150 mg - Objective Vital Signs: Vital Signs Temperature 97.6 F 10/01/17 05:45 Pulse Rate 72 10/01/17 05:45 Respiratory Rate 20 10/01/17 05:45 Blood Pressure 126/78 10/01/17 05:45 O2 Sat by Pulse Oximetry (%) 97 09/30/17 21:00 Constitutional: Yes: No Distress, Thin Cardiovascular: Yes: Bradycardia, Pulse Irregular. No: Gallop, Murmur, Rub Respiratory: Yes: Regular, Diminished. No: Rhonchi, Tachypnea, Wheezes Gastrointestinal: Yes: Normal Bowel Sounds, Soft. No: Distention, Tenderness Edema: No Neurological: Yes: Confusion, Lethargy Labs: CBC, BMP 09/18/17 06:25 09/18/17 06:25 INR, PTT INR Cancelled 09/11/17 17:03 Problem List - Problems (1) Bradycardia Code(s): R00.1 - BRADYCARDIA, UNSPECIFIED (2) Altered mental status Code(s): R41.82 - ALTERED MENTAL STATUS, UNSPECIFIED Qualifiers: Altered mental status type: disorientation Qualified Code(s): R41.0 - Disorientation, unspecified (3) UTI (urinary tract infection) Code(s): N39.0 - URINARY TRACT INFECTION, SITE NOT SPECIFIED (4) Dementia Code(s): F03.90 - UNSPECIFIED DEMENTIA WITHOUT BEHAVIORAL DISTURBANCE Qualifiers: Dementia type: Alzheimer's disease Dementia behavioral disturbance: with behavioral disturbance (5) HTN (hypertension) Code(s): I10 - ESSENTIAL (PRIMARY) HYPERTENSION Qualifiers: Hypertension type: essential hypertension Qualified Code(s): I10 - Essential (primary) hypertension (6) Afib Code(s): I48.91 - UNSPECIFIED ATRIAL FIBRILLATION Qualifiers: Atrial fibrillation type: chronic Qualified Code(s): I48.2 - Chronic atrial fibrillation (7) Frequent falls Code(s): R29.6 - REPEATED FALLS (8) Anemia Code(s): D64.9 - ANEMIA, UNSPECIFIED Qualifiers: Anemia type: iron deficiency (9) COPD (chronic obstructive pulmonary disease) Code(s): J44.9 - CHRONIC OBSTRUCTIVE PULMONARY DISEASE, UNSPECIFIED (10) Hematuria Code(s): R31.9 - HEMATURIA, UNSPECIFIED (11) Acute metabolic encephalopathy Code(s): G93.41 - METABOLIC ENCEPHALOPATHY Assessment/Plan Comfort measures per family. pt appears comfortable, off restraints. vitals q shift. Palliative team following. pending placement
--- NOTE | 2017-10-01 13:46 | PN ---
Progress Note, Physician History of Present Illness: stable calm no new issues eating though not much - Current Medication List Current Medications: Active Medications Acetaminophen (Tylenol -) 650 mg PO Q6H PRN PRN Reason: PAIN LEVEL 6-10 Last Admin: 09/30/17 01:53 Dose: 650 mg Alprazolam (Xanax -) 0.25 mg PO Q8H PRN PRN Reason: ANXIETY Last Admin: 09/30/17 01:52 Dose: 0.25 mg Donepezil HCl (Aricept -) 10 mg PO DAILY [facility] Last Admin: 10/01/17 09:47 Dose: 10 mg Nystatin (Nystop Powder -) 1 applic TP DAILY [facility] Last Admin: 10/01/17 09:47 Dose: 1 applic Olanzapine (Zyprexa -) 2.5 mg PO BID [facility] Last Admin: 10/01/17 09:47 Dose: 2.5 mg Ranitidine HCl (Zantac -) 150 mg PO DAILY [facility] Last Admin: 10/01/17 09:47 Dose: 150 mg - Objective Vital Signs: Vital Signs Temperature 97.8 F 10/01/17 09:00 Pulse Rate 46 L 10/01/17 09:00 Respiratory Rate 20 10/01/17 09:00 Blood Pressure 138/83 10/01/17 09:00 O2 Sat by Pulse Oximetry (%) 100 10/01/17 09:00 Constitutional: Yes: No Distress, Calm, Other (failure to thrive) Eyes: Yes: Conjunctiva Clear Cardiovascular: Yes: S1, S2 Respiratory: Yes: Regular, CTA Bilaterally Gastrointestinal: Yes: Normal Bowel Sounds, Soft Musculoskeletal: Yes: WNL Neurological: Yes: Alert, Other Psychiatric: Yes: Alert, Other Labs: CBC, BMP 09/18/17 06:25 09/18/17 06:25 INR, PTT INR Cancelled 09/11/17 17:03 Assessment/Plan patient with positive uti also chances of aspiration pna high Problem List - Problems (1) Bradycardia Code(s): R00.1 - BRADYCARDIA, UNSPECIFIED (2) Altered mental status Code(s): R41.82 - ALTERED MENTAL STATUS, UNSPECIFIED Qualifiers: Altered mental status type: disorientation Qualified Code(s): R41.0 - Disorientation, unspecified (3) UTI (urinary tract infection) Code(s): N39.0 - URINARY TRACT INFECTION, SITE NOT SPECIFIED (4) Dementia Code(s): F03.90 - UNSPECIFIED DEMENTIA WITHOUT BEHAVIORAL DISTURBANCE Qualifiers: Dementia type: Alzheimer's disease Dementia behavioral disturbance: with behavioral disturbance (5) HTN (hypertension) Code(s): I10 - ESSENTIAL (PRIMARY) HYPERTENSION Qualifiers: Hypertension type: essential hypertension Qualified Code(s): I10 - Essential (primary) hypertension (6) Afib Code(s): I48.91 - UNSPECIFIED ATRIAL FIBRILLATION Qualifiers: Atrial fibrillation type: chronic Qualified Code(s): I48.2 - Chronic atrial fibrillation (7) Frequent falls Code(s): R29.6 - REPEATED FALLS (8) Anemia Code(s): D64.9 - ANEMIA, UNSPECIFIED Qualifiers: Anemia type: iron deficiency (9) COPD (chronic obstructive pulmonary disease) Code(s): J44.9 - CHRONIC OBSTRUCTIVE PULMONARY DISEASE, UNSPECIFIED (10) Hematuria Code(s): R31.9 - HEMATURIA, UNSPECIFIED assessment and plan Problem List - Problems (1) Bradycardia Code(s): R00.1 - BRADYCARDIA, UNSPECIFIED (2) Altered mental status Code(s): R41.82 - ALTERED MENTAL STATUS, UNSPECIFIED Qualifiers: Altered mental status type: disorientation Qualified Code(s): R41.0 - Disorientation, unspecified (3) UTI (urinary tract infection) Code(s): N39.0 - URINARY TRACT INFECTION, SITE NOT SPECIFIED (4) Dementia Code(s): F03.90 - UNSPECIFIED DEMENTIA WITHOUT BEHAVIORAL DISTURBANCE Qualifiers: Dementia type: Alzheimer's disease Dementia behavioral disturbance: with behavioral disturbance (5) HTN (hypertension) Code(s): I10 - ESSENTIAL (PRIMARY) HYPERTENSION Qualifiers: Hypertension type: essential hypertension Qualified Code(s): I10 - Essential (primary) hypertension (6) Afib Code(s): I48.91 - UNSPECIFIED ATRIAL FIBRILLATION Qualifiers: Atrial fibrillation type: chronic Qualified Code(s): I48.2 - Chronic atrial fibrillation (7) Frequent falls Code(s): R29.6 - REPEATED FALLS (8) Anemia Code(s): D64.9 - ANEMIA, UNSPECIFIED Qualifiers: Anemia type: iron deficiency (9) COPD (chronic obstructive pulmonary disease) Code(s): J44.9 - CHRONIC OBSTRUCTIVE PULMONARY DISEASE, UNSPECIFIED (10) Hematuria Code(s): R31.9 - HEMATURIA, UNSPECIFIED plan continue nutritional support rest as per primary team stable awaiting placement no aggressive measures according to family
[2017-10-01] MEDS: ALPRAZolam 0.25 MG TABLET PO PRN (21:31)
[2017-10-02] MEDS: ACETAMINOPHEN 325 MG TABLET (FP) PO PRN ×2 (08:56→14:45)
[2017-10-02] MEDS: ALPRAZolam 0.25 MG TABLET PO PRN ×2 (08:57→21:12)
[2017-10-02] MEDS: OLANZapine 2.5 MG TABLET PO SCH ×2 (09:13→21:12)
[2017-10-02] MEDS: RANITIDINE HCL 150 MG TABLET (FP) PO SCH (09:13)
[2017-10-02] MEDS: DONEPEZIL HCL 10 MG TABLET (FP) PO SCH (09:13)
[2017-10-02] MEDS: NYSTATIN POWDER 100,000 UNITS/GM - 15 GM TOPICAL POWDER TP SCH (09:14)
--- NOTE | 2017-10-02 11:24 | PN ---
Progress Note, Physician Chief Complaint: Pt lying in bed in no acute distress, asleep, shows no signs of agitation. - Current Medication List Current Medications: Active Medications Acetaminophen (Tylenol -) 650 mg PO Q6H PRN PRN Reason: PAIN LEVEL 6-10 Last Admin: 10/02/17 08:56 Dose: 650 mg Alprazolam (Xanax -) 0.25 mg PO Q8H PRN PRN Reason: ANXIETY Last Admin: 10/02/17 08:57 Dose: 0.25 mg Donepezil HCl (Aricept -) 10 mg PO DAILY [facility] Last Admin: 10/02/17 09:13 Dose: 10 mg Nystatin (Nystop Powder -) 1 applic TP DAILY [facility] Last Admin: 10/02/17 09:14 Dose: 1 applic Olanzapine (Zyprexa -) 2.5 mg PO BID [facility] Last Admin: 10/02/17 09:13 Dose: 2.5 mg Ranitidine HCl (Zantac -) 150 mg PO DAILY [facility] Last Admin: 10/02/17 09:13 Dose: 150 mg - Objective Vital Signs: Vital Signs Temperature 97.5 F L 10/02/17 06:02 Pulse Rate 50 L 10/02/17 06:02 Respiratory Rate 20 10/02/17 06:02 Blood Pressure 145/53 10/02/17 06:02 O2 Sat by Pulse Oximetry (%) 100 10/01/17 21:00 Constitutional: Yes: No Distress, Thin Cardiovascular: Yes: Bradycardia, Pulse Irregular Respiratory: Yes: Regular, Diminished. No: Rales, Rhonchi, Tachypnea, Wheezes Gastrointestinal: Yes: WNL, Normal Bowel Sounds, Soft. No: Distention, Tenderness Genitourinary: Yes: Incontinence Edema: No Neurological: Yes: Confusion, Lethargy Psychiatric: Yes: Alert, Oriented Labs: CBC, BMP 09/18/17 06:25 09/18/17 06:25 INR, PTT INR Cancelled 09/11/17 17:03 Problem List - Problems (1) Bradycardia Code(s): R00.1 - BRADYCARDIA, UNSPECIFIED (2) Altered mental status Code(s): R41.82 - ALTERED MENTAL STATUS, UNSPECIFIED Qualifiers: Altered mental status type: disorientation Qualified Code(s): R41.0 - Disorientation, unspecified (3) UTI (urinary tract infection) Code(s): N39.0 - URINARY TRACT INFECTION, SITE NOT SPECIFIED (4) Dementia Code(s): F03.90 - UNSPECIFIED DEMENTIA WITHOUT BEHAVIORAL DISTURBANCE Qualifiers: Dementia type: Alzheimer's disease Dementia behavioral disturbance: with behavioral disturbance (5) HTN (hypertension) Code(s): I10 - ESSENTIAL (PRIMARY) HYPERTENSION Qualifiers: Hypertension type: essential hypertension Qualified Code(s): I10 - Essential (primary) hypertension (6) Afib Code(s): I48.91 - UNSPECIFIED ATRIAL FIBRILLATION Qualifiers: Atrial fibrillation type: chronic Qualified Code(s): I48.2 - Chronic atrial fibrillation (7) Frequent falls Code(s): R29.6 - REPEATED FALLS (8) Anemia Code(s): D64.9 - ANEMIA, UNSPECIFIED Qualifiers: Anemia type: iron deficiency (9) COPD (chronic obstructive pulmonary disease) Code(s): J44.9 - CHRONIC OBSTRUCTIVE PULMONARY DISEASE, UNSPECIFIED (10) Hematuria Code(s): R31.9 - HEMATURIA, UNSPECIFIED (11) Acute metabolic encephalopathy Code(s): G93.41 - METABOLIC ENCEPHALOPATHY Assessment/Plan Comfort measures per family. pt appears comfortable, off restraints. vitals q shift. Palliative team following. pending placement
--- NOTE | 2017-10-02 15:09 | PN ---
Progress Note, Physician History of Present Illness: lying in bed no agitation calm - Current Medication List Current Medications: Active Medications Acetaminophen (Tylenol -) 650 mg PO Q6H PRN PRN Reason: PAIN LEVEL 6-10 Last Admin: 10/02/17 14:45 Dose: 650 mg Alprazolam (Xanax -) 0.25 mg PO Q8H PRN PRN Reason: ANXIETY Last Admin: 10/02/17 08:57 Dose: 0.25 mg Donepezil HCl (Aricept -) 10 mg PO DAILY [facility] Last Admin: 10/02/17 09:13 Dose: 10 mg Nystatin (Nystop Powder -) 1 applic TP DAILY [facility] Last Admin: 10/02/17 09:14 Dose: 1 applic Olanzapine (Zyprexa -) 2.5 mg PO BID [facility] Last Admin: 10/02/17 09:13 Dose: 2.5 mg Ranitidine HCl (Zantac -) 150 mg PO DAILY [facility] Last Admin: 10/02/17 09:13 Dose: 150 mg - Objective Vital Signs: Vital Signs Temperature 96.7 F L 10/02/17 10:00 Pulse Rate 65 10/02/17 10:00 Respiratory Rate 18 10/02/17 10:00 Blood Pressure 127/43 10/02/17 10:00 O2 Sat by Pulse Oximetry (%) 100 10/02/17 09:00 Constitutional: Yes: No Distress, Calm, Thin, Other (failure to thrive) Cardiovascular: Yes: S1, S2 Respiratory: Yes: Regular, CTA Bilaterally Gastrointestinal: Yes: Normal Bowel Sounds, Soft Musculoskeletal: Yes: WNL Extremities: Yes: WNL Neurological: Yes: Alert, Other Psychiatric: Yes: Other Labs: CBC, BMP 09/18/17 06:25 09/18/17 06:25 INR, PTT INR Cancelled 09/11/17 17:03 Assessment/Plan patient with positive uti also chances of aspiration pna high Problem List - Problems (1) Bradycardia Code(s): R00.1 - BRADYCARDIA, UNSPECIFIED (2) Altered mental status Code(s): R41.82 - ALTERED MENTAL STATUS, UNSPECIFIED Qualifiers: Altered mental status type: disorientation Qualified Code(s): R41.0 - Disorientation, unspecified (3) UTI (urinary tract infection) Code(s): N39.0 - URINARY TRACT INFECTION, SITE NOT SPECIFIED (4) Dementia Code(s): F03.90 - UNSPECIFIED DEMENTIA WITHOUT BEHAVIORAL DISTURBANCE Qualifiers: Dementia type: Alzheimer's disease Dementia behavioral disturbance: with behavioral disturbance (5) HTN (hypertension) Code(s): I10 - ESSENTIAL (PRIMARY) HYPERTENSION Qualifiers: Hypertension type: essential hypertension Qualified Code(s): I10 - Essential (primary) hypertension (6) Afib Code(s): I48.91 - UNSPECIFIED ATRIAL FIBRILLATION Qualifiers: Atrial fibrillation type: chronic Qualified Code(s): I48.2 - Chronic atrial fibrillation (7) Frequent falls Code(s): R29.6 - REPEATED FALLS (8) Anemia Code(s): D64.9 - ANEMIA, UNSPECIFIED Qualifiers: Anemia type: iron deficiency (9) COPD (chronic obstructive pulmonary disease) Code(s): J44.9 - CHRONIC OBSTRUCTIVE PULMONARY DISEASE, UNSPECIFIED (10) Hematuria Code(s): R31.9 - HEMATURIA, UNSPECIFIED assessment and plan Problem List - Problems (1) Bradycardia Code(s): R00.1 - BRADYCARDIA, UNSPECIFIED (2) Altered mental status Code(s): R41.82 - ALTERED MENTAL STATUS, UNSPECIFIED Qualifiers: Altered mental status type: disorientation Qualified Code(s): R41.0 - Disorientation, unspecified (3) UTI (urinary tract infection) Code(s): N39.0 - URINARY TRACT INFECTION, SITE NOT SPECIFIED (4) Dementia Code(s): F03.90 - UNSPECIFIED DEMENTIA WITHOUT BEHAVIORAL DISTURBANCE Qualifiers: Dementia type: Alzheimer's disease Dementia behavioral disturbance: with behavioral disturbance (5) HTN (hypertension) Code(s): I10 - ESSENTIAL (PRIMARY) HYPERTENSION Qualifiers: Hypertension type: essential hypertension Qualified Code(s): I10 - Essential (primary) hypertension (6) Afib Code(s): I48.91 - UNSPECIFIED ATRIAL FIBRILLATION Qualifiers: Atrial fibrillation type: chronic Qualified Code(s): I48.2 - Chronic atrial fibrillation (7) Frequent falls Code(s): R29.6 - REPEATED FALLS (8) Anemia Code(s): D64.9 - ANEMIA, UNSPECIFIED Qualifiers: Anemia type: iron deficiency (9) COPD (chronic obstructive pulmonary disease) Code(s): J44.9 - CHRONIC OBSTRUCTIVE PULMONARY DISEASE, UNSPECIFIED (10) Hematuria Code(s): R31.9 - HEMATURIA, UNSPECIFIED plan nutrition comfort awaiting placement rest as per primary team
[2017-10-03] MEDS: ACETAMINOPHEN 325 MG TABLET (FP) PO PRN ×2 (08:44→17:22)
[2017-10-03] MEDS: ALPRAZolam 0.25 MG TABLET PO PRN ×2 (08:45→17:22)
--- NOTE | 2017-10-03 10:10 | PN ---
Progress Note (short form) - Note Progress Note: Neurology HISTORY OF PRESENT ILLNESS: 89 y/o M w/ PMH Afib, Dementia, Prior CVA, HTN, CHF, COPD, Anemia who was sent from [facility] because of increased agitation. Pt was given Ativan at [place] but symptoms did not resolve. On arrival in ED, pt was reportedly unresponsive, EKG with slow Afib with PVCs. Given Atropine per notes without obvious improvement, however, at some point, the patient did convert to ventricular bigemini and became more responsive. I was consulted for mental status. Recieved treatment for UTI and PNA. Completed Zosyn course. Seen by psych, on Zyprexa. CT head without acute changes. Awake today and remains minimally interactive. Not climbing out of bed or aggitated. More somnolent this AM. Patient for comfort care. Active Medications Acetaminophen (Tylenol -) 650 mg PO Q6H PRN PRN Reason: PAIN LEVEL 6-10 Last Admin: 10/03/17 08:44 Dose: 650 mg Alprazolam (Xanax -) 0.25 mg PO Q8H PRN PRN Reason: ANXIETY Last Admin: 10/03/17 08:45 Dose: 0.25 mg Donepezil HCl (Aricept -) 10 mg PO DAILY [facility] Last Admin: 10/02/17 09:13 Dose: 10 mg Nystatin (Nystop Powder -) 1 applic TP DAILY [facility] Last Admin: 10/02/17 09:14 Dose: 1 applic Olanzapine (Zyprexa -) 2.5 mg PO BID [facility] Last Admin: 10/02/17 21:12 Dose: 2.5 mg Ranitidine HCl (Zantac -) 150 mg PO DAILY [facility] Last Admin: 10/02/17 09:13 Dose: 150 mg PHYSICAL EXAMINATION Vital Signs Temperature 97.1 F L 10/03/17 08:57 Pulse Rate 70 10/03/17 08:57 Respiratory Rate 20 10/03/17 08:57 Blood Pressure 122/70 10/03/17 08:57 O2 Sat by Pulse Oximetry (%) 99 10/02/17 21:15 GENERAL: Somnolent, but arousable, not aggitated during encounter HEAD: Normal with no signs of trauma. EYES: Pupils equal, round and reactive to light. sclera anicteric, conjunctiva clear EARS, NOSE, THROAT: Moist mucous membranes. NECK: Normal range of motion, mild JVD. No bruits. supple without lymphadenopathy, , or masses. LUNGS: Difficult to auscultate. clear to auscultation bilaterally. HEART: Regular rate and rhythm, normal S1 and S2 without murmur, rub or gallop. ABDOMEN: Soft, not distended, normoactive bowel sounds, no guarding, no rebound , no masses. No hepatomegaly or splenomegaly. MUSCULOSKELETAL: Normal range of motion at all joints. No bony deformities or tenderness. No CVA tenderness. UPPER EXTREMITIES: 2+ pulses, warm, well-perfused. No cyanosis. No clubbing. No peripheral edema. LOWER EXTREMITIES: stasis dermatitis. 2+ pulses, warm. No edema NEUROLOGICAL: CN appear intact, no facial droop or slurred speech appreciated, sensation intact, moves all extremities equally, gait deferred SKIN: legs with stasis changes. Warm, dry, normal turgor, no rashes or lesions noted, normal capillary refill. CBCD WBC 4.7 K/mm3 (4.0-10.0) 09/18/17 06:25 RBC 3.58 M/mm3 (4.00-5.60) L 09/18/17 06:25 Hgb 10.6 GM/dL (11.7-16.9) L 09/18/17 06:25 Hct 32.7 % (35.4-49) L 09/18/17 06:25 MCV 91.2 fl (80-96) 09/18/17 06:25 MCHC 32.5 g/dl (32.0-35.9) 09/18/17 06:25 RDW 17.6 % (11.9-15.9) H 09/18/17 06:25 Plt Count 142 K/MM3 (134-434) 09/18/17 06:25 MPV 8.3 fl (7.5-11.1) 09/18/17 06:25 CMP Sodium 144 mmol/L (136-145) 09/18/17 06:25 Potassium 3.3 mmol/L (3.5-5.1) L 09/18/17 06:25 Chloride 109 mmol/L (98-107) H 09/18/17 06:25 Carbon Dioxide 27 mmol/L (21-32) 09/18/17 06:25 Anion Gap 8 (8-16) 09/18/17 06:25 BUN 10 mg/dL (7-18) 09/18/17 06:25 Creatinine 0.8 mg/dL (0.7-1.3) 09/18/17 06:25 Creat Clearance w eGFR > 60 (>60) 09/15/17 05:00 Calcium 8.8 mg/dL (8.5-10.1) 09/18/17 06:25 Total Bilirubin 0.8 mg/dL (0.2-1.0) 09/15/17 05:00 AST 39 U/L (15-37) H 09/15/17 05:00 ALT 24 U/L (12-78) 09/15/17 05:00 Alkaline Phosphatase 70 U/L (45-117) D 09/15/17 05:00 Total Protein 5.7 g/dl (6.4-8.2) L 09/15/17 05:00 Albumin 2.6 g/dl (3.4-5.0) L D 09/15/17 05:00 CT head reviewed ASSESSMENT/PLAN: 89 y/o M w/ PMH Afib, Dementia, Prior CVA, HTN, CHF, COPD, Anemia who was sent from [facility] because of increased agitation. Pt was given Ativan at [place] but symptoms did not resolve. On arrival in ED, pt was reportedly unresponsive, EKG with slow Afib with PVCs. Given Atropine per notes without obvious improvement, however, at some point, the patient did convert to ventricular bigemini and became more responsive. Patient seen at bedside and I was consulted for mental status. Awake today, minimally interactive Remains on Zyprexa No longer on Zosyn for infection Continue aricept, remains on 10mg Continue hydration Psych for med adjustments/if PRNs needed for aggitation Reorientation as able Monitor patient for safety Placement as able
[2017-10-03] MEDS: RANITIDINE HCL 150 MG TABLET (FP) PO SCH (10:58)
[2017-10-03] MEDS: DONEPEZIL HCL 10 MG TABLET (FP) PO SCH (10:58)
[2017-10-03] MEDS: OLANZapine 2.5 MG TABLET PO SCH ×2 (10:58→21:39)
[2017-10-03] MEDS: NYSTATIN POWDER 100,000 UNITS/GM - 15 GM TOPICAL POWDER TP SCH (10:58)
--- NOTE | 2017-10-03 13:31 | PN ---
Progress Note, Physician History of Present Illness: stable no new events - Current Medication List Current Medications: Active Medications Acetaminophen (Tylenol -) 650 mg PO Q6H PRN PRN Reason: PAIN LEVEL 6-10 Last Admin: 10/03/17 08:44 Dose: 650 mg Alprazolam (Xanax -) 0.25 mg PO Q8H PRN PRN Reason: ANXIETY Last Admin: 10/03/17 08:45 Dose: 0.25 mg Donepezil HCl (Aricept -) 10 mg PO DAILY [facility] Last Admin: 10/03/17 10:58 Dose: 10 mg Nystatin (Nystop Powder -) 1 applic TP DAILY [facility] Last Admin: 10/03/17 10:58 Dose: 1 applic Olanzapine (Zyprexa -) 2.5 mg PO BID [facility] Last Admin: 10/03/17 10:58 Dose: 2.5 mg Ranitidine HCl (Zantac -) 150 mg PO DAILY [facility] Last Admin: 10/03/17 10:58 Dose: 150 mg - Objective Vital Signs: Vital Signs Temperature 97.1 F L 10/03/17 08:57 Pulse Rate 70 10/03/17 08:57 Respiratory Rate 20 10/03/17 08:57 Blood Pressure 122/70 10/03/17 08:57 O2 Sat by Pulse Oximetry (%) 99 10/02/17 21:15 Constitutional: Yes: No Distress, Calm, Other (calm) HENT: Yes: Atraumatic Cardiovascular: Yes: S1, S2 Respiratory: Yes: Regular, CTA Bilaterally Gastrointestinal: Yes: Normal Bowel Sounds, Soft Musculoskeletal: Yes: WNL Extremities: Yes: WNL Neurological: Yes: Alert, Other (dementia) Psychiatric: Yes: Alert Labs: CBC, BMP 09/18/17 06:25 09/18/17 06:25 INR, PTT INR Cancelled 09/11/17 17:03 Assessment/Plan patient with positive uti also chances of aspiration pna high Problem List - Problems (1) Bradycardia Code(s): R00.1 - BRADYCARDIA, UNSPECIFIED (2) Altered mental status Code(s): R41.82 - ALTERED MENTAL STATUS, UNSPECIFIED Qualifiers: Altered mental status type: disorientation Qualified Code(s): R41.0 - Disorientation, unspecified (3) UTI (urinary tract infection) Code(s): N39.0 - URINARY TRACT INFECTION, SITE NOT SPECIFIED (4) Dementia Code(s): F03.90 - UNSPECIFIED DEMENTIA WITHOUT BEHAVIORAL DISTURBANCE Qualifiers: Dementia type: Alzheimer's disease Dementia behavioral disturbance: with behavioral disturbance (5) HTN (hypertension) Code(s): I10 - ESSENTIAL (PRIMARY) HYPERTENSION Qualifiers: Hypertension type: essential hypertension Qualified Code(s): I10 - Essential (primary) hypertension (6) Afib Code(s): I48.91 - UNSPECIFIED ATRIAL FIBRILLATION Qualifiers: Atrial fibrillation type: chronic Qualified Code(s): I48.2 - Chronic atrial fibrillation (7) Frequent falls Code(s): R29.6 - REPEATED FALLS (8) Anemia Code(s): D64.9 - ANEMIA, UNSPECIFIED Qualifiers: Anemia type: iron deficiency (9) COPD (chronic obstructive pulmonary disease) Code(s): J44.9 - CHRONIC OBSTRUCTIVE PULMONARY DISEASE, UNSPECIFIED (10) Hematuria Code(s): R31.9 - HEMATURIA, UNSPECIFIED assessment and plan Problem List - Problems (1) Bradycardia Code(s): R00.1 - BRADYCARDIA, UNSPECIFIED (2) Altered mental status Code(s): R41.82 - ALTERED MENTAL STATUS, UNSPECIFIED Qualifiers: Altered mental status type: disorientation Qualified Code(s): R41.0 - Disorientation, unspecified (3) UTI (urinary tract infection) Code(s): N39.0 - URINARY TRACT INFECTION, SITE NOT SPECIFIED (4) Dementia Code(s): F03.90 - UNSPECIFIED DEMENTIA WITHOUT BEHAVIORAL DISTURBANCE Qualifiers: Dementia type: Alzheimer's disease Dementia behavioral disturbance: with behavioral disturbance (5) HTN (hypertension) Code(s): I10 - ESSENTIAL (PRIMARY) HYPERTENSION Qualifiers: Hypertension type: essential hypertension Qualified Code(s): I10 - Essential (primary) hypertension (6) Afib Code(s): I48.91 - UNSPECIFIED ATRIAL FIBRILLATION Qualifiers: Atrial fibrillation type: chronic Qualified Code(s): I48.2 - Chronic atrial fibrillation (7) Frequent falls Code(s): R29.6 - REPEATED FALLS (8) Anemia Code(s): D64.9 - ANEMIA, UNSPECIFIED Qualifiers: Anemia type: iron deficiency (9) COPD (chronic obstructive pulmonary disease) Code(s): J44.9 - CHRONIC OBSTRUCTIVE PULMONARY DISEASE, UNSPECIFIED (10) Hematuria Code(s): R31.9 - HEMATURIA, UNSPECIFIED plan nutrition comfort awaiting placement rest as per primary team
--- NOTE | 2017-10-03 16:41 | PN ---
Progress Note, Physician Chief Complaint: Pt lying in bed in no acute distress, asleep, shows no signs of agitation. - Current Medication List Current Medications: Active Medications Acetaminophen (Tylenol -) 650 mg PO Q6H PRN PRN Reason: PAIN LEVEL 6-10 Last Admin: 10/03/17 08:44 Dose: 650 mg Alprazolam (Xanax -) 0.25 mg PO Q8H PRN PRN Reason: ANXIETY Last Admin: 10/03/17 08:45 Dose: 0.25 mg Donepezil HCl (Aricept -) 10 mg PO DAILY [facility] Last Admin: 10/03/17 10:58 Dose: 10 mg Nystatin (Nystop Powder -) 1 applic TP DAILY [facility] Last Admin: 10/03/17 10:58 Dose: 1 applic Olanzapine (Zyprexa -) 2.5 mg PO BID [facility] Last Admin: 10/03/17 10:58 Dose: 2.5 mg Ranitidine HCl (Zantac -) 150 mg PO DAILY [facility] Last Admin: 10/03/17 10:58 Dose: 150 mg - Objective Vital Signs: Vital Signs Temperature 97.1 F L 10/03/17 08:57 Pulse Rate 70 10/03/17 08:57 Respiratory Rate 20 10/03/17 08:57 Blood Pressure 122/70 10/03/17 08:57 O2 Sat by Pulse Oximetry (%) 99 10/03/17 09:00 Constitutional: Yes: No Distress, Thin Cardiovascular: Yes: Bradycardia, Pulse Irregular. No: Bruit, Gallop, Murmur Respiratory: Yes: Regular, CTA Bilaterally, Diminished. No: Rales, Rhonchi, Tachypnea, Wheezes Gastrointestinal: Yes: WNL, Normal Bowel Sounds, Soft. No: Distention, Tenderness Genitourinary: Yes: WNL Edema: No Neurological: Yes: WNL, Alert, Oriented Psychiatric: Yes: WNL, Alert, Oriented Labs: CBC, BMP 09/18/17 06:25 09/18/17 06:25 INR, PTT INR Cancelled 09/11/17 17:03 Problem List - Problems (1) Bradycardia Code(s): R00.1 - BRADYCARDIA, UNSPECIFIED (2) Altered mental status Code(s): R41.82 - ALTERED MENTAL STATUS, UNSPECIFIED Qualifiers: Altered mental status type: disorientation Qualified Code(s): R41.0 - Disorientation, unspecified (3) UTI (urinary tract infection) Code(s): N39.0 - URINARY TRACT INFECTION, SITE NOT SPECIFIED (4) Dementia Code(s): F03.90 - UNSPECIFIED DEMENTIA WITHOUT BEHAVIORAL DISTURBANCE Qualifiers: Dementia type: Alzheimer's disease Dementia behavioral disturbance: with behavioral disturbance (5) HTN (hypertension) Code(s): I10 - ESSENTIAL (PRIMARY) HYPERTENSION Qualifiers: Hypertension type: essential hypertension Qualified Code(s): I10 - Essential (primary) hypertension (6) Afib Code(s): I48.91 - UNSPECIFIED ATRIAL FIBRILLATION Qualifiers: Atrial fibrillation type: chronic Qualified Code(s): I48.2 - Chronic atrial fibrillation (7) Frequent falls Code(s): R29.6 - REPEATED FALLS (8) Anemia Code(s): D64.9 - ANEMIA, UNSPECIFIED Qualifiers: Anemia type: iron deficiency (9) COPD (chronic obstructive pulmonary disease) Code(s): J44.9 - CHRONIC OBSTRUCTIVE PULMONARY DISEASE, UNSPECIFIED (10) Hematuria Code(s): R31.9 - HEMATURIA, UNSPECIFIED (11) Acute metabolic encephalopathy Code(s): G93.41 - METABOLIC ENCEPHALOPATHY Assessment/Plan Comfort measures per family. pt appears comfortable, off restraints. vitals q shift. Palliative team following. pending placement
[2017-10-04] MEDS: ALPRAZolam 0.25 MG TABLET PO PRN (02:28)
--- NOTE | 2017-10-04 10:00 | PN ---
Progress Note (short form) - Note Progress Note: Neurology HISTORY OF PRESENT ILLNESS: 89 y/o M w/ PMH Afib, Dementia, Prior CVA, HTN, CHF, COPD, Anemia who was sent from [facility] because of increased agitation. Pt was given Ativan at [place] but symptoms did not resolve. On arrival in ED, pt was reportedly unresponsive, EKG with slow Afib with PVCs. Given Atropine per notes without obvious improvement, however, at some point, the patient did convert to ventricular bigemini and became more responsive. I was consulted for mental status. Recieved treatment for UTI and PNA. Completed Zosyn course. Seen by psych, on Zyprexa. CT head without acute changes. Awake today and remains minimally interactive. Not climbing out of bed or aggitated. Gown slightly off. Is on comfort measures, difficulty with placement ongoing. Active Medications Acetaminophen (Tylenol -) 650 mg PO Q6H PRN PRN Reason: PAIN LEVEL 6-10 Last Admin: 10/03/17 17:22 Dose: 650 mg Alprazolam (Xanax -) 0.25 mg PO Q8H PRN PRN Reason: ANXIETY Last Admin: 10/04/17 02:28 Dose: 0.25 mg Donepezil HCl (Aricept -) 10 mg PO DAILY [facility] Last Admin: 10/03/17 10:58 Dose: 10 mg Nystatin (Nystop Powder -) 1 applic TP DAILY [facility] Last Admin: 10/03/17 10:58 Dose: 1 applic Olanzapine (Zyprexa -) 2.5 mg PO BID [facility] Last Admin: 10/03/17 21:39 Dose: 2.5 mg Ranitidine HCl (Zantac -) 150 mg PO DAILY [facility] Last Admin: 10/03/17 10:58 Dose: 150 mg PHYSICAL EXAMINATION Vital Signs Period Temp Pulse Resp BP Sys/Vega Pulse Ox Last 24 Hr 97.1 F-97.3 F 42-59 18-18 125-158/64-80 99 GENERAL: Somnolent, but arousable, not aggitated during encounter HEAD: Normal with no signs of trauma. EYES: Pupils equal, round and reactive to light. sclera anicteric, conjunctiva clear EARS, NOSE, THROAT: Moist mucous membranes. NECK: Normal range of motion, mild JVD. No bruits. supple without lymphadenopathy, , or masses. LUNGS: Difficult to auscultate. clear to auscultation bilaterally. HEART: Regular rate and rhythm, normal S1 and S2 without murmur, rub or gallop. ABDOMEN: Soft, not distended, normoactive bowel sounds, no guarding, no rebound , no masses. No hepatomegaly or splenomegaly. MUSCULOSKELETAL: Normal range of motion at all joints. No bony deformities or tenderness. No CVA tenderness. UPPER EXTREMITIES: 2+ pulses, warm, well-perfused. No cyanosis. No clubbing. No peripheral edema. LOWER EXTREMITIES: stasis dermatitis. 2+ pulses, warm. No edema NEUROLOGICAL: CN appear intact, no facial droop or slurred speech appreciated, sensation intact, moves all extremities equally, gait deferred SKIN: legs with stasis changes. Warm, dry, normal turgor, no rashes or lesions noted, normal capillary refill. CBCD WBC 4.7 K/mm3 (4.0-10.0) 09/18/17 06:25 RBC 3.58 M/mm3 (4.00-5.60) L 09/18/17 06:25 Hgb 10.6 GM/dL (11.7-16.9) L 09/18/17 06:25 Hct 32.7 % (35.4-49) L 09/18/17 06:25 MCV 91.2 fl (80-96) 09/18/17 06:25 MCHC 32.5 g/dl (32.0-35.9) 09/18/17 06:25 RDW 17.6 % (11.9-15.9) H 09/18/17 06:25 Plt Count 142 K/MM3 (134-434) 09/18/17 06:25 MPV 8.3 fl (7.5-11.1) 09/18/17 06:25 CMP Sodium 144 mmol/L (136-145) 09/18/17 06:25 Potassium 3.3 mmol/L (3.5-5.1) L 09/18/17 06:25 Chloride 109 mmol/L (98-107) H 09/18/17 06:25 Carbon Dioxide 27 mmol/L (21-32) 09/18/17 06:25 Anion Gap 8 (8-16) 09/18/17 06:25 BUN 10 mg/dL (7-18) 09/18/17 06:25 Creatinine 0.8 mg/dL (0.7-1.3) 09/18/17 06:25 Creat Clearance w eGFR > 60 (>60) 09/15/17 05:00 Calcium 8.8 mg/dL (8.5-10.1) 09/18/17 06:25 Total Bilirubin 0.8 mg/dL (0.2-1.0) 09/15/17 05:00 AST 39 U/L (15-37) H 09/15/17 05:00 ALT 24 U/L (12-78) 09/15/17 05:00 Alkaline Phosphatase 70 U/L (45-117) D 09/15/17 05:00 Total Protein 5.7 g/dl (6.4-8.2) L 09/15/17 05:00 Albumin 2.6 g/dl (3.4-5.0) L D 09/15/17 05:00 CT head reviewed ASSESSMENT/PLAN: 89 y/o M w/ PMH Afib, Dementia, Prior CVA, HTN, CHF, COPD, Anemia who was sent from [facility] because of increased agitation. Pt was given Ativan at [place] but symptoms did not resolve. On arrival in ED, pt was reportedly unresponsive, EKG with slow Afib with PVCs. Given Atropine per notes without obvious improvement, however, at some point, the patient did convert to ventricular bigemini and became more responsive. Patient seen at bedside and I was consulted for mental status. Minimally interactive Remains on Zyprexa No longer on Zosyn for infection Continue aricept, remains on 10mg Continue hydration Psych for med adjustments/if PRNs needed for aggitation Reorientation as able Comfort care Placement as able
[2017-10-04] MEDS ORDERED: PT OWN MED DRAWER 7, Y5N ONE (10:46)
--- NOTE | 2017-10-04 11:03 | PN ---
Progress Note, Physician Chief Complaint: Pt lying in bed in no acute distress, asleep, shows no signs of agitation. - Current Medication List Current Medications: Active Medications Acetaminophen (Tylenol -) 650 mg PO Q6H PRN PRN Reason: PAIN LEVEL 6-10 Last Admin: 10/03/17 17:22 Dose: 650 mg Donepezil HCl (Aricept -) 10 mg PO DAILY [facility] Last Admin: 10/03/17 10:58 Dose: 10 mg Nystatin (Nystop Powder -) 1 applic TP DAILY [facility] Last Admin: 10/03/17 10:58 Dose: 1 applic Olanzapine (Zyprexa -) 2.5 mg PO BID [facility] Last Admin: 10/03/17 21:39 Dose: 2.5 mg Ranitidine HCl (Zantac -) 150 mg PO DAILY [facility] Last Admin: 10/03/17 10:58 Dose: 150 mg - Objective Vital Signs: Vital Signs Temperature 97.3 F L 10/04/17 05:51 Pulse Rate 42 L 10/04/17 05:51 Respiratory Rate 18 10/04/17 05:51 Blood Pressure 125/64 10/04/17 05:51 O2 Sat by Pulse Oximetry (%) 99 10/03/17 21:00 Constitutional: Yes: Thin Cardiovascular: Yes: Bradycardia, Pulse Irregular. No: JVD, Gallop, Murmur Respiratory: Yes: Regular, CTA Bilaterally, Diminished Gastrointestinal: Yes: WNL, Normal Bowel Sounds, Distention. No: Tenderness Genitourinary: Yes: Incontinence Edema: No Integumentary: Yes: Bruising Neurological: Yes: Confusion, Lethargy Labs: CBC, BMP 09/18/17 06:25 09/18/17 06:25 INR, PTT INR Cancelled 09/11/17 17:03 Problem List - Problems (1) Bradycardia Code(s): R00.1 - BRADYCARDIA, UNSPECIFIED (2) Altered mental status Code(s): R41.82 - ALTERED MENTAL STATUS, UNSPECIFIED Qualifiers: Altered mental status type: disorientation Qualified Code(s): R41.0 - Disorientation, unspecified (3) UTI (urinary tract infection) Code(s): N39.0 - URINARY TRACT INFECTION, SITE NOT SPECIFIED (4) Dementia Code(s): F03.90 - UNSPECIFIED DEMENTIA WITHOUT BEHAVIORAL DISTURBANCE Qualifiers: Dementia type: Alzheimer's disease Dementia behavioral disturbance: with behavioral disturbance (5) HTN (hypertension) Code(s): I10 - ESSENTIAL (PRIMARY) HYPERTENSION Qualifiers: Hypertension type: essential hypertension Qualified Code(s): I10 - Essential (primary) hypertension (6) Afib Code(s): I48.91 - UNSPECIFIED ATRIAL FIBRILLATION Qualifiers: Atrial fibrillation type: chronic Qualified Code(s): I48.2 - Chronic atrial fibrillation (7) Frequent falls Code(s): R29.6 - REPEATED FALLS (8) Anemia Code(s): D64.9 - ANEMIA, UNSPECIFIED Qualifiers: Anemia type: iron deficiency (9) COPD (chronic obstructive pulmonary disease) Code(s): J44.9 - CHRONIC OBSTRUCTIVE PULMONARY DISEASE, UNSPECIFIED (10) Hematuria Code(s): R31.9 - HEMATURIA, UNSPECIFIED (11) Acute metabolic encephalopathy Code(s): G93.41 - METABOLIC ENCEPHALOPATHY Assessment/Plan Comfort measures per family. pt appears comfortable, off restraints. vitals q shift. Palliative team following. pending placement
[2017-10-04] MEDS: OLANZapine 2.5 MG TABLET PO SCH ×2 (11:38→21:04)
[2017-10-04] MEDS: DONEPEZIL HCL 10 MG TABLET (FP) PO SCH (11:38)
[2017-10-04] MEDS: RANITIDINE HCL 150 MG TABLET (FP) PO SCH (11:38)
[2017-10-04] MEDS: NYSTATIN POWDER 100,000 UNITS/GM - 15 GM TOPICAL POWDER TP SCH (11:38)
[2017-10-05] MEDS: NYSTATIN POWDER 100,000 UNITS/GM - 15 GM TOPICAL POWDER TP SCH (09:19)
[2017-10-05] MEDS: OLANZapine 2.5 MG TABLET PO SCH ×2 (09:19→21:10)
[2017-10-05] MEDS: DONEPEZIL HCL 10 MG TABLET (FP) PO SCH (09:19)
[2017-10-05] MEDS: RANITIDINE HCL 150 MG TABLET (FP) PO SCH (09:19)
--- NOTE | 2017-10-05 14:11 | PN ---
Physical Exam: Medicine coverage for Dr. Coello SUBJECTIVE: Patient seen and examined. He is very thirsty asking for water. OBJECTIVE: Vital Signs Period Temp Pulse Resp BP Sys/Vega Pulse Ox Last 24 Hr 97.3 F-97.6 F 45-63 16-18 122-151/59-75 95-96 PE Gen: thin Neuro: awake, alert, oriented to self Pulm: CTA anteriorly CV: s1 s2 rrr Abd: s nt nd + bs ExT: Warm no le edema Active Medications Generic Name Dose Route Start Last Admin Trade Name Freq PRN Reason Stop Dose Admin Acetaminophen 650 mg 09/23/17 08:09 10/03/17 17:22 Tylenol - PO 650 mg Q6H PRN Administration PAIN LEVEL 6-10 Donepezil HCl 10 mg 09/23/17 10:00 10/05/17 09:19 Aricept - PO 10 mg DAILY [facility] Administration Nystatin 1 applic 09/26/17 22:00 10/05/17 09:19 Nystop Powder - TP 1 applic DAILY [facility] Administration Olanzapine 2.5 mg 09/24/17 22:00 10/05/17 09:19 Zyprexa - PO 2.5 mg BID [facility] Administration Ranitidine HCl 150 mg 09/23/17 10:00 10/05/17 09:19 Zantac - PO 150 mg DAILY [facility] Administration Problems: Bradycardia Altered mental status UTI - treated Dementia HTN Afib Frequent falls Anemia COPD Hematuria Acute metabolic encephalopathy- improved A: 89 year old male pmh of dementia, Afib, Prior CVA, HTN, CHF, and Anemia who was admitted from [facility] for increased agitation, bradycardia, and UTI. Plan: - Awaiting SNF placement with comfort measures per son's fei and yadiel - Continue meds as listed for agitation and confusion Visit type - Emergency Visit Emergency Visit: Yes ED Registration Date: 09/11/17 Care time: The patient presented to the Emergency Department on the above date and was hospitalized for further evaluation of their emergent condition. - New Patient This patient is new to me today: Yes Date on this admission: 10/05/17 - Critical Care Critical Care patient: No
[2017-10-05] MEDS ORDERED: LORazepam 0.5 MG TABLET PO ONE (15:29)
[2017-10-06] MEDS ORDERED: PT OWN MED DRAWER 7, Y5N ONE (08:44)
[2017-10-06] MEDS: DONEPEZIL HCL 10 MG TABLET (FP) PO SCH ×2 (08:46→09:19)
[2017-10-06] MEDS: RANITIDINE HCL 150 MG TABLET (FP) PO SCH ×2 (08:46→09:19)
[2017-10-06] MEDS: OLANZapine 2.5 MG TABLET PO SCH ×3 (08:46→22:26)
--- NOTE | 2017-10-06 10:10 | PN ---
Physical Exam: SUBJECTIVE: Patient seen and examined. No BM since 10/01. Agitated yesterday requiring ativan po, calmed down after. Asks for water OBJECTIVE: Vital Signs Period Temp Pulse Resp BP Sys/Vega Pulse Ox Last 24 Hr 97.2 F-98.3 F 46-55 16-18 124-156/43-78 96 PE Gen: thin Neuro: awake, alert, oriented to self Pulm: CTA anteriorly CV: s1 s2 rrr Abd: s nt nd + bs ExT: Warm no le edema Active Medications Generic Name Dose Route Start Last Admin Trade Name Freq PRN Reason Stop Dose Admin Acetaminophen 650 mg 09/23/17 08:09 10/03/17 17:22 Tylenol - PO 650 mg Q6H PRN Administration PAIN LEVEL 6-10 Donepezil HCl 10 mg 09/23/17 10:00 10/06/17 09:19 Aricept - PO Not Given DAILY [facility] Nystatin 1 applic 09/26/17 22:00 10/05/17 09:19 Nystop Powder - TP 1 applic DAILY [facility] Administration Olanzapine 2.5 mg 09/24/17 22:00 10/06/17 09:19 Zyprexa - PO Not Given BID [facility] Ranitidine HCl 150 mg 09/23/17 10:00 10/06/17 09:19 Zantac - PO Not Given DAILY [facility] Problems: Bradycardia Altered mental status UTI - treated Dementia HTN Afib Frequent falls Anemia COPD Hematuria Acute metabolic encephalopathy- improved A: 89 year old male pmh of dementia, Afib, Prior CVA, HTN, CHF, and Anemia who was admitted from [facility] for increased agitation, bradycardia, and UTI. Plan: - Milk of mag x1 today - Awaiting SNF placement with comfort measures per son's fei and yadiel - Continue meds as listed for agitation and confusion Visit type - Emergency Visit Emergency Visit: Yes ED Registration Date: 09/11/17 Care time: The patient presented to the Emergency Department on the above date and was hospitalized for further evaluation of their emergent condition. - New Patient This patient is new to me today: No - Critical Care Critical Care patient: No
[2017-10-06] MEDS ORDERED: MAGNESIUM HYDROX 2400MG/30ML ORAL SUSPENSION 30 ML CUP PO ONE (10:30)
[2017-10-06] MEDS: NYSTATIN POWDER 100,000 UNITS/GM - 15 GM TOPICAL POWDER TP SCH (12:10)
[2017-10-06] MEDS: LORazepam 0.5 MG TABLET PO PRN ×2 (13:40→22:26)
[2017-10-07] MEDS: RANITIDINE HCL 150 MG TABLET (FP) PO SCH (10:00)
[2017-10-07] MEDS: OLANZapine 2.5 MG TABLET PO SCH ×2 (10:00→22:36)
[2017-10-07] MEDS: DONEPEZIL HCL 10 MG TABLET (FP) PO SCH (10:00)
[2017-10-07] MEDS: NYSTATIN POWDER 100,000 UNITS/GM - 15 GM TOPICAL POWDER TP SCH (10:00)
--- NOTE | 2017-10-07 10:58 | PN ---
Progress Note, Physician Chief Complaint: Pt lying in bed in no acute distress, asleep, shows no signs of agitation. - Current Medication List Current Medications: Active Medications Acetaminophen (Tylenol -) 650 mg PO Q6H PRN PRN Reason: PAIN LEVEL 6-10 Last Admin: 10/03/17 17:22 Dose: 650 mg Donepezil HCl (Aricept -) 10 mg PO DAILY [facility] Last Admin: 10/06/17 09:19 Dose: Not Given Lorazepam (Ativan -) 0.5 mg PO BID PRN PRN Reason: ANXIETY Last Admin: 10/06/17 22:26 Dose: 0.5 mg Nystatin (Nystop Powder -) 1 applic TP DAILY [facility] Last Admin: 10/06/17 12:10 Dose: 1 applic Olanzapine (Zyprexa -) 2.5 mg PO BID [facility] Last Admin: 10/06/17 22:26 Dose: 2.5 mg Ranitidine HCl (Zantac -) 150 mg PO DAILY [facility] Last Admin: 10/06/17 09:19 Dose: Not Given - Objective Vital Signs: Vital Signs Temperature 97.5 F L 10/07/17 08:45 Pulse Rate 52 L 10/07/17 08:45 Respiratory Rate 16 10/07/17 08:45 Blood Pressure 133/48 10/07/17 08:45 O2 Sat by Pulse Oximetry (%) 100 10/07/17 09:00 Constitutional: Yes: Thin Cardiovascular: Yes: Bradycardia, Pulse Irregular Respiratory: Yes: Regular, Diminished. No: Rhonchi, SOB, Tachypnea, Wheezes Gastrointestinal: Yes: Normal Bowel Sounds, Soft. No: Distention, Tenderness Genitourinary: Yes: Incontinence Edema: No Integumentary: Yes: Bruising Neurological: Yes: Confusion, Lethargy Labs: CBC, BMP 09/18/17 06:25 09/18/17 06:25 INR, PTT INR Cancelled 09/11/17 17:03 Problem List - Problems (1) Bradycardia Code(s): R00.1 - BRADYCARDIA, UNSPECIFIED (2) Altered mental status Code(s): R41.82 - ALTERED MENTAL STATUS, UNSPECIFIED Qualifiers: Altered mental status type: disorientation Qualified Code(s): R41.0 - Disorientation, unspecified (3) UTI (urinary tract infection) Code(s): N39.0 - URINARY TRACT INFECTION, SITE NOT SPECIFIED (4) Dementia Code(s): F03.90 - UNSPECIFIED DEMENTIA WITHOUT BEHAVIORAL DISTURBANCE Qualifiers: Dementia type: Alzheimer's disease Dementia behavioral disturbance: with behavioral disturbance (5) HTN (hypertension) Code(s): I10 - ESSENTIAL (PRIMARY) HYPERTENSION Qualifiers: Hypertension type: essential hypertension Qualified Code(s): I10 - Essential (primary) hypertension (6) Afib Code(s): I48.91 - UNSPECIFIED ATRIAL FIBRILLATION Qualifiers: Atrial fibrillation type: chronic Qualified Code(s): I48.2 - Chronic atrial fibrillation (7) Frequent falls Code(s): R29.6 - REPEATED FALLS (8) Anemia Code(s): D64.9 - ANEMIA, UNSPECIFIED Qualifiers: Anemia type: iron deficiency (9) COPD (chronic obstructive pulmonary disease) Code(s): J44.9 - CHRONIC OBSTRUCTIVE PULMONARY DISEASE, UNSPECIFIED (10) Hematuria Code(s): R31.9 - HEMATURIA, UNSPECIFIED (11) Acute metabolic encephalopathy Code(s): G93.41 - METABOLIC ENCEPHALOPATHY (12) Severe protein-calorie malnutrition Code(s): E43 - UNSPECIFIED SEVERE PROTEIN-CALORIE MALNUTRITION Assessment/Plan Comfort measures per family. pt appears comfortable, off restraints. vitals q shift. Palliative team following. pending placement
[2017-10-07] MEDS: ACETAMINOPHEN 325 MG TABLET (FP) PO PRN (11:34)
[2017-10-07] MEDS: LORazepam 0.5 MG TABLET PO PRN ×2 (11:34→22:36)
[2017-10-08] MEDS: OLANZapine 2.5 MG TABLET PO SCH ×2 (09:28→22:11)
[2017-10-08] MEDS: ACETAMINOPHEN 325 MG TABLET (FP) PO PRN ×2 (09:28→17:16)
[2017-10-08] MEDS: RANITIDINE HCL 150 MG TABLET (FP) PO SCH (09:28)
[2017-10-08] MEDS: DONEPEZIL HCL 10 MG TABLET (FP) PO SCH (09:28)
[2017-10-08] MEDS: LORazepam 0.5 MG TABLET PO PRN ×2 (09:28→17:17)
[2017-10-08] MEDS: NYSTATIN POWDER 100,000 UNITS/GM - 15 GM TOPICAL POWDER TP SCH (09:29)
[2017-10-08] MEDS ORDERED: HALOPERIDOL LACTATE 5 MG/ML IM ONE (10:39)
--- NOTE | 2017-10-08 11:29 | PN ---
Progress Note, Physician Chief Complaint: Pt lying in bed in no acute distress, awake and interactive, confused but shows no signs of agitation. - Current Medication List Current Medications: Active Medications Acetaminophen (Tylenol -) 650 mg PO Q6H PRN PRN Reason: PAIN LEVEL 6-10 Last Admin: 10/08/17 09:28 Dose: 650 mg Donepezil HCl (Aricept -) 10 mg PO DAILY [facility] Last Admin: 10/08/17 09:28 Dose: 10 mg Lorazepam (Ativan -) 0.5 mg PO BID PRN PRN Reason: ANXIETY Last Admin: 10/08/17 09:28 Dose: 0.5 mg Nystatin (Nystop Powder -) 1 applic TP DAILY [facility] Last Admin: 10/08/17 09:29 Dose: 1 applic Olanzapine (Zyprexa -) 2.5 mg PO BID [facility] Last Admin: 10/08/17 09:28 Dose: 2.5 mg Ranitidine HCl (Zantac -) 150 mg PO DAILY [facility] Last Admin: 10/08/17 09:28 Dose: 150 mg - Objective Vital Signs: Vital Signs Temperature 97.5 F L 10/08/17 09:39 Pulse Rate 52 L 10/08/17 09:39 Respiratory Rate 20 10/08/17 09:39 Blood Pressure 134/72 10/08/17 09:39 O2 Sat by Pulse Oximetry (%) 95 10/07/17 21:00 Constitutional: Yes: No Distress, Thin Cardiovascular: Yes: Bradycardia, Pulse Irregular. No: Bruit, Gallop, Murmur, Rub Respiratory: Yes: WNL, Regular, Diminished. No: Rales, Rhonchi, SOB, Tachypnea , Wheezes Gastrointestinal: Yes: WNL, Normal Bowel Sounds, Soft. No: Distention, Tenderness Genitourinary: Yes: Incontinence Edema: No Integumentary: Yes: Bruising Neurological: Yes: Alert, Confusion Psychiatric: Yes: Alert Labs: CBC, BMP 09/18/17 06:25 09/18/17 06:25 INR, PTT INR Cancelled 09/11/17 17:03 Problem List - Problems (1) Bradycardia Code(s): R00.1 - BRADYCARDIA, UNSPECIFIED (2) Altered mental status Code(s): R41.82 - ALTERED MENTAL STATUS, UNSPECIFIED Qualifiers: Altered mental status type: disorientation Qualified Code(s): R41.0 - Disorientation, unspecified (3) UTI (urinary tract infection) Code(s): N39.0 - URINARY TRACT INFECTION, SITE NOT SPECIFIED (4) Dementia Code(s): F03.90 - UNSPECIFIED DEMENTIA WITHOUT BEHAVIORAL DISTURBANCE Qualifiers: Dementia type: Alzheimer's disease Dementia behavioral disturbance: with behavioral disturbance (5) HTN (hypertension) Code(s): I10 - ESSENTIAL (PRIMARY) HYPERTENSION Qualifiers: Hypertension type: essential hypertension Qualified Code(s): I10 - Essential (primary) hypertension (6) Afib Code(s): I48.91 - UNSPECIFIED ATRIAL FIBRILLATION Qualifiers: Atrial fibrillation type: chronic Qualified Code(s): I48.2 - Chronic atrial fibrillation (7) Frequent falls Code(s): R29.6 - REPEATED FALLS (8) Anemia Code(s): D64.9 - ANEMIA, UNSPECIFIED Qualifiers: Anemia type: iron deficiency (9) COPD (chronic obstructive pulmonary disease) Code(s): J44.9 - CHRONIC OBSTRUCTIVE PULMONARY DISEASE, UNSPECIFIED (10) Hematuria Code(s): R31.9 - HEMATURIA, UNSPECIFIED (11) Acute metabolic encephalopathy Code(s): G93.41 - METABOLIC ENCEPHALOPATHY (12) Severe protein-calorie malnutrition Code(s): E43 - UNSPECIFIED SEVERE PROTEIN-CALORIE MALNUTRITION Assessment/Plan Comfort measures per family. pt appears comfortable, off restraints. vitals q shift. Palliative team following. pending placement
--- NOTE | 2017-10-08 12:37 | PN ---
Progress Note, Physician History of Present Illness: calm confused muttering - Current Medication List Current Medications: Active Medications Acetaminophen (Tylenol -) 650 mg PO Q6H PRN PRN Reason: PAIN LEVEL 6-10 Last Admin: 10/08/17 09:28 Dose: 650 mg Donepezil HCl (Aricept -) 10 mg PO DAILY [facility] Last Admin: 10/08/17 09:28 Dose: 10 mg Lorazepam (Ativan -) 0.5 mg PO BID PRN PRN Reason: ANXIETY Last Admin: 10/08/17 09:28 Dose: 0.5 mg Nystatin (Nystop Powder -) 1 applic TP DAILY [facility] Last Admin: 10/08/17 09:29 Dose: 1 applic Olanzapine (Zyprexa -) 2.5 mg PO BID [facility] Last Admin: 10/08/17 09:28 Dose: 2.5 mg Ranitidine HCl (Zantac -) 150 mg PO DAILY [facility] Last Admin: 10/08/17 09:28 Dose: 150 mg - Objective Vital Signs: Vital Signs Temperature 97.5 F L 10/08/17 09:39 Pulse Rate 52 L 10/08/17 09:39 Respiratory Rate 20 10/08/17 09:39 Blood Pressure 134/72 10/08/17 09:39 O2 Sat by Pulse Oximetry (%) 95 10/07/17 21:00 Constitutional: Yes: No Distress, Calm Cardiovascular: Yes: S1, S2 Respiratory: Yes: Regular, CTA Bilaterally Gastrointestinal: Yes: Normal Bowel Sounds, Soft Musculoskeletal: Yes: WNL Extremities: Yes: WNL Neurological: Yes: Alert, Other Psychiatric: Yes: Alert, Other Labs: CBC, BMP 09/18/17 06:25 09/18/17 06:25 INR, PTT INR Cancelled 09/11/17 17:03 Assessment/Plan patient with positive uti also chances of aspiration pna high Problem List - Problems (1) Bradycardia Code(s): R00.1 - BRADYCARDIA, UNSPECIFIED (2) Altered mental status Code(s): R41.82 - ALTERED MENTAL STATUS, UNSPECIFIED Qualifiers: Altered mental status type: disorientation Qualified Code(s): R41.0 - Disorientation, unspecified (3) UTI (urinary tract infection) Code(s): N39.0 - URINARY TRACT INFECTION, SITE NOT SPECIFIED (4) Dementia Code(s): F03.90 - UNSPECIFIED DEMENTIA WITHOUT BEHAVIORAL DISTURBANCE Qualifiers: Dementia type: Alzheimer's disease Dementia behavioral disturbance: with behavioral disturbance (5) HTN (hypertension) Code(s): I10 - ESSENTIAL (PRIMARY) HYPERTENSION Qualifiers: Hypertension type: essential hypertension Qualified Code(s): I10 - Essential (primary) hypertension (6) Afib Code(s): I48.91 - UNSPECIFIED ATRIAL FIBRILLATION Qualifiers: Atrial fibrillation type: chronic Qualified Code(s): I48.2 - Chronic atrial fibrillation (7) Frequent falls Code(s): R29.6 - REPEATED FALLS (8) Anemia Code(s): D64.9 - ANEMIA, UNSPECIFIED Qualifiers: Anemia type: iron deficiency (9) COPD (chronic obstructive pulmonary disease) Code(s): J44.9 - CHRONIC OBSTRUCTIVE PULMONARY DISEASE, UNSPECIFIED (10) Hematuria Code(s): R31.9 - HEMATURIA, UNSPECIFIED assessment and plan Problem List - Problems (1) Bradycardia Code(s): R00.1 - BRADYCARDIA, UNSPECIFIED (2) Altered mental status Code(s): R41.82 - ALTERED MENTAL STATUS, UNSPECIFIED Qualifiers: Altered mental status type: disorientation Qualified Code(s): R41.0 - Disorientation, unspecified (3) UTI (urinary tract infection) Code(s): N39.0 - URINARY TRACT INFECTION, SITE NOT SPECIFIED (4) Dementia Code(s): F03.90 - UNSPECIFIED DEMENTIA WITHOUT BEHAVIORAL DISTURBANCE Qualifiers: Dementia type: Alzheimer's disease Dementia behavioral disturbance: with behavioral disturbance (5) HTN (hypertension) Code(s): I10 - ESSENTIAL (PRIMARY) HYPERTENSION Qualifiers: Hypertension type: essential hypertension Qualified Code(s): I10 - Essential (primary) hypertension (6) Afib Code(s): I48.91 - UNSPECIFIED ATRIAL FIBRILLATION Qualifiers: Atrial fibrillation type: chronic Qualified Code(s): I48.2 - Chronic atrial fibrillation (7) Frequent falls Code(s): R29.6 - REPEATED FALLS (8) Anemia Code(s): D64.9 - ANEMIA, UNSPECIFIED Qualifiers: Anemia type: iron deficiency (9) COPD (chronic obstructive pulmonary disease) Code(s): J44.9 - CHRONIC OBSTRUCTIVE PULMONARY DISEASE, UNSPECIFIED (10) Hematuria Code(s): R31.9 - HEMATURIA, UNSPECIFIED plan nutrition comfort awaiting placement rest as per primary team
[2017-10-09] MEDS ORDERED: LORazepam 2 MG/ML SDV VIAL IM ONE (01:57)
[2017-10-09] MEDS: LORazepam 0.5 MG TABLET PO PRN ×2 (05:31→21:42)
--- NOTE | 2017-10-09 09:49 | PN ---
Progress Note, Physician Chief Complaint: Pt lying in bed in no acute distress, awake and interactive, confused but shows no signs of agitation. - Current Medication List Current Medications: Active Medications Acetaminophen (Tylenol -) 650 mg PO Q6H PRN PRN Reason: PAIN LEVEL 6-10 Last Admin: 10/08/17 17:16 Dose: 650 mg Donepezil HCl (Aricept -) 10 mg PO DAILY [facility] Last Admin: 10/08/17 09:28 Dose: 10 mg Lorazepam (Ativan -) 0.5 mg PO BID PRN PRN Reason: ANXIETY Last Admin: 10/09/17 05:31 Dose: 0.5 mg Nystatin (Nystop Powder -) 1 applic TP DAILY [facility] Last Admin: 10/08/17 09:29 Dose: 1 applic Olanzapine (Zyprexa -) 2.5 mg PO BID [facility] Last Admin: 10/08/17 22:11 Dose: 2.5 mg Ranitidine HCl (Zantac -) 150 mg PO DAILY [facility] Last Admin: 10/08/17 09:28 Dose: 150 mg - Objective Vital Signs: Vital Signs Temperature 97.4 F L 10/08/17 22:18 Pulse Rate 94 H 10/08/17 22:18 Respiratory Rate 18 10/08/17 22:18 Blood Pressure 124/53 10/08/17 22:18 O2 Sat by Pulse Oximetry (%) 97 10/08/17 22:20 Constitutional: Yes: Thin Cardiovascular: Yes: Pulse Irregular. No: Gallop, Murmur, Rub Respiratory: Yes: Regular, Diminished Gastrointestinal: Yes: WNL, Normal Bowel Sounds, Soft. No: Distention, Tenderness Genitourinary: Yes: Incontinence Edema: No Integumentary: Yes: Bruising Neurological: Yes: Alert, Confusion Psychiatric: Yes: Alert Labs: CBC, BMP 09/18/17 06:25 09/18/17 06:25 INR, PTT INR Cancelled 09/11/17 17:03 Problem List - Problems (1) Bradycardia Code(s): R00.1 - BRADYCARDIA, UNSPECIFIED (2) Altered mental status Code(s): R41.82 - ALTERED MENTAL STATUS, UNSPECIFIED Qualifiers: Altered mental status type: disorientation Qualified Code(s): R41.0 - Disorientation, unspecified (3) UTI (urinary tract infection) Code(s): N39.0 - URINARY TRACT INFECTION, SITE NOT SPECIFIED (4) Dementia Code(s): F03.90 - UNSPECIFIED DEMENTIA WITHOUT BEHAVIORAL DISTURBANCE Qualifiers: Dementia type: Alzheimer's disease Dementia behavioral disturbance: with behavioral disturbance (5) HTN (hypertension) Code(s): I10 - ESSENTIAL (PRIMARY) HYPERTENSION Qualifiers: Hypertension type: essential hypertension Qualified Code(s): I10 - Essential (primary) hypertension (6) Afib Code(s): I48.91 - UNSPECIFIED ATRIAL FIBRILLATION Qualifiers: Atrial fibrillation type: chronic Qualified Code(s): I48.2 - Chronic atrial fibrillation (7) Frequent falls Code(s): R29.6 - REPEATED FALLS (8) Anemia Code(s): D64.9 - ANEMIA, UNSPECIFIED Qualifiers: Anemia type: iron deficiency (9) COPD (chronic obstructive pulmonary disease) Code(s): J44.9 - CHRONIC OBSTRUCTIVE PULMONARY DISEASE, UNSPECIFIED (10) Hematuria Code(s): R31.9 - HEMATURIA, UNSPECIFIED (11) Acute metabolic encephalopathy Code(s): G93.41 - METABOLIC ENCEPHALOPATHY (12) Severe protein-calorie malnutrition Code(s): E43 - UNSPECIFIED SEVERE PROTEIN-CALORIE MALNUTRITION Assessment/Plan Comfort measures per family. pt appears comfortable, off restraints. vitals q shift. Palliative team following. pending placement
[2017-10-09] MEDS: DONEPEZIL HCL 10 MG TABLET (FP) PO SCH (10:37)
[2017-10-09] MEDS: RANITIDINE HCL 150 MG TABLET (FP) PO SCH (10:38)
[2017-10-09] MEDS: OLANZapine 2.5 MG TABLET PO SCH ×2 (10:38→21:42)
[2017-10-09] MEDS: NYSTATIN POWDER 100,000 UNITS/GM - 15 GM TOPICAL POWDER TP SCH (10:38)
[2017-10-09] MEDS: ACETAMINOPHEN 325 MG TABLET (FP) PO PRN (10:38)
--- NOTE | 2017-10-09 15:53 | PN ---
Progress Note, Physician History of Present Illness: stable no new issues - Current Medication List Current Medications: Active Medications Acetaminophen (Tylenol -) 650 mg PO Q6H PRN PRN Reason: PAIN LEVEL 6-10 Last Admin: 10/09/17 10:38 Dose: 650 mg Donepezil HCl (Aricept -) 10 mg PO DAILY [facility] Last Admin: 10/09/17 10:37 Dose: 10 mg Lorazepam (Ativan -) 0.5 mg PO Q12H PRN PRN Reason: ANXIETY Nystatin (Nystop Powder -) 1 applic TP DAILY [facility] Last Admin: 10/09/17 10:38 Dose: 1 applic Olanzapine (Zyprexa -) 2.5 mg PO BID [facility] Last Admin: 10/09/17 10:38 Dose: 2.5 mg Ranitidine HCl (Zantac -) 150 mg PO DAILY [facility] Last Admin: 10/09/17 10:38 Dose: 150 mg - Objective Vital Signs: Vital Signs Temperature 97.5 F L 10/09/17 14:28 Pulse Rate 85 10/09/17 14:28 Respiratory Rate 20 10/09/17 14:28 Blood Pressure 128/60 10/09/17 14:28 O2 Sat by Pulse Oximetry (%) 99 10/09/17 09:00 Constitutional: Yes: No Distress, Calm Cardiovascular: Yes: S1, S2 Respiratory: Yes: Regular, CTA Bilaterally Gastrointestinal: Yes: Normal Bowel Sounds, Soft Musculoskeletal: Yes: WNL Extremities: Yes: WNL Neurological: Yes: Alert, Other Psychiatric: Yes: Alert, Other Labs: CBC, BMP 09/18/17 06:25 09/18/17 06:25 INR, PTT INR Cancelled 09/11/17 17:03 Assessment/Plan patient with positive uti also chances of aspiration pna high Problem List - Problems (1) Bradycardia Code(s): R00.1 - BRADYCARDIA, UNSPECIFIED (2) Altered mental status Code(s): R41.82 - ALTERED MENTAL STATUS, UNSPECIFIED Qualifiers: Altered mental status type: disorientation Qualified Code(s): R41.0 - Disorientation, unspecified (3) UTI (urinary tract infection) Code(s): N39.0 - URINARY TRACT INFECTION, SITE NOT SPECIFIED (4) Dementia Code(s): F03.90 - UNSPECIFIED DEMENTIA WITHOUT BEHAVIORAL DISTURBANCE Qualifiers: Dementia type: Alzheimer's disease Dementia behavioral disturbance: with behavioral disturbance (5) HTN (hypertension) Code(s): I10 - ESSENTIAL (PRIMARY) HYPERTENSION Qualifiers: Hypertension type: essential hypertension Qualified Code(s): I10 - Essential (primary) hypertension (6) Afib Code(s): I48.91 - UNSPECIFIED ATRIAL FIBRILLATION Qualifiers: Atrial fibrillation type: chronic Qualified Code(s): I48.2 - Chronic atrial fibrillation (7) Frequent falls Code(s): R29.6 - REPEATED FALLS (8) Anemia Code(s): D64.9 - ANEMIA, UNSPECIFIED Qualifiers: Anemia type: iron deficiency (9) COPD (chronic obstructive pulmonary disease) Code(s): J44.9 - CHRONIC OBSTRUCTIVE PULMONARY DISEASE, UNSPECIFIED (10) Hematuria Code(s): R31.9 - HEMATURIA, UNSPECIFIED assessment and plan Problem List - Problems (1) Bradycardia Code(s): R00.1 - BRADYCARDIA, UNSPECIFIED (2) Altered mental status Code(s): R41.82 - ALTERED MENTAL STATUS, UNSPECIFIED Qualifiers: Altered mental status type: disorientation Qualified Code(s): R41.0 - Disorientation, unspecified (3) UTI (urinary tract infection) Code(s): N39.0 - URINARY TRACT INFECTION, SITE NOT SPECIFIED (4) Dementia Code(s): F03.90 - UNSPECIFIED DEMENTIA WITHOUT BEHAVIORAL DISTURBANCE Qualifiers: Dementia type: Alzheimer's disease Dementia behavioral disturbance: with behavioral disturbance (5) HTN (hypertension) Code(s): I10 - ESSENTIAL (PRIMARY) HYPERTENSION Qualifiers: Hypertension type: essential hypertension Qualified Code(s): I10 - Essential (primary) hypertension (6) Afib Code(s): I48.91 - UNSPECIFIED ATRIAL FIBRILLATION Qualifiers: Atrial fibrillation type: chronic Qualified Code(s): I48.2 - Chronic atrial fibrillation (7) Frequent falls Code(s): R29.6 - REPEATED FALLS (8) Anemia Code(s): D64.9 - ANEMIA, UNSPECIFIED Qualifiers: Anemia type: iron deficiency (9) COPD (chronic obstructive pulmonary disease) Code(s): J44.9 - CHRONIC OBSTRUCTIVE PULMONARY DISEASE, UNSPECIFIED (10) Hematuria Code(s): R31.9 - HEMATURIA, UNSPECIFIED plan nutrition continue current mgmt awaiting for placement
[2017-10-10] MEDS: DONEPEZIL HCL 10 MG TABLET (FP) PO SCH (10:30)
[2017-10-10] MEDS: OLANZapine 2.5 MG TABLET PO SCH ×2 (10:30→21:19)
[2017-10-10] MEDS: RANITIDINE HCL 150 MG TABLET (FP) PO SCH (10:30)
[2017-10-10] MEDS: ACETAMINOPHEN 325 MG TABLET (FP) PO PRN (10:31)
[2017-10-10] MEDS: NYSTATIN POWDER 100,000 UNITS/GM - 15 GM TOPICAL POWDER TP SCH (10:35)
--- NOTE | 2017-10-10 11:59 | PN ---
Progress Note, Physician Chief Complaint: Pt lying in bed in no acute distress, awake and interactive, confused but shows no signs of agitation. - Current Medication List Current Medications: Active Medications Acetaminophen (Tylenol -) 650 mg PO Q6H PRN PRN Reason: PAIN LEVEL 6-10 Last Admin: 10/10/17 10:31 Dose: 650 mg Donepezil HCl (Aricept -) 10 mg PO DAILY [facility] Last Admin: 10/10/17 10:30 Dose: 10 mg Lorazepam (Ativan -) 0.5 mg PO Q12H PRN PRN Reason: ANXIETY Last Admin: 10/09/17 21:42 Dose: 0.5 mg Nystatin (Nystop Powder -) 1 applic TP DAILY [facility] Last Admin: 10/10/17 10:35 Dose: 1 applic Olanzapine (Zyprexa -) 2.5 mg PO BID [facility] Last Admin: 10/10/17 10:30 Dose: 2.5 mg Ranitidine HCl (Zantac -) 150 mg PO DAILY [facility] Last Admin: 10/10/17 10:30 Dose: 150 mg - Objective Vital Signs: Vital Signs Temperature 98.3 F 10/10/17 05:37 Pulse Rate 91 H 10/10/17 05:37 Respiratory Rate 20 10/10/17 05:37 Blood Pressure 125/73 10/10/17 05:37 O2 Sat by Pulse Oximetry (%) 99 10/09/17 09:00 Constitutional: Yes: No Distress, Thin Cardiovascular: Yes: Pulse Irregular. No: Bruit, Gallop, Murmur Respiratory: Yes: Regular, CTA Bilaterally, Diminished. No: Rales, Rhonchi, SOB , Tachypnea, Wheezes Gastrointestinal: Yes: WNL, Normal Bowel Sounds, Soft. No: Distention, Tenderness Genitourinary: Yes: Incontinence Edema: No Integumentary: Yes: Bruising Neurological: Yes: Confusion, Lethargy Labs: CBC, BMP 09/18/17 06:25 09/18/17 06:25 INR, PTT INR Cancelled 09/11/17 17:03 Problem List - Problems (1) Bradycardia Code(s): R00.1 - BRADYCARDIA, UNSPECIFIED (2) Altered mental status Code(s): R41.82 - ALTERED MENTAL STATUS, UNSPECIFIED Qualifiers: Altered mental status type: disorientation Qualified Code(s): R41.0 - Disorientation, unspecified (3) UTI (urinary tract infection) Code(s): N39.0 - URINARY TRACT INFECTION, SITE NOT SPECIFIED (4) Dementia Code(s): F03.90 - UNSPECIFIED DEMENTIA WITHOUT BEHAVIORAL DISTURBANCE Qualifiers: Dementia type: Alzheimer's disease Dementia behavioral disturbance: with behavioral disturbance (5) HTN (hypertension) Code(s): I10 - ESSENTIAL (PRIMARY) HYPERTENSION Qualifiers: Hypertension type: essential hypertension Qualified Code(s): I10 - Essential (primary) hypertension (6) Afib Code(s): I48.91 - UNSPECIFIED ATRIAL FIBRILLATION Qualifiers: Atrial fibrillation type: chronic Qualified Code(s): I48.2 - Chronic atrial fibrillation (7) Frequent falls Code(s): R29.6 - REPEATED FALLS (8) Anemia Code(s): D64.9 - ANEMIA, UNSPECIFIED Qualifiers: Anemia type: iron deficiency (9) COPD (chronic obstructive pulmonary disease) Code(s): J44.9 - CHRONIC OBSTRUCTIVE PULMONARY DISEASE, UNSPECIFIED (10) Hematuria Code(s): R31.9 - HEMATURIA, UNSPECIFIED (11) Acute metabolic encephalopathy Code(s): G93.41 - METABOLIC ENCEPHALOPATHY (12) Severe protein-calorie malnutrition Code(s): E43 - UNSPECIFIED SEVERE PROTEIN-CALORIE MALNUTRITION Assessment/Plan Comfort measures per family. pt appears comfortable, off restraints. vitals q shift. Palliative team following. pending placement
--- NOTE | 2017-10-10 13:58 | PN ---
Progress Note, Physician History of Present Illness: stable looks like baseline now still confused - Current Medication List Current Medications: Active Medications Acetaminophen (Tylenol -) 650 mg PO Q6H PRN PRN Reason: PAIN LEVEL 6-10 Last Admin: 10/10/17 10:31 Dose: 650 mg Donepezil HCl (Aricept -) 10 mg PO DAILY [facility] Last Admin: 10/10/17 10:30 Dose: 10 mg Lorazepam (Ativan -) 0.5 mg PO Q12H PRN PRN Reason: ANXIETY Last Admin: 10/09/17 21:42 Dose: 0.5 mg Nystatin (Nystop Powder -) 1 applic TP DAILY [facility] Last Admin: 10/10/17 10:35 Dose: 1 applic Olanzapine (Zyprexa -) 2.5 mg PO BID [facility] Last Admin: 10/10/17 10:30 Dose: 2.5 mg Ranitidine HCl (Zantac -) 150 mg PO DAILY [facility] Last Admin: 10/10/17 10:30 Dose: 150 mg - Objective Vital Signs: Vital Signs Temperature 98.3 F 10/10/17 05:37 Pulse Rate 91 H 10/10/17 05:37 Respiratory Rate 20 10/10/17 05:37 Blood Pressure 125/73 10/10/17 05:37 O2 Sat by Pulse Oximetry (%) 99 10/09/17 09:00 Constitutional: Yes: No Distress, Calm Cardiovascular: Yes: S1, S2 Respiratory: Yes: Regular, CTA Bilaterally Gastrointestinal: Yes: Normal Bowel Sounds, Soft Musculoskeletal: Yes: WNL Extremities: Yes: WNL Neurological: Yes: Alert, Other Psychiatric: Yes: Other Labs: CBC, BMP 09/18/17 06:25 09/18/17 06:25 INR, PTT INR Cancelled 09/11/17 17:03 Assessment/Plan patient with positive uti also chances of aspiration pna high Problem List - Problems (1) Bradycardia Code(s): R00.1 - BRADYCARDIA, UNSPECIFIED (2) Altered mental status Code(s): R41.82 - ALTERED MENTAL STATUS, UNSPECIFIED Qualifiers: Altered mental status type: disorientation Qualified Code(s): R41.0 - Disorientation, unspecified (3) UTI (urinary tract infection) Code(s): N39.0 - URINARY TRACT INFECTION, SITE NOT SPECIFIED (4) Dementia Code(s): F03.90 - UNSPECIFIED DEMENTIA WITHOUT BEHAVIORAL DISTURBANCE Qualifiers: Dementia type: Alzheimer's disease Dementia behavioral disturbance: with behavioral disturbance (5) HTN (hypertension) Code(s): I10 - ESSENTIAL (PRIMARY) HYPERTENSION Qualifiers: Hypertension type: essential hypertension Qualified Code(s): I10 - Essential (primary) hypertension (6) Afib Code(s): I48.91 - UNSPECIFIED ATRIAL FIBRILLATION Qualifiers: Atrial fibrillation type: chronic Qualified Code(s): I48.2 - Chronic atrial fibrillation (7) Frequent falls Code(s): R29.6 - REPEATED FALLS (8) Anemia Code(s): D64.9 - ANEMIA, UNSPECIFIED Qualifiers: Anemia type: iron deficiency (9) COPD (chronic obstructive pulmonary disease) Code(s): J44.9 - CHRONIC OBSTRUCTIVE PULMONARY DISEASE, UNSPECIFIED (10) Hematuria Code(s): R31.9 - HEMATURIA, UNSPECIFIED assessment and plan Problem List - Problems (1) Bradycardia Code(s): R00.1 - BRADYCARDIA, UNSPECIFIED (2) Altered mental status Code(s): R41.82 - ALTERED MENTAL STATUS, UNSPECIFIED Qualifiers: Altered mental status type: disorientation Qualified Code(s): R41.0 - Disorientation, unspecified (3) UTI (urinary tract infection) Code(s): N39.0 - URINARY TRACT INFECTION, SITE NOT SPECIFIED (4) Dementia Code(s): F03.90 - UNSPECIFIED DEMENTIA WITHOUT BEHAVIORAL DISTURBANCE Qualifiers: Dementia type: Alzheimer's disease Dementia behavioral disturbance: with behavioral disturbance (5) HTN (hypertension) Code(s): I10 - ESSENTIAL (PRIMARY) HYPERTENSION Qualifiers: Hypertension type: essential hypertension Qualified Code(s): I10 - Essential (primary) hypertension (6) Afib Code(s): I48.91 - UNSPECIFIED ATRIAL FIBRILLATION Qualifiers: Atrial fibrillation type: chronic Qualified Code(s): I48.2 - Chronic atrial fibrillation (7) Frequent falls Code(s): R29.6 - REPEATED FALLS (8) Anemia Code(s): D64.9 - ANEMIA, UNSPECIFIED Qualifiers: Anemia type: iron deficiency (9) COPD (chronic obstructive pulmonary disease) Code(s): J44.9 - CHRONIC OBSTRUCTIVE PULMONARY DISEASE, UNSPECIFIED (10) Hematuria Code(s): R31.9 - HEMATURIA, UNSPECIFIED plan nutrition continue current mgmt awaiting for placement
[2017-10-11] MEDS: NYSTATIN POWDER 100,000 UNITS/GM - 15 GM TOPICAL POWDER TP SCH (09:16)
[2017-10-11] MEDS: DONEPEZIL HCL 10 MG TABLET (FP) PO SCH (09:16)
[2017-10-11] MEDS: RANITIDINE HCL 150 MG TABLET (FP) PO SCH (09:16)
[2017-10-11] MEDS: LORazepam 0.5 MG TABLET PO PRN (09:16)
[2017-10-11] MEDS: OLANZapine 2.5 MG TABLET PO SCH ×2 (09:16→22:07)
--- NOTE | 2017-10-11 11:03 | PN ---
Progress Note, Physician History of Present Illness: no changes no new issues - Current Medication List Current Medications: Active Medications Acetaminophen (Tylenol -) 650 mg PO Q6H PRN PRN Reason: PAIN LEVEL 6-10 Last Admin: 10/10/17 10:31 Dose: 650 mg Donepezil HCl (Aricept -) 10 mg PO DAILY [facility] Last Admin: 10/11/17 09:16 Dose: 10 mg Lorazepam (Ativan -) 0.5 mg PO Q12H PRN PRN Reason: ANXIETY Last Admin: 10/11/17 09:16 Dose: 0.5 mg Nystatin (Nystop Powder -) 1 applic TP DAILY [facility] Last Admin: 10/11/17 09:16 Dose: 1 applic Olanzapine (Zyprexa -) 2.5 mg PO BID [facility] Last Admin: 10/11/17 09:16 Dose: 2.5 mg Ranitidine HCl (Zantac -) 150 mg PO DAILY [facility] Last Admin: 10/11/17 09:16 Dose: 150 mg - Objective Vital Signs: Vital Signs Temperature 97.8 F 10/11/17 09:00 Pulse Rate 73 10/11/17 09:00 Respiratory Rate 18 10/11/17 09:00 Blood Pressure 132/53 10/11/17 09:00 O2 Sat by Pulse Oximetry (%) 98 10/11/17 09:00 Constitutional: Yes: No Distress, Calm Cardiovascular: Yes: S1, S2 Respiratory: Yes: Regular, CTA Bilaterally Gastrointestinal: Yes: Normal Bowel Sounds, Soft Musculoskeletal: Yes: WNL Extremities: Yes: WNL Neurological: Yes: Alert, Other Psychiatric: Yes: Other Labs: CBC, BMP 09/18/17 06:25 09/18/17 06:25 INR, PTT INR Cancelled 09/11/17 17:03 Assessment/Plan patient with positive uti also chances of aspiration pna high Problem List - Problems (1) Bradycardia Code(s): R00.1 - BRADYCARDIA, UNSPECIFIED (2) Altered mental status Code(s): R41.82 - ALTERED MENTAL STATUS, UNSPECIFIED Qualifiers: Altered mental status type: disorientation Qualified Code(s): R41.0 - Disorientation, unspecified (3) UTI (urinary tract infection) Code(s): N39.0 - URINARY TRACT INFECTION, SITE NOT SPECIFIED (4) Dementia Code(s): F03.90 - UNSPECIFIED DEMENTIA WITHOUT BEHAVIORAL DISTURBANCE Qualifiers: Dementia type: Alzheimer's disease Dementia behavioral disturbance: with behavioral disturbance (5) HTN (hypertension) Code(s): I10 - ESSENTIAL (PRIMARY) HYPERTENSION Qualifiers: Hypertension type: essential hypertension Qualified Code(s): I10 - Essential (primary) hypertension (6) Afib Code(s): I48.91 - UNSPECIFIED ATRIAL FIBRILLATION Qualifiers: Atrial fibrillation type: chronic Qualified Code(s): I48.2 - Chronic atrial fibrillation (7) Frequent falls Code(s): R29.6 - REPEATED FALLS (8) Anemia Code(s): D64.9 - ANEMIA, UNSPECIFIED Qualifiers: Anemia type: iron deficiency (9) COPD (chronic obstructive pulmonary disease) Code(s): J44.9 - CHRONIC OBSTRUCTIVE PULMONARY DISEASE, UNSPECIFIED (10) Hematuria Code(s): R31.9 - HEMATURIA, UNSPECIFIED assessment and plan Problem List - Problems (1) Bradycardia Code(s): R00.1 - BRADYCARDIA, UNSPECIFIED (2) Altered mental status Code(s): R41.82 - ALTERED MENTAL STATUS, UNSPECIFIED Qualifiers: Altered mental status type: disorientation Qualified Code(s): R41.0 - Disorientation, unspecified (3) UTI (urinary tract infection) Code(s): N39.0 - URINARY TRACT INFECTION, SITE NOT SPECIFIED (4) Dementia Code(s): F03.90 - UNSPECIFIED DEMENTIA WITHOUT BEHAVIORAL DISTURBANCE Qualifiers: Dementia type: Alzheimer's disease Dementia behavioral disturbance: with behavioral disturbance (5) HTN (hypertension) Code(s): I10 - ESSENTIAL (PRIMARY) HYPERTENSION Qualifiers: Hypertension type: essential hypertension Qualified Code(s): I10 - Essential (primary) hypertension (6) Afib Code(s): I48.91 - UNSPECIFIED ATRIAL FIBRILLATION Qualifiers: Atrial fibrillation type: chronic Qualified Code(s): I48.2 - Chronic atrial fibrillation (7) Frequent falls Code(s): R29.6 - REPEATED FALLS (8) Anemia Code(s): D64.9 - ANEMIA, UNSPECIFIED Qualifiers: Anemia type: iron deficiency (9) COPD (chronic obstructive pulmonary disease) Code(s): J44.9 - CHRONIC OBSTRUCTIVE PULMONARY DISEASE, UNSPECIFIED (10) Hematuria Code(s): R31.9 - HEMATURIA, UNSPECIFIED plan nutrition continue current mgmt awaiting for placement clinically patient same
--- NOTE | 2017-10-11 11:18 | PN ---
Progress Note, Physician Chief Complaint: Pt lying in bed in no acute distress, awake, confused but shows no signs of agitation. - Current Medication List Current Medications: Active Medications Acetaminophen (Tylenol -) 650 mg PO Q6H PRN PRN Reason: PAIN LEVEL 6-10 Last Admin: 10/10/17 10:31 Dose: 650 mg Donepezil HCl (Aricept -) 10 mg PO DAILY [facility] Last Admin: 10/11/17 09:16 Dose: 10 mg Lorazepam (Ativan -) 0.5 mg PO Q12H PRN PRN Reason: ANXIETY Last Admin: 10/11/17 09:16 Dose: 0.5 mg Nystatin (Nystop Powder -) 1 applic TP DAILY [facility] Last Admin: 10/11/17 09:16 Dose: 1 applic Olanzapine (Zyprexa -) 2.5 mg PO BID [facility] Last Admin: 10/11/17 09:16 Dose: 2.5 mg Ranitidine HCl (Zantac -) 150 mg PO DAILY [facility] Last Admin: 10/11/17 09:16 Dose: 150 mg - Objective Vital Signs: Vital Signs Temperature 97.8 F 10/11/17 09:00 Pulse Rate 73 10/11/17 09:00 Respiratory Rate 18 10/11/17 09:00 Blood Pressure 132/53 10/11/17 09:00 O2 Sat by Pulse Oximetry (%) 98 10/11/17 09:00 Cardiovascular: Yes: Pulse Irregular. No: Gallop, Murmur, Rub Respiratory: Yes: WNL, Regular, Diminished. No: Rhonchi, Tachypnea, Wheezes Gastrointestinal: Yes: WNL, Normal Bowel Sounds, Soft. No: Distention, Tenderness ...Rectal Exam: Yes: Deferred Genitourinary: Yes: Incontinence Edema: No Neurological: Yes: Confusion, Lethargy Labs: CBC, BMP 09/18/17 06:25 09/18/17 06:25 INR, PTT INR Cancelled 09/11/17 17:03 Problem List - Problems (1) Bradycardia Code(s): R00.1 - BRADYCARDIA, UNSPECIFIED (2) Altered mental status Code(s): R41.82 - ALTERED MENTAL STATUS, UNSPECIFIED Qualifiers: Altered mental status type: disorientation Qualified Code(s): R41.0 - Disorientation, unspecified (3) UTI (urinary tract infection) Code(s): N39.0 - URINARY TRACT INFECTION, SITE NOT SPECIFIED (4) Dementia Code(s): F03.90 - UNSPECIFIED DEMENTIA WITHOUT BEHAVIORAL DISTURBANCE Qualifiers: Dementia type: Alzheimer's disease Dementia behavioral disturbance: with behavioral disturbance (5) HTN (hypertension) Code(s): I10 - ESSENTIAL (PRIMARY) HYPERTENSION Qualifiers: Hypertension type: essential hypertension Qualified Code(s): I10 - Essential (primary) hypertension (6) Afib Code(s): I48.91 - UNSPECIFIED ATRIAL FIBRILLATION Qualifiers: Atrial fibrillation type: chronic Qualified Code(s): I48.2 - Chronic atrial fibrillation (7) Frequent falls Code(s): R29.6 - REPEATED FALLS (8) Anemia Code(s): D64.9 - ANEMIA, UNSPECIFIED Qualifiers: Anemia type: iron deficiency (9) COPD (chronic obstructive pulmonary disease) Code(s): J44.9 - CHRONIC OBSTRUCTIVE PULMONARY DISEASE, UNSPECIFIED (10) Hematuria Code(s): R31.9 - HEMATURIA, UNSPECIFIED (11) Acute metabolic encephalopathy Code(s): G93.41 - METABOLIC ENCEPHALOPATHY (12) Severe protein-calorie malnutrition Code(s): E43 - UNSPECIFIED SEVERE PROTEIN-CALORIE MALNUTRITION Assessment/Plan Comfort measures per family. pt appears comfortable, off restraints. vitals q shift. Palliative team following. pending placement
[2017-10-12] MEDS: RANITIDINE HCL 150 MG TABLET (FP) PO SCH (10:02)
[2017-10-12] MEDS: OLANZapine 2.5 MG TABLET PO SCH ×2 (10:02→22:49)
[2017-10-12] MEDS: DONEPEZIL HCL 10 MG TABLET (FP) PO SCH (10:02)
[2017-10-12] MEDS: LORazepam 0.5 MG TABLET PO PRN (10:04)
[2017-10-12] MEDS: ACETAMINOPHEN 325 MG TABLET (FP) PO PRN (10:04)
[2017-10-12] MEDS: NYSTATIN POWDER 100,000 UNITS/GM - 15 GM TOPICAL POWDER TP SCH (10:11)
--- NOTE | 2017-10-12 11:23 | PN ---
Progress Note, Physician History of Present Illness: clinically stable no changes awaiting for placement calm ate decent amount of breakfast - Current Medication List Current Medications: Active Medications Acetaminophen (Tylenol -) 650 mg PO Q6H PRN PRN Reason: PAIN LEVEL 6-10 Last Admin: 10/12/17 10:04 Dose: 650 mg Donepezil HCl (Aricept -) 10 mg PO DAILY [facility] Last Admin: 10/12/17 10:02 Dose: 10 mg Lorazepam (Ativan -) 0.5 mg PO Q12H PRN PRN Reason: ANXIETY Last Admin: 10/12/17 10:04 Dose: 0.5 mg Nystatin (Nystop Powder -) 1 applic TP DAILY [facility] Last Admin: 10/12/17 10:11 Dose: 1 applic Olanzapine (Zyprexa -) 2.5 mg PO BID [facility] Last Admin: 10/12/17 10:02 Dose: 2.5 mg Ranitidine HCl (Zantac -) 150 mg PO DAILY [facility] Last Admin: 10/12/17 10:02 Dose: 150 mg - Objective Vital Signs: Vital Signs Temperature 97.4 F L 10/12/17 10:00 Pulse Rate 88 10/12/17 10:00 Respiratory Rate 18 10/12/17 10:00 Blood Pressure 114/53 10/12/17 10:00 O2 Sat by Pulse Oximetry (%) 96 10/11/17 21:00 Constitutional: Yes: No Distress, Calm Cardiovascular: Yes: S1, S2 Respiratory: Yes: Regular, CTA Bilaterally Gastrointestinal: Yes: Normal Bowel Sounds, Soft Musculoskeletal: Yes: WNL Extremities: Yes: WNL Neurological: Yes: Alert, Other Psychiatric: Yes: Other Labs: CBC, BMP 09/18/17 06:25 09/18/17 06:25 INR, PTT INR Cancelled 09/11/17 17:03 Assessment/Plan patient with positive uti also chances of aspiration pna high Problem List - Problems (1) Bradycardia Code(s): R00.1 - BRADYCARDIA, UNSPECIFIED (2) Altered mental status Code(s): R41.82 - ALTERED MENTAL STATUS, UNSPECIFIED Qualifiers: Altered mental status type: disorientation Qualified Code(s): R41.0 - Disorientation, unspecified (3) UTI (urinary tract infection) Code(s): N39.0 - URINARY TRACT INFECTION, SITE NOT SPECIFIED (4) Dementia Code(s): F03.90 - UNSPECIFIED DEMENTIA WITHOUT BEHAVIORAL DISTURBANCE Qualifiers: Dementia type: Alzheimer's disease Dementia behavioral disturbance: with behavioral disturbance (5) HTN (hypertension) Code(s): I10 - ESSENTIAL (PRIMARY) HYPERTENSION Qualifiers: Hypertension type: essential hypertension Qualified Code(s): I10 - Essential (primary) hypertension (6) Afib Code(s): I48.91 - UNSPECIFIED ATRIAL FIBRILLATION Qualifiers: Atrial fibrillation type: chronic Qualified Code(s): I48.2 - Chronic atrial fibrillation (7) Frequent falls Code(s): R29.6 - REPEATED FALLS (8) Anemia Code(s): D64.9 - ANEMIA, UNSPECIFIED Qualifiers: Anemia type: iron deficiency (9) COPD (chronic obstructive pulmonary disease) Code(s): J44.9 - CHRONIC OBSTRUCTIVE PULMONARY DISEASE, UNSPECIFIED (10) Hematuria Code(s): R31.9 - HEMATURIA, UNSPECIFIED assessment and plan Problem List - Problems (1) Bradycardia Code(s): R00.1 - BRADYCARDIA, UNSPECIFIED (2) Altered mental status Code(s): R41.82 - ALTERED MENTAL STATUS, UNSPECIFIED Qualifiers: Altered mental status type: disorientation Qualified Code(s): R41.0 - Disorientation, unspecified (3) UTI (urinary tract infection) Code(s): N39.0 - URINARY TRACT INFECTION, SITE NOT SPECIFIED (4) Dementia Code(s): F03.90 - UNSPECIFIED DEMENTIA WITHOUT BEHAVIORAL DISTURBANCE Qualifiers: Dementia type: Alzheimer's disease Dementia behavioral disturbance: with behavioral disturbance (5) HTN (hypertension) Code(s): I10 - ESSENTIAL (PRIMARY) HYPERTENSION Qualifiers: Hypertension type: essential hypertension Qualified Code(s): I10 - Essential (primary) hypertension (6) Afib Code(s): I48.91 - UNSPECIFIED ATRIAL FIBRILLATION Qualifiers: Atrial fibrillation type: chronic Qualified Code(s): I48.2 - Chronic atrial fibrillation (7) Frequent falls Code(s): R29.6 - REPEATED FALLS (8) Anemia Code(s): D64.9 - ANEMIA, UNSPECIFIED Qualifiers: Anemia type: iron deficiency (9) COPD (chronic obstructive pulmonary disease) Code(s): J44.9 - CHRONIC OBSTRUCTIVE PULMONARY DISEASE, UNSPECIFIED (10) Hematuria Code(s): R31.9 - HEMATURIA, UNSPECIFIED plan nutrition continue current mgmt awaiting for placement clinically patient doing well
--- NOTE | 2017-10-12 12:01 | PN ---
Progress Note, Physician Chief Complaint: Remained febrile, hemodynamically stable and confused, on comfort care - Current Medication List Current Medications: Active Medications Acetaminophen (Tylenol -) 650 mg PO Q6H PRN PRN Reason: PAIN LEVEL 6-10 Last Admin: 10/12/17 10:04 Dose: 650 mg Donepezil HCl (Aricept -) 10 mg PO DAILY [facility] Last Admin: 10/12/17 10:02 Dose: 10 mg Lorazepam (Ativan -) 0.5 mg PO Q12H PRN PRN Reason: ANXIETY Last Admin: 10/12/17 10:04 Dose: 0.5 mg Nystatin (Nystop Powder -) 1 applic TP DAILY [facility] Last Admin: 10/12/17 10:11 Dose: 1 applic Olanzapine (Zyprexa -) 2.5 mg PO BID [facility] Last Admin: 10/12/17 10:02 Dose: 2.5 mg Ranitidine HCl (Zantac -) 150 mg PO DAILY [facility] Last Admin: 10/12/17 10:02 Dose: 150 mg - Objective Vital Signs: Vital Signs Temperature 97.4 F L 10/12/17 10:00 Pulse Rate 88 10/12/17 10:00 Respiratory Rate 18 10/12/17 10:00 Blood Pressure 114/53 10/12/17 10:00 O2 Sat by Pulse Oximetry (%) 96 10/12/17 09:00 Elderly man looks confused, not in distress HEENT: Mm moist, mild anemia. 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 Labs: CBC, BMP 09/18/17 06:25 09/18/17 06:25 INR, PTT INR Cancelled 09/11/17 17:03 Problem List - Problems (1) Afib Assessment/Plan: H/O Chronic afib on AC , episodes of bradycardia woff B Blockers Code(s): I48.91 - UNSPECIFIED ATRIAL FIBRILLATION Qualifiers: Atrial fibrillation type: chronic Qualified Code(s): I48.2 - Chronic atrial fibrillation (2) HTN (hypertension) Assessment/Plan: Well controlled off meds Code(s): I10 - ESSENTIAL (PRIMARY) HYPERTENSION Qualifiers: Hypertension type: essential hypertension Qualified Code(s): I10 - Essential (primary) hypertension (3) COPD (chronic obstructive pulmonary disease) Assessment/Plan: Stable cont current Nebs treatment. Code(s): J44.9 - CHRONIC OBSTRUCTIVE PULMONARY DISEASE, UNSPECIFIED (4) Anemia Assessment/Plan: Chronic H/H are stable Code(s): D64.9 - ANEMIA, UNSPECIFIED Qualifiers: Anemia type: iron deficiency (5) Dementia Assessment/Plan: Chronic at present no agitation. Code(s): F03.90 - UNSPECIFIED DEMENTIA WITHOUT BEHAVIORAL DISTURBANCE Qualifiers: Dementia type: Alzheimer's disease Dementia behavioral disturbance: with behavioral disturbance (6) Comfort measures only status Assessment/Plan: F/U Pallitive care recommondations Code(s): Z51.5 - ENCOUNTER FOR PALLIATIVE CARE
[2017-10-13] MEDS ORDERED: PT OWN MED DRAWER 7, Y5N ONE (10:50)
[2017-10-13] MEDS: DONEPEZIL HCL 10 MG TABLET (FP) PO SCH (10:55)
[2017-10-13] MEDS: RANITIDINE HCL 150 MG TABLET (FP) PO SCH (10:55)
[2017-10-13] MEDS: OLANZapine 2.5 MG TABLET PO SCH ×2 (10:55→22:25)
[2017-10-13] MEDS: NYSTATIN POWDER 100,000 UNITS/GM - 15 GM TOPICAL POWDER TP SCH (13:06)
--- NOTE | 2017-10-13 16:11 | PN ---
Progress Note, Physician History of Present Illness: no issues stable - Current Medication List Current Medications: Active Medications Acetaminophen (Tylenol -) 650 mg PO Q6H PRN PRN Reason: PAIN LEVEL 6-10 Last Admin: 10/12/17 10:04 Dose: 650 mg Donepezil HCl (Aricept -) 10 mg PO DAILY [facility] Last Admin: 10/13/17 10:55 Dose: 10 mg Nystatin (Nystop Powder -) 1 applic TP DAILY [facility] Last Admin: 10/13/17 13:06 Dose: 1 applic Olanzapine (Zyprexa -) 2.5 mg PO BID [facility] Last Admin: 10/13/17 10:55 Dose: 2.5 mg Ranitidine HCl (Zantac -) 150 mg PO DAILY [facility] Last Admin: 10/13/17 10:55 Dose: 150 mg - Objective Vital Signs: Vital Signs Temperature 98.0 F 10/13/17 14:41 Pulse Rate 66 10/13/17 10:00 Respiratory Rate 18 10/13/17 10:00 Blood Pressure 110/62 10/13/17 10:00 O2 Sat by Pulse Oximetry (%) 98 10/13/17 09:00 Constitutional: Yes: No Distress, Calm Cardiovascular: Yes: S1, S2 Respiratory: Yes: Regular, CTA Bilaterally Gastrointestinal: Yes: Normal Bowel Sounds, Soft Musculoskeletal: Yes: WNL Extremities: Yes: WNL Neurological: Yes: Alert Labs: CBC, BMP 09/18/17 06:25 09/18/17 06:25 INR, PTT INR Cancelled 09/11/17 17:03 Assessment/Plan patient with positive uti also chances of aspiration pna high Problem List - Problems (1) Bradycardia Code(s): R00.1 - BRADYCARDIA, UNSPECIFIED (2) Altered mental status Code(s): R41.82 - ALTERED MENTAL STATUS, UNSPECIFIED Qualifiers: Altered mental status type: disorientation Qualified Code(s): R41.0 - Disorientation, unspecified (3) UTI (urinary tract infection) Code(s): N39.0 - URINARY TRACT INFECTION, SITE NOT SPECIFIED (4) Dementia Code(s): F03.90 - UNSPECIFIED DEMENTIA WITHOUT BEHAVIORAL DISTURBANCE Qualifiers: Dementia type: Alzheimer's disease Dementia behavioral disturbance: with behavioral disturbance (5) HTN (hypertension) Code(s): I10 - ESSENTIAL (PRIMARY) HYPERTENSION Qualifiers: Hypertension type: essential hypertension Qualified Code(s): I10 - Essential (primary) hypertension (6) Afib Code(s): I48.91 - UNSPECIFIED ATRIAL FIBRILLATION Qualifiers: Atrial fibrillation type: chronic Qualified Code(s): I48.2 - Chronic atrial fibrillation (7) Frequent falls Code(s): R29.6 - REPEATED FALLS (8) Anemia Code(s): D64.9 - ANEMIA, UNSPECIFIED Qualifiers: Anemia type: iron deficiency (9) COPD (chronic obstructive pulmonary disease) Code(s): J44.9 - CHRONIC OBSTRUCTIVE PULMONARY DISEASE, UNSPECIFIED (10) Hematuria Code(s): R31.9 - HEMATURIA, UNSPECIFIED assessment and plan Problem List - Problems (1) Bradycardia Code(s): R00.1 - BRADYCARDIA, UNSPECIFIED (2) Altered mental status Code(s): R41.82 - ALTERED MENTAL STATUS, UNSPECIFIED Qualifiers: Altered mental status type: disorientation Qualified Code(s): R41.0 - Disorientation, unspecified (3) UTI (urinary tract infection) Code(s): N39.0 - URINARY TRACT INFECTION, SITE NOT SPECIFIED (4) Dementia Code(s): F03.90 - UNSPECIFIED DEMENTIA WITHOUT BEHAVIORAL DISTURBANCE Qualifiers: Dementia type: Alzheimer's disease Dementia behavioral disturbance: with behavioral disturbance (5) HTN (hypertension) Code(s): I10 - ESSENTIAL (PRIMARY) HYPERTENSION Qualifiers: Hypertension type: essential hypertension Qualified Code(s): I10 - Essential (primary) hypertension (6) Afib Code(s): I48.91 - UNSPECIFIED ATRIAL FIBRILLATION Qualifiers: Atrial fibrillation type: chronic Qualified Code(s): I48.2 - Chronic atrial fibrillation (7) Frequent falls Code(s): R29.6 - REPEATED FALLS (8) Anemia Code(s): D64.9 - ANEMIA, UNSPECIFIED Qualifiers: Anemia type: iron deficiency (9) COPD (chronic obstructive pulmonary disease) Code(s): J44.9 - CHRONIC OBSTRUCTIVE PULMONARY DISEASE, UNSPECIFIED (10) Hematuria Code(s): R31.9 - HEMATURIA, UNSPECIFIED plan nutrition continue current mgmt awaiting for placement clinically patient doing well
--- NOTE | 2017-10-14 00:14 | PN ---
Progress Note, Physician Chief Complaint: Remained febrile, hemodynamically stable and confused, on comfort care - Current Medication List Current Medications: Active Medications Acetaminophen (Tylenol -) 650 mg PO Q6H PRN PRN Reason: PAIN LEVEL 6-10 Last Admin: 10/12/17 10:04 Dose: 650 mg Donepezil HCl (Aricept -) 10 mg PO DAILY [facility] Last Admin: 10/13/17 10:55 Dose: 10 mg Nystatin (Nystop Powder -) 1 applic TP DAILY [facility] Last Admin: 10/13/17 13:06 Dose: 1 applic Olanzapine (Zyprexa -) 2.5 mg PO BID [facility] Last Admin: 10/13/17 22:25 Dose: 2.5 mg Ranitidine HCl (Zantac -) 150 mg PO DAILY [facility] Last Admin: 10/13/17 10:55 Dose: 150 mg - Objective Vital Signs: Vital Signs Temperature 97.2 F L 10/13/17 22:00 Pulse Rate 60 10/13/17 22:00 Respiratory Rate 18 10/13/17 22:00 Blood Pressure 124/78 10/13/17 22:00 O2 Sat by Pulse Oximetry (%) 98 10/13/17 09:00 Elderly man looks confused, not in distress HEENT: Mm moist, mild anemia. 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 Labs: CBC, BMP 09/18/17 06:25 09/18/17 06:25 INR, PTT INR Cancelled 09/11/17 17:03 Problem List - Problems (1) Afib Assessment/Plan: H/O Chronic afib on AC , episodes of bradycardia woff B Blockers Code(s): I48.91 - UNSPECIFIED ATRIAL FIBRILLATION Qualifiers: Atrial fibrillation type: chronic Qualified Code(s): I48.2 - Chronic atrial fibrillation (2) HTN (hypertension) Code(s): I10 - ESSENTIAL (PRIMARY) HYPERTENSION Qualifiers: Hypertension type: essential hypertension Qualified Code(s): I10 - Essential (primary) hypertension (3) COPD (chronic obstructive pulmonary disease) Assessment/Plan: Stable cont current Nebs treatment. Code(s): J44.9 - CHRONIC OBSTRUCTIVE PULMONARY DISEASE, UNSPECIFIED (4) Anemia Assessment/Plan: Chronic H/H are stable Code(s): D64.9 - ANEMIA, UNSPECIFIED Qualifiers: Anemia type: iron deficiency (5) Dementia Assessment/Plan: Chronic at present no agitation. Code(s): F03.90 - UNSPECIFIED DEMENTIA WITHOUT BEHAVIORAL DISTURBANCE Qualifiers: Dementia type: Alzheimer's disease Dementia behavioral disturbance: with behavioral disturbance (6) Comfort measures only status Assessment/Plan: F/U Pallitive care recommondations Code(s): Z51.5 - ENCOUNTER FOR PALLIATIVE CARE
[2017-10-14] MEDS: OLANZapine 2.5 MG TABLET PO SCH (09:16)
[2017-10-14] MEDS: DONEPEZIL HCL 10 MG TABLET (FP) PO SCH (09:16)
[2017-10-14] MEDS: NYSTATIN POWDER 100,000 UNITS/GM - 15 GM TOPICAL POWDER TP SCH (09:16)
[2017-10-14] MEDS: RANITIDINE HCL 150 MG TABLET (FP) PO SCH (09:16)
--- NOTE | 2017-10-14 09:35 | PN ---
Progress Note, Physician Chief Complaint: Pt lying in bed in no acute distress, lethargic, shows no signs of agitation. - Current Medication List Current Medications: Active Medications Acetaminophen (Tylenol -) 650 mg PO Q6H PRN PRN Reason: PAIN LEVEL 6-10 Last Admin: 10/12/17 10:04 Dose: 650 mg Donepezil HCl (Aricept -) 10 mg PO DAILY [facility] Last Admin: 10/14/17 09:16 Dose: 10 mg Nystatin (Nystop Powder -) 1 applic TP DAILY [facility] Last Admin: 10/14/17 09:16 Dose: 1 applic Olanzapine (Zyprexa -) 2.5 mg PO BID [facility] Last Admin: 10/14/17 09:16 Dose: 2.5 mg Ranitidine HCl (Zantac -) 150 mg PO DAILY [facility] Last Admin: 10/14/17 09:16 Dose: 150 mg - Objective Vital Signs: Vital Signs Temperature 98.0 F 10/14/17 06:00 Pulse Rate 91 H 10/14/17 06:00 Respiratory Rate 20 10/14/17 06:00 Blood Pressure 128/64 10/14/17 06:00 O2 Sat by Pulse Oximetry (%) 95 10/13/17 21:00 Constitutional: Yes: No Distress, Calm, Thin Cardiovascular: Yes: Pulse Irregular Respiratory: Yes: Regular, Diminished. No: Rhonchi, SOB, Tachypnea, Wheezes Gastrointestinal: Yes: WNL, Normal Bowel Sounds, Soft. No: Distention, Tenderness Genitourinary: Yes: Incontinence Edema: No Neurological: Yes: Confusion, Lethargy Labs: CBC, BMP 09/18/17 06:25 09/18/17 06:25 INR, PTT INR Cancelled 09/11/17 17:03 Problem List - Problems (1) Bradycardia Code(s): R00.1 - BRADYCARDIA, UNSPECIFIED (2) Altered mental status Code(s): R41.82 - ALTERED MENTAL STATUS, UNSPECIFIED Qualifiers: Altered mental status type: disorientation Qualified Code(s): R41.0 - Disorientation, unspecified (3) UTI (urinary tract infection) Code(s): N39.0 - URINARY TRACT INFECTION, SITE NOT SPECIFIED (4) Dementia Code(s): F03.90 - UNSPECIFIED DEMENTIA WITHOUT BEHAVIORAL DISTURBANCE Qualifiers: Dementia type: Alzheimer's disease Dementia behavioral disturbance: with behavioral disturbance (5) HTN (hypertension) Code(s): I10 - ESSENTIAL (PRIMARY) HYPERTENSION Qualifiers: Hypertension type: essential hypertension Qualified Code(s): I10 - Essential (primary) hypertension (6) Afib Code(s): I48.91 - UNSPECIFIED ATRIAL FIBRILLATION Qualifiers: Atrial fibrillation type: chronic Qualified Code(s): I48.2 - Chronic atrial fibrillation (7) Frequent falls Code(s): R29.6 - REPEATED FALLS (8) Anemia Code(s): D64.9 - ANEMIA, UNSPECIFIED Qualifiers: Anemia type: iron deficiency (9) COPD (chronic obstructive pulmonary disease) Code(s): J44.9 - CHRONIC OBSTRUCTIVE PULMONARY DISEASE, UNSPECIFIED (10) Hematuria Code(s): R31.9 - HEMATURIA, UNSPECIFIED (11) Acute metabolic encephalopathy Code(s): G93.41 - METABOLIC ENCEPHALOPATHY (12) Severe protein-calorie malnutrition Code(s): E43 - UNSPECIFIED SEVERE PROTEIN-CALORIE MALNUTRITION Assessment/Plan Comfort measures per family. pt appears comfortable, off restraints. vitals q shift. Palliative team following. pending placement
[2017-10-14] MEDS ORDERED: LORazepam 0.5 MG TABLET PO PRN (10:07)
--- NOTE | 2017-10-14 12:44 | PN ---
Progress Note, Physician History of Present Illness: no events - Current Medication List Current Medications: Active Medications Acetaminophen (Tylenol -) 650 mg PO Q6H PRN PRN Reason: PAIN LEVEL 6-10 Last Admin: 10/12/17 10:04 Dose: 650 mg Donepezil HCl (Aricept -) 10 mg PO DAILY [facility] Last Admin: 10/14/17 09:16 Dose: 10 mg Lorazepam (Ativan -) 0.25 mg PO TID PRN PRN Reason: ANXIETY Nystatin (Nystop Powder -) 1 applic TP DAILY [facility] Last Admin: 10/14/17 09:16 Dose: 1 applic Olanzapine (Zyprexa -) 2.5 mg PO BID [facility] Last Admin: 10/14/17 09:16 Dose: 2.5 mg Ranitidine HCl (Zantac -) 150 mg PO DAILY [facility] Last Admin: 10/14/17 09:16 Dose: 150 mg - Objective Vital Signs: Vital Signs Temperature 97.8 F 10/14/17 09:00 Pulse Rate 83 10/14/17 09:00 Respiratory Rate 20 10/14/17 09:00 Blood Pressure 111/73 10/14/17 09:00 O2 Sat by Pulse Oximetry (%) 95 10/14/17 09:00 Constitutional: Yes: No Distress, Calm Cardiovascular: Yes: S1, S2 Respiratory: Yes: Regular, CTA Bilaterally Gastrointestinal: Yes: Normal Bowel Sounds, Soft Musculoskeletal: Yes: WNL Extremities: Yes: WNL Neurological: Yes: Alert Psychiatric: Yes: Alert Labs: CBC, BMP 09/18/17 06:25 09/18/17 06:25 INR, PTT INR Cancelled 09/11/17 17:03 Assessment/Plan patient with positive uti also chances of aspiration pna high Problem List - Problems (1) Bradycardia Code(s): R00.1 - BRADYCARDIA, UNSPECIFIED (2) Altered mental status Code(s): R41.82 - ALTERED MENTAL STATUS, UNSPECIFIED Qualifiers: Altered mental status type: disorientation Qualified Code(s): R41.0 - Disorientation, unspecified (3) UTI (urinary tract infection) Code(s): N39.0 - URINARY TRACT INFECTION, SITE NOT SPECIFIED (4) Dementia Code(s): F03.90 - UNSPECIFIED DEMENTIA WITHOUT BEHAVIORAL DISTURBANCE Qualifiers: Dementia type: Alzheimer's disease Dementia behavioral disturbance: with behavioral disturbance (5) HTN (hypertension) Code(s): I10 - ESSENTIAL (PRIMARY) HYPERTENSION Qualifiers: Hypertension type: essential hypertension Qualified Code(s): I10 - Essential (primary) hypertension (6) Afib Code(s): I48.91 - UNSPECIFIED ATRIAL FIBRILLATION Qualifiers: Atrial fibrillation type: chronic Qualified Code(s): I48.2 - Chronic atrial fibrillation (7) Frequent falls Code(s): R29.6 - REPEATED FALLS (8) Anemia Code(s): D64.9 - ANEMIA, UNSPECIFIED Qualifiers: Anemia type: iron deficiency (9) COPD (chronic obstructive pulmonary disease) Code(s): J44.9 - CHRONIC OBSTRUCTIVE PULMONARY DISEASE, UNSPECIFIED (10) Hematuria Code(s): R31.9 - HEMATURIA, UNSPECIFIED assessment and plan Problem List - Problems (1) Bradycardia Code(s): R00.1 - BRADYCARDIA, UNSPECIFIED (2) Altered mental status Code(s): R41.82 - ALTERED MENTAL STATUS, UNSPECIFIED Qualifiers: Altered mental status type: disorientation Qualified Code(s): R41.0 - Disorientation, unspecified (3) UTI (urinary tract infection) Code(s): N39.0 - URINARY TRACT INFECTION, SITE NOT SPECIFIED (4) Dementia Code(s): F03.90 - UNSPECIFIED DEMENTIA WITHOUT BEHAVIORAL DISTURBANCE Qualifiers: Dementia type: Alzheimer's disease Dementia behavioral disturbance: with behavioral disturbance (5) HTN (hypertension) Code(s): I10 - ESSENTIAL (PRIMARY) HYPERTENSION Qualifiers: Hypertension type: essential hypertension Qualified Code(s): I10 - Essential (primary) hypertension (6) Afib Code(s): I48.91 - UNSPECIFIED ATRIAL FIBRILLATION Qualifiers: Atrial fibrillation type: chronic Qualified Code(s): I48.2 - Chronic atrial fibrillation (7) Frequent falls Code(s): R29.6 - REPEATED FALLS (8) Anemia Code(s): D64.9 - ANEMIA, UNSPECIFIED Qualifiers: Anemia type: iron deficiency (9) COPD (chronic obstructive pulmonary disease) Code(s): J44.9 - CHRONIC OBSTRUCTIVE PULMONARY DISEASE, UNSPECIFIED (10) Hematuria Code(s): R31.9 - HEMATURIA, UNSPECIFIED plan nutrition continue current mgmt awaiting for placement clinically patient doing well
[2017-10-14 16:56] VITALS: BP 121/85; PULSE 73; TEMP 97.7
--- NOTE | 2017-10-14 18:06 | HOSP ---
Subjective - Review of Symptoms Events since last encounter: note: Called by primary RN to come evaluate patient for unresponsiveness On exam, patient did not respond to verbal or tactili stimuli. Absent heart and breath sounds Absent peripheral pulses Pupils fixed pronounced on 10/14/2017 at 1750 (5:50pm) Primary care physician SHIFT SUPERVISOR RN Linette Lee informed, she will inform Dr. Capone Nursing supervisor home economics informed Family informed I called next of kin per medical record Jordan Duran (son) and informed him of . As per son, he will inform home ([facility]) Kasie Villalobos NP [phone] [facility] Physical Examination Vital Signs: Vital Signs Temperature 97.7 F 10/14/17 16:53 Pulse Rate 73 10/14/17 16:53 Respiratory Rate 18 10/14/17 16:53 Blood Pressure 121/85 10/14/17 16:53 O2 Sat by Pulse Oximetry (%) 95 10/14/17 09:00 Labs: CBC, BMP 09/18/17 06:25 09/18/17 06:25
--- NOTE | 2017-10-15 12:46 | DS ---
Physical Examination Vital Signs: Vital Signs Temperature 97.7 F 10/14/17 16:53 Pulse Rate 73 10/14/17 16:53 Respiratory Rate 18 10/14/17 16:53 Blood Pressure 121/85 10/14/17 16:53 O2 Sat by Pulse Oximetry (%) 95 10/14/17 09:00 Findings/Remarks: Pt pronounced 5:50pm 10/15/2017. PE findings per previous note from my last visit with the pt Labs: CBC, BMP 09/18/17 06:25 09/18/17 06:25 Discharge Summary Reason For Visit: SEPSIS DUE TO UTI/BRADYCARDIA Hospital Course: was a 89 year old male pmh sig for end stage dementia who was brought in from SNF for increased agitation. Pt found to be bradycardic and with a UTI. He was successfully treated for the UTI by ID. Cardiology was consulted for bradycardia without further intervention. However, he deteriorated with time with very poor po intake, confusion. Pt made DNR/DNI per family and was maintained on comfort measures per family. He was awaiting hospice placement. I saw him and evaluated him everyday and he was comfortable throughout my visits. Condition: - Instructions Diet, Activity, Other Instructions: activity as tolerated dysphagia chopped diet, thin liquids please encourage po comfort measures per family wishes Referrals: Jerel Bartlett MD [Primary Care Provider] - 1 Week Disposition: - Home Medications Comprehensive Discharge Medication List: Ambulatory Orders Acetaminophen 325 mg PO PRN PRN 09/12/17 Famotidine 20 mg PO DAILY 09/12/17 Donepezil HCl [Aricept -] 10 mg PO DAILY tablet 09/17/17 Olanzapine [Zyprexa -] 2.5 mg PO BID tablet 09/17/17 Donepezil HCl [Aricept -] 10 mg PO DAILY tablet 09/29/17 Olanzapine [Zyprexa -] 2.5 mg PO BID tablet 09/29/17
== END 2017-10-14 17:50 | disposition expired | DRG 884 ==
LOC: JER 17:02 → JERBED 23:07 → J4W 09-12 16:44 → J7W 09-21 09:08
PROVIDERS: ADMIT Internal Medicine; ATTEND Nurse Practitioner Family
DX: F03.91 Unspecified dementia, unspecified severity, with behavioral disturbance (principal); J18.9 Pneumonia, unspecified organism; E43 Unspecified severe protein-calorie malnutrition; G93.41 Metabolic encephalopathy; N39.0 Urinary tract infection, site not specified; R00.1 Bradycardia, unspecified; J44.9 Chronic obstructive pulmonary disease, unspecified; I11.0 Hypertensive heart disease with heart failure; I50.9 Heart failure, unspecified; I48.91 Unspecified atrial fibrillation; R31.9 Hematuria, unspecified; Z68.20 Body mass index [BMI] 20.0-20.9, adult; Z86.73 Personal history of transient ischemic attack (TIA), and cerebral infarction without residual deficits; Z75.1 Person awaiting admission to adequate facility elsewhere; R29.6 Repeated falls; D50.9 Iron deficiency anemia, unspecified
CPT/HCPCS: 36415; 70450-TC; 71045-TC-FY; 80048; 80053; 81003; 81015; 82550; 82553; 82803; 82962; 83605; 83735; 84100; 84443; 84484; 85025; 86850; 86900; 86901; 87040; 87086; 87186; 87324; 87449; 87804; 87899; 93005; 93010; 93306-TC; 97116-GP; 97161-GP; 99285-25; J1644